=== PATIENT | female | born 1980 | race African-American/Black ===

== ENCOUNTER 2017-03-26 12:42 | Observation (INO) | payer OTHER ==
[~2017-03-26] VITALS: Ht 188 cm; Wt 158.8 kg
[~2017-03-26 12:42] MED LIST: AMLO10TA2 PO; ASPI-482 PO; CARV6.252 PO; CLON0.2T PO; CRESTOR10 MG PO; FURO40TA4 PO; HYDR-2868 PO; INSU100C4 SQ; INSU100I17 SQ; INSU300I SQ; INSULIN ASPART 300 UNITS/3 ML INSULN.PEN SQ SCH; METO100T2 PO; RANI150C PO
[2017-03-26] MEDS ORDERED: IV NORMAL SALINE 1000ML BAG 1,000 ML IV SCH (12:47)
[2017-03-26] MEDS ORDERED: ASPIRIN CHEWABLE 81 MG TABLET. PO ONE (13:00)
[2017-03-26] MEDS ORDERED: fentaNYL PF VIAL 100 MCG/2 ML VIAL IV PRN ×2 (13:00→14:45)
[2017-03-26] MEDS ORDERED: 0.9 % SODIUM CHLORIDE 10 ML DISP.SYRIN. IV PRN (13:00)
--- NOTE | 2017-03-26 13:08 | PHYS DOC ---
Past Medical History Past Medical History: CHF, Diabetes-Type I, Hypertension Additional Past Medical Histor: STAGE 4 KIDNEY DISEASE, SEASONAL ALLERGIES Past Surgical History: Other Additional Past Surgical Histo: HERNIA REPAIR Alcohol Use: None Drug Use: None Adult General Chief Complaint Chief Complaint: CHEST PAIN [facility] This is is a pleasant 36-year-old female with a known history of hyperlipidemia , hypertension, renal insufficiency presents with chest pain reminiscent of her prior acute heart attack she had last year. She is presently under the care of Dr. RAMOS hide washer here at [facility] is also to the care of Dr. BECERRA modeling and simulation analyst here at [facility]. Her chest pain began about an hour prior to arrival described as squeezing pressure over the left breast with radiation to the left shoulder and left arm and going into the back. It does make her very nauseous and dizzy when she has he symptoms. Pain is not worse with exertion or position disc to Began at Rest While Watching a Rerun of TV show. She admits she had an episode last week Wednesday similar nature she took her nitroglycerin and aspirin and went away with rest. She is concerned that she is having another heart attack. Given her prior history she is very sensitive to chest pain I will come and which she has. This point patient patient's pain is 10 of 10 with no vomiting no diarrhea no shortness of breath no diaphoresis. Patient denies any cough or URI symptoms runny nose sore throat or other symptoms. Patient has had prior cardiac intervention with no stents placed according to her history she's had a prior stroke in 2005 with no significant residual deficits. Dr. Monson is PCP. Review of Systems Review of Systems Constitutional: Denies fever or chills [] Eyes: Denies change in visual acuity, redness, or eye pain [] HENT: Denies nasal congestion or sore throat [] Respiratory: Denies cough or shortness of breath [] Cardiovascular: No additional information not addressed in HPI [] GI: Mild nausea with constipation no vomiting diarrhea or blood in her stool. : Denies dysuria or hematuria [] Musculoskeletal: Denies back pain or joint pain [] Integument: Denies rash or skin lesions [] Neurologic: Denies headache, she complains of dizziness has been going on for 3 days without symptoms and dizziness today with chest pain Endocrine: Denies polyuria or polydipsia [] Current Medications Current Medications Current Medications Medications (Trade) Dose Ordered Sig/Allyn Start Time Stop Time Status Last Admin Dose Admin Aspirin (Children'S Aspirin) 324 mg 1X ONCE 03/26/17 13:00 03/26/17 13:01 DC 03/26/17 13:19 324 MG Fentanyl Citrate (Fentanyl 2ml Vial) 50 mcg PRN Q15MIN PRN 03/26/17 13:00 03/27/17 12:59 Sodium Chloride (Normal Saline Flush) 10 ml QSHIFT PRN 03/26/17 13:00 Allergies Allergies Allergies Coded Allergies Type Severity Reaction Last Updated Verified codeine Allergy Intermediate 01/24/16 Yes Physical Exam Physical Exam Constitutional: Well developed, well nourished, obese no acute distress nontoxic. Nondiaphoretic HENT: Normocephalic, atraumatic, bilateral external ears normal, oropharynx moist, no oral exudates, nose normal. [] Eyes: PERRLA, EOMI, conjunctiva normal, no discharge. [] Neck: Normal range of motion, no tenderness, supple, no stridor. [] Cardiovascular:Heart rate regular rhythm, no murmur [] Lungs & Thorax: Bilateral breath sounds clear to auscultation [] Abdomen: Bowel sounds normal, soft, no tenderness, no masses, no pulsatile masses. [] Skin: Warm, dry, no erythema, no rash. [] Back: No tenderness, no CVA tenderness. [] Extremities: No tenderness, no cyanosis, no clubbing, ROM intact, no edema. [] Neurologic: Alert and oriented X 3, normal motor function, normal sensory function, no focal deficits noted. [] Psychologic: Affect normal, judgement normal, mood normal. [] Current Patient Data Vital Signs Vital Signs Date Time Temp Pulse Resp B/P (MAP) Pulse Ox O2 Delivery O2 Flow Rate FiO2 03/26/17 14:25 78 137/84 (101) 98 03/26/17 12:51 99.5 18 Room Air 99.5 Lab Values Laboratory Tests Test 03/26/17 13:25 03/26/17 13:27 White Blood Count 5.8 x10^3/uL (4.0-11.0) Red Blood Count 3.93 x10^6/uL (3.50-5.40) Hemoglobin 11.4 g/dL (12.0-15.5) L Hematocrit 31.3 % (36.0-47.0) L Mean Corpuscular Volume 80 fL (79-100) Mean Corpuscular Hemoglobin 29 pg (25-35) Mean Corpuscular Hemoglobin Concent 36 g/dL (31-37) Red Cell Distribution Width 14.1 % (11.5-14.5) Platelet Count 302 x10^3/uL (140-400) Neutrophils (%) (Auto) 46 % (31-73) Lymphocytes (%) (Auto) 40 % (24-48) Monocytes (%) (Auto) 10 % (0-9) H Eosinophils (%) (Auto) 3 % (0-3) Basophils (%) (Auto) 1 % (0-3) Neutrophils # (Auto) 2.7 x10^3uL (1.8-7.7) Lymphocytes # (Auto) 2.3 x10^3/uL (1.0-4.8) Monocytes # (Auto) 0.6 x10^3/uL (0.0-1.1) Eosinophils # (Auto) 0.2 x10^3/uL (0.0-0.7) Basophils # (Auto) 0.1 x10^3/uL (0.0-0.2) D-Dimer (Praveena) < 0.27 ug/mlFEU Magnesium Level 1.8 mg/dL (1.8-2.4) Creatine Kinase 152 U/L (26-192) Creatine Kinase MB (Mass) 1.5 ng/mL (0.0-3.6) Creatine Kinase MB Relative Index 1.0 % (0-4) Troponin I Quantitative < 0.017 ng/mL (0.000-0.055) XB-Lkw-D-Type Natriuretic Peptide 246 pg/mL (0-124) H Lipase 123 U/L (73-393) Thyroid Stimulating Hormone (TSH) 2.065 uIU/mL (0.358-3.74) POC Urine HCG, Qualitative Hcg negative (Negative) Laboratory Tests 03/26/17 13:25 EKG EKG [EKG timed 1252 read by [employer] heart rate 91. Normal of 124 QRS of 72 QTc of 432 normal sensory rhythm there is a questionable T wave flattening in the inferior leads obvious ST segment elevation consistent with acute coronary ischemia.] Radiology/Procedures Radiology/Procedures [] IMAGING REPORT Signed PATIENT: EVER MUNOZ ACCOUNT: [id number] : 1980 LOCATION: ER AGE: 36 SEX: F EXAM STATUS: PRE ER ORD. PHYSICIAN: WATSON OSBORN MD REASON: chest pain PROCEDURE: CHEST PA & LATERAL Indication chest pain. Frontal and lateral views of the chest were obtained and are compared to an exam 01/24/2016. The heart and pulmonary vessels are normal. The lungs are clear. There is no pleural fluid or pneumothorax. Scoliosis is noted. IMPRESSION: No acute or focal process is seen in the chest DICTATED and SIGNED BY: JOSEPH AGUSTIN MD DATE: 03/26/17 1319 CC: JUN MONSON; WATSON OSBORN MD ~ Chest x-ray reviewed by me agree with above assessment Course & Med Decision Making Course & Med Decision Making Pertinent Labs and Imaging studies reviewed. (See chart for details) [] My differential diagnosis for chest pain includes the following considerations : Acute coronary syndrome, Aortic dissection, Pulmonary embolism, Tension pneumothorax, Pericardial tamponade, Mediastinitis (eg, esophageal rupture) Pulmonary effusion, pneumonia, tracheitis, bronchitis, chest wall pain from muscle tenderness, Mitral prolapse or other valvular disorders pericarditis, myocarditis, endocarditis, cardiac dysrhythmias, rib contusions, rib fractures, intracostal muscle strains, prostatitis, psychiatric chest pain unclear etiology , collagen vascular disease lupus, sarcoid, scleroderma, Kawasaki's disease, probably enteritis nodosa, like peptic ulcer disease, esophageal reflux disease , esophagitis, Boerhaave syndrome. This list is not complete but some of the major considerations that were used during this evaluation Patient presents with chest pain that began hour prior to arrival and later lightheaded and dizzy with nausea without vomiting. She has a history of acute coronary ischemia hypertension for which her symptoms are actually high risk her heart score is 4 which which are intermediate risk for acute coronary event. Patient be admitted to the hospital under PCP service Dr. Luis Angel Sandoval who is covering for her doctor Dr. MONSON. She does have a relationship with a hide washer who will be consult as well. Over the course of her evaluation patient's pain is improved articles of the normal EKGs are unremarkable chest x- ray is unremarkable dimer is negative perc negative doubt pulmonary embolism Impression: Chest pain unclear etiology Disposition admission in the hospital for rule out protocol exercise stress testing treadmill test cardiology evaluation Dragon Disclaimer Dragon Disclaimer This electronic medical record was generated, in whole or in part, using a voice recognition dictation system. Departure Departure Impression: Primary Impression: Chest pain Disposition: 02 TRANSFER [facility] HOSP Admitting Physician: Paula Sandoval Condition: IMPROVED Referrals: JUN MONSON (PCP) WATSON OSBORN MD March 26, 2017 13:08
--- NOTE | 2017-03-26 13:23 | RAD ---
Indication chest pain. Frontal and lateral views of the chest were obtained and are compared to an exam 01/24/2016. The heart and pulmonary vessels are normal. The lungs are clear. There is no pleural fluid or pneumothorax. Scoliosis is noted. IMPRESSION: No acute or focal process is seen in the chest
[2017-03-26 13:36] LABS: BASO # 0.1 x10^3/uL (0.0-0.2); BASO % 1 % (0-3); EOS % 3 % (0-3); HEMATOCRIT 31.3 % (36.0-47.0); HEMOGLOBIN 11.4 g/dL (12.0-15.5); LYMPH # 2.3 x10^3/uL (1.0-4.8); LYMPH % 40 % (24-48); MEAN CORPUSCULAR HEMOGLOBIN 29 pg (25-35); MEAN CORPUSCULAR HGB CONC 36 g/dL (31-37); MEAN CORPUSCULAR VOLUME 80 fL (79-100); MONO % 10 % (0-9); NEUT % 46 % (31-73); PLATELET COUNT 302 x10^3/uL (140-400); RED BLOOD COUNT 3.93 x10^6/uL (3.50-5.40); RED CELL DISTRIBUTION WIDTH 14.1 % (11.5-14.5); WHITE BLOOD COUNT 5.8 x10^3/uL (4.0-11.0)
--- NOTE | 2017-03-26 13:43 | EKG ---
[facility] [address] [place] [address] Test Date: 2017-03-26 Test Time: 12:52:32 Pat Name: EVER MUNOZ Department: Room: Gender: Female Equip Tech: : 1980 Requested By: WATSON OSBORN Order Number: [id number] Reading MD: Edward Asif Measurements Intervals [place] Rate: 91 P: -38 MS: 124 QRS: 37 QRSD: 72 T: 28 QT: 350 QTc: 432 Interpretive Statements SINUS RHYTHM Electronically Signed On 03-29-2017 9:37:47 CDT by Edward Asif
[2017-03-26 13:52] LABS: MAGNESIUM 1.8 mg/dL (1.8-2.4)
[2017-03-26 14:03] LABS: CKMB MASS 1.5 ng/mL (0.0-3.6)
[2017-03-26 14:30] LABS: BILIRUBIN,URINE NEGATIVE (NEG); GLUCOSE,URINE NEGATIVE (NEG); NITRITE,URINE NEGATIVE (NEG); PROTEIN,URINE >=300 mg/dL (NEG-TRACE); UROBILINOGEN,URINE 0.2 mg/dL (0.2 mg/dL)
[2017-03-26 14:38] LABS: BACTERIA,URINE 0 /HPF (0-FEW); RBC,URINE OCC /HPF (0-2); SQUAMOUS EPITHELIAL CELL,UR MOD /LPF; WBC,URINE OCC /HPF (0-4)
[2017-03-26] MEDS ORDERED: ONDANSETRON PF 4 MG/2 ML VIAL. IV PRN (14:45)
--- NOTE | 2017-03-26 15:05 | ACF ---
Admission Forms Criteria CARDIOLOGY GRG Clinical Indications for Admission to Inpatient Care ( Place 'X' for any and all applicable criteria): Hospital admission is needed for appropriate care of the patient because of ANY ONE of the following (1): [ ] I. Hemodynamic instability as indicated by ALL of the following (1)(2)(3) (4)(5) [ ]a) Vital signs or other findings not as expected for chronic patient condition or baseline [ ]b) Instability indicated by ANY ONE of the following: [ ]i) Hypotension [ ]ii) Symptomatic Tachycardia unresponsive to treatment ( e.g., analgesia, fluids, sedation as indicated) [ ]iii) Inadequate perfusion indicated by ANY ONE of the following: [ ] 1) Lactic acidosis (> 2 mmol/L) [ ] 2) New abnormal capillary refill (> 3 seconds) [ ] 3) Reduced urine output [ ] 4) New altered mental status [ ]iv) Orthostatic vital sign changes unresponsive to treatment (e.g., fluids) [ ]v) IV inotropic or vasopressor medication required to maintain adequate blood pressure or perfusion [ ] II. Severe heart failure as indicated by ANY ONE of the following(17)(18) [ ]a) Respiratory distress [ ]b) Hypotension [ ]c) Anasarca (refractory to outpatient therapy) [ ]d) Cardiac arrhythmias of immediate concern [ ]e) Myocardial ischemia [ ] III. Cardiac arrhythmias or findings of immediate concern indicated by ANY ONE of the following (19)(20): [ ] a) Heart rhythms that are inherently dangerous or unstable indicated by ANY ONE of the following (21)(22)(23): [ ] i) Resuscitated ventricular fibrillation or cardiac arrest [ ] ii) Ventricular escape rhythm [ ] iii) Sustained ventricular tachycardia (30 seconds or more of ventricular rhythm at greater than 100 beats per minute) [ ] iv) Nonsustained ventricular tachycardia and ANY ONE of the following: [ ] 1) Suspected cardiac ischemia as cause or consequence of ventricular tachycardia [ ] 2) In setting of acute myocarditis [ ] b) Unstable cardiac conduction defects indicated by ANY ONE of the following(23)(24)(25) [ ] i) Type II second-degree atrioventricular block [ ]ii) Third-degree atrioventricular block [ ]iii) New-onset left bundle branch block with suspected myocardial ischemia [ ]c) Any heart rhythm and ANY ONE of the following (21)(22)(26)(27) (28) [ ] i) Continuous long-term ECG monitoring needed (e.g., initiation of drug requiring monitoring for more than 24 hours) [ ] ii) Patient has automatic implanted cardioverter defibrillator that is repeatedly firing, malfunctioning, or in need of immediate adjustment of settings beyond the scope of ambulatory or observation care [ ]d) Heart rhythms of concern due to ANY ONE of the following: [ ] i) Hypotension [ ] ii) Respiratory distress [ ] iii) Association with other significant symptoms (e.g., bradycardia with syncope or ongoing dizziness, supraventricular tachycardia with chest pain (14)(15)(17) [ ] IV. Monitoring for cardiac contusion beyond the scope of observation care needed [A](30)(31)(32) [ ] V. Surgical or device complication (e.g., valve replacement complication , pacemaker dysfunction) (35)(41)(44)(45)(46) [ ] . Inpatient palliative care needed. [B](49) Also use Inpatient Palliative Care Criteria [ ] VII. Nonbacterial thrombotic (marantic) endocarditis (36)(43)(47)(48) [X] VIII. Cardiology condition, symptom, or finding for which emergency and observation care has failed or are not considered appropriate. [ ] IX. Acute valvular disease requiring inpatient as indicated by ANY ONE of the following (41) [ ]a) Acute valvular regurgitation (42) [ ]b) Noninfectious valvulitis (43) [ ]c) Obstructive valve thrombosis [ ]d) Paravalvular leak [ ]e) Other significant valvular disorder remaining after emergency or observation level of care (as appropriate) [ ]X. Pericardial disease requiring inpatient treatment as indicated by ANY ONE of the following (33)(34)(35)(36)(37) [ ]a) Suspected tamponade (38)(39)(40) [ ]b) Hemopericardium [ ]c) Other significant pericardial disorder remaining after emergency or observation level of care (as appropriate) [ ] XI. Cardiac ischemia beyond scope of emergency and observation care. [ ] XII. Hypertension requiring inpatient treatment as indicated by ANY ONE of the following (6)(7)(8) [ ]a) SBP greater than 220 mm Hg or DBP greater than 120 mmHg despite treatment [ ]b) SBP greater than 140 mm Hg or DBP greater than 100 mm Hg with evidence of acute end organ damage as indicated by ANY ONE of the following [ ] i) Encephalopathy [ ] ii) Acute renal failure as indicated by new onset of ANY ONE of the following (9)(10)(11)(12)(13) [ ]1) 3-fold rise in serum creatinine from baseline [ ]2) Serum creatinine greater than 4 mg/dL ( 354 micromoles/L) with acute rise greater than 0.5 mg/dL (44.2 micromoles/L) [ ]3) Reduction of more than 75% in estimated glomerular filtration rate from baseline [ ]4) Estimated glomerular filtration rate less than 35 mL/min/1.73m2 (0.59 mL/sec/1.73m2) in child up to 18 years of age [ ]5) Cessation of urine output indicated by ALL of the following [ ]A. Adequate volume status [ ]B. Inadequate urine output as indicated by ANY ONE of the following [ ]a. Urine output less than 0.3 mL/kg/hr for 24 hours [ ]b. Anuria (urine output less than 0.1 mL/kg/hr) for 12 hours [ ] iii) Aortic dissection [ ] iv) Myocardial Ischemia [ ] v) Left ventricular heart failure [ ]vi) Retinal Hemorrhage [ ]vii) Other significant finding [ ]c) Hypertension in child requiring inpatient treatment as indicated by ALL of the following(14)(15)(16) [ ] i) Outpatient treatment not effective, not available, or not appropriate [ ]ii) SBP or DBP greater than 95th percentile for age [ ]iii) Evidence of acute end organ damage as indicated by ANY ONE of the following [ ]1) Altered mental status [ ]2) Acute renal failure as indicated by new onset of ANY ONE of the following(9)(10)(11)(12)(13) [ ]A. 3-fold rise in serum creatinine from baseline [ ]B. Serum creatinine greater than 4 mg/dL (354 micromoles/L) with acute rise greater than 0.5 mg/dL (44.2 micromoles/L) [ ]C. Reduction of more than 75% in estimated glomerular filtration rate from baseline [ ]D. Estimated glomerular filtration rate less than 35 mL/min/1.73m2 (0.59 mL/sec/1.73m2) in child up to 18 years of age [ ]E. Cessation of urine output indicated by ALL of the following [ ]a. Adequate volume status [ ]b. Inadequate urine output as indicated by ANY ONE of the following [ ]i) Urine output less than 0.3 mL/kg/hr for 24 hours [ ]ii) Anuria ( urine output less than 0.1 mL/kg/hr) for 12 hours [ ]3) Severe headache [ ]4) Visual disturbance [ ]5) Retinal hemorrhage [ ]6) Other significant finding [ ]XIII. Complications of transplanted heart indicated by ANY ONE of the following(61): [ ]a) Acute graft rejection requiring inpatient management (eg, intravenous immunosuppression)(62)(63) [ ]b) Acute graft heart failure indicated by ANY ONE of the following(64): [ ]i) Hemodynamic instability [ ]ii) Cardiac arrhythmias of immediate concern [ ]iii) Pulmonary edema that is very severe (eg, mechanical ventilation needed, imminent or likely, need for 100% oxygen to keep oxygen saturation above 90%) [ ]iv) Pulmonary edema that is persistent as indicated by ALL of the following: [ ]1) New need for oxygen therapy to keep oxygen saturation above 90% (or increased FiO2 need from baseline) [ ]2) Has not improved sufficiently with emergency department or observation care IV diuretics or other heart failure treatments[E] [ ]v) Altered mental status that is severe or persistent [ ]vi) Increased creatinine (new on laboratory test) with reduction of more than 50% in estimated glomerular filtration rate from baseline [ ]vii) Progressively (ongoing) rising creatinine (known from past laboratory test) with reduction of more than 25% in estimated glomerular filtration rate from baseline [ ]viii) Acute renal failure [ ]ix) Acute peripheral ischemia (eg, examination shows pulseless, cool, mottled, or cyanotic extremity) [ ]x) Pulmonary artery catheter monitoring needed [ ]xi) Other sign or symptom of heart failure requiring inpatient treatment (ie, too severe or not responsive to outpatient and observation care treatment) [ ]c) Infection requiring inpatient management (eg, Hemodynamic instability, need for intravenous antimicrobial treatment)(66)(67)(68)(69)(70) [ ]d) Cardiac allograft vasculopathy requiring inpatient management ( eg evidence of cardiac ischemia)(71) [ ]e) Other complication of transplanted heart (eg, stroke, severe pulmonary hypertension, severe valvular dysfunction) requiring inpatient management(72) The original [facility] content created by [facility] has been revised. The portions of the content which have been revised are identified through the use of italic text or in bold, and [facility] has neither reviewed nor approved the modified material. All other unmodified content is copyright [facility]. Please see references footnoted in the original [facility] edition 2016 Admission Criteria Met?: Yes GERALDO MISHRA March 26, 2017 15:05
[2017-03-26] MEDS ORDERED: LINA5TAB4 (16:46)
[2017-03-26] MEDS ORDERED: NITR0.4T (16:46)
[2017-03-26 17:05] VITALS: BP 148/96
[2017-03-26] MEDS ORDERED: NITROGLYCERIN SUBLINGUAL 0.4 MG BOTTLE OF 25. SL PRN (17:15)
[2017-03-26] MEDS ORDERED: LISI-338 (17:27)
[2017-03-26] MEDS ORDERED: INSU100V13 SQ (17:36)
[2017-03-26 19:35] VITALS: BP 154/90
[2017-03-26] MEDS: LISINOPRIL 5 MG TABLET. PO SCH (20:50)
[2017-03-26] MEDS: cloNIDine HCL 0.2 MG TABLET PO SCH (20:51)
[2017-03-26] MEDS ORDERED: amLODIPine BESYLATE 10 MG TABLET PO SCH (21:00)
[2017-03-26] MEDS: FUROSEMIDE 40 MG TABLET. PO SCH (21:00)
[2017-03-26] MEDS: METOPROLOL TART IMMED RELEASE 50 MG TABLET. PO SCH (21:00)
[2017-03-26] MEDS ORDERED: ATORVASTATIN CALCIUM 40 MG TABLET. PO SCH (21:00)
[2017-03-26] MEDS ORDERED: FAMOTIDINE 20 MG TABLET. PO SCH (21:00)
[2017-03-26] MEDS: INSULIN DETEMIR 300 UNITS/3 ML INSULN.PEN. SQ SCH (21:05)
[2017-03-26 23:00] VITALS: BP 156/98
[2017-03-27] VITALS (7 sets, daily range): BP systolic 103–157; BP diastolic 65–97
[2017-03-27 03:52] LABS: BASO # 0.1 x10^3/uL (0.0-0.2); BASO % 1 % (0-3); EOS % 3 % (0-3); HEMATOCRIT 29.1 % (36.0-47.0); HEMOGLOBIN 10.4 g/dL (12.0-15.5); LYMPH # 2.8 x10^3/uL (1.0-4.8); LYMPH % 42 % (24-48); MEAN CORPUSCULAR HEMOGLOBIN 28 pg (25-35); MEAN CORPUSCULAR HGB CONC 36 g/dL (31-37); MEAN CORPUSCULAR VOLUME 79 fL (79-100); MONO % 9 % (0-9); NEUT % 46 % (31-73); PLATELET COUNT 287 x10^3/uL (140-400); RED BLOOD COUNT 3.69 x10^6/uL (3.50-5.40); RED CELL DISTRIBUTION WIDTH 14.1 % (11.5-14.5); WHITE BLOOD COUNT 6.7 x10^3/uL (4.0-11.0)
[2017-03-27 04:14] LABS: ALBUMIN/GLOBULIN RATIO 0.9 (1.0-1.7); CALCIUM 8.4 mg/dL (8.5-10.1); CREATININE 3.5 mg/dL (0.6-1.0); GFR 17.9; POTASSIUM 4.6 mmol/L (3.5-5.1); TOTAL BILIRUBIN 0.2 mg/dL (0.2-1.0); TOTAL PROTEIN 6.4 g/dL (6.4-8.2)
[2017-03-27] MEDS ORDERED: ONDANSETRON PF 4 MG/2 ML VIAL. IV PRN (07:15)
[2017-03-27] MEDS ORDERED: NON FORMULARY ITEM (Insulin Aspart (Novolog) 0 UNIT) SQ SCH (07:30)
[2017-03-27] MEDS: INSULIN ASPART 300 UNITS/3 ML INSULN.PEN SQ SCH ×5 (07:30→16:30)
--- NOTE | 2017-03-27 07:50 | PDOC1 ---
SAVITA DUEÑAS [employer] 03/27/17 0750: HISTORY AND PHYSICAL Chief Complaint Chief Complaint This 36 year old female has been admitted with a chief complaint of chest pain and dizziness. She is very specific regarding her PMH: 1) Dizziness: day before admission she had episode of vertigo while in bed. Meclizine not help and she placed a homepathic wrist band for dizziness that did help. Dizziness from sitting to standing started yesterday. 2) Last Wednesday woke at 3am with heart beat in ear and heart racing. She took 2 NTG 5 min apart and ASA. It resolved and she felt fatigued for the next 2 days. 3) She was at rest watching TV when she felt a stabbing burning pain through heart that radiated to L shoulder with numbness down left arm. BP 148/89. Contacted Dr. Mcdonough office and was instructed to proceed to ED. Prior to leaving for ED her BP was 189/100 and by the time she was assessed in ER it was back down. Last night had stabbing pain through heart radiating to L shoulder and through shoulder to back. With each episode she did not have dyspnea, diaphoresis, nausea, vomiting or palpitations. She has a h/o suspected NSTEMI in January 2016. Stress test was false positive. ECHO normal EF, diastolic function and no valvular abnormalities. 4) CKD IV -she is under Dr. Johnson management and her CKD is stable. ED course: EKG non specific ST changes, troponin not elevated, CXR clear, and CKD stable. She is admitted to [facility] for further evaluation and treatment. Consultations have been placed with Dr. Mcdonough and Dr. Johnson. Problem List Problems Medical Problems: (1) Chest pain Status: Acute Past Medical History Cardiovascular: CHF, HTN, Hyperlipidemia CENTRAL NERVOUS SYSTEM: CVA (2006 no residual ), TIA, Vertigo Heme/Onc: Anemia NOS (renal disease ) Renal/: Chronic renal insuff (CKD IV) Endocrine: Diabetes Past Surgical History PSH IUD, CC 01/2016 false + Past Family History Family History: Diabetes, Heart Disease, Hypertension Past Social History [facility] Denies smoking, ETOH or illicit drugs Review of Symptoms Review of Symptoms A 14 point ROS was completed with the following noted as positive: per HPI Other systems reviewed and negative. Medications Medications reviewed and reconciled Allergy Allergies Coded Allergies Type Severity Reaction Last Updated Verified codeine Allergy Intermediate 01/24/16 Yes Physical Exam Physical Exam General appearance - alert,well appearing, and in no distress and oriented to person, place, and time Mental Status - alert, oriented to person, place, and time, affect appropriate to mood Head - normal Chest - clear to auscultation, no wheezes, rales or rhonchi, symmetric air entry Heart - S1 and S2 normal Abdomen - soft, nontender, nondistended, obese Neurological - no acute neurological deficit noted. Musculoskeletal - no muscular tenderness noted Extremities - no pedal edema Skin - warm and dry VTE Prophylaxis Ordered VTE Prophylaxis Devices: Yes VTE Pharmacological Prophylaxi: No Assessment Labs Laboratory Tests Test 03/26/17 13:25 03/26/17 13:27 03/26/17 14:14 03/26/17 15:12 White Blood Count 5.8 x10^3/uL (4.0-11.0) Red Blood Count 3.93 x10^6/uL (3.50-5.40) Hemoglobin 11.4 g/dL (12.0-15.5) Hematocrit 31.3 % (36.0-47.0) Mean Corpuscular Volume 80 fL (79-100) Mean Corpuscular Hemoglobin 29 pg (25-35) Mean Corpuscular Hemoglobin Concent 36 g/dL (31-37) Red Cell Distribution Width 14.1 % (11.5-14.5) Platelet Count 302 x10^3/uL (140-400) Neutrophils (%) (Auto) 46 % (31-73) Lymphocytes (%) (Auto) 40 % (24-48) Monocytes (%) (Auto) 10 % (0-9) Eosinophils (%) (Auto) 3 % (0-3) Basophils (%) (Auto) 1 % (0-3) Neutrophils # (Auto) 2.7 x10^3uL (1.8-7.7) Lymphocytes # (Auto) 2.3 x10^3/uL (1.0-4.8) Monocytes # (Auto) 0.6 x10^3/uL (0.0-1.1) Eosinophils # (Auto) 0.2 x10^3/uL (0.0-0.7) Basophils # (Auto) 0.1 x10^3/uL (0.0-0.2) D-Dimer (Praveena) < 0.27 ug/mlFEU Magnesium Level 1.8 mg/dL (1.8-2.4) Creatine Kinase 152 U/L (26-192) Creatine Kinase MB (Mass) 1.5 ng/mL (0.0-3.6) Creatine Kinase MB Relative Index 1.0 % (0-4) Troponin I Quantitative < 0.017 ng/mL (0.000-0.055) BB-Mee-Y-Type Natriuretic Peptide 246 pg/mL (0-124) Lipase 123 U/L (73-393) Thyroid Stimulating Hormone (TSH) 2.065 uIU/mL (0.358-3.74) Bedside Urine HCG, Qualitative Hcg negative (Negative) Urine Collection Type Unknown Urine Color Yellow Urine Clarity Clear Urine pH 7.0 Urine Specific [place] 1.010 Urine Protein >=300 mg/dL (NEG-TRACE) Urine Glucose (UA) Negative mg/dL (NEG) Urine Ketones (Stick) Negative mg/dL (NEG) Urine Blood Negative (NEG) Urine Nitrite Negative (NEG) Urine Bilirubin Negative (NEG) Urine Urobilinogen Dipstick 0.2 mg/dL (0.2 mg/dL) Urine Leukocyte Esterase Negative (NEG) Urine RBC Occ /HPF (0-2) Urine WBC Occ /HPF (0-4) Urine Squamous Epithelial Cells Mod /LPF Urine Transitional Epithelial Cells Occ /LPF Urine Bacteria 0 /HPF (0-FEW) Glucose (Fingerstick) 145 mg/dL (70-99) Test 03/26/17 16:59 03/26/17 20:45 03/26/17 20:48 03/27/17 03:00 Glucose (Fingerstick) 148 mg/dL (70-99) 246 mg/dL (70-99) Troponin I Quantitative < 0.017 ng/mL (0.000-0.055) < 0.017 ng/mL (0.000-0.055) White Blood Count 6.7 x10^3/uL (4.0-11.0) Red Blood Count 3.69 x10^6/uL (3.50-5.40) Hemoglobin 10.4 g/dL (12.0-15.5) Hematocrit 29.1 % (36.0-47.0) Mean Corpuscular Volume 79 fL (79-100) Mean Corpuscular Hemoglobin 28 pg (25-35) Mean Corpuscular Hemoglobin Concent 36 g/dL (31-37) Red Cell Distribution Width 14.1 % (11.5-14.5) Platelet Count 287 x10^3/uL (140-400) Neutrophils (%) (Auto) 46 % (31-73) Lymphocytes (%) (Auto) 42 % (24-48) Monocytes (%) (Auto) 9 % (0-9) Eosinophils (%) (Auto) 3 % (0-3) Basophils (%) (Auto) 1 % (0-3) Neutrophils # (Auto) 3.1 x10^3uL (1.8-7.7) Lymphocytes # (Auto) 2.8 x10^3/uL (1.0-4.8) Monocytes # (Auto) 0.6 x10^3/uL (0.0-1.1) Eosinophils # (Auto) 0.2 x10^3/uL (0.0-0.7) Basophils # (Auto) 0.1 x10^3/uL (0.0-0.2) Sodium Level 134 mmol/L (136-145) Potassium Level 4.6 mmol/L (3.5-5.1) Chloride Level 101 mmol/L (98-107) Carbon Dioxide Level 25 mmol/L (21-32) Anion Gap 8 (6-14) Blood Urea Nitrogen 30 mg/dL (7-20) Creatinine 3.5 mg/dL (0.6-1.0) Estimated GFR (Cockcroft-Gault) 17.9 BUN/Creatinine Ratio 9 (6-20) Glucose Level 252 mg/dL (70-99) Calcium Level 8.4 mg/dL (8.5-10.1) Total Bilirubin 0.2 mg/dL (0.2-1.0) Aspartate Amino Transf (AST/SGOT) 8 U/L (15-37) Alanine Aminotransferase (ALT/SGPT) 12 U/L (14-59) Alkaline Phosphatase 64 U/L (46-116) Total Protein 6.4 g/dL (6.4-8.2) Albumin 3.0 g/dL (3.4-5.0) Albumin/Globulin Ratio 0.9 (1.0-1.7) Laboratory Tests Test 03/26/17 13:25 03/26/17 13:27 03/26/17 14:14 03/26/17 15:12 White Blood Count 5.8 x10^3/uL (4.0-11.0) Red Blood Count 3.93 x10^6/uL (3.50-5.40) Hemoglobin 11.4 g/dL (12.0-15.5) Hematocrit 31.3 % (36.0-47.0) Mean Corpuscular Volume 80 fL (79-100) Mean Corpuscular Hemoglobin 29 pg (25-35) Mean Corpuscular Hemoglobin Concent 36 g/dL (31-37) Red Cell Distribution Width 14.1 % (11.5-14.5) Platelet Count 302 x10^3/uL (140-400) Neutrophils (%) (Auto) 46 % (31-73) Lymphocytes (%) (Auto) 40 % (24-48) Monocytes (%) (Auto) 10 % (0-9) Eosinophils (%) (Auto) 3 % (0-3) Basophils (%) (Auto) 1 % (0-3) Neutrophils # (Auto) 2.7 x10^3uL (1.8-7.7) Lymphocytes # (Auto) 2.3 x10^3/uL (1.0-4.8) Monocytes # (Auto) 0.6 x10^3/uL (0.0-1.1) Eosinophils # (Auto) 0.2 x10^3/uL (0.0-0.7) Basophils # (Auto) 0.1 x10^3/uL (0.0-0.2) D-Dimer (Praveena) < 0.27 ug/mlFEU Magnesium Level 1.8 mg/dL (1.8-2.4) Creatine Kinase 152 U/L (26-192) Creatine Kinase MB (Mass) 1.5 ng/mL (0.0-3.6) Creatine Kinase MB Relative Index 1.0 % (0-4) Troponin I Quantitative < 0.017 ng/mL (0.000-0.055) XH-Emu-H-Type Natriuretic Peptide 246 pg/mL (0-124) Lipase 123 U/L (73-393) Thyroid Stimulating Hormone (TSH) 2.065 uIU/mL (0.358-3.74) Bedside Urine HCG, Qualitative Hcg negative (Negative) Urine Collection Type Unknown Urine Color Yellow Urine Clarity Clear Urine pH 7.0 Urine Specific [place] 1.010 Urine Protein >=300 mg/dL (NEG-TRACE) Urine Glucose (UA) Negative mg/dL (NEG) Urine Ketones (Stick) Negative mg/dL (NEG) Urine Blood Negative (NEG) Urine Nitrite Negative (NEG) Urine Bilirubin Negative (NEG) Urine Urobilinogen Dipstick 0.2 mg/dL (0.2 mg/dL) Urine Leukocyte Esterase Negative (NEG) Urine RBC Occ /HPF (0-2) Urine WBC Occ /HPF (0-4) Urine Squamous Epithelial Cells Mod /LPF Urine Transitional Epithelial Cells Occ /LPF Urine Bacteria 0 /HPF (0-FEW) Glucose (Fingerstick) 145 mg/dL (70-99) Test 03/26/17 16:59 03/26/17 20:45 03/26/17 20:48 03/27/17 03:00 Glucose (Fingerstick) 148 mg/dL (70-99) 246 mg/dL (70-99) Troponin I Quantitative < 0.017 ng/mL (0.000-0.055) < 0.017 ng/mL (0.000-0.055) White Blood Count 6.7 x10^3/uL (4.0-11.0) Red Blood Count 3.69 x10^6/uL (3.50-5.40) Hemoglobin 10.4 g/dL (12.0-15.5) Hematocrit 29.1 % (36.0-47.0) Mean Corpuscular Volume 79 fL (79-100) Mean Corpuscular Hemoglobin 28 pg (25-35) Mean Corpuscular Hemoglobin Concent 36 g/dL (31-37) Red Cell Distribution Width 14.1 % (11.5-14.5) Platelet Count 287 x10^3/uL (140-400) Neutrophils (%) (Auto) 46 % (31-73) Lymphocytes (%) (Auto) 42 % (24-48) Monocytes (%) (Auto) 9 % (0-9) Eosinophils (%) (Auto) 3 % (0-3) Basophils (%) (Auto) 1 % (0-3) Neutrophils # (Auto) 3.1 x10^3uL (1.8-7.7) Lymphocytes # (Auto) 2.8 x10^3/uL (1.0-4.8) Monocytes # (Auto) 0.6 x10^3/uL (0.0-1.1) Eosinophils # (Auto) 0.2 x10^3/uL (0.0-0.7) Basophils # (Auto) 0.1 x10^3/uL (0.0-0.2) Sodium Level 134 mmol/L (136-145) Potassium Level 4.6 mmol/L (3.5-5.1) Chloride Level 101 mmol/L (98-107) Carbon Dioxide Level 25 mmol/L (21-32) Anion Gap 8 (6-14) Blood Urea Nitrogen 30 mg/dL (7-20) Creatinine 3.5 mg/dL (0.6-1.0) Estimated GFR (Cockcroft-Gault) 17.9 BUN/Creatinine Ratio 9 (6-20) Glucose Level 252 mg/dL (70-99) Calcium Level 8.4 mg/dL (8.5-10.1) Total Bilirubin 0.2 mg/dL (0.2-1.0) Aspartate Amino Transf (AST/SGOT) 8 U/L (15-37) Alanine Aminotransferase (ALT/SGPT) 12 U/L (14-59) Alkaline Phosphatase 64 U/L (46-116) Total Protein 6.4 g/dL (6.4-8.2) Albumin 3.0 g/dL (3.4-5.0) Albumin/Globulin Ratio 0.9 (1.0-1.7) Plan Plan IMPRESSION: 1. chest pain with radiation L shoulder through to back 2. orthostatic hypotension 3. HTN 4. hyperlipidemia 5. DM II with CKD IV skilled nursing insulin 6. vertigo-chronic 7. questionable cardiac arrhythmia PLAN: chest pain cardiology consult EKG non spec changes troponin negative GI source negative ASA 324mg ED, 81mg ASA daily at home ?cardiac arrhythmia sleeping, woke with heart racing last Thur at 3am orthostatic hypotension 03/27 lying 157/97 -79, sitting 134/89 -82, standing 116/72 - 91 HTN home meds resumed ?pt reports off metoprolol -defer to cardiology DM II SSI FSBS BS 148-246 anemia admit 11.4 03/27 10.4 CKD IV daily wt 03/27 BUN 30 Cr 3.5 nephrology consulted. DVT/GI prophylaxis SCD/MAX H2 le For more details regarding further plans, please refer to the orders. JACKELIN JULIEN MD 03/27/17 1123: HISTORY AND PHYSICAL Plan Plan Patient is feeling better. Advised her to get up and walk slowly initially to help with possible orthostasis. She is not taking Labetolol and Clonidine properly. s/e of meds d/w her. she is not using CPAP for XIOMARA- advised to use regularly.Complications of XIOMARA d/ w her. see in 5 days. D/w - ok to discharge.He will place an event recorder as outpatient. The patient was seen and examined by me. Chart reviewed and plan of care formulated. Discussed with, reviewed and agree with SOFTWARE INTERN's notes, plan of care and orders with modifications as necessary. Discharge Management - 35 minutes. SAVITA DUEÑAS APRN March 27, 2017 07:50 JACKELIN JULIEN MD March 27, 2017 11:23
[2017-03-27] MEDS ORDERED: ASPIRIN ENTERIC COATED 81 MG TABLET.DR. PO SCH (08:00)
[2017-03-27] MEDS ORDERED: LINAGLIPTIN 5 MG TABLET PO SCH (09:00)
[2017-03-27] MEDS: LISINOPRIL 5 MG TABLET. PO SCH (09:00)
[2017-03-27] MEDS: METOPROLOL TART IMMED RELEASE 50 MG TABLET. PO SCH (09:00)
[2017-03-27] MEDS: FUROSEMIDE 40 MG TABLET. PO SCH (09:27)
[2017-03-27] MEDS: cloNIDine HCL 0.2 MG TABLET PO SCH (09:28)
[2017-03-27] MEDS: INSULIN DETEMIR 300 UNITS/3 ML INSULN.PEN. SQ SCH (09:32)
[2017-03-27] MEDS ORDERED: LABE300T PO (10:12)
--- NOTE | 2017-03-27 10:58 | CONS ---
DATE OF CONSULTATION: 03/27/2017 REASON FOR CONSULTATION: Chest pain. HISTORY OF PRESENT ILLNESS: The patient is a pleasant 36-year-old woman with past medical history as noted below, who presented to the hospital in the setting of various complaints. She reported dizziness that occurred a day prior to admission, which was most consistent with vertigo and inner ear issues. She also had some chest pain which she described as stabbing and burning in nature. She denies any exertional dyspnea at baseline, but does have some decreased functional capacity related to her obesity. She also has a history of hypertension and reports compliance with her medications. Cardiology has been asked to evaluate her in the past, when she was admitted approximately a year ago for an episode of arrhythmia. She underwent a stress test, which was suggestive of possibly anterior wall perfusion abnormality, but given her pendulous breasts and morbid obesity, it was felt to be a false positive. In light of her significant CKD, it was felt that her risk of contrast-induced nephropathy and hemodialysis risk was much higher than her risk of having significant coronary artery disease and therefore, cardiac catheterization was deferred. At this present time, the patient denies any obvious angina, orthopnea, PND or lower extremity edema. She has not had any syncope or palpitations. PAST MEDICAL HISTORY: 1. Hypertension. 2. Dyslipidemia. 3. Possible prior history of CVA. 4. Anemia of chronic disease. 5. Chronic kidney disease stage 4. 6. Diabetes. PAST SURGICAL HISTORY: IUD. FAMILY HISTORY: Diabetes, hypertension and possible heart disease. SOCIAL HISTORY: The patient denies any alcohol, tobacco or illicit drug use. REVIEW OF SYSTEMS: Negative for 10 out of 14 systems reviewed, unless otherwise mentioned above in HPI. HOME MEDICATIONS: As follows: 1. Lisinopril 5 mg at bedtime. 2. Lasix 40 mg daily. 3. Clonidine 0.2 mg b.i.d. 4. Labetalol 300 mg b.i.d. 5. Hydralazine 50 mg t.i.d. 6. Amlodipine 10 mg daily. PHYSICAL EXAMINATION: VITAL SIGNS: Afebrile, heart rate 90, blood pressure 157/82, pulse ox 98% on room air. Her orthostatics are positive with systolic blood pressure changing from 150-116 upon standing. GENERAL: She is morbidly obese, but alert and oriented, in no acute distress. Upon the interviewer walking into the room, she was dancing with her music on. HEAD AND NECK: Unremarkable. HEART: Regular rate and rhythm without any murmurs, rubs or gallops. LUNGS: Clear to auscultation. ABDOMEN: Soft, obese, nontender. EXTREMITIES: No clubbing, cyanosis or edema. 2+ radial and dorsalis pedis pulses. NEUROLOGIC: No focal deficits. MUSCULOSKELETAL: No trauma. PSYCHIATRIC: Normal mood and affect. DIAGNOSTIC STUDIES: Hemoglobin 10.4, platelets 287. Creatinine 3.5, blood sugars in the 270s. Troponin negative x 2. Chest x-ray is unremarkable. EKG shows sinus rhythm without any significant ST-T wave changes. IMPRESSION: 1. Noncardiac chest pain. 2. Hypertensive nephrosclerosis. 3. Diabetes with peripheral neuropathy. RECOMMENDATIONS: 1. In light of the fact that the patient's cardiac enzymes are negative, her EKG is unremarkable and that her pain does not seem to be anginal issues, we will defer any further testing at this time. 2. We will mail an event monitor to her house and rule out any arrhythmias on an outpatient basis and have her follow up with Dr Mcdonough for further evaluation. 3. I again discussed with the patient that given her risk factors, she certainly could develop coronary artery disease, but at this present time given the lack of any significant pathology on objective testing, would defer cardiac catheterization to help decrease the risk of any contrast-induced nephropathy. Thank you for this consultation. OK to DC home. SHARRON LEONARD MD DR: ALEX/serge JOB#: [id number] / [id number] [facility]
--- NOTE | 2017-03-27 11:28 | DISCH ---
DISCHARGE INSTRUCTIONS Condition on Discharge Condition on Discharge: Stable Activity After Discharge Activity Instructions for Disc: No restrictions Diet after Discharge Diet after Discharge: Cardiac, Diabetic No Calorie Level Checks after Discharge Checks after discharge: Check blood press - daily, Check blood sugar, ac/hs Contacting the DRCarlitos after DC Call your doctor for: Concerns you may have Follow-Up Follow up with: in 5 days. Follow Up With: JACKELIN Briseno MD March 27, 2017 11:28
[2017-03-27] MEDS ORDERED: CLON0.2T PO (16:36)
--- NOTE | 2017-03-27 22:55 | CONS ---
DATE OF CONSULTATION: REQUESTING PHYSICIAN: Dr. Sandoval. REASON FOR CONSULTATION: Renal failure. HISTORY OF PRESENT ILLNESS: This is a 36-year-old female with presentation prompted by chest pain and dizziness. She is on evaluation of the same. The patient has diabetes mellitus, ____ diabetic nephropathy, chronic kidney disease stage 4, followed by ____. PAST MEDICAL HISTORY: Diabetes mellitus, chronic kidney disease stage 4, hypertension, anemia of chronic kidney disease, hyperlipidemia, vertigo, TIA, CVA in 2005 with no residual. ALLERGIES: CODEINE. MEDICATIONS: Reviewed. FAMILY HISTORY: Noncontributory. SOCIAL HISTORY: The patient resides independently. REVIEW OF SYSTEMS: No headache, sinus problem, nasal drainage, epistaxis, change in vision or hearing. No difficulty swallowing. No fever, chills, cough, sputum production or hemoptysis. No further chest pain. No shortness of breath or hemoptysis. No abdominal pain or upper or lower gastrointestinal blood loss. No nausea, vomiting, diarrhea, seizures or malignancies. PHYSICAL EXAMINATION: GENERAL: The patient is awake, conversant. HEENT: Clear. NECK: No increased JVD. No thyromegaly, masses or adenopathy. LUNGS: Clear. CARDIAC: Without S3 or rub. ABDOMEN: Soft, nontender, no bruits. She is obese. EXTREMITIES: Without edema. NEUROLOGIC: Nonfocal, ____ localizing. PSYCHIATRIC: Good attention to detail, appropriate affect. LABORATORY DATA: Hemoglobin 10.4, hematocrit 29%. Potassium 4.6, CO2 of 25, BUN is 30, creatinine 3.5, GFR is 17.9. IMPRESSION: 1. Chronic kidney disease stage 4 secondary to diabetic nephropathy. 2. Chest pain -- process evaluation. RECOMMENDATIONS: 1. Fluid balance. 2. Cardiac evaluation as you are doing. 3. No acute indication for dialysis at this time. This is becoming imminent in the relatively near future. RHIANNA DC MD DR: FABIO/serge JOB#: [id number] / [id number]
--- NOTE | 2017-03-29 08:27 | PDOC3 ---
IM DISCHARGE SUMMARY Date of Admission Date of Admission Date of Admission: March 26, 2017 at 14:32 Primary Diagnosis Primary Diagnosis IMPRESSION: 1. chest pain with radiation L shoulder through to back non cardiac, source not identified 2. orthostatic hypotension 3. HTN 4. hyperlipidemia 5. DM II with CKD IV manager intermediate insulin 6. vertigo-chronic 7. questionable cardiac arrhythmia 8. hypertensive nephrosclerosis Problems: Consults Consults Chico Doss MD, Dr. Procedures Procedures None Labs Labs Laboratory Tests Test 03/26/17 13:25 03/26/17 13:27 03/26/17 14:14 03/26/17 15:12 White Blood Count 5.8 x10^3/uL (4.0-11.0) Red Blood Count 3.93 x10^6/uL (3.50-5.40) Hemoglobin 11.4 g/dL (12.0-15.5) Hematocrit 31.3 % (36.0-47.0) Mean Corpuscular Volume 80 fL (79-100) Mean Corpuscular Hemoglobin 29 pg (25-35) Mean Corpuscular Hemoglobin Concent 36 g/dL (31-37) Red Cell Distribution Width 14.1 % (11.5-14.5) Platelet Count 302 x10^3/uL (140-400) Neutrophils (%) (Auto) 46 % (31-73) Lymphocytes (%) (Auto) 40 % (24-48) Monocytes (%) (Auto) 10 % (0-9) Eosinophils (%) (Auto) 3 % (0-3) Basophils (%) (Auto) 1 % (0-3) Neutrophils # (Auto) 2.7 x10^3uL (1.8-7.7) Lymphocytes # (Auto) 2.3 x10^3/uL (1.0-4.8) Monocytes # (Auto) 0.6 x10^3/uL (0.0-1.1) Eosinophils # (Auto) 0.2 x10^3/uL (0.0-0.7) Basophils # (Auto) 0.1 x10^3/uL (0.0-0.2) D-Dimer (Praveena) < 0.27 ug/mlFEU Magnesium Level 1.8 mg/dL (1.8-2.4) Creatine Kinase 152 U/L (26-192) Creatine Kinase MB (Mass) 1.5 ng/mL (0.0-3.6) Creatine Kinase MB Relative Index 1.0 % (0-4) Troponin I Quantitative < 0.017 ng/mL (0.000-0.055) BY-Nol-N-Type Natriuretic Peptide 246 pg/mL (0-124) Lipase 123 U/L (73-393) Thyroid Stimulating Hormone (TSH) 2.065 uIU/mL (0.358-3.74) Bedside Urine HCG, Qualitative Hcg negative (Negative) Urine Collection Type Unknown Urine Color Yellow Urine Clarity Clear Urine pH 7.0 Urine Specific [place] 1.010 Urine Protein >=300 mg/dL (NEG-TRACE) Urine Glucose (UA) Negative mg/dL (NEG) Urine Ketones (Stick) Negative mg/dL (NEG) Urine Blood Negative (NEG) Urine Nitrite Negative (NEG) Urine Bilirubin Negative (NEG) Urine Urobilinogen Dipstick 0.2 mg/dL (0.2 mg/dL) Urine Leukocyte Esterase Negative (NEG) Urine RBC Occ /HPF (0-2) Urine WBC Occ /HPF (0-4) Urine Squamous Epithelial Cells Mod /LPF Urine Transitional Epithelial Cells Occ /LPF Urine Bacteria 0 /HPF (0-FEW) Glucose (Fingerstick) 145 mg/dL (70-99) Test 03/26/17 16:59 03/26/17 20:45 03/26/17 20:48 03/27/17 03:00 Glucose (Fingerstick) 148 mg/dL (70-99) 246 mg/dL (70-99) Troponin I Quantitative < 0.017 ng/mL (0.000-0.055) < 0.017 ng/mL (0.000-0.055) White Blood Count 6.7 x10^3/uL (4.0-11.0) Red Blood Count 3.69 x10^6/uL (3.50-5.40) Hemoglobin 10.4 g/dL (12.0-15.5) Hematocrit 29.1 % (36.0-47.0) Mean Corpuscular Volume 79 fL (79-100) Mean Corpuscular Hemoglobin 28 pg (25-35) Mean Corpuscular Hemoglobin Concent 36 g/dL (31-37) Red Cell Distribution Width 14.1 % (11.5-14.5) Platelet Count 287 x10^3/uL (140-400) Neutrophils (%) (Auto) 46 % (31-73) Lymphocytes (%) (Auto) 42 % (24-48) Monocytes (%) (Auto) 9 % (0-9) Eosinophils (%) (Auto) 3 % (0-3) Basophils (%) (Auto) 1 % (0-3) Neutrophils # (Auto) 3.1 x10^3uL (1.8-7.7) Lymphocytes # (Auto) 2.8 x10^3/uL (1.0-4.8) Monocytes # (Auto) 0.6 x10^3/uL (0.0-1.1) Eosinophils # (Auto) 0.2 x10^3/uL (0.0-0.7) Basophils # (Auto) 0.1 x10^3/uL (0.0-0.2) Sodium Level 134 mmol/L (136-145) Potassium Level 4.6 mmol/L (3.5-5.1) Chloride Level 101 mmol/L (98-107) Carbon Dioxide Level 25 mmol/L (21-32) Anion Gap 8 (6-14) Blood Urea Nitrogen 30 mg/dL (7-20) Creatinine 3.5 mg/dL (0.6-1.0) Estimated GFR (Cockcroft-Gault) 17.9 BUN/Creatinine Ratio 9 (6-20) Glucose Level 252 mg/dL (70-99) Calcium Level 8.4 mg/dL (8.5-10.1) Total Bilirubin 0.2 mg/dL (0.2-1.0) Aspartate Amino Transf (AST/SGOT) 8 U/L (15-37) Alanine Aminotransferase (ALT/SGPT) 12 U/L (14-59) Alkaline Phosphatase 64 U/L (46-116) Total Protein 6.4 g/dL (6.4-8.2) Albumin 3.0 g/dL (3.4-5.0) Albumin/Globulin Ratio 0.9 (1.0-1.7) Test 03/27/17 08:10 03/27/17 17:04 Glucose (Fingerstick) 273 mg/dL (70-99) 144 mg/dL (70-99) Brief hospital course Brief hospital course This 36 year old female who presented with chst pain was admitted. The following is a summary of her treatment: chest pain non cardiac cardiology consult EKG non spec changes troponin negative GI source negative ASA 324mg ED, 81mg ASA daily at home] ?cardiac arrhythmia sleeping, woke with heart racing last Thur at 3am Event monitor to be placed OP per cardiology orthostatic hypotension 03/27 lying 157/97 -79, sitting 134/89 -82, standing 116/72 - 91 Advised to rise slowly and wait before standing to walk. HTN home meds resumed ?pt reports off metoprolol -defer to cardiology medications reviewed and instructed on proper way to take medications. DM II SSI FSBS BS 148-246 anemia admit 11.4 03/27 10.4 CKD IV daily wt 03/27 BUN 30 Cr 3.5 nephrology consulted. DVT/GI prophylaxis SCD/MAX H2 le For more details regarding the past history, family history, social history, surgical history and other details, please refer to History and Physical. She will be discharged home. Please see the discharge orders. Medications Medications reviewed and reconciled for discharge. Allergy Allergies Coded Allergies Type Severity Reaction Last Updated Verified codeine Allergy Intermediate 01/24/16 Yes Follow up in 5 days. DISPOSITION: Home Comments Discharge Management - 35 minutes. For other details please refer to discharge instructions SAVITA DUEÑAS APRN March 29, 2017 08:27
== END 2017-03-27 17:30 | disposition home or self-care (01) ==
LOC: ER 13:39 → 2 NORTH 14:32
PROVIDERS: ADMIT Internal Medicine; ATTEND Internal Medicine
DX: R07.89 Other chest pain (principal); I95.1 Orthostatic hypotension; E78.5 Hyperlipidemia, unspecified; E11.22 Type 2 diabetes mellitus with diabetic chronic kidney disease; E11.21 Type 2 diabetes mellitus with diabetic nephropathy; N18.4 Chronic kidney disease, stage 4 (severe); R42 Dizziness and giddiness; E66.9 Obesity, unspecified; I13.0 Hypertensive heart and chronic kidney disease with heart failure and stage 1 through stage 4 chronic kidney disease, or unspecified chronic kidney disease; I21.3 ST elevation (STEMI) myocardial infarction of unspecified site; I25.2 Old myocardial infarction; I50.9 Heart failure, unspecified; M41.9 Scoliosis, unspecified; Z79.4 Long term (current) use of insulin; Z86.73 Personal history of transient ischemic attack (TIA), and cerebral infarction without residual deficits
CPT/HCPCS: 36415; 71020; 80053; 81001; 81025; 82550; 82553; 82947; 83690; 83735; 83880; 84443; 84484; 85027; 85379; 93005; 96361; 96372; 96374; 99285; G0378; J1815; J3010; J7030; G0379

== ENCOUNTER → 2017-07-20 | Outpatient (CLI) | payer OTHER ==
[2017-03-27 16:02] VITALS: BP 103/65
[~2017-07-20] MED LIST changes: +INSU100V13 SQ; -INSULIN ASPART 300 UNITS/3 ML INSULN.PEN SQ SCH; +LABE300T PO; +LINA5TAB4; +LISI-338; +NITR0.4T
--- NOTE | 2017-07-20 09:12 | CARD ---
APPROVED REPORT EXAM: Two-dimensional and M-mode echocardiogram with Doppler and color Doppler. Other Information Quality : GoodHR: 86bpm Rhythm : NSR INDICATION Chest Pain Murmur RISK FACTORS Hypertension Obesity 2D DIMENSIONS RVDd3.4 (2.9-3.5cm)Left Atrium(2D)3.9 (1.6-4.0cm) IVSd1.0 (0.7-1.1cm)Aortic Root(2D)2.9 (2.0-3.7cm) LVDd5.1 (3.9-5.9cm)LVOT Diameter2.2 (1.8-2.4cm) PWd1.0 (0.7-1.1cm)LVDs3.6 (2.5-4.0cm) FS (%) 28.7 %SV67.2 ml LVEF(%)54.9 (>50%) Aortic Valve AoV Peak Justen.123.7cm/sAoV VTI25.7cm AO Peak GR.6.1mmHgLVOT Peak Justen.91.5cm/s AO Mean GR.4mmHgAVA (VMAX)2.76cm2 Mitral Valve MV E Jmmduply814.4cm/sMV E Peak Gr.7mmHg MV DECEL [id number] A Nsnwppzm76.1cm/s MV E Mean Gr.4mmHgE/A Ratio1.4 MV A Cfvztybe21hx Pulmonary Valve PV Peak Mhsvzxdz058.5cm/s Tricuspid Valve TR P. Fioszhhq472wz/sTR Peak Gr.41mmHg Pulmonary Vein S1 Ypatljhz41.4cm/sD2 Ivwmjftg42.5cm/s PVa jhxtasuz70kgwf LEFT VENTRICLE The left ventricle is normal size. There is normal left ventricular wall thickness. The left ventricu lar systolic function is normal The Ejection Fraction is 55-60%. There is normal LV segmental wall mo tion. The left ventricular diastolic function and filling is normal for age. RIGHT VENTRICLE The right ventricle is normal size. There is normal right ventricular wall thickness. The right ventr icular systolic function is normal. ATRIA The left atrium size is normal. The right atrium size is normal. The interatrial septum is intact wit h no evidence for an atrial septal defect or patent foramen ovale as noted on 2-D or Doppler imaging. AORTIC VALVE The aortic valve is normal in structure and function. The aortic valve is trileaflet. Doppler and Col or Flow revealed no significant aortic regurgitation. There is no significant aortic valvular stenosi s. MITRAL VALVE There is no evidence of mitral valve prolapse. There is no mitral valve stenosis. Doppler and Color F low revealed mild mitral regurgitation. TRICUSPID VALVE Doppler and Color Flow revealed mild tricuspid regurgitation. The pulmonary artery systolic pressure is estimated at 43 mmHg. There is mild pulmonary hypertension. PULMONIC VALVE The pulmonic valve is not well visualized but appears to open adequately. Doppler and Color Flow reve aled no pulmonic valvular regurgitation. There is no pulmonic valvular stenosis by spectral Doppler. GREAT VESSELS The aortic root is normal in size. The ascending aorta is normal in size. The pulmonary artery is nor mal. The IVC is normal in size and collapses >50% with inspiration. PERICARDIAL EFFUSION There is no evidence of significant pericardial effusion. Critical Notification Critical Value: No <Conclusion> The left ventricular systolic function is normal The Ejection Fraction is 55-60%. There is normal LV segmental wall motion. Mild mitral regurgitation. Mild tricuspid regurgitation. The pulmonary artery systolic pressure is estimated at 43 mmHg. There is no evidence of significant pericardial effusion.
== END | disposition home or self-care (01) ==
LOC: ECHO 07:38
PROVIDERS: ATTEND Internal Medicine Cardiovascular Disease
DX: I08.1 Rheumatic disorders of both mitral and tricuspid valves (principal); I27.2 Other secondary pulmonary hypertension
CPT/HCPCS: 93306

== ENCOUNTER → 2017-12-20 | Outpatient (CLI) | payer OTHER | END | disposition home or self-care (01) | LOC: RAD 12:21 | DX: S93.402A Sprain of unspecified ligament of left ankle, initial encounter (principal); R60.0 Localized edema; M79.672 Pain in left foot; X58.XXXA Exposure to other specified factors, initial encounter; Y93.89 Activity, other specified; Y92.89 Other specified places as the place of occurrence of the external cause; Y99.8 Other external cause status | CPT/HCPCS: 73610; 73630 ==

== ENCOUNTER 2017-12-30 02:58 | Inpatient (IN) | payer OTHER ==
[2017-12-30 03:21] LABS: ADD MAN DIFF? NO
[2017-12-30 03:26] LABS: BASO # 0.1 x10^3/uL (0.0-0.2); BASO % 1 % (0-3); EOS # 0.1 x10^3/uL (0.0-0.7); EOS % 2 % (0-3); HEMATOCRIT 28.9 % (36.0-47.0); HEMOGLOBIN 10.6 g/dL (12.0-15.5); LYMPH # 2.5 x10^3/uL (1.0-4.8); LYMPH % 37 % (24-48); MEAN CORPUSCULAR HEMOGLOBIN 29 pg (25-35); MEAN CORPUSCULAR HGB CONC 37 g/dL (31-37); MEAN CORPUSCULAR VOLUME 80 fL (79-100); MONO # 0.6 x10^3/uL (0.0-1.1); MONO % 9 % (0-9); NEUT # 3.5 x10^3uL (1.8-7.7); NEUT % 52 % (31-73); PLATELET COUNT 273 x10^3/uL (140-400); RED BLOOD COUNT 3.61 x10^6/uL (3.50-5.40); RED CELL DISTRIBUTION WIDTH 14.9 % (11.5-14.5); WHITE BLOOD COUNT 6.8 x10^3/uL (4.0-11.0)
[2017-12-30 03:32] LABS: ANION GAP 14 (6-14); BLOOD UREA NITROGEN 33 mg/dL (7-20); BUN/CREATININE RATIO 8 (6-20); CALCIUM 8.6 mg/dL (8.5-10.1); CARBON DIOXIDE 26 mmol/L (21-32); CHLORIDE 100 mmol/L (98-107); CREATININE 3.9 mg/dL (0.6-1.0); GFR 15.7; GLUCOSE 264 mg/dL (70-99); POTASSIUM 4.3 mmol/L (3.5-5.1); SODIUM 140 mmol/L (136-145)
[2017-12-30] MEDS: ASPIRIN CHEWABLE 81 MG TABLET. PO (03:35)
[2017-12-30 03:38] LABS: ALBUMIN 3.4 g/dL (3.4-5.0); ALBUMIN/GLOBULIN RATIO 0.9 (1.0-1.7); ALK PHOS 77 U/L (46-116); ALT (SGPT) 16 U/L (14-59); AST (SGOT) 9 U/L (15-37); TOTAL BILIRUBIN 0.2 mg/dL (0.2-1.0); TOTAL PROTEIN 7.1 g/dL (6.4-8.2)
[2017-12-30 03:42] LABS: TROPONINI < 0.017 ng/mL (0.000-0.055)
[2017-12-30 03:48] LABS: BILIRUBIN,URINE NEGATIVE (NEG); CLARITY,URINE CLOUDY; COLOR,URINE YELLOW; GLUCOSE,URINE 250 mg/dL (NEG); NITRITE,URINE NEGATIVE (NEG); PROTEIN,URINE 100 mg/dL (NEG-TRACE); UROBILINOGEN,URINE 0.2 mg/dL (0.2 mg/dL)
[2017-12-30 03:49] LABS: URINE HCG POC HCG NEGATIVE (Negative)
[2017-12-30 03:56] LABS: BACTERIA,URINE 0 /HPF (0-FEW); RBC,URINE >40 /HPF (0-2); WBC,URINE OCC /HPF (0-4)
[2017-12-30 03:57] LABS: SQUAMOUS EPITHELIAL CELL,UR FEW /LPF
[2017-12-30] MEDS ORDERED: NITROGLYCERIN SUBLINGUAL 0.4 MG BOTTLE OF 25. SL ×2 (04:00→09:45)
[2017-12-30] MEDS ORDERED: ONDANSETRON PF 4 MG/2 ML VIAL. IV (04:00)
[2017-12-30] MEDS: NITROGLYCERIN OINT 1 GM PACKET. TP (04:01)
[2017-12-30 08:02] LABS: TROPONINI 0.019 ng/mL (0.000-0.055)
[2017-12-30 08:34] LABS: POC GLUCOSE 173 mg/dL (70-99)
[2017-12-30] MEDS: ASPIRIN ENTERIC COATED 81 MG TABLET.DR. PO (08:50)
[2017-12-30] MEDS: cloNIDine HCL 0.2 MG TABLET PO (08:50)
[2017-12-30] MEDS: LISINOPRIL 5 MG TABLET. PO ×2 (08:50→20:06)
[2017-12-30] MEDS: ACETAMINOPHEN 325 MG TABLET. PO (08:51)
[2017-12-30] MEDS ORDERED: CYCLOBENZAPRINE 10 MG TABLET. PO (09:45)
[2017-12-30] MEDS ORDERED: diphenhydrAMINE HCL 25 MG CAPSULE PO (09:45)
[2017-12-30] MEDS: cloNIDine HCL 0.1 MG TABLET PO ×2 (10:00→20:05)
[2017-12-30] MEDS ORDERED: DEXTROSE 50% 25 GM / 50ML DISP.SYRIN. IV (10:30)
[2017-12-30] MEDS: FUROSEMIDE 40 MG TABLET. PO (11:10)
[2017-12-30] MEDS: FAMOTIDINE 20 MG TABLET. PO (11:11)
[2017-12-30] MEDS: LINAGLIPTIN 5 MG TABLET PO (11:11)
[2017-12-30] MEDS: INSULIN DETEMIR 300 UNITS/3 ML INSULN.PEN. SQ ×2 (11:18→21:02)
[2017-12-30 11:20] LABS: TROPONINI 0.024 ng/mL (0.000-0.055)
[2017-12-30 12:19] LABS: POC GLUCOSE 209 mg/dL (70-99)
[2017-12-30] MEDS: INSULIN ASPART 300 UNITS/3 ML INSULN.PEN SQ ×3 (12:43→17:54)
[2017-12-30] MEDS: RANOLAZINE 500 MG TAB.ER.12H PO ×2 (13:51→20:07)
[2017-12-30] MEDS: LABETALOL HCL 100 MG TABLET. PO ×2 (13:53→20:07)
[2017-12-30 13:59] LABS: CHOLESTEROL 124 mg/dL (0-200); HDLC 37 mg/dL (40-60); LDLC 67 mg/dL (0-100); NON-HDL CHOLESTEROL 87 mg/dL (0-129); TRIGLYCERIDES 99 mg/dL (0-150); VLDLC 20 mg/dL (0-40)
[2017-12-30 14:00] LABS: CHOLESTEROL/HDL RATIO 3.4
[2017-12-30] MEDS: hydrALAZINE 20 MG/ML VIAL. IVP (16:09)
[2017-12-30 16:48] LABS: POC GLUCOSE 183 mg/dL (70-99)
[2017-12-30] MEDS: amLODIPine BESYLATE 10 MG TABLET PO (20:06)
[2017-12-30] MEDS: SIMVASTATIN 20 MG TABLET PO (20:08)
[2017-12-30 20:50] LABS: POC GLUCOSE 73 mg/dL (70-99)
[2017-12-30] MEDS ORDERED: INSULIN GLARGINE HUM REC ANLOG 40 UNIT SQ (21:00)
[2017-12-31] MEDS: INSULIN ASPART 300 UNITS/3 ML INSULN.PEN SQ ×5 (08:00→17:35)
[2017-12-31] MEDS: RANOLAZINE 500 MG TAB.ER.12H PO ×2 (08:23→20:06)
[2017-12-31] MEDS: LINAGLIPTIN 5 MG TABLET PO (08:24)
[2017-12-31] MEDS: ASPIRIN ENTERIC COATED 81 MG TABLET.DR. PO (08:24)
[2017-12-31 08:25] LABS: POC GLUCOSE 156 mg/dL (70-99)
[2017-12-31] MEDS: cloNIDine HCL 0.1 MG TABLET PO ×2 (08:25→20:07)
[2017-12-31] MEDS: FAMOTIDINE 20 MG TABLET. PO (08:25)
[2017-12-31] MEDS: FUROSEMIDE 40 MG TABLET. PO (08:26)
[2017-12-31] MEDS: LISINOPRIL 5 MG TABLET. PO ×2 (08:26→20:08)
[2017-12-31] MEDS: LABETALOL HCL 100 MG TABLET. PO ×3 (08:27→20:08)
[2017-12-31] MEDS: INSULIN DETEMIR 300 UNITS/3 ML INSULN.PEN. SQ ×2 (08:35→21:07)
[2017-12-31] MEDS ORDERED: [UNRECOGNIZED DRUG - OTHER] PO (09:00)
[2017-12-31] MEDS ORDERED: GINGER ROOT 550 MG PO (09:00)
[2017-12-31 11:37] LABS: POC GLUCOSE 272 mg/dL (70-99)
[2017-12-31] MEDS: IV NORMAL SALINE 1000ML BAG 1,000 ML IV (12:17)
[2017-12-31 17:26] LABS: POC GLUCOSE 216 mg/dL (70-99)
[2017-12-31] MEDS: amLODIPine BESYLATE 10 MG TABLET PO (20:07)
[2017-12-31] MEDS: SIMVASTATIN 20 MG TABLET PO (20:07)
[2017-12-31 20:48] LABS: POC GLUCOSE 77 mg/dL (70-99)
[2018-01-01] MEDS: IV NORMAL SALINE 1000ML BAG 1,000 ML IV ×2 (03:30→13:55)
[2018-01-01 05:09] LABS: ANION GAP 12 (6-14); BLOOD UREA NITROGEN 35 mg/dL (7-20); CALCIUM 8.7 mg/dL (8.5-10.1); CARBON DIOXIDE 23 mmol/L (21-32); CHLORIDE 103 mmol/L (98-107); CREATININE 4.3 mg/dL (0.6-1.0); GLUCOSE 120 mg/dL (70-99); POTASSIUM 4.9 mmol/L (3.5-5.1); SODIUM 138 mmol/L (136-145)
[2018-01-01 07:40] LABS: POC GLUCOSE 129 mg/dL (70-99)
[2018-01-01] MEDS: INSULIN ASPART 300 UNITS/3 ML INSULN.PEN SQ ×3 (08:00→12:54)
[2018-01-01] MEDS: LABETALOL HCL 100 MG TABLET. PO ×2 (08:57→12:57)
[2018-01-01] MEDS: RANOLAZINE 500 MG TAB.ER.12H PO (08:58)
[2018-01-01] MEDS: LISINOPRIL 5 MG TABLET. PO (08:58)
[2018-01-01] MEDS: ASPIRIN ENTERIC COATED 81 MG TABLET.DR. PO (08:58)
[2018-01-01] MEDS: FAMOTIDINE 20 MG TABLET. PO (08:59)
[2018-01-01] MEDS: LINAGLIPTIN 5 MG TABLET PO ×2 (08:59→12:51)
[2018-01-01] MEDS: FUROSEMIDE 40 MG TABLET. PO (09:00)
[2018-01-01] MEDS: cloNIDine HCL 0.1 MG TABLET PO (09:08)
[2018-01-01] MEDS: INSULIN DETEMIR 300 UNITS/3 ML INSULN.PEN. SQ (09:08)
[2018-01-01 11:33] LABS: POC GLUCOSE 176 mg/dL (70-99)
== END 2018-01-01 17:22 | disposition home or self-care (01) | DRG 292 ==
LOC: ER 02:58 → 2 NORTH 03:47
DX: I13.0 Hypertensive heart and chronic kidney disease with heart failure and stage 1 through stage 4 chronic kidney disease, or unspecified chronic kidney disease (principal); N18.4 Chronic kidney disease, stage 4 (severe); E10.22 Type 1 diabetes mellitus with diabetic chronic kidney disease; M94.0 Chondrocostal junction syndrome [Tietze]; I50.9 Heart failure, unspecified; I25.110 Atherosclerotic heart disease of native coronary artery with unstable angina pectoris; I16.0 Hypertensive urgency; I10 Essential (primary) hypertension; D64.9 Anemia, unspecified; E78.5 Hyperlipidemia, unspecified; K21.9 Gastro-esophageal reflux disease without esophagitis; J30.2 Other seasonal allergic rhinitis; R07.89 Other chest pain; Z79.4 Long term (current) use of insulin; Z82.49 Family history of ischemic heart disease and other diseases of the circulatory system; Z83.3 Family history of diabetes mellitus; Z86.73 Personal history of transient ischemic attack (TIA), and cerebral infarction without residual deficits; I25.2 Old myocardial infarction; Z88.8 Allergy status to other drugs, medicaments and biological substances
CPT/HCPCS: 36415; 71046; 80048; 80053; 80061; 81001; 81025; 82962; 84484; 85025; 93005; 93308; 99285-25; J0360; J1815; J7030

== ENCOUNTER → 2018-12-19 | Outpatient (CLI) | payer OTHER ==
[2018-01-01 15:00] VITALS: BP 147/78
[~2018-12-19] MED LIST changes: -AMLO10TA2 PO; +AMLO10TA8 PO; +CARV6.2511 PO; -CARV6.252 PO; +CLON0.1T12 PO; +CYCL10TA2 PO; +DIPH25CA58 PO; +GING550C2 PO; +IRON1CAP14 PO; -LABE300T PO; +LABE300T2 PO; +LINA5TAB PO; -LINA5TAB4; -LISI-338; +LISI-338 PO; -METO100T2 PO; +METO100T7 PO; +RANO500T2 PO; +SIMV20TA PO
--- NOTE | 2018-12-19 17:28 | KCIC ---
MR of the left foot and left ankle HISTORY: Instability. Plantar fasciitis. Mid foot pain. Accessory navicular. Pain for one year. TECHNIQUE: Routine multiplanar sequences obtained through the mid the posterior foot. Left ankle The peroneal tendons are intact. The anterior talofibular, calcaneofibular and posterior talofibular ligaments are intact. Inferior anterior tibiofibular ligament is thickened but hypointense and appears intact. Posterior tibial and flexor tendons are intact. No acute medial ligament injury. Anterior tibial and extensor tendons are intact. Achilles tendon intact. Mild hypointense thickening of the proximal plantar aponeurosis, with a fusiform appearance, may represent a plantar fibroma versus chronic plantar fasciitis, measures about 2.5 cm length by 11 mm wide by 7 mm height. The middle facet is patent. There is slight irregularity of bone at the posterior aspect of the sustentaculum luis and the posteromedial process of the talus, a very subtle finding without which at least raises the question of an extra-articular posteromedial talocalcaneal coalition. The middle subtalar joint just anterior to this is patent. Posterior subtalar joint is patent. No evidence of acute fracture or aggressive bone destruction. No significant joint effusion. There is soft tissue edema around the ankle. Left foot Small cystic lesion within the intermediate cuneiform is likely a cyst or degenerative in etiology. No aggressive bone destruction or acute fracture. No evidence of a significant joint effusion. Subtalar joints are patent. Tarsal sinus is intact. The talar dome is intact. There is a small accessory navicular bone, without acute edema or fluid at the synchondrosis. Lisfranc ligament complex is intact. Tarsometatarsal joint alignment is intact. The visualized tendons appear intact with no significant fluid accumulation. No acute plantar fasciitis, with small subjacent enthesophyte. Achilles insertion is intact. Mild subcutaneous edema around the ankle and hindfoot. IMPRESSION: 1. Mild fusiform thickening of the posterior plantar aponeurosis, could represent a fibroma versus chronic plantar fasciitis. 2. Subtle irregularity at the posterior sustentaculum luis and the posteromedial process of the talus. This may be of no significance, but at least raises the question of a subtle extra-articular posteromedial talocalcaneal coalition. 3. Small accessory navicular bone, without acute edema or fluid at the synchondrosis. 4. Mild soft tissue edema around the ankle and hindfoot. Electronically signed by: Lamine Presley MD (12/19/2018 5:24 PM) [facility]
== END | disposition home or self-care (01) ==
LOC: KCIC MRI 10:18
PROVIDERS: ATTEND Family Medicine Sports Medicine
DX: M25.372 Other instability, left ankle (principal); M72.2 Plantar fascial fibromatosis; R60.0 Localized edema
CPT/HCPCS: 73718; 73721

== ENCOUNTER → 2019-04-07 | Outpatient (CLI) | payer OTHER ==
[2018-01-01 15:00] VITALS: BP 147/78
[~2019-04-07] MED LIST changes: +HYDR-2869 PO; +INSU100I11 SQ; +INSU100I13 SQ; +OXYC1TAB15 PO
--- NOTE | 2019-04-07 16:01 | RAD ---
EXAM: Chest, 2 views. HISTORY: Dialysis. COMPARISON: 12/30/2017 FINDINGS: 2 views of the chest are obtained. There is no infiltrate, pleural effusion or pneumothorax. The heart is normal in size. IMPRESSION: No acute pulmonary finding. Electronically signed by: Cindi Rivera MD (04/07/2019 3:57 PM) [facility]
[2019-04-08 12:41] LABS: ALBUMIN 3.9 g/dL (3.4-5.0); BLOOD UREA NITROGEN 50 mg/dL (7-20); CALCIUM 8.7 mg/dL (8.5-10.1); CHLORIDE 106 mmol/L (98-107); CREATININE 6.6 mg/dL (0.6-1.0); GFR 8.5; GLUCOSE 157 mg/dL (70-99); PHOSPHORUS 4.3 mg/dL (2.6-4.7); POTASSIUM 4.6 mmol/L (3.5-5.1); SODIUM 141 mmol/L (136-145)
== END | disposition home or self-care (01) ==
LOC: RAD 15:16
PROVIDERS: ATTEND Internal Medicine Nephrology
DX: E11.22 Type 2 diabetes mellitus with diabetic chronic kidney disease (principal); I13.2 Hypertensive heart and chronic kidney disease with heart failure and with stage 5 chronic kidney disease, or end stage renal disease; I50.9 Heart failure, unspecified; N18.6 End stage renal disease
CPT/HCPCS: 36415; 71046; 80069; 86705; 86706; 87340

== ENCOUNTER 2019-04-15 14:11 | Inpatient (IN) | payer OTHER ==
[~2019-04-15] VITALS: Ht 188 cm; Wt 161.2 kg
[~2019-04-15 14:11] MED LIST changes: -HYDR-2869 PO; -INSU100I11 SQ; -INSU100I13 SQ; -OXYC1TAB15 PO
[2019-04-15 15:00] LABS: BASO # 0.1 x10^3/uL (0.0-0.2); BASO % 1 % (0-3); EOS # 0.2 x10^3/uL (0.0-0.7); EOS % 3 % (0-3); HEMATOCRIT 29.9 % (36.0-47.0); HEMOGLOBIN 10.4 g/dL (12.0-15.5); LYMPH # 2.2 x10^3/uL (1.0-4.8); LYMPH % 36 % (24-48); MEAN CORPUSCULAR HEMOGLOBIN 28 pg (25-35); MEAN CORPUSCULAR HGB CONC 35 g/dL (31-37); MEAN CORPUSCULAR VOLUME 81 fL (79-100); MONO # 0.6 x10^3/uL (0.0-1.1); MONO % 10 % (0-9); NEUT % 49 % (31-73); PLATELET COUNT 290 x10^3/uL (140-400); RED BLOOD COUNT 3.69 x10^6/uL (3.50-5.40); RED CELL DISTRIBUTION WIDTH 14.1 % (11.5-14.5); WHITE BLOOD COUNT 6.2 x10^3/uL (4.0-11.0)
[2019-04-15 15:16] LABS: CALCIUM 8.5 mg/dL (8.5-10.1); CREATININE 6.7 mg/dL (0.6-1.0); GFR 8.4; POTASSIUM 4.5 mmol/L (3.5-5.1)
[2019-04-15 15:22] LABS: ALBUMIN 3.5 g/dL (3.4-5.0); ALBUMIN/GLOBULIN RATIO 0.9 (1.0-1.7); TOTAL BILIRUBIN 0.3 mg/dL (0.2-1.0); TOTAL PROTEIN 7.2 g/dL (6.4-8.2)
--- NOTE | 2019-04-15 16:13 | PHYS DOC ---
Past Medical History Past Medical History: CHF, Diabetes-Type I, Diabetes-Type II, Hypertension, NE, Renal Failure Additional Past Medical Histor: STAGE 4 KIDNEY DISEASE, SEASONAL ALLERGIES Past Surgical History: Other Additional Past Surgical Histo: HERNIA REPAIR,FISTULA PLACED LEFT WRIST Alcohol Use: None Drug Use: None Adult General Chief Complaint Chief Complaint: DIALYSIS PROBLEM HPI HPI Patient is a 38 year old female with history of hypertension, diabetes type 2, NE, CHF, end-stage renal disease who was sent to the emergency room to be admitted to start dialysis. Patient denies any symptoms. She states Dr. Johnson's nurse called her today and requested her to come to the hospital for admission. PCP Dr. Monson Review of Systems Review of Systems Constitutional: Denies fever or chills [] Eyes: Denies change in visual acuity, redness, or eye pain [] HENT: Denies nasal congestion or sore throat [] Respiratory: Denies cough or shortness of breath [] Cardiovascular: No additional information not addressed in HPI [] GI: Denies abdominal pain, nausea, vomiting, bloody stools or diarrhea [] : Denies dysuria or hematuria [] Musculoskeletal: Denies back pain or joint pain [] Integument: Denies rash or skin lesions [] Neurologic: Denies headache, focal weakness or sensory changes [] Endocrine: End-stage renal disease [] All other systems were reviewed and found to be within normal limits, except as documented in this note. Allergies Allergies Allergies Coded Allergies Type Severity Reaction Last Updated Verified codeine Allergy Intermediate 01/24/16 Yes Physical Exam Physical Exam Constitutional: Overweight patient, no acute distress, non-toxic appearance. [] HENT: Normocephalic, atraumatic, bilateral external ears normal, oropharynx moist, no oral exudates, nose normal. [] Eyes: PERRLA, EOMI, conjunctiva normal, no discharge. [] Neck: Normal range of motion, no tenderness, supple, no stridor. [] Cardiovascular:Heart rate regular rhythm, no murmur [] Lungs & Thorax: Bilateral breath sounds clear to auscultation [] Abdomen: Bowel sounds normal, soft, no tenderness, no masses, no pulsatile masses. [] Skin: Warm, dry, no erythema, no rash. Dialysis fistula left wrist, positive thrill and bruit Back: No tenderness, no CVA tenderness. [] Extremities: No tenderness, no cyanosis, no clubbing, ROM intact, no edema. [] Neurologic: Alert and oriented X 3, normal motor function, normal sensory function, no focal deficits noted. [] Psychologic: Affect normal, judgement normal, mood normal. [] Current Patient Data Vital Signs Vital Signs Date Time Temp Pulse Resp B/P (MAP) Pulse Ox O2 Delivery O2 Flow Rate FiO2 04/15/19 15:00 86 16 171/106 (127) 99 Room Air 04/15/19 14:37 98.4 98.4 Lab Values Laboratory Tests Test 04/15/19 14:40 White Blood Count 6.2 x10^3/uL (4.0-11.0) Red Blood Count 3.69 x10^6/uL (3.50-5.40) Hemoglobin 10.4 g/dL (12.0-15.5) L Hematocrit 29.9 % (36.0-47.0) L Mean Corpuscular Volume 81 fL (79-100) Mean Corpuscular Hemoglobin 28 pg (25-35) Mean Corpuscular Hemoglobin Concent 35 g/dL (31-37) Red Cell Distribution Width 14.1 % (11.5-14.5) Platelet Count 290 x10^3/uL (140-400) Neutrophils (%) (Auto) 49 % (31-73) Lymphocytes (%) (Auto) 36 % (24-48) Monocytes (%) (Auto) 10 % (0-9) H Eosinophils (%) (Auto) 3 % (0-3) Basophils (%) (Auto) 1 % (0-3) Neutrophils # (Auto) 3.0 x10^3uL (1.8-7.7) Lymphocytes # (Auto) 2.2 x10^3/uL (1.0-4.8) Monocytes # (Auto) 0.6 x10^3/uL (0.0-1.1) Eosinophils # (Auto) 0.2 x10^3/uL (0.0-0.7) Basophils # (Auto) 0.1 x10^3/uL (0.0-0.2) Sodium Level 142 mmol/L (136-145) Potassium Level 4.5 mmol/L (3.5-5.1) Chloride Level 105 mmol/L (98-107) Carbon Dioxide Level 24 mmol/L (21-32) Anion Gap 13 (6-14) Blood Urea Nitrogen 38 mg/dL (7-20) H Creatinine 6.7 mg/dL (0.6-1.0) H Estimated GFR (Cockcroft-Gault) 8.4 BUN/Creatinine Ratio 6 (6-20) Glucose Level 112 mg/dL (70-99) H Calcium Level 8.5 mg/dL (8.5-10.1) Total Bilirubin 0.3 mg/dL (0.2-1.0) Aspartate Amino Transferase (AST) 12 U/L (15-37) L Alanine Aminotransferase (ALT) 22 U/L (14-59) Alkaline Phosphatase 63 U/L (46-116) Total Protein 7.2 g/dL (6.4-8.2) Albumin 3.5 g/dL (3.4-5.0) Albumin/Globulin Ratio 0.9 (1.0-1.7) L Laboratory Tests 04/15/19 14:40 Laboratory Tests 04/15/19 14:40 EKG EKG [] Radiology/Procedures Radiology/Procedures [] Course & Med Decision Making Course & Med Decision Making Pertinent Labs and Imaging studies reviewed. (See chart for details) This is a 38-year-old female patient presenting to the ED today for admission, she states, her corpsman's nurse called her and instructed her to come to the ED to be admitted for dialysis. This will be her first dialysis. Creatinine 6.7 BUN 38. CBC with a normal WBC. 15:[address] Sandoval membership correspondent for Dr. Mohamud who accepted patient for admission Dragon Disclaimer Dragon Disclaimer This electronic medical record was generated, in whole or in part, using a voice recognition dictation system. Departure Departure Impression: Primary Impression: End stage renal disease Disposition: ADMITTED INPATIENT Condition: STABLE Referrals: JUN MONSON (PCP) JOSE FLETCHER PROFESSIONAL ENGINEER Apr 15, 2019 16:13
[2019-04-15] MEDS ORDERED: ONDANSETRON PF 4 MG/2 ML VIAL. IV PRN (16:15)
[2019-04-15] MEDS ORDERED: ACETAMINOPHEN 325 MG TABLET. PO PRN (16:15)
[2019-04-15 17:29] VITALS: BP 174/97
--- NOTE | 2019-04-15 17:55 | NUR ---
CALL PLACED TO DR. BECERRA PER PAGER AWAITING A RETURN CALL AT THIS TIME.
--- NOTE | 2019-04-15 18:30 | NUR ---
CALL PLACED TO DR. BECERRA PER PAGER X2 REGARDING CONSULT, AWAITING A RETURN CALL AT THIS TIME.
[2019-04-15] MEDS ORDERED: CYCLOBENZAPRINE 10 MG TABLET. PO PRN (18:45)
[2019-04-15 19:00] VITALS: BP 172/97
--- NOTE | 2019-04-15 19:20 | NUR ---
NURSING ELECTION WATCHER NOTIFIED REGARDING CONSULT TO DR. BECERRA AND NO RETURN CALL, QUESTIONS AND CONCERNS ANSWERED.
[2019-04-15] MEDS ORDERED: HYDR-2869 PO (19:36)
--- NOTE | 2019-04-15 19:40 | NUR ---
RECEIVED A CALL BACK FROM NEPHROLOGY ANSWERING SERVICE SPOKE WITH FIONA, AWAITING A RETURN CALL FROM A WASTE DISPOSAL LEAKAGE TESTER AT THIS TIME, [facility] NURSE INFORMED.
[2019-04-15] MEDS ORDERED: INSULIN GLARGINE 300 UNITS/3 ML INSULN.PEN. SQ SCH (21:00)
[2019-04-15] MEDS: LABETALOL HCL 100 MG TABLET. PO SCH (21:41)
[2019-04-15] MEDS: amLODIPine BESYLATE 10 MG TABLET PO SCH (21:41)
[2019-04-15] MEDS: cloNIDine HCL 0.1 MG TABLET PO SCH (21:42)
[2019-04-15 22:31] VITALS: BP 205/119
[2019-04-15] MEDS: INSULIN GLARGINE 300 UNITS/3 ML INSULN.PEN. SQ SCH (23:09)
--- NOTE | 2019-04-16 02:04 | NUR ---
Patient blood sugar was 137, there was an order for 42 units of Lantus to be administered. The nurse called the doctor who gave an order of 20 units of insulin instead of administering 42 UNITS of Lantus. The nurse administered the insulin and will continue to monitor the patient.
[2019-04-16 02:53] VITALS: BP 185/87
[2019-04-16 05:44] LABS: BASO % 1 % (0-3); EOS # 0.2 x10^3/uL (0.0-0.7); EOS % 3 % (0-3); HEMATOCRIT 29.6 % (36.0-47.0); HEMOGLOBIN 10.3 g/dL (12.0-15.5); LYMPH % 36 % (24-48); MEAN CORPUSCULAR HEMOGLOBIN 28 pg (25-35); MEAN CORPUSCULAR HGB CONC 35 g/dL (31-37); MEAN CORPUSCULAR VOLUME 81 fL (79-100); MONO # 0.6 x10^3/uL (0.0-1.1); MONO % 11 % (0-9); NEUT # 2.8 x10^3uL (1.8-7.7); NEUT % 50 % (31-73); PLATELET COUNT 248 x10^3/uL (140-400); RED BLOOD COUNT 3.63 x10^6/uL (3.50-5.40); RED CELL DISTRIBUTION WIDTH 13.9 % (11.5-14.5); WHITE BLOOD COUNT 5.7 x10^3/uL (4.0-11.0)
[2019-04-16 05:54] LABS: ALBUMIN 3.2 g/dL (3.4-5.0); ALBUMIN/GLOBULIN RATIO 0.9 (1.0-1.7); CALCIUM 8.4 mg/dL (8.5-10.1); CREATININE 6.5 mg/dL (0.6-1.0); GFR 8.7; POTASSIUM 4.4 mmol/L (3.5-5.1); TOTAL BILIRUBIN 0.4 mg/dL (0.2-1.0); TOTAL PROTEIN 6.8 g/dL (6.4-8.2)
[2019-04-16 07:05] VITALS: BP 173/97
[2019-04-16] MEDS: INSULIN LISPRO 300 UNITS/3 ML INSULN.PEN. SQ SCH ×3 (08:13→18:16)
[2019-04-16] MEDS: INSULIN GLARGINE 300 UNITS/3 ML INSULN.PEN. SQ SCH ×2 (08:13→20:51)
[2019-04-16] MEDS: cloNIDine HCL 0.1 MG TABLET PO SCH ×2 (09:00→20:38)
[2019-04-16] MEDS: LABETALOL HCL 100 MG TABLET. PO SCH ×3 (09:00→20:36)
[2019-04-16] MEDS ORDERED: GINGER ROOT 550 MG PO SCH (09:00)
[2019-04-16] MEDS: FAMOTIDINE 20 MG TABLET. PO SCH (09:06)
[2019-04-16] MEDS: LINAGLIPTIN 5 MG TABLET PO SCH (09:06)
[2019-04-16] MEDS: ASPIRIN ENTERIC COATED 81 MG TABLET.DR. PO SCH (09:06)
[2019-04-16] MEDS: FUROSEMIDE 40 MG TABLET. PO SCH (09:06)
--- NOTE | 2019-04-16 09:11 | NUR ---
Blood pressure medications held as patient states she is to have dialysis today. See emar and nursing communication. Paging nephrology regards dialysis.
--- NOTE | 2019-04-16 09:40 | PDOC2 ---
CONSULT Date of Consult Date of Consult DATE: 04/16/19 TIME: 09:33 Reason for Consult Reason for Consult: CKD stage 5 Identification/Chief Complaint Chief Complaint denies any complaints Source Source: Chart review, Patient History of Present Illness Reason for Visit: Patient is a 38 year old AAF with history of hypertension, diabetes type 2, MA, CHF, CKD 5 who was sent to the emergency room to be admitted to start dialysis. She was advised to initiate HD last week by Dr. Johnson/ and WANDA but she refused as she had started a new job. She had CxR and hepatitis panel already done . Unable to start HD as OP([place] due to insurance issues likely to be resolved by next week Patient denies any symptoms- denies any chest pains, dizziness, dyspnea, abdominal pain,vomiting. Appetite good . Past Medical History Cardiovascular: CHF, HTN, Hyperlipidemia CENTRAL NERVOUS SYSTEM: CVA, TIA, Vertigo Heme/Onc: Anemia NOS Renal/: Chronic renal insuff Endocrine: Diabetes Family History Family History: Diabetes, Heart Disease, Hypertension Social History ALCOHOL: rare Drugs: None Domestic Violence: Neg Current Problem List Problem List Problems Medical Problems: (1) End stage renal disease Status: Acute Current Medications Current Medications Current Medications Ondansetron HCl (Zofran) 4 mg PRN Q8HRS PRN IV NAUSEA/VOMITING; Start 04/15/19 at 16:15; Stop 04/16/19 at 16:14 Acetaminophen (Tylenol) 650 mg PRN Q4HRS PRN PO FEVER; Start 04/15/19 at 16:15; Stop 04/16/19 at 16:14 Amlodipine Besylate (Norvasc) 10 mg HS PO Last administered on 04/15/19at 21:41; Start 04/15/19 at 21:00 Aspirin (Ecotrin) 81 mg DAILY PO Last administered on 04/16/19at 09:06; Start 04/16/19 at 09:00 Clonidine HCl (Catapres) 0.1 mg BID PO Last administered on 04/15/19at 21:42; Start 04/15/19 at 21:00 Cyclobenzaprine HCl (Flexeril) 10 mg PRN DAILY PRN PO MUSCLE SPASMS; Start 04/15/19 at 18:45 Furosemide (Lasix) 40 mg DAILY PO Last administered on 04/16/19at 09:06; Start 04/16/19 at 09:00 Linagliptin (Tradjenta) 5 mg DAILY PO Last administered on 04/16/19at 09:06; Start 04/16/19 at 09:00 Non-Formulary Medication (Zabrina Root ) 550 mg DAILY PO ; Start 04/16/19 at 09:00; Status UNV Hydralazine HCl (Apresoline) 50 mg TID PO ; Start 04/15/19 at 21:00; Stop 04/15/19 at 21:00; Status DC Insulin Human Lispro (HumaLOG) 32 units BIDWMEALS SQ Last administered on 04/16/19at 08:13; Start 04/16/19 at 08:00 Insulin Glargine (Lantus) 44 units Q12HR SQ ; Start 04/15/19 at 21:00; Stop 04/15/19 at 21:00; Status DC Famotidine (Pepcid) 20 mg DAILY PO Last administered on 04/16/19at 09:06; Start 04/16/19 at 09:00 Labetalol HCl (Trandate) 300 mg TID PO Last administered on 04/15/19at 21:41; Start 04/15/19 at 21:00 Simvastatin (Zocor) 20 mg QODAY PO ; Start 04/17/19 at 09:00 Hydralazine HCl (Apresoline) 50 mg BID PO Last administered on 04/15/19at 21:43; Start 04/15/19 at 21:00 Insulin Glargine (Lantus) 42 units Q12HR SQ Last administered on 04/16/19at 08:13; Start 04/15/19 at 21:00 Active Scripts Active Ranexa (Ranolazine) 500 Mg Tab.er.12h 500 Mg PO BID Catapres (Clonidine Hcl) 0.1 Mg Tablet 0.1 Mg PO BID Reported Hydralazine Hcl 50 Mg Tablet 1 Tab PO BID Levemir (Insulin Detemir) 100 Unit/1 Ml Vial 42 Unit SQ BID MDD 42 Novolog Flexpen (Insulin Aspart) 100 Unit/1 Ml Insuln.pen 32 Unit SQ BIDWMEALS Zocor (Simvastatin) 20 Mg Tablet 20 Mg PO HS Benadryl (Diphenhydramine Hcl) 25 Mg Capsule 1 Cap PO PRN Q6HRS Fusion Plus Capsule (Iron,Fum&Ps/Fa/Vit B&C#18/L.ca) 1 Each Capsule 1 Each PO DAILY Zabrina Root 550 Mg Capsule 550 Mg PO DAILY Cyclobenzaprine Hcl 10 Mg Tablet 1 Tab PO PRN DAILY PRN Labetalol Hcl 300 Mg Tablet 1 Tab PO TID Lisinopril 5 Mg Tablet 5 Mg PO BID Nitrostat (Nitroglycerin) 0.4 Mg Tab.subl Tradjenta (Linagliptin) 5 Mg Tablet 5 Mg PO DAILY Toujeo Solostar (Insulin Glargine,Hum.rec.anlog) 300 Unit/1 Ml Insuln.pen 40 Unit SQ BID Furosemide 40 Mg Tablet 40 Mg PO DAILY Ranitidine Hcl 150 Mg Capsule 300 Mg PO DAILY Aspir 81 (Aspirin) 81 Mg Tablet.dr 2 Tab PO DAILY Amlodipine Besylate 10 Mg Tablet 10 Mg PO HS Allergies Allergies: Coded Allergies: codeine (Verified Allergy, Intermediate, 01/24/16) ROS Review of System As per HPI Physical Exam Physical Exam GEN: NAD HEEN: Om moist NECK: Supple CVS: RRR RESP: CTA bilat, Non labored GI: BS + ve obese : No CVA tenderness, No Suprapubic Tenderness, No Koo NEURO- No Asterixis SKIN- No rash Ext - No edema , AVF Lt Vital Signs Vital Signs Date Time Temp Pulse Resp B/P (MAP) Pulse Ox O2 Delivery O2 Flow Rate FiO2 04/16/19 07:05 97.9 93 16 173/97 (122) 98 Room Air 97.9 Assessment & Plan New Onset ESRD - Will initiate HD Access- AV fistula Dialysis as ordered,use 1 gauge needle Discussed with evaluation analyst HTN- BP high Continue Home meds Should improve post HD with UF DM- per pcp Anemia- Hgb >10 Currently no indication for ZENOBIA Discussed with Pt and RN Labs Labs Laboratory Tests Test 04/15/19 14:40 04/15/19 20:52 04/16/19 04:40 04/16/19 07:13 White Blood Count 6.2 x10^3/uL (4.0-11.0) 5.7 x10^3/uL (4.0-11.0) Red Blood Count 3.69 x10^6/uL (3.50-5.40) 3.63 x10^6/uL (3.50-5.40) Hemoglobin 10.4 g/dL (12.0-15.5) 10.3 g/dL (12.0-15.5) Hematocrit 29.9 % (36.0-47.0) 29.6 % (36.0-47.0) Mean Corpuscular Volume 81 fL (79-100) 81 fL (79-100) Mean Corpuscular Hemoglobin 28 pg (25-35) 28 pg (25-35) Mean Corpuscular Hemoglobin Concent 35 g/dL (31-37) 35 g/dL (31-37) Red Cell Distribution Width 14.1 % (11.5-14.5) 13.9 % (11.5-14.5) Platelet Count 290 x10^3/uL (140-400) 248 x10^3/uL (140-400) Neutrophils (%) (Auto) 49 % (31-73) 50 % (31-73) Lymphocytes (%) (Auto) 36 % (24-48) 36 % (24-48) Monocytes (%) (Auto) 10 % (0-9) 11 % (0-9) Eosinophils (%) (Auto) 3 % (0-3) 3 % (0-3) Basophils (%) (Auto) 1 % (0-3) 1 % (0-3) Neutrophils # (Auto) 3.0 x10^3uL (1.8-7.7) 2.8 x10^3uL (1.8-7.7) Lymphocytes # (Auto) 2.2 x10^3/uL (1.0-4.8) 2.0 x10^3/uL (1.0-4.8) Monocytes # (Auto) 0.6 x10^3/uL (0.0-1.1) 0.6 x10^3/uL (0.0-1.1) Eosinophils # (Auto) 0.2 x10^3/uL (0.0-0.7) 0.2 x10^3/uL (0.0-0.7) Basophils # (Auto) 0.1 x10^3/uL (0.0-0.2) 0.0 x10^3/uL (0.0-0.2) Sodium Level 142 mmol/L (136-145) 142 mmol/L (136-145) Potassium Level 4.5 mmol/L (3.5-5.1) 4.4 mmol/L (3.5-5.1) Chloride Level 105 mmol/L (98-107) 106 mmol/L (98-107) Carbon Dioxide Level 24 mmol/L (21-32) 22 mmol/L (21-32) Anion Gap 13 (6-14) 14 (6-14) Blood Urea Nitrogen 38 mg/dL (7-20) 36 mg/dL (7-20) Creatinine 6.7 mg/dL (0.6-1.0) 6.5 mg/dL (0.6-1.0) Estimated GFR (Cockcroft-Gault) 8.4 8.7 BUN/Creatinine Ratio 6 (6-20) 6 (6-20) Glucose Level 112 mg/dL (70-99) 144 mg/dL (70-99) Calcium Level 8.5 mg/dL (8.5-10.1) 8.4 mg/dL (8.5-10.1) Total Bilirubin 0.3 mg/dL (0.2-1.0) 0.4 mg/dL (0.2-1.0) Aspartate Amino Transf (AST/SGOT) 12 U/L (15-37) 10 U/L (15-37) Alanine Aminotransferase (ALT/SGPT) 22 U/L (14-59) 19 U/L (14-59) Alkaline Phosphatase 63 U/L (46-116) 56 U/L (46-116) Total Protein 7.2 g/dL (6.4-8.2) 6.8 g/dL (6.4-8.2) Albumin 3.5 g/dL (3.4-5.0) 3.2 g/dL (3.4-5.0) Albumin/Globulin Ratio 0.9 (1.0-1.7) 0.9 (1.0-1.7) Glucose (Fingerstick) 137 mg/dL (70-99) 193 mg/dL (70-99) Laboratory Tests Test 04/15/19 14:40 04/15/19 20:52 04/16/19 04:40 04/16/19 07:13 White Blood Count 6.2 x10^3/uL (4.0-11.0) 5.7 x10^3/uL (4.0-11.0) Red Blood Count 3.69 x10^6/uL (3.50-5.40) 3.63 x10^6/uL (3.50-5.40) Hemoglobin 10.4 g/dL (12.0-15.5) 10.3 g/dL (12.0-15.5) Hematocrit 29.9 % (36.0-47.0) 29.6 % (36.0-47.0) Mean Corpuscular Volume 81 fL (79-100) 81 fL (79-100) Mean Corpuscular Hemoglobin 28 pg (25-35) 28 pg (25-35) Mean Corpuscular Hemoglobin Concent 35 g/dL (31-37) 35 g/dL (31-37) Red Cell Distribution Width 14.1 % (11.5-14.5) 13.9 % (11.5-14.5) Platelet Count 290 x10^3/uL (140-400) 248 x10^3/uL (140-400) Neutrophils (%) (Auto) 49 % (31-73) 50 % (31-73) Lymphocytes (%) (Auto) 36 % (24-48) 36 % (24-48) Monocytes (%) (Auto) 10 % (0-9) 11 % (0-9) Eosinophils (%) (Auto) 3 % (0-3) 3 % (0-3) Basophils (%) (Auto) 1 % (0-3) 1 % (0-3) Neutrophils # (Auto) 3.0 x10^3uL (1.8-7.7) 2.8 x10^3uL (1.8-7.7) Lymphocytes # (Auto) 2.2 x10^3/uL (1.0-4.8) 2.0 x10^3/uL (1.0-4.8) Monocytes # (Auto) 0.6 x10^3/uL (0.0-1.1) 0.6 x10^3/uL (0.0-1.1) Eosinophils # (Auto) 0.2 x10^3/uL (0.0-0.7) 0.2 x10^3/uL (0.0-0.7) Basophils # (Auto) 0.1 x10^3/uL (0.0-0.2) 0.0 x10^3/uL (0.0-0.2) Sodium Level 142 mmol/L (136-145) 142 mmol/L (136-145) Potassium Level 4.5 mmol/L (3.5-5.1) 4.4 mmol/L (3.5-5.1) Chloride Level 105 mmol/L (98-107) 106 mmol/L (98-107) Carbon Dioxide Level 24 mmol/L (21-32) 22 mmol/L (21-32) Anion Gap 13 (6-14) 14 (6-14) Blood Urea Nitrogen 38 mg/dL (7-20) 36 mg/dL (7-20) Creatinine 6.7 mg/dL (0.6-1.0) 6.5 mg/dL (0.6-1.0) Estimated GFR (Cockcroft-Gault) 8.4 8.7 BUN/Creatinine Ratio 6 (6-20) 6 (6-20) Glucose Level 112 mg/dL (70-99) 144 mg/dL (70-99) Calcium Level 8.5 mg/dL (8.5-10.1) 8.4 mg/dL (8.5-10.1) Total Bilirubin 0.3 mg/dL (0.2-1.0) 0.4 mg/dL (0.2-1.0) Aspartate Amino Transf (AST/SGOT) 12 U/L (15-37) 10 U/L (15-37) Alanine Aminotransferase (ALT/SGPT) 22 U/L (14-59) 19 U/L (14-59) Alkaline Phosphatase 63 U/L (46-116) 56 U/L (46-116) Total Protein 7.2 g/dL (6.4-8.2) 6.8 g/dL (6.4-8.2) Albumin 3.5 g/dL (3.4-5.0) 3.2 g/dL (3.4-5.0) Albumin/Globulin Ratio 0.9 (1.0-1.7) 0.9 (1.0-1.7) Glucose (Fingerstick) 137 mg/dL (70-99) 193 mg/dL (70-99) Review All relevant outside records, renal labs, imaging studies, telemetry/EKG's were reviewed. FRANCO SHEA MD Apr 16, 2019 09:40
--- NOTE | 2019-04-16 09:44 | NUR ---
Dr. Pacheco here to see patient. To hold blood pressure medications per Dr. Pacheco. Patient will have dialysis today. Patient verb. understanding POC.
[2019-04-16] MEDS: CETIRIZINE HCL 10 MG TABLET. PO SCH (10:30)
--- NOTE | 2019-04-16 11:22 | PDOC ---
Provider Note Provider Note Patient seen. History and Physical dictated. See dictation#[id number] JACKELIN JULIEN MD Apr 16, 2019 11:22
--- NOTE | 2019-04-16 11:43 | HP ---
ADMIT DATE: 04/15/2019 ADMITTING PHYSICIAN: Dr. Mohamud. HISTORY OF PRESENT ILLNESS: This 38-year-old -[place] female who was called by Dr. Johnson's nurse that her renal function was getting worse and she needs to be admitted to the hospital for starting new hemodialysis. At present time, the patient denies any chest pains, dizziness, dyspnea, abdominal pain, vomiting. SYSTEMS REVIEW: She does admit that she had headaches yesterday, and her blood pressure was high. She denies any dizziness, chest pains, palpitations, nausea, vomiting, diarrhea, constipation, dysuria. She states that her urine output is good. She does admit to some swelling of the legs that is chronic for her, especially because she had a left ankle injury in the past. Other systems reviewed and are negative. PAST MEDICAL HISTORY: The patient has been admitted here in 12/2017. She has a history of stage 5 kidney disease, hypertension, diabetes, hyperlipidemia, coronary artery disease, no stents. PAST SURGICAL HISTORY: The patient had hernia repair when she was a child. ALLERGIES: THE PATIENT IS ALLERGIC TO CODEINE. MEDICATIONS: Reviewed and reconciled. PERSONAL HISTORY: No history of smoking, alcoholism or drug abuse. FAMILY HISTORY: Positive for diabetes, hypertension and heart disease. PHYSICAL EXAMINATION: VITAL SIGNS: On admission, blood pressure was 171/106, then 190/92. This morning, blood pressure is 173/97 mmHg. GENERAL: The patient is alert, obese, oriented, not in acute distress. EYES: Pupils equal, reacting to light. Conjunctivae pink. Sclerae white. HEENT unremarkable. NECK: Supple. JVP normal. No thyromegaly. Trachea midline. LUNGS: Clear. CARDIOVASCULAR: S1, S2 regular. ABDOMEN: Soft, obese, nontender, no guarding, no rigidity. Bowel sounds present. EXTREMITIES: Edema present. CENTRAL NERVOUS SYSTEM: Alert and oriented. No acute changes. LABORATORY FINDINGS: WBC count 5.7, hemoglobin 10.3. Sodium 142, potassium 4.5, BUN 38, creatinine 6.7, albumin is 3.5, AST 12. Glucose 112, 137, 144, 193. IMPRESSION: 1. End-stage renal disease, now started on hemodialysis because renal function is getting worse. 2. Hypertensive crisis. 3. Diabetes mellitus type 2, dependent on insulin. 4. Hyperlipidemia. 5. Coronary artery disease. 6. Morbid obesity. PLAN: Start hemodialysis, consultation has been obtained with Dr. Xiao for nephrology evaluation and management. Monitor blood pressure, continue home medications. Hopefully, dialysis will also help her blood pressure. For details, please refer to the orders. JACKELIN JULIEN MD DR: BRIAN/serge JOB#: [id number] / [id number] DR MARGARITA Villa DR
[2019-04-16 11:50] VITALS: BP 180/96
[2019-04-16 15:00] VITALS: BP 174/105
--- NOTE | 2019-04-16 17:01 | NUR ---
Report to Ana ARREOLAwildlife control operator, patient to dialysis per bed.
--- NOTE | 2019-04-16 17:44 | NUR ---
1700 meal dose insulin not given as patient in dialysis.
--- NOTE | 2019-04-16 18:04 | NUR ---
Patient return from dialysis per bed. Ana ARREOLAcoach operator unable to use fistula, states patient will need tunnelled dialysis cath. placement / and to be NPO after MN. Patient verb. understanding POC.
[2019-04-16 18:14] VITALS: BP 196/114
[2019-04-16] MEDS: amLODIPine BESYLATE 10 MG TABLET PO SCH (20:39)
[2019-04-16 22:15] LABS: BILIRUBIN,URINE NEGATIVE (NEG); CLARITY,URINE CLEAR; COLOR,URINE YELLOW; NITRITE,URINE NEGATIVE (NEG); PROTEIN,URINE >=300 mg/dL (NEG-TRACE); UROBILINOGEN,URINE 0.2 mg/dL (0.2 mg/dL)
[2019-04-16 22:32] LABS: BACTERIA,URINE MANY /HPF (0-FEW); RBC,URINE OCC /HPF (0-2); SQUAMOUS EPITHELIAL CELL,UR MANY /LPF
[2019-04-16 23:00] VITALS: BP 170/101
[2019-04-17 03:00] VITALS: BP 153/89
[2019-04-17 07:00] VITALS: BP_SYST 109; BP_SYST 165; BP_DIAS 70; BP_DIAS 94
[2019-04-17 07:11] LABS: BASO % 1 % (0-3); EOS # 0.2 x10^3/uL (0.0-0.7); EOS % 3 % (0-3); HEMATOCRIT 30.2 % (36.0-47.0); HEMOGLOBIN 10.4 g/dL (12.0-15.5); LYMPH # 1.8 x10^3/uL (1.0-4.8); LYMPH % 33 % (24-48); MEAN CORPUSCULAR HEMOGLOBIN 28 pg (25-35); MEAN CORPUSCULAR HGB CONC 35 g/dL (31-37); MEAN CORPUSCULAR VOLUME 81 fL (79-100); MONO # 0.7 x10^3/uL (0.0-1.1); MONO % 12 % (0-9); NEUT # 2.8 x10^3uL (1.8-7.7); NEUT % 52 % (31-73); PLATELET COUNT 273 x10^3/uL (140-400); RED BLOOD COUNT 3.72 x10^6/uL (3.50-5.40); RED CELL DISTRIBUTION WIDTH 14.1 % (11.5-14.5); WHITE BLOOD COUNT 5.4 x10^3/uL (4.0-11.0)
[2019-04-17 07:27] LABS: CALCIUM 8.5 mg/dL (8.5-10.1); CREATININE 6.5 mg/dL (0.6-1.0); GFR 8.7; POTASSIUM 4.6 mmol/L (3.5-5.1)
[2019-04-17] MEDS: INSULIN LISPRO 300 UNITS/3 ML INSULN.PEN. SQ SCH ×2 (08:00→16:53)
[2019-04-17 08:26] LABS: PROTHROMBIN TIME PATIENT 13.1 SEC (11.7-14.0)
[2019-04-17] MEDS: CETIRIZINE HCL 10 MG TABLET. PO SCH ×2 (09:00→21:19)
[2019-04-17] MEDS: INSULIN GLARGINE 300 UNITS/3 ML INSULN.PEN. SQ SCH ×2 (09:00→21:27)
--- NOTE | 2019-04-17 09:42 | PDOC ---
PROGRESS NOTES Subjective Subjective going to dialysis for the first time, temp dialysis catheter today Objective Objective Vital Signs Date Time Temp Pulse Resp B/P (MAP) Pulse Ox O2 Delivery O2 Flow Rate FiO2 04/17/19 07:45 Room Air 04/17/19 07:00 97.9 85 18 165/94 (117) 98 97.9 Intake and Output 04/17/19 07:00 Intake Total 1020 ml Balance 1020 ml Intake Oral 1020 ml # Voids 5 Physical Exam Abdomen: Soft Heart: Regular rate, Normal S2 Extremities: No cyanosis General: Alert HEENT: Atraumatic Lungs: Clear to auscultation MUSCULOSKELETAL: No deformity, No swelling Neuro: Normal speech Psych/Mental Status: Mental status NL Skin: No breakdown Diagnosis Problem List Problems Medical Problems: (1) End stage renal disease Status: Acute Assessment Assessment Problems Medical Problems: (1) End stage renal disease Status: Acute IMPRESSION: 1. End-stage renal disease, now started on hemodialysis because renal function is getting worse. 2. Hypertensive crisis. 3. Diabetes mellitus type 2, dependent on insulin. 4. Hyperlipidemia. 5. Coronary artery disease. 6. Morbid obesity. PLAN: Temp dialysis catheter. start on dialysis today Pt has AV shunt left wrist ,not mature yet. Start hemodialysis, consultation has been obtained with Dr. Xiao for nephrology evaluation and management. Monitor blood pressure, continue home medications. Hopefully, dialysis will also help her blood pressure. For details, please refer to the orders. Plan Plan of Care Problems Medical Problems: (1) End stage renal disease Status: Acute Comment Review of Relevant I have reviewed the following items meagan (where applicable) has been applied. Labs Laboratory Tests Test 04/16/19 12:08 04/16/19 18:11 04/16/19 20:34 04/16/19 21:57 Glucose (Fingerstick) 90 mg/dL (70-99) 168 mg/dL (70-99) 177 mg/dL (70-99) Urine Collection Type Unknown Urine Color Yellow Urine Clarity Clear Urine pH 7.0 Urine Specific [place] 1.015 Urine Protein >=300 mg/dL (NEG-TRACE) Urine Glucose (UA) 100 mg/dL (NEG) Urine Ketones (Stick) Negative mg/dL (NEG) Urine Blood Moderate (NEG) Urine Nitrite Negative (NEG) Urine Bilirubin Negative (NEG) Urine Urobilinogen Dipstick 0.2 mg/dL (0.2 mg/dL) Urine Leukocyte Esterase Negative (NEG) Urine RBC Occ /HPF (0-2) Urine WBC 5-10 /HPF (0-4) Urine Squamous Epithelial Cells Many /LPF Urine Bacteria Many /HPF (0-FEW) Urine Mucus Slight /LPF Test 04/17/19 06:26 White Blood Count 5.4 x10^3/uL (4.0-11.0) Red Blood Count 3.72 x10^6/uL (3.50-5.40) Hemoglobin 10.4 g/dL (12.0-15.5) Hematocrit 30.2 % (36.0-47.0) Mean Corpuscular Volume 81 fL (79-100) Mean Corpuscular Hemoglobin 28 pg (25-35) Mean Corpuscular Hemoglobin Concent 35 g/dL (31-37) Red Cell Distribution Width 14.1 % (11.5-14.5) Platelet Count 273 x10^3/uL (140-400) Neutrophils (%) (Auto) 52 % (31-73) Lymphocytes (%) (Auto) 33 % (24-48) Monocytes (%) (Auto) 12 % (0-9) Eosinophils (%) (Auto) 3 % (0-3) Basophils (%) (Auto) 1 % (0-3) Neutrophils # (Auto) 2.8 x10^3uL (1.8-7.7) Lymphocytes # (Auto) 1.8 x10^3/uL (1.0-4.8) Monocytes # (Auto) 0.7 x10^3/uL (0.0-1.1) Eosinophils # (Auto) 0.2 x10^3/uL (0.0-0.7) Basophils # (Auto) 0.0 x10^3/uL (0.0-0.2) Prothrombin Time 13.1 SEC (11.7-14.0) Prothromb Time International Ratio 1.0 (0.8-1.1) Activated Partial Thromboplast Time 29 SEC (24-38) Sodium Level 139 mmol/L (136-145) Potassium Level 4.6 mmol/L (3.5-5.1) Chloride Level 104 mmol/L (98-107) Carbon Dioxide Level 24 mmol/L (21-32) Anion Gap 11 (6-14) Blood Urea Nitrogen 36 mg/dL (7-20) Creatinine 6.5 mg/dL (0.6-1.0) Estimated GFR (Cockcroft-Gault) 8.7 Glucose Level 146 mg/dL (70-99) Calcium Level 8.5 mg/dL (8.5-10.1) Medications Current Medications Cetirizine HCl (ZyrTEC) 10 mg DAILY PO Last administered on 04/16/19at 10:30; Start 04/16/19 at 10:30 Simvastatin (Zocor) 20 mg QODAY PO ; Start 04/17/19 at 09:00 Vitals/I & O Vital Sign - Last 24 Hours 04/16/19 04/16/19 04/16/19 04/16/19 11:50 15:00 18:14 20:00 Temp 98.1 98.1 98.3 98.1 98.1 98.3 Pulse 82 84 89 Resp 18 18 16 B/P (MAP) 180/96 (124) 174/105 (128) 196/114 (141) Pulse Ox 99 98 98 O2 Delivery Room Air Room Air Room Air Room Air 04/16/19 04/16/19 04/16/19 04/16/19 20:36 20:37 20:38 20:39 Pulse 89 89 89 89 B/P (MAP) 196/114 196/114 196/114 196/114 04/16/19 04/17/19 04/17/19 04/17/19 23:00 03:00 07:00 07:45 Temp 98.2 98.0 97.9 98.2 98.0 97.9 Pulse 92 81 85 Resp 16 16 18 B/P (MAP) 170/101 (124) 153/89 (110) 165/94 (117) Pulse Ox 97 98 98 O2 Delivery Room Air Room Air Room Air Room Air Intake and Output 04/16/19 04/16/19 04/17/19 15:00 23:00 07:00 Intake Total 420 ml 0 ml 600 ml Balance 420 ml 0 ml 600 ml COLTEN AVILA MD Apr 17, 2019 09:42
[2019-04-17] MEDS: cloNIDine HCL 0.1 MG TABLET PO SCH ×2 (10:08→21:19)
[2019-04-17] MEDS: LABETALOL HCL 100 MG TABLET. PO SCH ×3 (10:09→21:21)
[2019-04-17] MEDS: FAMOTIDINE 20 MG TABLET. PO SCH (10:09)
[2019-04-17] MEDS: FUROSEMIDE 40 MG TABLET. PO SCH (10:10)
[2019-04-17] MEDS ORDERED: LIDOCAINE 1%/EPI 1:100,000 20 ML VIAL. IJ ONE (10:45)
[2019-04-17] MEDS ORDERED: ceFAZolin SODIUM 3 GM in IV DEXTROSE 5% 100ML 100 ML IV ONE (10:45)
[2019-04-17] MEDS ORDERED: fentaNYL PF VIAL 100 MCG/2 ML VIAL IV ONE (10:45)
[2019-04-17] MEDS ORDERED: MIDAZOLAM HCL/PF 5 MG/5 ML VIAL. IV ONE (10:45)
[2019-04-17] MEDS ORDERED: HEPARIN for IV BOLUS 10,000 UNIT/10 ML VIAL. ONE (10:46)
[2019-04-17] MEDS ORDERED: LIDOCAINE 1%/EPI 1:100,000 20 ML VIAL. ONE (10:46)
[2019-04-17 10:48] VITALS: BP 168/109
[2019-04-17] MEDS ORDERED: fentaNYL PF VIAL 100 MCG/2 ML VIAL ONE (11:17)
[2019-04-17] MEDS ORDERED: MIDAZOLAM HCL/PF 5 MG/5 ML VIAL. ONE (11:17)
[2019-04-17 11:37] VITALS: BP 169/93
--- NOTE | 2019-04-17 11:38 | PDOC ---
BRIEF OPERATIVE NOTE Pre-Op Diagnosis CRF Post-Op Diagnosis same Procedure Performed Tunnelled HD Catheter Surgeon Juan Carlos Anesthesia Type: Conscious Sedation Findings 23 cm palindrome with excellent manual flows Complications No immediate NAGA BRIGHT MD Apr 17, 2019 11:38
--- NOTE | 2019-04-17 11:38 | PDOC ---
MODERATE SEDATION ASSESSMENT RISKS/ALTERNATIVES Risks/Alternatives Risks and alternatives of this type of sedation and procedure discussed with: RISK/ALTERNATIVES: Patient H & P ON CHART H & P H & P on chart and reviewed for co-morbid conditions and appropriate labs. H&P ON CHART: Yes STATUS PREG STATUS ASSESSED: Yes MEDS/ALLERGIES REVIEWED Meds/Allergies Reviewed Medications and Allergies including time and route of recently administered narcotics and sedatives. MEDS/ALLERGIES REVIEWED: Yes ASA RATING ASA RATING: II AIRWAY ASSESSMENT Airway Assessment Airway patency, oral function limitations, presence of caps, crowns, dentures, partials, and ability to extend neck assessed. AIRWAY ASSESSMENT: Yes MALLAMPATI SCORE MALLAMPATI SCORE: II PRE-SEDATION ASSESSMENT PRE-SEDATION ASSESSMENT: Yes NAGA BRIGHT MD Apr 17, 2019 11:38
[2019-04-17] MEDS ORDERED: IV NORMAL SALINE 1000ML BAG 1,000 ML IV PRN ×2 (12:42)
[2019-04-17] MEDS ORDERED: DIALYSIS PATIENT. MC PRN (12:45)
[2019-04-17] MEDS ORDERED: diphenhydrAMINE 50 MG/ML VIAL IV PRN ×2 (12:45)
--- NOTE | 2019-04-17 14:22 | PDOC ---
SUBJECTIVE ROS Seen on HD, Tunelled HD cath placed this am OBJECTIVE Vital Signs Vital Signs Date Time Temp Pulse Resp B/P (MAP) Pulse Ox O2 Delivery O2 Flow Rate FiO2 04/17/19 11:46 19 95 Room Air 04/17/19 11:37 79 2.0 04/17/19 10:48 97.9 168/109 (128) 97.9 I & 0 Intake and Output 04/17/19 06:59 Intake Total 1020 ml Balance 1020 ml Intake Oral 1020 ml # Voids 5 PHYSICAL EXAM Physical Exam GEN: NAD HEEN: Om moist NECK: Supple CVS: RRR RESP: CTA bilat, Non labored GI: BS + ve obese : No CVA tenderness, No Suprapubic Tenderness, No Koo NEURO- No Asterixis SKIN- No rash Ext - No edema , AVF Lt wrist- deep , DIAGNOSIS/ASSESSMENT Assessment & Plan New Onset ESRD - Access- AV fistula , unable to access yesterday as pretty deep Tunelled cath placed this am Seen on HD, tolerating well, continue as ordered, Randolph Teresa Has Chair time assigned at [facility], awaiting Insurance qpproval as out of network CxR and hep panel done as OP HTN- BP high Continue Home meds Should improve post HD with UF DM- per pcp Anemia- Hgb >10 Currently no indication for ZENOBIA Discussed with Pt and RN COMMENT/RELEVANT DATA Meds Current Medications Medications (Trade) Dose Ordered Sig/Allyn Start Time Stop Time Status Last Admin Dose Admin Acetaminophen (Tylenol) 650 mg PRN Q4HRS PRN 04/15/19 16:15 04/16/19 16:14 DC Amlodipine Besylate (Norvasc) 10 mg HS 04/15/19 21:00 04/16/19 20:39 10 MG Aspirin (Ecotrin) 81 mg DAILY 04/16/19 09:00 04/16/19 09:06 81 MG Cefazolin Sodium 3 gm/Dextrose 100 ml @ 200 mls/hr 1X ONCE 04/17/19 10:45 04/17/19 11:14 DC 04/17/19 10:45 200 MLS/HR Cetirizine HCl (ZyrTEC) 10 mg DAILY 04/16/19 10:30 04/16/19 10:30 10 MG Clonidine HCl (Catapres) 0.1 mg BID 04/15/19 21:00 04/17/19 10:08 0.1 MG Cyclobenzaprine HCl (Flexeril) 10 mg PRN DAILY PRN 04/15/19 18:45 Diphenhydramine HCl (Benadryl) 25 mg 1X PRN PRN 04/17/19 12:45 04/18/19 12:44 Famotidine (Pepcid) 20 mg DAILY 04/16/19 09:00 04/17/19 10:09 20 MG Fentanyl Citrate (Fentanyl 2ml Vial) 100 mcg 1X ONCE 04/17/19 10:45 04/17/19 10:49 DC 04/17/19 11:46 75 MCG Furosemide (Lasix) 40 mg DAILY 04/16/19 09:00 04/17/19 10:10 40 MG Heparin Sodium (Porcine) (Heparin Sodium) 3,800 unit 1X ONCE 04/17/19 11:15 04/17/19 11:16 DC 04/17/19 11:45 3,800 UNIT Hydralazine HCl (Apresoline) 50 mg BID 04/15/19 21:00 04/17/19 10:08 50 MG Info (PHARMACY MONITORING -- do not chart) 1 each PRN DAILY PRN 04/17/19 12:45 Insulin Glargine (Lantus) 42 units Q12HR 04/15/19 21:00 04/16/19 20:51 42 UNITS Insulin Human Lispro (HumaLOG) 32 units BIDWMEALS 04/16/19 08:00 04/16/19 18:16 32 UNITS Labetalol HCl (Trandate) 300 mg TID 04/15/19 21:00 04/17/19 10:09 300 MG Lidocaine/ Epinephrine (LIDOCAINE 1%-EPI 1:100,000 Multi-Dose) 20 ml 1X ONCE 04/17/19 10:45 04/17/19 10:49 DC 04/17/19 11:45 11 ML Linagliptin (Tradjenta) 5 mg DAILY 04/16/19 09:00 04/16/19 09:06 5 MG Midazolam HCl (Versed) 5 mg 1X ONCE 04/17/19 10:45 04/17/19 10:49 DC 04/17/19 11:47 3 MG Non-Formulary Medication (Zabrina Root ) 550 mg DAILY 04/16/19 09:00 UNV Ondansetron HCl (Zofran) 4 mg PRN Q8HRS PRN 04/15/19 16:15 04/16/19 16:14 DC Simvastatin (Zocor) 20 mg QODAY 04/17/19 09:00 Sodium Chloride 1,000 ml @ 400 mls/hr Q2H30M PRN 04/17/19 12:42 04/18/19 00:41 Lab Laboratory Tests Test 04/16/19 18:11 04/16/19 20:34 04/16/19 21:57 04/17/19 06:26 Glucose (Fingerstick) 168 mg/dL (70-99) 177 mg/dL (70-99) Urine Collection Type Unknown Urine Color Yellow Urine Clarity Clear Urine pH 7.0 Urine Specific [place] 1.015 Urine Protein >=300 mg/dL (NEG-TRACE) Urine Glucose (UA) 100 mg/dL (NEG) Urine Ketones (Stick) Negative mg/dL (NEG) Urine Blood Moderate (NEG) Urine Nitrite Negative (NEG) Urine Bilirubin Negative (NEG) Urine Urobilinogen Dipstick 0.2 mg/dL (0.2 mg/dL) Urine Leukocyte Esterase Negative (NEG) Urine RBC Occ /HPF (0-2) Urine WBC 5-10 /HPF (0-4) Urine Squamous Epithelial Cells Many /LPF Urine Bacteria Many /HPF (0-FEW) Urine Mucus Slight /LPF White Blood Count 5.4 x10^3/uL (4.0-11.0) Red Blood Count 3.72 x10^6/uL (3.50-5.40) Hemoglobin 10.4 g/dL (12.0-15.5) Hematocrit 30.2 % (36.0-47.0) Mean Corpuscular Volume 81 fL (79-100) Mean Corpuscular Hemoglobin 28 pg (25-35) Mean Corpuscular Hemoglobin Concent 35 g/dL (31-37) Red Cell Distribution Width 14.1 % (11.5-14.5) Platelet Count 273 x10^3/uL (140-400) Neutrophils (%) (Auto) 52 % (31-73) Lymphocytes (%) (Auto) 33 % (24-48) Monocytes (%) (Auto) 12 % (0-9) Eosinophils (%) (Auto) 3 % (0-3) Basophils (%) (Auto) 1 % (0-3) Neutrophils # (Auto) 2.8 x10^3uL (1.8-7.7) Lymphocytes # (Auto) 1.8 x10^3/uL (1.0-4.8) Monocytes # (Auto) 0.7 x10^3/uL (0.0-1.1) Eosinophils # (Auto) 0.2 x10^3/uL (0.0-0.7) Basophils # (Auto) 0.0 x10^3/uL (0.0-0.2) Prothrombin Time 13.1 SEC (11.7-14.0) Prothromb Time International Ratio 1.0 (0.8-1.1) Activated Partial Thromboplast Time 29 SEC (24-38) Sodium Level 139 mmol/L (136-145) Potassium Level 4.6 mmol/L (3.5-5.1) Chloride Level 104 mmol/L (98-107) Carbon Dioxide Level 24 mmol/L (21-32) Anion Gap 11 (6-14) Blood Urea Nitrogen 36 mg/dL (7-20) Creatinine 6.5 mg/dL (0.6-1.0) Estimated GFR (Cockcroft-Gault) 8.7 Glucose Level 146 mg/dL (70-99) Calcium Level 8.5 mg/dL (8.5-10.1) Results All relevant outside records, renal labs, imaging studies, telemetry/EKG's were reviewed. FRANCO SHEA MD Apr 17, 2019 14:22
--- NOTE | 2019-04-17 14:29 | RAD ---
Procedure: Tunneled hemodialysis catheter placement Clinical Indication: 38-year-old requiring hemodialysis Sedation: Conscious sedation was administered for 26 minutes. The patient was monitored by a qualified independent observer throughout the time of sedation. Please refer to the medical record for exact doses of medications utilized to achieve moderate sedation. Antibiotics: Antibiotic was administered intravenously within 1 hour of the procedure start time. Fluoro Time: 0.3 minutes. Images: 1 Contrast: None Sterility: All elements of maximal sterile barrier technique including the use of a cap, mask, sterile gown, sterile gloves, large sterile sheet, appropriate hand hygiene, and 2% chlorhexidine for cutaneous antisepsis (or acceptable alternative antiseptic per current guidelines) were followed for this procedure. Consent: The procedure was explained in its entirety to the patient or the patients designated bilingual sales representative by a member of the treatment team, including a discussion of the risks, benefits and commonly accepted alternatives to the procedure, as well as the expected consequences of no therapy whatsoever. Discussion of the risks included, but was not limited to, those that are most frequent and those that are rare but possibly severe or life-threatening, as well as the possibility of unforeseen complications. Technique and Findings: Following informed consent, the patient was prepped and draped in the usual sterile fashion. Ultrasound interrogation of the right neck revealed patency and compressibility of the right internal jugular vein. A 21-gauge micropuncture was then used to gain access to this vein under ultrasound guidance. A hard copy ultrasound image was recorded. The needle was exchanged over a wire for a 4 [place] sheath which was used to guide an Amplatz wire into the IVC. The skin over the right anterior chest wall was copiously anesthetized with 1% Lidocaine plus Epinephrine and a small dermatotomy was made. A 23 cm palindrome tunneled hemodialysis catheter was then tunneled subcutaneously towards the neck dermatotomy and deployed through a large caliber peel-away sheath under fluoroscopic guidance such that the distal tip resided in the mid right atrium. Manual flow rates were assessed and found to be excellent. The catheter was then flushed, packed with Heparin, capped, and sutured to the skin. The neck dermatotomy was closed with Dermabond. Complications: No immediate Impression: 1. Tunneled hemodialysis catheter placement as described. This catheter demonstrates excellent manual flow rates and is suitable for use immediately.
[2019-04-17] MEDS ORDERED: ACETAMINOPHEN 500 MG TABLET PO PRN (16:15)
[2019-04-17] MEDS: ASPIRIN ENTERIC COATED 81 MG TABLET.DR. PO SCH (16:43)
[2019-04-17] MEDS: SIMVASTATIN 20 MG TABLET PO SCH (16:43)
[2019-04-17] MEDS: LINAGLIPTIN 5 MG TABLET PO SCH (16:43)
[2019-04-17] MEDS: oxyCODONE/APAP 5/325 1 TAB TABLET PO PRN ×2 (16:44→22:54)
[2019-04-17 19:00] VITALS: BP 153/103
[2019-04-17] MEDS: amLODIPine BESYLATE 10 MG TABLET PO SCH (21:22)
[2019-04-17] MEDS ORDERED: SENNOSIDES 8.6 MG TABLET PO PRN (22:15)
[2019-04-17 23:00] VITALS: BP 155/94
[2019-04-18 03:00] VITALS: BP 156/90
[2019-04-18 07:00] VITALS: BP 156/92
[2019-04-18] MEDS: FAMOTIDINE 20 MG TABLET. PO SCH (07:59)
[2019-04-18] MEDS: LINAGLIPTIN 5 MG TABLET PO SCH (07:59)
[2019-04-18] MEDS: ASPIRIN ENTERIC COATED 81 MG TABLET.DR. PO SCH (07:59)
[2019-04-18] MEDS: POLYETHYLENE GLYCOL 3350 17 GM PACKET. PO SCH (07:59)
[2019-04-18] MEDS: LABETALOL HCL 100 MG TABLET. PO SCH ×3 (08:00→21:38)
[2019-04-18] MEDS ORDERED: IV NORMAL SALINE 1000ML BAG 1,000 ML IV PRN ×2 (08:00)
[2019-04-18] MEDS: cloNIDine HCL 0.1 MG TABLET PO SCH ×2 (08:00→21:11)
[2019-04-18] MEDS: FUROSEMIDE 40 MG TABLET. PO SCH (08:00)
[2019-04-18] MEDS: INSULIN LISPRO 300 UNITS/3 ML INSULN.PEN. SQ SCH ×2 (08:03→17:03)
[2019-04-18] MEDS: INSULIN GLARGINE 300 UNITS/3 ML INSULN.PEN. SQ SCH ×2 (08:04→21:57)
--- NOTE | 2019-04-18 09:50 | PDOC ---
PROGRESS NOTES Subjective Subjective seen pt in dialysis unit, c/o constipation Objective Objective Vital Signs Date Time Temp Pulse Resp B/P (MAP) Pulse Ox O2 Delivery O2 Flow Rate FiO2 04/18/19 08:00 Room Air 04/18/19 08:00 83 156/92 04/18/19 07:00 97.9 14 94 97.9 04/17/19 11:37 2.0 Intake and Output 04/18/19 07:00 Intake Total 300 ml Output Total 0 ml Balance 300 ml Intake Oral 300 ml Output Urine Total 0 ml # Voids 2 Physical Exam Abdomen: Soft Heart: Regular rate, Normal S2 Extremities: No cyanosis General: Alert HEENT: Atraumatic Lungs: Clear to auscultation MUSCULOSKELETAL: No deformity, No swelling Neuro: Normal speech Psych/Mental Status: Mental status NL Skin: No breakdown Diagnosis Problem List Problems Medical Problems: (1) End stage renal disease Status: Acute Assessment Assessment Problems Medical Problems: (1) End stage renal disease Status: Acute IMPRESSION: 1. End-stage renal disease, now started on hemodialysis because renal function is getting worse. 2. Hypertensive crisis. 3. Diabetes mellitus type 2, dependent on insulin. 4. Hyperlipidemia. 5. Coronary artery disease. 6. Morbid obesity. PLAN: DAy #2 dialysis Temp dialysis catheter placed04/17. senna+miralax for constipation Pt has AV shunt left wrist ,not mature yet. Plan Plan of Care Problems Medical Problems: (1) End stage renal disease Status: Acute Comment Review of Relevant I have reviewed the following items meagan (where applicable) has been applied. Labs Laboratory Tests Test 04/17/19 13:45 04/17/19 15:11 04/17/19 16:07 04/17/19 20:38 Hepatitis B Surface Antigen Nonreactive (Nonreactive) Glucose (Fingerstick) 95 mg/dL (70-99) 93 mg/dL (70-99) 161 mg/dL (70-99) Test 04/18/19 07:12 Glucose (Fingerstick) 180 mg/dL (70-99) Medications Current Medications Acetaminophen (Tylenol) 500 mg PRN Q6HRS PRN PO MILD PAIN / TEMP Last administered on 04/17/19at 20:07; Start 04/17/19 at 16:15 Cefazolin Sodium 3 gm/Dextrose 100 ml @ 200 mls/hr 1X ONCE IV Last administered on 04/17/19at 10:45; Start 04/17/19 at 10:45; Stop 04/17/19 at 11:14; Status DC Cetirizine HCl (ZyrTEC) 10 mg HS PO Last administered on 04/17/19at 21:19; Start 04/17/19 at 21:00 Diphenhydramine HCl (Benadryl) 25 mg 1X PRN PRN IV ITCHING; Start 04/17/19 at 12:45; Stop 04/18/19 at 12:44 Diphenhydramine HCl (Benadryl) 25 mg 1X PRN PRN IV ITCHING; Start 04/17/19 at 12:45; Stop 04/18/19 at 12:44 Fentanyl Citrate (Fentanyl 2ml Vial) 100 mcg 1X ONCE IV Last administered on 04/17/19at 11:46; Start 04/17/19 at 10:45; Stop 04/17/19 at 10:49; Status DC Heparin Sodium (Porcine) (Heparin Sodium) 3,800 unit 1X ONCE INT CAT Last administered on 04/17/19at 11:45; Start 04/17/19 at 11:15; Stop 04/17/19 at 11:16; Status DC Info (PHARMACY MONITORING -- do not chart) 1 each PRN DAILY PRN MC SEE COMMENTS; Start 04/17/19 at 12:45 Lidocaine/ Epinephrine (LIDOCAINE 1%-EPI 1:100,000 Multi-Dose) 20 ml 1X ONCE IJ Last administered on 04/17/19 11:45; Start 04/17/19 at 10:45; Stop 04/17/19 at 10:49; Status DC Midazolam HCl (Versed) 5 mg 1X ONCE IV Last administered on 04/17/19at 11:47; Start 04/17/19 at 10:45; Stop 04/17/19 at 10:49; Status DC Oxycodone/ Acetaminophen (Percocet 5/325) 1 tab PRN Q6HRS PRN PO MODERATE- SEVERE PAIN Last administered on 04/17/19at 22:54; Start 04/17/19 at 16:15 Polyethylene Glycol (miraLAX PACKET) 17 gm DAILY PO Last administered on 04/18/19at 07:59; Start 04/18/19 at 09:00 Sennosides (Senna) 8.6 mg PRN DAILY PRN PO CONSTIPATION Last administered on 04/18/19at 08:00; Start 04/17/19 at 22:15 Sodium Chloride 1,000 ml @ 400 mls/hr Q2H30M PRN IV PATENCY; Start 04/17/19 at 12:42; Stop 04/18/19 at 00:41; Status DC Sodium Chloride 1,000 ml @ 1,000 mls/hr Q1H PRN IV hypotension; Start 04/17/19 at 12:42; Stop 04/17/19 at 18:41; Status DC Vitals/I & O Vital Sign - Last 24 Hours 04/17/19 04/17/19 04/17/19 04/17/19 10:08 10:08 10:09 10:48 Temp 97.9 97.9 Pulse 85 85 85 82 Resp 18 B/P (MAP) 165/94 165/94 165/94 168/109 (128) Pulse Ox 99 O2 Delivery Room Air 04/17/19 04/17/19 04/17/19 04/17/19 11:37 11:46 16:44 16:45 Pulse 79 85 Resp 21 19 B/P (MAP) 168/100 Pulse Ox 99 95 O2 Delivery Nasal Cannula Room Air Room Air O2 Flow Rate 2.0 04/17/19 04/17/19 04/17/19 04/17/19 17:45 19:00 19:59 20:00 Temp 98.4 98.4 Pulse 91 Resp 20 B/P (MAP) 153/103 (120) Pulse Ox 96 O2 Delivery Room Air Room Air Room Air Room Air 04/17/19 04/17/19 04/17/19 04/17/19 21:19 21:20 21:21 21:22 Pulse 84 84 84 84 B/P (MAP) 155/105 155/105 155/105 155/105 04/17/19 04/18/19 04/18/19 04/18/19 23:00 03:00 07:00 07:59 Temp 97.8 97.6 97.9 97.8 97.6 97.9 Pulse 80 77 83 83 Resp 20 20 14 B/P (MAP) 155/94 (114) 156/90 (112) 156/92 (113) 156/92 Pulse Ox 97 99 94 O2 Delivery Room Air Room Air Room Air 04/18/19 04/18/19 04/18/19 08:00 08:00 08:00 Pulse 83 83 B/P (MAP) 156/92 156/92 O2 Delivery Room Air Intake and Output 04/17/19 04/17/19 04/18/19 15:00 23:00 07:00 Intake Total 300 ml Output Total 0 ml Balance 300 ml 0 ml COLTEN AVILA MD Apr 18, 2019 09:50
--- NOTE | 2019-04-18 10:39 | PDOC ---
SUBJECTIVE ROS Seen on HD, tolerating well OBJECTIVE Vital Signs Vital Signs Date Time Temp Pulse Resp B/P (MAP) Pulse Ox O2 Delivery O2 Flow Rate FiO2 04/18/19 08:00 Room Air 04/18/19 08:00 83 156/92 04/18/19 07:00 97.9 14 94 97.9 04/17/19 11:37 2.0 I & 0 Intake and Output 04/18/19 07:00 Intake Total 300 ml Output Total 0 ml Balance 300 ml Intake Oral 300 ml Output Urine Total 0 ml # Voids 2 PHYSICAL EXAM Physical Exam GEN: NAD HEEN: Om moist NECK: Supple CVS: RRR RESP: CTA bilat, Non labored GI: BS + ve obese : No CVA tenderness, No Suprapubic Tenderness, No Koo NEURO- No Asterixis SKIN- No rash Ext - No edema , AVF Lt wrist- deep , DIAGNOSIS/ASSESSMENT Assessment & Plan New Onset ESRD - Access- AV fistula , unable to access Tunneled cath placed 04/17 treatment today- seen HD, tolerating well, continue as ordered, Randolph Teresa Has Chair time assigned at [facility], awaiting Insurance approval CxR and hep panel done as OP HTN- BP high, improved Continue Home meds, Monitor DM- per pcp Anemia- Hgb >10 Currently no indication for ZENOBIA Discussed with Pt and RN COMMENT/RELEVANT DATA Meds Current Medications Medications (Trade) Dose Ordered Sig/Allyn Start Time Stop Time Status Last Admin Dose Admin Acetaminophen (Tylenol) 500 mg PRN Q6HRS PRN 04/17/19 16:15 04/17/19 20:07 500 MG Amlodipine Besylate (Norvasc) 10 mg HS 04/15/19 21:00 04/17/19 21:22 10 MG Aspirin (Ecotrin) 81 mg DAILY 04/16/19 09:00 04/18/19 07:59 81 MG Cefazolin Sodium 3 gm/Dextrose 100 ml @ 200 mls/hr 1X ONCE 04/17/19 10:45 04/17/19 11:14 DC 04/17/19 10:45 200 MLS/HR Cetirizine HCl (ZyrTEC) 10 mg HS 04/17/19 21:00 04/17/19 21:19 10 MG Clonidine HCl (Catapres) 0.1 mg BID 04/15/19 21:00 04/18/19 08:00 0.1 MG Cyclobenzaprine HCl (Flexeril) 10 mg PRN DAILY PRN 04/15/19 18:45 Diphenhydramine HCl (Benadryl) 25 mg 1X PRN PRN 04/17/19 12:45 04/18/19 12:44 Famotidine (Pepcid) 20 mg DAILY 04/16/19 09:00 04/18/19 07:59 20 MG Fentanyl Citrate (Fentanyl 2ml Vial) 100 mcg 1X ONCE 04/17/19 10:45 04/17/19 10:49 DC 04/17/19 11:46 75 MCG Furosemide (Lasix) 40 mg DAILY 04/16/19 09:00 04/18/19 08:00 40 MG Heparin Sodium (Porcine) (Heparin Sodium) 3,800 unit 1X ONCE 04/17/19 11:15 04/17/19 11:16 DC 04/17/19 11:45 3,800 UNIT Hydralazine HCl (Apresoline) 50 mg BID 04/15/19 21:00 04/18/19 07:59 50 MG Info (PHARMACY MONITORING -- do not chart) 1 each PRN DAILY PRN 04/17/19 12:45 Insulin Glargine (Lantus) 42 units Q12HR 04/15/19 21:00 04/18/19 08:04 42 UNITS Insulin Human Lispro (HumaLOG) 32 units BIDWMEALS 04/16/19 08:00 04/18/19 08:03 32 UNITS Labetalol HCl (Trandate) 300 mg TID 04/15/19 21:00 04/18/19 08:00 300 MG Lidocaine/ Epinephrine (LIDOCAINE 1%-EPI 1:100,000 Multi-Dose) 20 ml 1X ONCE 04/17/19 10:45 04/17/19 10:49 DC 04/17/19 11:45 11 ML Linagliptin (Tradjenta) 5 mg DAILY 04/16/19 09:00 04/18/19 07:59 5 MG Midazolam HCl (Versed) 5 mg 1X ONCE 04/17/19 10:45 04/17/19 10:49 DC 04/17/19 11:47 3 MG Non-Formulary Medication (Zabrina Root ) 550 mg DAILY 04/16/19 09:00 UNV Ondansetron HCl (Zofran) 4 mg PRN Q8HRS PRN 04/15/19 16:15 04/16/19 16:14 DC Oxycodone/ Acetaminophen (Percocet 5/325) 1 tab PRN Q6HRS PRN 04/17/19 16:15 04/17/19 22:54 1 TAB Polyethylene Glycol (miraLAX PACKET) 17 gm DAILY 04/18/19 09:00 04/18/19 07:59 17 GM Sennosides (Senna) 8.6 mg PRN DAILY PRN 04/17/19 22:15 04/18/19 08:00 8.6 MG Simvastatin (Zocor) 20 mg QODAY 04/17/19 09:00 04/17/19 16:43 20 MG Sodium Chloride 1,000 ml @ 400 mls/hr Q2H30M PRN 04/17/19 12:42 04/18/19 00:41 DC Lab Laboratory Tests Test 04/17/19 13:45 04/17/19 15:11 04/17/19 16:07 04/17/19 20:38 Hepatitis B Surface Antigen Nonreactive (Nonreactive) Glucose (Fingerstick) 95 mg/dL (70-99) 93 mg/dL (70-99) 161 mg/dL (70-99) Test 04/18/19 07:12 Glucose (Fingerstick) 180 mg/dL (70-99) Results All relevant outside records, renal labs, imaging studies, telemetry/EKG's were reviewed. FRANCO SHEA MD Apr 18, 2019 10:39
[2019-04-18] MEDS ORDERED: DIALYSIS PATIENT. MC PRN ×2 (11:15)
--- NOTE | 2019-04-18 14:07 | NUR ---
DIMITRI following pt for dc needs. Chart reviewed and carlota RN. Pt has a tentative dialysis chair time but waiting on insurance approval. DIMITRI spoke with Mary at [facility] who reported referral was sent to them from pt's vp rheumatology and they are awaiting on insurance approval for out of network benefits. DIMITRI spoke with Delilah at [facility] [place] regarding this as well. Will continue to follow. Addendum: 04/18/19 at 1435 by RADHA MOSLEY DIMITRI faxed clinicals to [facility].
[2019-04-18 15:00] VITALS: BP 141/95
[2019-04-18 19:00] VITALS: BP 151/88
[2019-04-18] MEDS ORDERED: DEXTROSE 50% 25 GM / 50ML DISP.SYRIN. IV PRN (20:45)
[2019-04-18] MEDS: amLODIPine BESYLATE 10 MG TABLET PO SCH (21:01)
[2019-04-18] MEDS: CETIRIZINE HCL 10 MG TABLET. PO SCH (21:10)
[2019-04-18 23:00] VITALS: BP 147/83
[2019-04-19 03:00] VITALS: BP 150/89
[2019-04-19 07:00] VITALS: BP 156/93
[2019-04-19] MEDS: INSULIN LISPRO 300 UNITS/3 ML INSULN.PEN. SQ SCH ×2 (09:00→17:00)
[2019-04-19] MEDS: FAMOTIDINE 20 MG TABLET. PO SCH (09:41)
[2019-04-19] MEDS: LINAGLIPTIN 5 MG TABLET PO SCH (09:41)
--- NOTE | 2019-04-19 09:41 | PDOC ---
PROGRESS NOTES Subjective Subjective looks like pt may go home today Objective Objective Vital Signs Date Time Temp Pulse Resp B/P (MAP) Pulse Ox O2 Delivery O2 Flow Rate FiO2 04/19/19 07:00 98.2 85 18 156/93 (114) 100 Room Air 98.2 Intake and Output 04/19/19 07:00 Intake Total 1150 ml Balance 1150 ml Intake Oral 1150 ml # Voids 4 Physical Exam Abdomen: Soft Heart: Regular rate, Normal S2 Extremities: No cyanosis General: Alert HEENT: Atraumatic Lungs: Clear to auscultation MUSCULOSKELETAL: No deformity, No swelling Neuro: Normal speech Psych/Mental Status: Mental status NL Skin: No breakdown Diagnosis Problem List Problems Medical Problems: (1) End stage renal disease Status: Acute Assessment Assessment Problems Medical Problems: (1) End stage renal disease Status: Acute IMPRESSION: 1. End-stage renal disease, now started on hemodialysis because renal function is getting worse. 2. Hypertensive crisis. 3. Diabetes mellitus type 2, dependent on insulin. 4. Hyperlipidemia. 5. Coronary artery disease. 6. Morbid obesity. PLAN: Day #3 dialysis today? Tunneled dialysis catheter placed 04/17. senna+miralax for constipation Pt has AV shunt left wrist ,not mature yet. dec insulin dose as pt having low sugars d/c home later today out pt dialysis continue Plan Plan of Care Problems Medical Problems: (1) End stage renal disease Status: Acute Comment Review of Relevant I have reviewed the following items meagan (where applicable) has been applied. Labs Laboratory Tests Test 04/18/19 12:25 04/18/19 16:49 04/18/19 20:33 04/18/19 20:34 Glucose (Fingerstick) 130 mg/dL (70-99) 180 mg/dL (70-99) 57 mg/dL (70-99) 67 mg/dL (70-99) Test 04/18/19 21:08 04/19/19 07:23 Glucose (Fingerstick) 97 mg/dL (70-99) 93 mg/dL (70-99) Medications Current Medications Dextrose (Dextrose 50%-Water Syringe) 12.5 gm PRN Q15MIN PRN IV SEE COMMENTS; Start 04/18/19 at 20:45 Info (PHARMACY MONITORING -- do not chart) 1 each PRN DAILY PRN MC SEE COMMENTS; Start 04/18/19 at 11:15; Stop 04/18/19 at 11:15; Status DC Info (PHARMACY MONITORING -- do not chart) 1 each PRN DAILY PRN MC SEE COMMENTS; Start 04/18/19 at 11:15; Stop 04/18/19 at 11:15; Status DC Insulin Glargine (Lantus) 30 units Q12HR SQ ; Start 04/19/19 at 09:00 Insulin Human Lispro (HumaLOG) 25 units BIDWMEALS SQ ; Start 04/19/19 at 09:00 Vitals/I & O Vital Sign - Last 24 Hours 04/18/19 04/18/19 04/18/19 04/18/19 13:48 15:00 19:00 20:00 Temp 98.7 98.0 98.7 98.0 Pulse 85 89 83 Resp 16 17 B/P (MAP) 151/94 141/95 (110) 151/88 (109) Pulse Ox 95 100 O2 Delivery Room Air Room Air Room Air 04/18/19 04/18/19 04/18/19 04/18/19 21:01 21:10 21:11 21:38 Pulse 85 89 89 89 B/P (MAP) 154/92 154/92 154/92 154/92 04/18/19 04/19/19 04/19/19 23:00 03:00 07:00 Temp 98.0 97.8 98.2 98.0 97.8 98.2 Pulse 82 85 85 Resp 17 16 18 B/P (MAP) 147/83 (104) 150/89 (109) 156/93 (114) Pulse Ox 99 100 100 O2 Delivery Room Air Room Air Room Air Intake and Output 04/18/19 04/18/19 04/19/19 15:00 23:00 07:00 Intake Total 120 ml 760 ml 270 ml Balance 120 ml 760 ml 270 ml COLTEN AVILA MD Apr 19, 2019 09:41
[2019-04-19] MEDS: SIMVASTATIN 20 MG TABLET PO SCH (09:42)
[2019-04-19] MEDS: FUROSEMIDE 40 MG TABLET. PO SCH (09:42)
[2019-04-19] MEDS: cloNIDine HCL 0.1 MG TABLET PO SCH ×2 (09:42→21:22)
[2019-04-19] MEDS: ASPIRIN ENTERIC COATED 81 MG TABLET.DR. PO SCH (09:42)
[2019-04-19] MEDS: POLYETHYLENE GLYCOL 3350 17 GM PACKET. PO SCH (09:43)
[2019-04-19] MEDS ORDERED: INSU100I11 SQ (09:45)
[2019-04-19] MEDS ORDERED: OXYC1TAB15 PO (09:45)
[2019-04-19] MEDS ORDERED: INSU100I13 SQ (09:45)
[2019-04-19] MEDS: INSULIN GLARGINE 300 UNITS/3 ML INSULN.PEN. SQ SCH ×2 (09:54→23:21)
--- NOTE | 2019-04-19 09:55 | NUR ---
RE: DISCHARGE (WAITING ON INSURANCE) - SPOKE WITH DR. SHEA & BAKELITE MOLDER MARA - INSURANCE IS PENDING FOR PAYMENT OF [facility] ([facility] IS AVAILABLE).
[2019-04-19] MEDS: LABETALOL HCL 100 MG TABLET. PO SCH ×3 (09:56→21:24)
--- NOTE | 2019-04-19 10:14 | NUR ---
RE: DISCHARGE - DR. SHEA ADVISED TO STAY IN HOSPITAL UNTIL TOMORROW, AT WHICH TIME DIALYSIS WILL OCCUR; THEN DISCHARGE TO HOME; IF FEELING ILL, COME BACK TO E.D. OVER THE WEEKEND OR WEDNESDAY TO DIALYSIS WHILE STILL WAITING ON INSURANCE FOR PAYMENT OF [facility].
[2019-04-19 11:00] VITALS: BP 155/81
--- NOTE | 2019-04-19 11:10 | NUR ---
DIMITRI following pt. Spoke with Mary at [facility] and insurance approval for OP HD is still pending. Discussed with Dr. Pacheco and planning on discharging pt tomorrow after HD and have pt follow up in the ER when she feels sick until OP HD is confirmed.
--- NOTE | 2019-04-19 11:43 | PDOC ---
SUBJECTIVE ROS No complaints OBJECTIVE Vital Signs Vital Signs Date Time Temp Pulse Resp B/P (MAP) Pulse Ox O2 Delivery O2 Flow Rate FiO2 04/19/19 09:56 85 156/93 04/19/19 07:00 98.2 18 100 Room Air 98.2 I & 0 Intake and Output 04/19/19 07:00 Intake Total 1150 ml Balance 1150 ml Intake Oral 1150 ml # Voids 4 PHYSICAL EXAM Physical Exam GEN: NAD HEEN: Om moist NECK: Supple CVS: RRR RESP: CTA bilat, Non labored GI: BS + ve obese : No CVA tenderness, No Suprapubic Tenderness, No Koo NEURO- No Asterixis SKIN- No rash Ext - No edema , AVF Lt wrist- deep , DIAGNOSIS/ASSESSMENT Assessment & Plan New Onset ESRD - Access- AV fistula , unable to access Tunneled cath placed 04/17 treatment 04/18- Chair time has been assigned at [facility], awaiting Insurance approval I contacted [employer] again this am- process escalated, Plan to do HD tomorrow and likely dc Home Will have to come to ED for follow up labs and/or symptomatic CxR and hep panel done as OP HTN- BP high, improved Continue Home meds, Monitor DM- per pcp Anemia- Hgb >10 Currently no indication for ZENOBIA Discussed with Pt , RN and SW COMMENT/RELEVANT DATA Meds Current Medications Medications (Trade) Dose Ordered Sig/Allyn Start Time Stop Time Status Last Admin Dose Admin Acetaminophen (Tylenol) 500 mg PRN Q6HRS PRN 04/17/19 16:15 04/17/19 20:07 500 MG Amlodipine Besylate (Norvasc) 10 mg HS 04/15/19 21:00 04/18/19 21:01 10 MG Aspirin (Ecotrin) 81 mg DAILY 04/16/19 09:00 04/19/19 09:42 81 MG Cefazolin Sodium 3 gm/Dextrose 100 ml @ 200 mls/hr 1X ONCE 04/17/19 10:45 04/17/19 11:14 DC 04/17/19 10:45 200 MLS/HR Cetirizine HCl (ZyrTEC) 10 mg HS 04/17/19 21:00 04/18/19 21:10 10 MG Clonidine HCl (Catapres) 0.1 mg BID 04/15/19 21:00 04/19/19 09:42 0.1 MG Cyclobenzaprine HCl (Flexeril) 10 mg PRN DAILY PRN 04/15/19 18:45 Dextrose (Dextrose 50%-Water Syringe) 12.5 gm PRN Q15MIN PRN 04/18/19 20:45 Diphenhydramine HCl (Benadryl) 25 mg 1X PRN PRN 04/17/19 12:45 04/18/19 12:44 DC Famotidine (Pepcid) 20 mg DAILY 04/16/19 09:00 04/19/19 09:41 20 MG Fentanyl Citrate (Fentanyl 2ml Vial) 100 mcg STK-MED ONCE 04/17/19 11:17 04/18/19 17:43 DC Furosemide (Lasix) 40 mg DAILY 04/16/19 09:00 04/19/19 09:42 40 MG Heparin Sodium (Porcine) (Heparin Sodium) 10,000 unit STK-MED ONCE 04/17/19 10:46 04/18/19 17:42 DC Hydralazine HCl (Apresoline) 50 mg BID 04/15/19 21:00 04/19/19 09:41 50 MG Info (PHARMACY MONITORING -- do not chart) 1 each PRN DAILY PRN 04/18/19 11:15 04/18/19 11:15 DC Insulin Glargine (Lantus) 30 units Q12HR 04/19/19 09:00 04/19/19 09:54 30 UNITS Insulin Human Lispro (HumaLOG) 25 units BIDWMEALS 04/19/19 09:00 Labetalol HCl (Trandate) 300 mg TID 04/15/19 21:00 04/19/19 09:56 300 MG Lidocaine/ Epinephrine (LIDOCAINE 1%-EPI 1:100,000 Multi-Dose) 20 ml STK-MED ONCE 04/17/19 10:46 04/18/19 17:42 DC Linagliptin (Tradjenta) 5 mg DAILY 04/16/19 09:00 04/19/19 09:41 5 MG Midazolam HCl (Versed) 5 mg STK-MED ONCE 04/17/19 11:17 04/18/19 17:43 DC Non-Formulary Medication (Zabrina Root ) 550 mg DAILY 04/16/19 09:00 UNV Ondansetron HCl (Zofran) 4 mg PRN Q8HRS PRN 04/15/19 16:15 04/16/19 16:14 DC Oxycodone/ Acetaminophen (Percocet 5/325) 1 tab PRN Q6HRS PRN 04/17/19 16:15 04/17/19 22:54 1 TAB Polyethylene Glycol (miraLAX PACKET) 17 gm DAILY 04/18/19 09:00 04/19/19 09:43 17 GM Sennosides (Senna) 8.6 mg PRN DAILY PRN 04/17/19 22:15 04/18/19 08:00 8.6 MG Simvastatin (Zocor) 20 mg QODAY 04/17/19 09:00 04/19/19 09:42 20 MG Sodium Chloride 1,000 ml @ 400 mls/hr Q2H30M PRN 04/18/19 08:00 04/18/19 19:59 DC Lab Laboratory Tests Test 04/18/19 12:25 04/18/19 16:49 04/18/19 20:33 04/18/19 20:34 Glucose (Fingerstick) 130 mg/dL (70-99) 180 mg/dL (70-99) 57 mg/dL (70-99) 67 mg/dL (70-99) Test 04/18/19 21:08 04/19/19 07:23 Glucose (Fingerstick) 97 mg/dL (70-99) 93 mg/dL (70-99) Results All relevant outside records, renal labs, imaging studies, telemetry/EKG's were reviewed. FRANCO SHEA MD Apr 19, 2019 11:43
[2019-04-19 11:50] LABS: CALCIUM 8.7 mg/dL (8.5-10.1); CREATININE 5.3 mg/dL (0.6-1.0); POTASSIUM 4.4 mmol/L (3.5-5.1)
[2019-04-19 15:00] VITALS: BP 157/98
[2019-04-19 19:00] VITALS: BP 150/91
[2019-04-19] MEDS: CETIRIZINE HCL 10 MG TABLET. PO SCH (21:22)
[2019-04-19] MEDS: amLODIPine BESYLATE 10 MG TABLET PO SCH (21:23)
[2019-04-19 22:50] VITALS: BP 140/94
[2019-04-20 02:37] VITALS: BP 156/88
[2019-04-20] MEDS ORDERED: IV NORMAL SALINE 1000ML BAG 1,000 ML IV PRN ×2 (07:17)
[2019-04-20] MEDS ORDERED: DIALYSIS PATIENT. MC PRN (07:30)
[2019-04-20] MEDS ORDERED: diphenhydrAMINE 50 MG/ML VIAL IV PRN ×2 (07:30)
[2019-04-20] MEDS: INSULIN LISPRO 300 UNITS/3 ML INSULN.PEN. SQ SCH ×2 (08:00→12:03)
[2019-04-20] MEDS: LABETALOL HCL 100 MG TABLET. PO SCH ×2 (09:00→13:48)
--- NOTE | 2019-04-20 09:22 | NUR ---
Patient in bathroom on walking rounds and then to dialysis at 0720 am per bed with Rodri ARREOLAengine testing supervisor receiving report. No morning medications given as patient in dialysis, will assess patient on return from diaysis.
--- NOTE | 2019-04-20 09:38 | PDOC ---
PROGRESS NOTES Subjective Subjective seen in dialysis unit Objective Objective Vital Signs Date Time Temp Pulse Resp B/P (MAP) Pulse Ox O2 Delivery O2 Flow Rate FiO2 04/20/19 02:37 98.1 95 19 156/88 (110) 96 Room Air 98.1 04/19/19 08:00 2.0 Intake and Output 04/20/19 07:00 # Voids 8 Physical Exam Abdomen: Soft Heart: Regular rate, Normal S2 Extremities: No cyanosis General: Alert HEENT: Atraumatic Lungs: Clear to auscultation MUSCULOSKELETAL: No deformity, No swelling Neuro: Normal speech Psych/Mental Status: Mental status NL Skin: No breakdown Diagnosis Problem List Problems Medical Problems: (1) End stage renal disease Status: Acute Assessment Assessment Problems Medical Problems: (1) End stage renal disease Status: Acute IMPRESSION: 1. End-stage renal disease, now started on hemodialysis because renal function is getting worse. 2. Hypertensive crisis. 3. Diabetes mellitus type 2, dependent on insulin. 4. Hyperlipidemia. 5. Coronary artery disease. 6. Morbid obesity. PLAN: spoke with staff waiting for out pt dialysis chair. Day #3 dialysis today Tunneled dialysis catheter placed 04/17. senna+miralax for constipation Pt has AV shunt left wrist ,not mature yet. dec insulin dose as pt having low sugars d/c home later today out pt dialysis continue Plan Plan of Care Problems Medical Problems: (1) End stage renal disease Status: Acute Comment Review of Relevant I have reviewed the following items meagan (where applicable) has been applied. Labs Laboratory Tests Test 04/19/19 10:34 04/19/19 11:32 04/19/19 16:49 04/19/19 21:05 Sodium Level 136 mmol/L (136-145) Potassium Level 4.4 mmol/L (3.5-5.1) Chloride Level 99 mmol/L (98-107) Carbon Dioxide Level 25 mmol/L (21-32) Anion Gap 12 (6-14) Blood Urea Nitrogen 23 mg/dL (7-20) Creatinine 5.3 mg/dL (0.6-1.0) Estimated GFR (Cockcroft-Gault) 11.0 Glucose Level 188 mg/dL (70-99) Calcium Level 8.7 mg/dL (8.5-10.1) Glucose (Fingerstick) 144 mg/dL (70-99) 128 mg/dL (70-99) 149 mg/dL (70-99) Test 04/19/19 23:50 04/20/19 08:02 Glucose (Fingerstick) 145 mg/dL (70-99) 129 mg/dL (70-99) Medications Current Medications Diphenhydramine HCl (Benadryl) 25 mg 1X PRN PRN IV ITCHING; Start 04/20/19 at 07:30; Stop 04/21/19 at 07:29 Diphenhydramine HCl (Benadryl) 25 mg 1X PRN PRN IV ITCHING; Start 04/20/19 at 07:30; Stop 04/21/19 at 07:29 Info (PHARMACY MONITORING -- do not chart) 1 each PRN DAILY PRN MC SEE COMMENTS; Start 04/20/19 at 07:30 Sodium Chloride 1,000 ml @ 400 mls/hr Q2H30M PRN IV PATENCY; Start 04/20/19 at 07:17; Stop 04/20/19 at 19:16 Sodium Chloride 1,000 ml @ 1,000 mls/hr Q1H PRN IV hypotension; Start 04/20/19 at 07:17; Stop 04/20/19 at 13:16 Vitals/I & O Vital Sign - Last 24 Hours 04/19/19 04/19/19 04/19/19 04/19/19 09:41 09:42 09:56 11:00 Temp 98.2 98.2 Pulse 85 85 85 83 Resp 18 B/P (MAP) 156/93 156/93 156/93 155/81 (105) Pulse Ox 99 O2 Delivery Room Air 04/19/19 04/19/19 04/19/19 04/19/19 13:11 15:00 19:00 20:00 Temp 98.5 98.1 98.5 98.1 Pulse 83 83 81 Resp 18 18 B/P (MAP) 155/81 157/98 (117) 150/91 (110) Pulse Ox 98 97 O2 Delivery Room Air Room Air Room Air 04/19/19 04/19/19 04/19/19 04/19/19 21:22 21:23 21:23 21:24 Pulse 86 81 81 81 B/P (MAP) 158/106 158/106 158/106 158/106 04/19/19 04/20/19 22:50 02:37 Temp 98.3 98.1 98.3 98.1 Pulse 82 95 Resp 18 19 B/P (MAP) 140/94 (109) 156/88 (110) Pulse Ox 97 96 O2 Delivery Room Air Room Air COLTEN AVILA MD Apr 20, 2019 09:38
[2019-04-20 11:00] VITALS: BP 157/98
--- NOTE | 2019-04-20 11:26 | PDOC ---
SUBJECTIVE ROS No complaints, seen on HD OBJECTIVE Vital Signs Vital Signs Date Time Temp Pulse Resp B/P (MAP) Pulse Ox O2 Delivery O2 Flow Rate FiO2 04/20/19 02:37 98.1 95 19 156/88 (110) 96 Room Air 98.1 04/19/19 08:00 2.0 I & 0 Intake and Output 04/20/19 07:00 # Voids 8 PHYSICAL EXAM Physical Exam GEN: NAD HEEN: Om moist NECK: Supple CVS: RRR RESP: CTA bilat, Non labored GI: BS + ve obese : No CVA tenderness, No Suprapubic Tenderness, No Koo NEURO- No Asterixis SKIN- No rash Ext - No edema , AVF Lt wrist- deep , DIAGNOSIS/ASSESSMENT Assessment & Plan New Onset ESRD - Access- AV fistula , unable to access , will need to be re-eval as OP(Dr. March) Tunneled cath placed 04/17 ,3 rd treatment today Seen on HD, tolerating well continue as ordered , Randolph Teresa Chair time has been assigned at [facility], awaiting Insurance approval , process escalated, If Dced home(per Hospital protocol), advised to come to ED for follow up labs next week or earlier if symptomatic She has been asymptomatic during hospitalization CxR and hep panel done as OP HTN- BP high, improved Continue Home meds, DM- per pcp Anemia- Hgb >10 Currently no indication for ZENOBIA Discussed with Pt , RN and SW COMMENT/RELEVANT DATA Meds Current Medications Medications (Trade) Dose Ordered Sig/Allyn Start Time Stop Time Status Last Admin Dose Admin Acetaminophen (Tylenol) 500 mg PRN Q6HRS PRN 04/17/19 16:15 04/17/19 20:07 500 MG Amlodipine Besylate (Norvasc) 10 mg HS 04/15/19 21:00 04/19/19 21:23 10 MG Aspirin (Ecotrin) 81 mg DAILY 04/16/19 09:00 04/19/19 09:42 81 MG Cefazolin Sodium 3 gm/Dextrose 100 ml @ 200 mls/hr 1X ONCE 04/17/19 10:45 04/17/19 11:14 DC 04/17/19 10:45 200 MLS/HR Cetirizine HCl (ZyrTEC) 10 mg HS 04/17/19 21:00 04/19/19 21:22 10 MG Clonidine HCl (Catapres) 0.1 mg BID 04/15/19 21:00 04/19/19 21:22 0.1 MG Cyclobenzaprine HCl (Flexeril) 10 mg PRN DAILY PRN 04/15/19 18:45 Dextrose (Dextrose 50%-Water Syringe) 12.5 gm PRN Q15MIN PRN 04/18/19 20:45 Diphenhydramine HCl (Benadryl) 25 mg 1X PRN PRN 04/20/19 07:30 04/21/19 07:29 Famotidine (Pepcid) 20 mg DAILY 04/16/19 09:00 04/19/19 09:41 20 MG Fentanyl Citrate (Fentanyl 2ml Vial) 100 mcg STK-MED ONCE 04/17/19 11:17 04/18/19 17:43 DC Furosemide (Lasix) 40 mg DAILY 04/16/19 09:00 04/19/19 09:42 40 MG Heparin Sodium (Porcine) (Heparin Sodium) 10,000 unit STK-MED ONCE 04/17/19 10:46 04/18/19 17:42 DC Hydralazine HCl (Apresoline) 50 mg BID 04/15/19 21:00 04/19/19 21:23 50 MG Info (PHARMACY MONITORING -- do not chart) 1 each PRN DAILY PRN 04/20/19 07:30 Insulin Glargine (Lantus) 30 units Q12HR 04/19/19 09:00 04/19/19 23:21 30 UNITS Insulin Human Lispro (HumaLOG) 25 units BIDWMEALS 04/19/19 09:00 Labetalol HCl (Trandate) 300 mg TID 04/15/19 21:00 04/19/19 21:24 300 MG Lidocaine/ Epinephrine (LIDOCAINE 1%-EPI 1:100,000 Multi-Dose) 20 ml STK-MED ONCE 04/17/19 10:46 04/18/19 17:42 DC Linagliptin (Tradjenta) 5 mg DAILY 04/16/19 09:00 04/19/19 09:41 5 MG Midazolam HCl (Versed) 5 mg STK-MED ONCE 04/17/19 11:17 04/18/19 17:43 DC Non-Formulary Medication (Zabrina Root ) 550 mg DAILY 04/16/19 09:00 UNV Ondansetron HCl (Zofran) 4 mg PRN Q8HRS PRN 04/15/19 16:15 04/16/19 16:14 DC Oxycodone/ Acetaminophen (Percocet 5/325) 1 tab PRN Q6HRS PRN 04/17/19 16:15 04/17/19 22:54 1 TAB Polyethylene Glycol (miraLAX PACKET) 17 gm DAILY 04/18/19 09:00 04/19/19 09:43 17 GM Sennosides (Senna) 8.6 mg PRN DAILY PRN 04/17/19 22:15 04/18/19 08:00 8.6 MG Simvastatin (Zocor) 20 mg QODAY 04/17/19 09:00 04/19/19 09:42 20 MG Sodium Chloride 1,000 ml @ 400 mls/hr Q2H30M PRN 04/20/19 07:17 04/20/19 19:16 Lab Laboratory Tests Test 04/19/19 11:32 04/19/19 16:49 04/19/19 21:05 04/19/19 23:50 Glucose (Fingerstick) 144 mg/dL (70-99) 128 mg/dL (70-99) 149 mg/dL (70-99) 145 mg/dL (70-99) Test 04/20/19 08:02 Glucose (Fingerstick) 129 mg/dL (70-99) Results All relevant outside records, renal labs, imaging studies, telemetry/EKG's were reviewed. FRANCO SHEA MD Apr 20, 2019 11:26
[2019-04-20] MEDS: POLYETHYLENE GLYCOL 3350 17 GM PACKET. PO SCH (11:53)
[2019-04-20] MEDS: cloNIDine HCL 0.1 MG TABLET PO SCH (11:56)
[2019-04-20] MEDS: ASPIRIN ENTERIC COATED 81 MG TABLET.DR. PO SCH (11:56)
[2019-04-20] MEDS: FUROSEMIDE 40 MG TABLET. PO SCH (11:57)
[2019-04-20] MEDS: FAMOTIDINE 20 MG TABLET. PO SCH (11:57)
[2019-04-20] MEDS: LINAGLIPTIN 5 MG TABLET PO SCH (11:57)
[2019-04-20] MEDS: INSULIN GLARGINE 300 UNITS/3 ML INSULN.PEN. SQ SCH (12:05)
--- NOTE | 2019-04-20 12:32 | NUR ---
Patient return from dialysis per bed at 1130 am. Right chest dialysis catheter dressing D&I. Patient alert and oriented times four. Patient verb. understanding discharge today. [facility]are[facility] Social Work to talk with patient. See orders. Patient blood sugar 109, she wanted to go ahead with morning scheduled insulins. See emar and VS record, medications given after return from dialysis. Patient eating lunch now. No complaints.
--- NOTE | 2019-04-20 13:29 | NUR ---
SW following pt. Spoke with Mary at [facility] and they have reached out pt's insurance contract person and are awaiting to hear back. SW spoke with pt and informed her to come to ED if she feels sick and clinic will contact her if chair time is approved. RN notified.
[2019-04-20 13:48] VITALS: BP 134/89
--- NOTE | 2019-04-20 14:17 | NUR ---
Discharge instructions, medications and prescription reviewed with patient, she verb. understanding all instructions and denies questions. Patient discharge to home with family with all belongings, instructions and prescription.
== END 2019-04-20 14:29 | disposition home or self-care (01) | DRG 291 ==
LOC: ER 14:11 → 5 NORTH 15:00
PROVIDERS: ADMIT Internal Medicine; ATTEND Internal Medicine
PROC: 0JH63XZ Insertion of Tunneled Vascular Access Device into Chest Subcutaneous Tissue and Fascia, Percutaneous Approach (ICD-10-PCS; principal; 2019-04-17)
PROC: 02H633Z Insertion of Infusion Device into Right Atrium, Percutaneous Approach (ICD-10-PCS; 2019-04-17)
PROC: B244ZZZ Ultrasonography of Right Heart (ICD-10-PCS; 2019-04-17)
PROC: 5A1D70Z Performance of Urinary Filtration, Intermittent, Less than 6 Hours Per Day (ICD-10-PCS; 2019-04-17)
PROC: 5A1D70Z Performance of Urinary Filtration, Intermittent, Less than 6 Hours Per Day (ICD-10-PCS; 2019-04-18)
PROC: 5A1D70Z Performance of Urinary Filtration, Intermittent, Less than 6 Hours Per Day (ICD-10-PCS; 2019-04-19)
PROC: 5A1D70Z Performance of Urinary Filtration, Intermittent, Less than 6 Hours Per Day (ICD-10-PCS; 2019-04-20)
DX: I13.2 Hypertensive heart and chronic kidney disease with heart failure and with stage 5 chronic kidney disease, or end stage renal disease (principal); N18.6 End stage renal disease; I16.9 Hypertensive crisis, unspecified; Z68.42 Body mass index [BMI] 45.0-49.9, adult; I50.9 Heart failure, unspecified; E78.5 Hyperlipidemia, unspecified; I25.10 Atherosclerotic heart disease of native coronary artery without angina pectoris; E66.01 Morbid (severe) obesity due to excess calories; E11.22 Type 2 diabetes mellitus with diabetic chronic kidney disease; Z79.4 Long term (current) use of insulin; Z86.73 Personal history of transient ischemic attack (TIA), and cerebral infarction without residual deficits; I25.2 Old myocardial infarction; Z88.5 Allergy status to narcotic agent; Z83.3 Family history of diabetes mellitus; Z82.49 Family history of ischemic heart disease and other diseases of the circulatory system
CPT/HCPCS: 36415; 36558; 76937; 77001; 80048; 80053; 81001; 82962; 85025; 85610; 85730; 86704; 87340; 99152; 99153; C1750; C1769; C1892; J0690; J1815; J2250; J3010; J3490; 99285-25

== ENCOUNTER 2019-04-24 16:35 | Inpatient (IN) | payer OTHER ==
[~2019-04-24] VITALS: Ht 188 cm; Wt 70.8 kg
[~2019-04-24 16:35] MED LIST changes: +HYDR-2869 PO; +INSU100I11 SQ; +INSU100I13 SQ; +OXYC1TAB15 PO
[2019-04-24 17:33] LABS: BASO # 0.1 x10^3/uL (0.0-0.2); BASO % 1 % (0-3); EOS # 0.2 x10^3/uL (0.0-0.7); EOS % 3 % (0-3); HEMATOCRIT 30.5 % (36.0-47.0); HEMOGLOBIN 10.5 g/dL (12.0-15.5); LYMPH # 1.9 x10^3/uL (1.0-4.8); LYMPH % 28 % (24-48); MEAN CORPUSCULAR HEMOGLOBIN 28 pg (25-35); MEAN CORPUSCULAR HGB CONC 35 g/dL (31-37); MEAN CORPUSCULAR VOLUME 82 fL (79-100); MONO # 0.7 x10^3/uL (0.0-1.1); MONO % 10 % (0-9); NEUT # 3.9 x10^3uL (1.8-7.7); NEUT % 57 % (31-73); PLATELET COUNT 223 x10^3/uL (140-400); RED BLOOD COUNT 3.75 x10^6/uL (3.50-5.40); WHITE BLOOD COUNT 6.9 x10^3/uL (4.0-11.0)
[2019-04-24 17:44] LABS: CALCIUM 8.8 mg/dL (8.5-10.1); CREATININE 7.9 mg/dL (0.6-1.0); GFR 6.9; POTASSIUM 4.6 mmol/L (3.5-5.1)
[2019-04-24] MEDS ORDERED: ONDANSETRON PF 4 MG/2 ML VIAL. IV PRN (19:30)
--- NOTE | 2019-04-24 22:09 | PHYS DOC ---
Past Medical History Past Medical History: CHF, Diabetes-Type I, Diabetes-Type II, Hypertension, [place], Renal Failure Additional Past Medical Histor: STAGE 5 KIDNEY DISEASE, SEASONAL ALLERGIES Past Surgical History: Other Additional Past Surgical Histo: HERNIA REPAIR,FISTULA PLACED LEFT WRIST Alcohol Use: None Drug Use: None Adult General Chief Complaint Chief Complaint: DIALYSIS PROBLEM HPI HPI Patient is a 38 year old female with history of hypertension, diabetes, end-sta ge renal disease on dialysis that was started last week but has not been set up for outpatient treatments who presents today for dialysis. Patient states the last time she was dialyzed was on last week. Denies any symptoms. Review of Systems Review of Systems Constitutional: Denies fever or chills [] Eyes: Denies change in visual acuity, redness, or eye pain [] HENT: Denies nasal congestion or sore throat [] Respiratory: Denies cough or shortness of breath [] Cardiovascular: No additional information not addressed in HPI [] GI: Denies abdominal pain, nausea, vomiting, bloody stools or diarrhea [] : Denies dysuria or hematuria [] Musculoskeletal: Denies back pain or joint pain [] Integument: Denies rash or skin lesions [] Neurologic: Denies headache, focal weakness or sensory changes [] Endocrine: End-stage renal disease, presenting for dialysis All other systems were reviewed and found to be within normal limits, except as documented in this note. Allergies Allergies Allergies Coded Allergies Type Severity Reaction Last Updated Verified codeine Allergy Intermediate 01/24/16 Yes lidocaine Allergy Mild Nausea, Vomiting 04/24/19 Yes Physical Exam Physical Exam Constitutional: Well developed, well nourished, no acute distress, non-toxic appearance. [] HENT: Normocephalic, atraumatic, bilateral external ears normal, oropharynx moist, no oral exudates, nose normal. [] Eyes: PERRLA, EOMI, conjunctiva normal, no discharge. [] Neck: Normal range of motion, no tenderness, supple, no stridor. [] Cardiovascular:Heart rate regular rhythm, no murmur [] Right upper chest with the dialysis catheter with no signs of infection. Lungs & Thorax: Bilateral breath sounds clear to auscultation [] Abdomen: Bowel sounds normal, soft, no tenderness, no masses, no pulsatile masses. [] Skin: Warm, dry, no erythema, no rash. New dialysis fistula noted on the left wrist, positive bruit and thrill but it does not appear ready to use. Back: No tenderness, no CVA tenderness. [] Extremities: No tenderness, no cyanosis, no clubbing, ROM intact, no edema. [] Neurologic: Alert and oriented X 3, normal motor function, normal sensory function, no focal deficits noted. [] Psychologic: Affect normal, judgement normal, mood normal. [] Current Patient Data Vital Signs Vital Signs Date Time Temp Pulse Resp B/P (MAP) Pulse Ox O2 Delivery O2 Flow Rate FiO2 04/24/19 17:50 84 20 191/108 (135) 99 Room Air 04/24/19 17:02 98.5 98.5 Lab Values Laboratory Tests Test 04/24/19 16:50 04/24/19 17:23 POC Urine HCG, Qualitative Hcg negative (Negative) White Blood Count 6.9 x10^3/uL (4.0-11.0) Red Blood Count 3.75 x10^6/uL (3.50-5.40) Hemoglobin 10.5 g/dL (12.0-15.5) L Hematocrit 30.5 % (36.0-47.0) L Mean Corpuscular Volume 82 fL (79-100) Mean Corpuscular Hemoglobin 28 pg (25-35) Mean Corpuscular Hemoglobin Concent 35 g/dL (31-37) Red Cell Distribution Width 14.0 % (11.5-14.5) Platelet Count 223 x10^3/uL (140-400) Neutrophils (%) (Auto) 57 % (31-73) Lymphocytes (%) (Auto) 28 % (24-48) Monocytes (%) (Auto) 10 % (0-9) H Eosinophils (%) (Auto) 3 % (0-3) Basophils (%) (Auto) 1 % (0-3) Neutrophils # (Auto) 3.9 x10^3uL (1.8-7.7) Lymphocytes # (Auto) 1.9 x10^3/uL (1.0-4.8) Monocytes # (Auto) 0.7 x10^3/uL (0.0-1.1) Eosinophils # (Auto) 0.2 x10^3/uL (0.0-0.7) Basophils # (Auto) 0.1 x10^3/uL (0.0-0.2) Sodium Level 139 mmol/L (136-145) Potassium Level 4.6 mmol/L (3.5-5.1) Chloride Level 103 mmol/L (98-107) Carbon Dioxide Level 23 mmol/L (21-32) Anion Gap 13 (6-14) Blood Urea Nitrogen 58 mg/dL (7-20) H Creatinine 7.9 mg/dL (0.6-1.0) H Estimated GFR (Cockcroft-Gault) 6.9 Glucose Level 229 mg/dL (70-99) H Calcium Level 8.8 mg/dL (8.5-10.1) Laboratory Tests 04/24/19 17:23 Laboratory Tests 04/24/19 17:23 EKG EKG [] Radiology/Procedures Radiology/Procedures [] Course & Med Decision Making Course & Med Decision Making Pertinent Labs and Imaging studies reviewed. (See chart for details) This is a 38-year-old female patient with end-stage renal disease that was started on dialysis last week presenting today requesting dialysis. She has not been set up for outpatient treatments. Last time she was diagnosed was on last week. Labs CBC with no acute findings, BMP with potassium of 4.6, creatinine 7.9, BUN 58 Spoke with who accepted patient for admission Nephrology consult placed. Shelbi Disclaimer Dragon Disclaimer This electronic medical record was generated, in whole or in part, using a voice recognition dictation system. Departure Departure Impression: Primary Impression: End stage renal disease Disposition: ADMITTED INPATIENT Condition: STABLE Referrals: JUN MONSON (PCP) JOSE FLETCHER DOSIER OPERATOR Apr 24, 2019 22:09
[2019-04-24] MEDS ORDERED: oxyCODONE/APAP 5/325 1 TAB TABLET PO PRN (23:15)
[2019-04-24] MEDS ORDERED: diphenhydrAMINE HCL 25 MG CAPSULE PO PRN (23:15)
[2019-04-24] MEDS ORDERED: CYCLOBENZAPRINE 10 MG TABLET. PO PRN (23:15)
[2019-04-25] MEDS: cloNIDine HCL 0.1 MG TABLET PO SCH ×2 (00:14→12:44)
[2019-04-25] MEDS: LABETALOL HCL 100 MG TABLET. PO SCH ×3 (00:15→15:26)
[2019-04-25] MEDS ORDERED: amLODIPine BESYLATE 10 MG TABLET PO SCH (00:30)
[2019-04-25 03:00] VITALS: BP 154/84
[2019-04-25 07:00] VITALS: BP 168/100
[2019-04-25] MEDS ORDERED: 0.9 % SODIUM CHLORIDE 10 ML DISP.SYRIN. IV PRN ×2 (07:00)
[2019-04-25] MEDS ORDERED: IV NORMAL SALINE 1000ML BAG 1,000 ML IV PRN ×2 (07:00)
[2019-04-25] MEDS ORDERED: INSULIN LISPRO 300 UNITS/3 ML INSULN.PEN. SQ SCH (08:00)
[2019-04-25 08:55] LABS: BASO # 0.1 x10^3/uL (0.0-0.2); BASO % 1 % (0-3); EOS # 0.2 x10^3/uL (0.0-0.7); EOS % 3 % (0-3); HEMATOCRIT 30.8 % (36.0-47.0); HEMOGLOBIN 10.7 g/dL (12.0-15.5); LYMPH # 1.8 x10^3/uL (1.0-4.8); LYMPH % 28 % (24-48); MEAN CORPUSCULAR HEMOGLOBIN 28 pg (25-35); MEAN CORPUSCULAR HGB CONC 35 g/dL (31-37); MEAN CORPUSCULAR VOLUME 81 fL (79-100); MONO # 0.6 x10^3/uL (0.0-1.1); MONO % 10 % (0-9); NEUT # 3.8 x10^3uL (1.8-7.7); NEUT % 59 % (31-73); PLATELET COUNT 218 x10^3/uL (140-400); RED BLOOD COUNT 3.81 x10^6/uL (3.50-5.40); WHITE BLOOD COUNT 6.4 x10^3/uL (4.0-11.0)
[2019-04-25] MEDS ORDERED: FUROSEMIDE 40 MG TABLET. PO SCH (09:00)
[2019-04-25] MEDS ORDERED: RANOLAZINE 500 MG TAB.ER.12H PO SCH (09:00)
[2019-04-25] MEDS ORDERED: FAMOTIDINE 20 MG TABLET. PO SCH (09:00)
[2019-04-25] MEDS ORDERED: FOLIC/VIT B COMP W-C (RENAL) TABLET. PO SCH (09:00)
[2019-04-25] MEDS ORDERED: GINGER ROOT 550 MG PO SCH (09:00)
[2019-04-25] MEDS ORDERED: ASPIRIN ENTERIC COATED 81 MG TABLET.DR. PO SCH (09:00)
[2019-04-25] MEDS ORDERED: LINAGLIPTIN 5 MG TABLET PO SCH (09:00)
[2019-04-25] MEDS ORDERED: INSULIN GLARGINE 300 UNITS/3 ML INSULN.PEN. SQ SCH (09:00)
[2019-04-25 09:16] LABS: CALCIUM 9.1 mg/dL (8.5-10.1); CREATININE 7.9 mg/dL (0.6-1.0); GFR 6.9; POTASSIUM 4.9 mmol/L (3.5-5.1)
[2019-04-25] MEDS ORDERED: DIALYSIS PATIENT. MC PRN ×2 (09:45)
--- NOTE | 2019-04-25 09:54 | PDOC2 ---
CONSULT Date of Consult Date of Consult DATE: 04/25/19 TIME: 09:53 Reason for Consult Reason for Consult: ESRD on dialysis Referring Physician Referring Physician: Xenia Mohamud Identification/Chief Complaint Chief Complaint No place to dialyze Source Source: Chart review, Patient History of Present Illness Reason for Visit: Patient is a pleasant 38-year-old Afro-[place] female who was recently diagnosed with ESRD. She was discharged last week with outpatient dialysis which was being set up by social work pending insurance approval. She was at work yesterday and a message was left on her phone at home which she did not check to later in the day regarding her outpatient dialysis approval. She however has issues with logistics of the same especially since that time slot allotted to her an outpatient dialysis glasses with her work schedule. She hence presented to the ER for further sorting these issues out. We were asked to see her for ESRD on dialysis. She is noted to have a potassium of 4.9 a BUN of 57 creatinine 7.9. Patient was seen on dialysis and was tolerating it well. Vital signs as follows: Blood pressure 148/98, heart rate of 83. Patient was afebrile on dialysis via permacath. Past Medical History Cardiovascular: CHF, HTN, Hyperlipidemia CENTRAL NERVOUS SYSTEM: CVA, TIA, Vertigo Heme/Onc: Anemia NOS Renal/: Chronic renal insuff Endocrine: Diabetes Family History Family History: Diabetes, Heart Disease, Hypertension Social History ALCOHOL: rare Drugs: None Domestic Violence: Neg Current Problem List Problem List Problems Medical Problems: (1) End stage renal disease Status: Acute Current Medications Current Medications Current Medications Ondansetron HCl (Zofran) 4 mg PRN Q8HRS PRN IV NAUSEA/VOMITING; Start 04/24/19 at 19:30; Stop 04/25/19 at 19:29 Amlodipine Besylate (Norvasc) 10 mg HS PO Last administered on 04/25/19at 00:13; Start 04/25/19 at 00:30 Aspirin (Ecotrin) 162 mg DAILY PO ; Start 04/25/19 at 09:00 Clonidine HCl (Catapres) 0.1 mg BID PO Last administered on 04/25/19at 00:14; Start 04/25/19 at 00:30 Cyclobenzaprine HCl (Flexeril) 10 mg PRN DAILY PRN PO MUSCLE PAIN; Start 04/24/19 at 23:15 Diphenhydramine HCl (Benadryl) 25 mg PRN Q6HRS PRN PO ITCHING; Start 04/24/19 at 23:15 Furosemide (Lasix) 40 mg DAILY PO ; Start 04/25/19 at 09:00 Insulin Glargine (Lantus) 25 units Q12HR SQ Last administered on 04/25/19at 00:26; Start 04/25/19 at 09:00 Insulin Human Lispro (HumaLOG) 25 units BIDWMEALS SQ Last administered on 04/25/19at 09:15; Start 04/25/19 at 08:00 Linagliptin (Tradjenta) 5 mg DAILY PO ; Start 04/25/19 at 09:00 Oxycodone/ Acetaminophen (Percocet 5/325) 1 tab PRN Q6HRS PRN PO MODERATE- SEVERE PAIN; Start 04/24/19 at 23:15 Ranolazine (Ranexa) 500 mg BID PO ; Start 04/25/19 at 09:00 Non-Formulary Medication (Zabrina Root ) 550 mg DAILY PO ; Start 04/25/19 at 09:00; Status UNV Hydralazine HCl (Apresoline) 50 mg BID PO Last administered on 04/25/19at 00:14; Start 04/25/19 at 00:30 Vitamin B Complex/ Vitamin C (Mary-Aliza) 1 tab DAILY PO ; Start 04/25/19 at 09:00 Labetalol HCl (Trandate) 300 mg TID PO Last administered on 04/25/19at 00:15; Start 04/25/19 at 00:30 Famotidine (Pepcid) 20 mg Q48H PO ; Start 04/25/19 at 09:00 Simvastatin (Zocor) 20 mg HS PO ; Start 04/25/19 at 21:00 Active Scripts Active Humalog (Insulin Lispro) 100 Unit/1 Ml Insuln.pen 25 Units SQ BIDWMEALS 30 Days Lantus Solostar (Insulin Glargine,Hum.rec.anlog) 100 Unit/1 Ml Insuln.pen 25 Units SQ Q12HR 30 Days Percocet 5-325 Mg Tablet (Oxycodone/Acetaminophen) 1 Each Tablet 1 Tab PO PRN Q6HRS PRN 5 Days Ranexa (Ranolazine) 500 Mg Tab.er.12h 500 Mg PO BID Catapres (Clonidine Hcl) 0.1 Mg Tablet 0.1 Mg PO BID Reported Hydralazine Hcl 50 Mg Tablet 1 Tab PO BID Zocor (Simvastatin) 20 Mg Tablet 20 Mg PO HS Benadryl (Diphenhydramine Hcl) 25 Mg Capsule 1 Cap PO PRN Q6HRS Fusion Plus Capsule (Iron,Fum&Ps/Fa/Vit B&C#18/L.ca) 1 Each Capsule 1 Each PO DAILY Zabrina Root 550 Mg Capsule 550 Mg PO DAILY Cyclobenzaprine Hcl 10 Mg Tablet 1 Tab PO PRN DAILY PRN Labetalol Hcl 300 Mg Tablet 1 Tab PO TID Lisinopril 5 Mg Tablet 5 Mg PO BID Nitrostat (Nitroglycerin) 0.4 Mg Tab.subl Tradjenta (Linagliptin) 5 Mg Tablet 5 Mg PO DAILY Furosemide 40 Mg Tablet 40 Mg PO DAILY Ranitidine Hcl 150 Mg Capsule 300 Mg PO DAILY Aspir 81 (Aspirin) 81 Mg Tablet.dr 2 Tab PO DAILY Amlodipine Besylate 10 Mg Tablet 10 Mg PO HS Allergies Allergies: Coded Allergies: codeine (Verified Allergy, Intermediate, 01/24/16) lidocaine (Verified Allergy, Mild, Nausea, Vomiting, 04/24/19) lisinopril (Verified Adverse Reaction, Mild, Cough, 04/25/19) Pt states she is allergic because when on medication she gets a cough. When taken off it is resolved. ROS Review of System 14 point review of systems are grossly negative as reviewed under history of present illness Physical Exam Physical Exam General Appearance: Awake Alert Oriented x 3 In no Distress, somewhat overweight Afro-Belgian female with double chin Eyes: VIsion Unchanged Conjunctiva Normal EN: No EN Drainage Mucous Memb. moist Neck: no JVD no JVP Supple ? Thyromegaly CVS: S1 S2 soft Murmur No Gallop No Rub tr Edema Resp: no Rales no Rhonchi no Acc. Muscle use GI: BAS +ve NO Bruit Non Tender Non Distended; Obese abd : no CVA tenderness; no Suprapubic Tenderness SKIN: no Rashes Breast Exam deferred Mu.Sk: Adequate ROM no Muscle Atrophy Heme: Unable to palpate Obvious LAD no palp Splenomegaly NEURO: Good Strength and Tone Cranial Nerves II - XII grossly intact Psych: not Depressed no Active hallucination Vital Signs Vital Signs Date Time Temp Pulse Resp B/P (MAP) Pulse Ox O2 Delivery O2 Flow Rate FiO2 04/25/19 08:29 Room Air 04/25/19 07:00 98.0 85 18 168/100 (122) 98 98.0 Assessment & Plan ESRD: Dialysis as below F 180 NR 3.5 Hrs 2 K 2.5 Ca 140 Na 35 HC03 Qb 350 + Qd 500+ Heparin 0 Units Uf 2-3 Kgs or to dry weight as tolerated May give 25-50 gms of 25% Albumin if needed to maintain Hemodynamic stability Treatment plan reviewed and discussed with board operator Anemia: no Aranesp ordere dfor hgb > 10. HTN: Current BP meds reviewed. See orders for changes. Bone & Mineral: Follow phosphorus levels and alter binder regimen as needed. Extensively attempt to sort out patient's issues with outpatient dialysis in terms of time slot and logistics. She may be a candidate for nocturnal dialysis in [place] I will defer this to social work to arrange. Labs Labs Laboratory Tests Test 04/24/19 16:50 04/24/19 17:23 04/24/19 21:22 04/25/19 07:24 Bedside Urine HCG, Qualitative Hcg negative (Negative) White Blood Count 6.9 x10^3/uL (4.0-11.0) Red Blood Count 3.75 x10^6/uL (3.50-5.40) Hemoglobin 10.5 g/dL (12.0-15.5) Hematocrit 30.5 % (36.0-47.0) Mean Corpuscular Volume 82 fL (79-100) Mean Corpuscular Hemoglobin 28 pg (25-35) Mean Corpuscular Hemoglobin Concent 35 g/dL (31-37) Red Cell Distribution Width 14.0 % (11.5-14.5) Platelet Count 223 x10^3/uL (140-400) Neutrophils (%) (Auto) 57 % (31-73) Lymphocytes (%) (Auto) 28 % (24-48) Monocytes (%) (Auto) 10 % (0-9) Eosinophils (%) (Auto) 3 % (0-3) Basophils (%) (Auto) 1 % (0-3) Neutrophils # (Auto) 3.9 x10^3uL (1.8-7.7) Lymphocytes # (Auto) 1.9 x10^3/uL (1.0-4.8) Monocytes # (Auto) 0.7 x10^3/uL (0.0-1.1) Eosinophils # (Auto) 0.2 x10^3/uL (0.0-0.7) Basophils # (Auto) 0.1 x10^3/uL (0.0-0.2) Sodium Level 139 mmol/L (136-145) Potassium Level 4.6 mmol/L (3.5-5.1) Chloride Level 103 mmol/L (98-107) Carbon Dioxide Level 23 mmol/L (21-32) Anion Gap 13 (6-14) Blood Urea Nitrogen 58 mg/dL (7-20) Creatinine 7.9 mg/dL (0.6-1.0) Estimated GFR (Cockcroft-Gault) 6.9 Glucose Level 229 mg/dL (70-99) Calcium Level 8.8 mg/dL (8.5-10.1) Glucose (Fingerstick) 211 mg/dL (70-99) 238 mg/dL (70-99) Test 04/25/19 08:03 White Blood Count 6.4 x10^3/uL (4.0-11.0) Red Blood Count 3.81 x10^6/uL (3.50-5.40) Hemoglobin 10.7 g/dL (12.0-15.5) Hematocrit 30.8 % (36.0-47.0) Mean Corpuscular Volume 81 fL (79-100) Mean Corpuscular Hemoglobin 28 pg (25-35) Mean Corpuscular Hemoglobin Concent 35 g/dL (31-37) Red Cell Distribution Width 14.0 % (11.5-14.5) Platelet Count 218 x10^3/uL (140-400) Neutrophils (%) (Auto) 59 % (31-73) Lymphocytes (%) (Auto) 28 % (24-48) Monocytes (%) (Auto) 10 % (0-9) Eosinophils (%) (Auto) 3 % (0-3) Basophils (%) (Auto) 1 % (0-3) Neutrophils # (Auto) 3.8 x10^3uL (1.8-7.7) Lymphocytes # (Auto) 1.8 x10^3/uL (1.0-4.8) Monocytes # (Auto) 0.6 x10^3/uL (0.0-1.1) Eosinophils # (Auto) 0.2 x10^3/uL (0.0-0.7) Basophils # (Auto) 0.1 x10^3/uL (0.0-0.2) Sodium Level 137 mmol/L (136-145) Potassium Level 4.9 mmol/L (3.5-5.1) Chloride Level 102 mmol/L (98-107) Carbon Dioxide Level 22 mmol/L (21-32) Anion Gap 13 (6-14) Blood Urea Nitrogen 57 mg/dL (7-20) Creatinine 7.9 mg/dL (0.6-1.0) Estimated GFR (Cockcroft-Gault) 6.9 Glucose Level 242 mg/dL (70-99) Calcium Level 9.1 mg/dL (8.5-10.1) Laboratory Tests Test 04/24/19 16:50 04/24/19 17:23 04/24/19 21:22 04/25/19 07:24 Bedside Urine HCG, Qualitative Hcg negative (Negative) White Blood Count 6.9 x10^3/uL (4.0-11.0) Red Blood Count 3.75 x10^6/uL (3.50-5.40) Hemoglobin 10.5 g/dL (12.0-15.5) Hematocrit 30.5 % (36.0-47.0) Mean Corpuscular Volume 82 fL (79-100) Mean Corpuscular Hemoglobin 28 pg (25-35) Mean Corpuscular Hemoglobin Concent 35 g/dL (31-37) Red Cell Distribution Width 14.0 % (11.5-14.5) Platelet Count 223 x10^3/uL (140-400) Neutrophils (%) (Auto) 57 % (31-73) Lymphocytes (%) (Auto) 28 % (24-48) Monocytes (%) (Auto) 10 % (0-9) Eosinophils (%) (Auto) 3 % (0-3) Basophils (%) (Auto) 1 % (0-3) Neutrophils # (Auto) 3.9 x10^3uL (1.8-7.7) Lymphocytes # (Auto) 1.9 x10^3/uL (1.0-4.8) Monocytes # (Auto) 0.7 x10^3/uL (0.0-1.1) Eosinophils # (Auto) 0.2 x10^3/uL (0.0-0.7) Basophils # (Auto) 0.1 x10^3/uL (0.0-0.2) Sodium Level 139 mmol/L (136-145) Potassium Level 4.6 mmol/L (3.5-5.1) Chloride Level 103 mmol/L (98-107) Carbon Dioxide Level 23 mmol/L (21-32) Anion Gap 13 (6-14) Blood Urea Nitrogen 58 mg/dL (7-20) Creatinine 7.9 mg/dL (0.6-1.0) Estimated GFR (Cockcroft-Gault) 6.9 Glucose Level 229 mg/dL (70-99) Calcium Level 8.8 mg/dL (8.5-10.1) Glucose (Fingerstick) 211 mg/dL (70-99) 238 mg/dL (70-99) Test 04/25/19 08:03 White Blood Count 6.4 x10^3/uL (4.0-11.0) Red Blood Count 3.81 x10^6/uL (3.50-5.40) Hemoglobin 10.7 g/dL (12.0-15.5) Hematocrit 30.8 % (36.0-47.0) Mean Corpuscular Volume 81 fL (79-100) Mean Corpuscular Hemoglobin 28 pg (25-35) Mean Corpuscular Hemoglobin Concent 35 g/dL (31-37) Red Cell Distribution Width 14.0 % (11.5-14.5) Platelet Count 218 x10^3/uL (140-400) Neutrophils (%) (Auto) 59 % (31-73) Lymphocytes (%) (Auto) 28 % (24-48) Monocytes (%) (Auto) 10 % (0-9) Eosinophils (%) (Auto) 3 % (0-3) Basophils (%) (Auto) 1 % (0-3) Neutrophils # (Auto) 3.8 x10^3uL (1.8-7.7) Lymphocytes # (Auto) 1.8 x10^3/uL (1.0-4.8) Monocytes # (Auto) 0.6 x10^3/uL (0.0-1.1) Eosinophils # (Auto) 0.2 x10^3/uL (0.0-0.7) Basophils # (Auto) 0.1 x10^3/uL (0.0-0.2) Sodium Level 137 mmol/L (136-145) Potassium Level 4.9 mmol/L (3.5-5.1) Chloride Level 102 mmol/L (98-107) Carbon Dioxide Level 22 mmol/L (21-32) Anion Gap 13 (6-14) Blood Urea Nitrogen 57 mg/dL (7-20) Creatinine 7.9 mg/dL (0.6-1.0) Estimated GFR (Cockcroft-Gault) 6.9 Glucose Level 242 mg/dL (70-99) Calcium Level 9.1 mg/dL (8.5-10.1) Review All relevant outside records, renal labs, imaging studies, telemetry/EKG's were reviewed. CADE HERNANDEZ MD Apr 25, 2019 09:54
--- NOTE | 2019-04-25 10:20 | PDOC ---
Provider Note Provider Note Pt seen.H&P dictated. #[id number] COLTEN AVILA MD Apr 25, 2019 10:20
--- NOTE | 2019-04-25 10:57 | HP ---
ADMIT DATE: 04/24/2019 LOCATION: [facility] REASON FOR ADMISSION TO THE HOSPITAL: End-stage renal disease, on hemodialysis. HISTORY OF PRESENT ILLNESS: The patient is a 38-year-old female, patient who was discharged last week, she was supposed to set up for outpatient dialysis, but she did not get outpatient dialysis chair yet and stated it was Wednesday, she was feeling bad. She did not get her dialysis. She came to the ER and the patient was admitted. She was dialyzed this morning. Her BUN was 58, creatinine 7.9 and as mentioned, the patient was admitted last week for end-stage renal disease, started on hemodialysis and supposed to go outpatient for dialysis, but she did not get up a chair time yet. PAST MEDICAL HISTORY: Has a history of diabetes, hypertension, coronary artery disease, congestive heart failure. PAST SURGICAL HISTORY: She has AV shunt in the left wrist. She also has a dialysis catheter, hernia repair. ALLERGIES: CODEINE and LISINOPRIL. MEDICATIONS: Reviewed. SOCIAL HISTORY: No history of smoking, alcohol or drug abuse. FAMILY HISTORY: Positive for diabetes, hypertension, heart disease. MEDICATIONS AT HOME: The patient is on amlodipine 10 mg daily, aspirin 81 mg daily, clonidine 0.1 twice a day, cyclobenzaprine 10 mg as needed, Benadryl p.r.n., Lasix 40 mg daily, alisha root daily, hydralazine 50 mg twice a day, insulin Lantus 25 units twice a day, Humalog 24 units twice a day with meals, iron one daily, labetalol 300 mg 3 times daily, Tradjenta 5 mg daily, Percocet 5/325 daily, Zantac 150 mg and she takes 3 a day, Ranexa 500 mg twice a day, simvastatin 20 mg daily, sublingual nitro. REVIEW OF SYSTEMS: CARDIAC: No chest pain. GASTROINTESTINAL: No nausea or vomiting. GENERAL: No shortness of breath. No swelling. Rest of the 14 systems was reviewed and negative. PHYSICAL EXAMINATION: GENERAL: The patient is not in any distress. She is getting dialysis this morning. VITAL SIGNS: Temperature 98, pulse 92, respirations 19, blood pressure 175/98, 99% on room air. HEENT: Head is atraumatic. Pupils equal. Oral cavity: No congestion. NECK: Supple. Thyroid not enlarged. JVD not elevated. CHEST: Symmetrical. CARDIOVASCULAR: S1, S2. LUNGS: Clear. The patient has a dialysis catheter, right chest. LUNGS: Clear to auscultation. ABDOMEN: Soft, no mass palpable. EXTERNAL GENITALIA: No Koo. RECTAL: Deferred. EXTREMITIES: No calf tenderness, no edema. The patient has AV shunt in the left wrist. Good thrill present. LABORATORY DATA: Shows a white count 7, hemoglobin 10, platelets 223. Electrolytes show sodium 139, potassium 4.6, chloride 103, bicarbonate 23, anion gap 13, BUN 58, creatinine 7.9, glucose 229. Urine test was negative. FINAL IMPRESSION: 1. End-stage renal disease, recently started on dialysis. She did not have a dialysis time yet as outpatient dialysis chair and she came because she was feeling tired. She was dialyzed this morning. 2. Social service consult to get outpatient dialysis chair set up. 3. Diabetes, insulin-dependent. 4. Hypertension. 5. Hyperlipidemia. 6. Coronary artery disease. 7. Congestive heart failure, stable. DISPOSITION: Home later today after dialysis. Social service is working on getting dialysis chair outpatient. COLTEN AVILA MD DR: RAQUEL/serge JOB#: [id number] / [id number] JUN Villa
[2019-04-25 11:00] VITALS: BP 153/96
--- NOTE | 2019-04-25 14:52 | NUR ---
SW consulted for OP HD. SW spoke with Hemalatha at [facility] and pt has a chair time since yesterday but did not show up for HD. SW provided pt with her schedule and location. Pt reports she is interested in late day HD and but is undecided on location. SW informed her to follow up with clinic regarding switching clinics if she decides on later day HD. RN notified.
[2019-04-25 15:26] VITALS: BP 156/86
--- NOTE | 2019-04-25 16:22 | NUR ---
Discharge teaching provided written and verbal to pt,understanding verbalized. Dismissed to home with all belongings accompanied by her father. Transported to exit per w/c at 1615.
[2019-04-25] MEDS ORDERED: SIMVASTATIN 20 MG TABLET PO SCH (21:00)
== END 2019-04-25 16:15 | disposition home or self-care (01) | DRG 291 ==
LOC: ER 16:35 → 5 NORTH 18:33
PROVIDERS: ADMIT Internal Medicine; ATTEND Internal Medicine
PROC: 5A1D70Z Performance of Urinary Filtration, Intermittent, Less than 6 Hours Per Day (ICD-10-PCS; principal; 2019-04-25)
DX: I13.2 Hypertensive heart and chronic kidney disease with heart failure and with stage 5 chronic kidney disease, or end stage renal disease (principal); N18.6 End stage renal disease; I50.9 Heart failure, unspecified; E10.22 Type 1 diabetes mellitus with diabetic chronic kidney disease; E78.5 Hyperlipidemia, unspecified; I25.10 Atherosclerotic heart disease of native coronary artery without angina pectoris; Z79.4 Long term (current) use of insulin; Z82.49 Family history of ischemic heart disease and other diseases of the circulatory system; Z86.73 Personal history of transient ischemic attack (TIA), and cerebral infarction without residual deficits; Z99.2 Dependence on renal dialysis; Z83.3 Family history of diabetes mellitus; I25.2 Old myocardial infarction; Z88.8 Allergy status to other drugs, medicaments and biological substances; Z79.899 Other long term (current) drug therapy; D64.9 Anemia, unspecified
CPT/HCPCS: 36415; 80048; 81025; 82962; 85025; J1815; 99285-25

== ENCOUNTER 2021-11-19 06:10 | Inpatient (IN) | payer OTHER ==
[~2021-11-19] VITALS: Ht 188 cm; Wt 115.0 kg
[~2021-11-19 06:10] MED LIST changes: +AMLO-187 PO; -AMLO10TA8 PO; +CYCL10TA19 PO; -CYCL10TA2 PO; -LISI-338 PO; +LISI5TAB15 PO; -NITR0.4T; +NITR0.4T24
--- NOTE | 2021-11-19 07:39 | PHYS DOC ---
Past Medical History Past Medical History: CHF, Diabetes-Type I, Diabetes-Type II, Hypertension, RI, Renal Failure Additional Past Medical Histor: STAGE 5 KIDNEY DISEASE, SEASONAL ALLERGIES Past Surgical History: Other Additional Past Surgical Histo: HERNIA REPAIR,FISTULA PLACED LEFT WRIST Smoking Status: Never Smoker Alcohol Use: None Drug Use: None General Adult EDM: Chief Complaint: ANKLE PROBLEM HPI: HPI: Patient is a 41 year old female who was brought here by family for evaluation of left ankle injury. Patient was walking down her stairs, she missed a step, she slipped and fell, twisted her left ankle. Patient denies any knee pain, no hip or back pain. Patient denies any head or neck injury. It just happened about 1 hour ago. Review of Systems: Review of Systems: Constitutional: Denies fever or chills. [] Eyes: Denies change in visual acuity. [] HENT: Denies nasal congestion or sore throat. [] Respiratory: Denies cough or shortness of breath. [] Cardiovascular: Denies chest pain or edema. [] GI: Denies abdominal pain, nausea, vomiting, bloody stools or diarrhea. [] : Denies dysuria. [] Musculoskeletal: positive for left ankle pain. Integument: Denies rash. [] Neurologic: Denies headache, focal weakness or sensory changes. [] Endocrine: Denies polyuria or polydipsia. [] Lymphatic: Denies swollen glands. [] Psychiatric: Denies depression or anxiety. [] Heart Score: C/O Chest Pain: N/A Risk Factors: Risk Factors: DM, Current or recent (<one month) smoker, HTN, HLP, family history of CAD, obesity. Risk Scores: Score 0 - 3: 2.5% MACE over next 6 weeks - Discharge Home Score 4 - 6: 20.3% MACE over next 6 weeks - Admit for Clinical Observation Score 7 - 10: 72.7% MACE over next 6 weeks - Early Invasive Strategies Allergies: Allergies: Allergies Coded Allergies Type Severity Reaction Last Updated Verified codeine Allergy Intermediate 01/24/16 Yes lidocaine Allergy Mild Nausea, Vomiting 04/24/19 Yes lisinopril Adverse Reaction Mild Cough 04/25/19 Yes Physical Exam: PE: Constitutional: Well developed, well nourished, no acute distress, non-toxic appearance. [] HENT: Normocephalic, atraumatic, bilateral external ears normal, oropharynx moist, no oral exudates, nose normal. [] Eyes: PERRLA, EOMI, conjunctiva normal, no discharge. [] Neck: Normal range of motion, no tenderness, supple, no stridor. [] Cardiovascular:Heart rate regular rhythm, no murmur [] Lungs & Thorax: Bilateral breath sounds clear to auscultation [] Abdomen: Bowel sounds normal, soft, no tenderness, no masses, no pulsatile masses. [] Skin: Warm, dry, no erythema, no rash. [] Back: No tenderness, no CVA tenderness. [] Extremities: Left ankle is mildly swollen, deformity consistent with fracture dislocation, no open wound. It is tender to palpation. No evidence of compartment syndrome. Strong dorsalis pedis pulse. Neurologic: Alert and oriented X 3, normal motor function, normal sensory function, no focal deficits noted. [] Psychologic: Affect normal, judgement normal, mood normal. [] Current Patient Data: Labs: Laboratory Tests Test 11/19/21 07:45 White Blood Count 6.5 x10^3/uL Red Blood Count 4.04 x10^6/uL Hemoglobin 11.7 g/dL Hematocrit 33.7 % Mean Corpuscular Volume 83 fL Mean Corpuscular Hemoglobin 29 pg Mean Corpuscular Hemoglobin Concent 35 g/dL Red Cell Distribution Width 13.6 % Platelet Count 237 x10^3/uL Neutrophils (%) (Auto) 60 % Lymphocytes (%) (Auto) 29 % Monocytes (%) (Auto) 9 % Eosinophils (%) (Auto) 2 % Basophils (%) (Auto) 1 % Neutrophils # (Auto) 3.9 x10^3/uL Lymphocytes # (Auto) 1.9 x10^3/uL Monocytes # (Auto) 0.6 x10^3/uL Eosinophils # (Auto) 0.1 x10^3/uL Basophils # (Auto) 0.1 x10^3/uL Prothrombin Time 13.2 SEC Prothromb Time International Ratio 1.0 Activated Partial Thromboplast Time 28 SEC Sodium Level 139 mmol/L Potassium Level 5.1 mmol/L Chloride Level 102 mmol/L Carbon Dioxide Level 24 mmol/L Anion Gap 13 Blood Urea Nitrogen 45 mg/dL Creatinine 6.9 mg/dL Estimated GFR (Cockcroft-Gault) 8.0 BUN/Creatinine Ratio 7 Glucose Level 199 mg/dL Calcium Level 9.1 mg/dL Magnesium Level 2.1 mg/dL Total Bilirubin 0.4 mg/dL Aspartate Amino Transf (AST/SGOT) 8 U/L Alanine Aminotransferase (ALT/SGPT) 17 U/L Alkaline Phosphatase 161 U/L Total Protein 7.3 g/dL Albumin 3.7 g/dL Albumin/Globulin Ratio 1.0 Current Medications Medications (Trade) Dose Ordered Sig/Allyn Route PRN Reason Start Time Stop Time Status Last Admin Dose Admin Fentanyl Citrate (Fentanyl 2ml Vial) 100 mcg 1X ONCE IVP 11/19/21 07:45 11/19/21 07:46 DC 11/19/21 07:50 Ondansetron HCl (Zofran) 4 mg 1X ONCE IVP 11/19/21 07:45 11/19/21 07:46 DC 11/19/21 07:49 Sodium Chloride 1,000 ml @ 75 mls/hr 1X ONCE IV 11/19/21 08:30 11/19/21 21:49 Propofol (Diprivan) 100 mg 1X ONCE IV 11/19/21 08:30 11/19/21 08:31 DC 11/19/21 09:39 EKG: EKG: [] Radiology/Procedures: Radiology/Procedures: [facility] [address] [facility] [place], [place] [id number] IMAGING REPORT Signed PATIENT: EVER MUNOZ ACCOUNT: [id number] : 1980 LOCATION: ER AGE: 41 SEX: F EXAM STATUS: REG ER ORD. PHYSICIAN: HCATO SCHMIDT DO REASON: LEFT ANKLE INJURY PROCEDURE: ANKLE LEFT 3V Exam Date: 11/19/2021 7:22 AM XR EXAM OF ANKLE_LEFT 3V Indication: Reason: LEFT ANKLE INJURY / Spl. Instructions: / History: . COMPARISON: December 20, 2017 FINDINGS/ IMPRESSION: There is posterolateral dislocation of the talus. Acute trimalleolar fracture noted, with lateral displacement and angulation of the fracture fragments. Displaced fracture of the medial tibial plafond noted. There is diffuse soft tissue swelling around the ankle. Mild calcaneal enthesopathy is present. Electronically signed by: Travis Moore MD (11/19/2021 7:55 AM) [id number] DICTATED and SIGNED BY: TRAVIS MOORE MD DATE: 11/19/21 [id number] 0 [facility] [address] [place] [address] IMAGING REPORT Signed PATIENT: EVER MUNOZ ACCOUNT: [id number] : 1980 LOCATION: ER AGE: 41 SEX: F EXAM STATUS: REG ER ORD. PHYSICIAN: CHATO SCHMIDT DO REASON: left ankle fracture, post splinting reduction PROCEDURE: ANKLE LEFT 3V Exam Date: 11/19/2021 9:48 AM XR EXAM OF ANKLE_LEFT 3V Indication: Reason: left ankle fracture, post splinting reduction / Spl. Instructions: / History: . COMPARISON: Radiographs from earlier the same day FINDINGS/ IMPRESSION: Overlying cast limits osseous detail. Interval reduction of previously seen trimalleolar fracture dislocation, with significantly improved alignment and positioning. Mild widening of the medial mortise persists. Electronically signed by: Travis Moore MD (11/19/2021 10:57 AM) [id number] DICTATED and SIGNED BY: TRAVIS MOORE MD DATE: 11/19/21 [id number] 0 Indication: Joint dislocation Consent: Consent was obtained. Procedure: The pre-reduction exam showed distal perfusion and neurologic function to be normal.. The patient was placed in the appropriate position. Anesthesia/pain control [PROPOFOL]. Reduction of the left ankle was performed by traction, manipulation. Post reduction films were obtained and revealed satisfactory reduction. A post-reduction exam revealed distal perfusion and neurologic function to be normal. The affected area was immobilized with posterior short leg with stir up, orthoglass material. The patient tolerated the procedure well. Complications: none. Course & Med Decision Making: Course & Med Decision Making Pertinent Labs and Imaging studies reviewed. (See chart for details) Patient is a 41-year-old female who had end-stage renal failure, presented to ER after she injured her left ankle. Patient had fracture dislocation of her left ankle. Patient was given sedation medication in the ER, her left ankle fracture dislocation was reduced by this physician. A posterior short leg splint with stirrup was applied to her left lower extremity. Patient felt much better. Discussed with the foot and ankle specialist, who recommended to get admitted to hospital so he can fix the fracture tomorrow. Discussed with her family physician Dr. Avila who agreed to admit the patient. Dragon Disclaimer: Dragon Disclaimer: This electronic medical record was generated, in whole or in part, using a voice recognition dictation system. Departure Departure Impression: Primary Impression: Closed left ankle fracture Additional Impressions: Dislocation of ankle, left, closed End stage renal disease on dialysis Disposition: ADMITTED INPATIENT Admitting Physician: Xenia Avila Condition: IMPROVED Referrals: XENIA AVILA MD (PCP) Procedural Sedation Proc Sed Indication: left ankle fracture, dislocation Consent: I have discussed with the patient and/or the patient branch sales and service representative the indication, alternatives, and the possible risks and /or complications of the planned procedure and the anesthesia methods. The patient and/or patient branch sales and service representative appear to understand and agree to proceed. Pre-Sedation Documentation and Exam: see notes Airway Assessment: normal. Prior History of Anesthesia Complications: none. ASA Classification: 3 Sedation/ Anesthesia Plan: iv propofol Medications Used: see nursing notes. Monitoring and Safety: The patient was placed on a switchboard operator receptionist and vital signs, pulse oximetry and level of consciousness were continuously evaluated throughout the procedure. The patient was closely monitored until recovery from the medications was complete and the patient had returned to baseline status. Respiratory therapy was on standby at all times during the procedure. (The following sections must be completed) Post-Sedation Vital Signs: [EDM.VS] see nurse notes Post-Sedation Exam: patient was back to her baseline. Complications: none. Vital Signs Vital Signs Date Time Temp Pulse Resp B/P (MAP) Pulse Ox O2 Delivery O2 Flow Rate FiO2 11/19/21 12:04 82 16 166/95 (118) 99 11/19/21 09:16 98.6 3.0 98.6 3.0 3.0 CHATO SCHMIDT DO Nov 19, 2021 07:39
[2021-11-19] MEDS ORDERED: fentaNYL PF VIAL 100 MCG/2 ML VIAL IVP ONE (07:45)
[2021-11-19] MEDS ORDERED: ONDANSETRON PF 4 MG/2 ML VIAL. IVP ONE (07:45)
--- NOTE | 2021-11-19 07:58 | RAD ---
Exam Date: 11/19/2021 7:22 AM XR EXAM OF ANKLE_LEFT 3V Indication: Reason: LEFT ANKLE INJURY / Spl. Instructions: / History: . COMPARISON: December 20, 2017 FINDINGS/ IMPRESSION: There is posterolateral dislocation of the talus. Acute trimalleolar fracture noted, with lateral di splacement and angulation of the fracture fragments. Displaced fracture of the medial tibial plafond noted. There is diffuse soft tissue swelling around the ankle. Mild calcaneal enthesopathy is pres ent. Electronically signed by: Ceferino Moore MD (11/19/2021 7:55 AM) [id number]
[2021-11-19] MEDS ORDERED: PROPOFOL 10 MG/ML (20ML) VIAL. IV ONE (08:30)
[2021-11-19] MEDS ORDERED: IV NORMAL SALINE 1000ML BAG 1,000 ML IV ONE (08:30)
[2021-11-19 09:16] VITALS: BP 156/88
--- NOTE | 2021-11-19 10:59 | RAD ---
Exam Date: 11/19/2021 9:48 AM XR EXAM OF ANKLE_LEFT 3V Indication: Reason: left ankle fracture, post splinting reduction / Spl. Instructions: / History: . COMPARISON: Radiographs from earlier the same day FINDINGS/ IMPRESSION: Overlying cast limits osseous detail. Interval reduction of previously seen trimalleolar fracture di slocation, with significantly improved alignment and positioning. Mild widening of the medial mortis e persists. Electronically signed by: Ceferino Moore MD (11/19/2021 10:57 AM) [id number]
[2021-11-19 11:37] LABS: BASO # 0.1 x10^3/uL (0.0-0.2); BASO % 1 % (0-3); EOS # 0.1 x10^3/uL (0.0-0.7); EOS % 2 % (0-3); HEMATOCRIT 33.7 % (36.0-47.0); HEMOGLOBIN 11.7 g/dL (12.0-15.5); LYMPH # 1.9 x10^3/uL (1.0-4.8); LYMPH % 29 % (24-48); MEAN CORPUSCULAR HEMOGLOBIN 29 pg (25-35); MEAN CORPUSCULAR HGB CONC 35 g/dL (31-37); MEAN CORPUSCULAR VOLUME 83 fL (79-100); MONO # 0.6 x10^3/uL (0.0-1.1); MONO % 9 % (0-9); NEUT # 3.9 x10^3/uL (1.8-7.7); NEUT % 60 % (31-73); PLATELET COUNT 237 x10^3/uL (140-400); RED BLOOD COUNT 4.04 x10^6/uL (3.50-5.40); RED CELL DISTRIBUTION WIDTH 13.6 % (11.5-14.5); WHITE BLOOD COUNT 6.5 x10^3/uL (4.0-11.0)
[2021-11-19 11:47] LABS: CALCIUM 9.1 mg/dL (8.5-10.1); CREATININE 6.9 mg/dL (0.6-1.0); POTASSIUM 5.1 mmol/L (3.5-5.1)
[2021-11-19 11:48] LABS: PROTHROMBIN TIME PATIENT 13.2 SEC (11.7-14.0)
[2021-11-19 11:53] LABS: ALBUMIN 3.7 g/dL (3.4-5.0); MAGNESIUM 2.1 mg/dL (1.8-2.4); TOTAL BILIRUBIN 0.4 mg/dL (0.2-1.0); TOTAL PROTEIN 7.3 g/dL (6.4-8.2)
[2021-11-19] MEDS ORDERED: ONDANSETRON PF 4 MG/2 ML VIAL. IVP PRN (12:00)
[2021-11-19] MEDS: MORPHINE SULFATE 4 MG/ML INJ. IVP PRN ×3 (12:18→20:00)
--- NOTE | 2021-11-19 12:21 | PDOC2 ---
CONSULT Date of Consult Date of Consult DATE: 11/19/21 TIME: 12:13 Reason for Consult Reason for Consult: Left ankle fracture Identification/Chief Complaint Chief Complaint Left ankle pain Source Source: Patient History of Present Illness Reason for Visit: Patient with diabetes, PAD, end-stage renal disease on dialysis [3x/wk], s/p gastric bypass who presents today with an acute pain to the left ankle. About 5 AM this morning, patient fell from stairs and sustained a rotational left ankle injury. Otherwise, she denied any injury elsewhere, loss of consciousness. Subsequent evaluation remarked a displaced trimalleolar ankle fracture. Closed reduction was performed and ankle mortise was restored. Left lower extremity has been splinted in a Mcdaniel compression dressing. At bedside, patient relates upwards to 8 out of 10 sharp or throbbing pain to the left ankle. Patient denies any persistent numbness or tingling sensation. Patient denies any history of prior delayed union or nonunion. Patient lives with elderly parents, in a split-level home. Patient just had biscuits a few minutes ago. Past Medical History Cardiovascular: CHF, HTN, Hyperlipidemia CENTRAL NERVOUS SYSTEM: CVA, TIA, Vertigo Heme/Onc: Anemia NOS Renal/: Chronic renal insuff Endocrine: Diabetes Family History Family History: Diabetes, Heart Disease, Hypertension Social History ALCOHOL: rare Drugs: None Domestic Violence: Neg Current Medications Current Medications Current Medications Fentanyl Citrate (Fentanyl 2ml Vial) 100 mcg 1X ONCE IVP Last administered on 11/19/21at 07:50; Start 11/19/21 at 07:45; Stop 11/19/21 at 07:46; Status DC Ondansetron HCl (Zofran) 4 mg 1X ONCE IVP Last administered on 11/19/21at 07:49; Start 11/19/21 at 07:45; Stop 11/19/21 at 07:46; Status DC Sodium Chloride 1,000 ml @ 75 mls/hr 1X ONCE IV ; Start 11/19/21 at 08:30; Stop 11/19/21 at 21:49 Propofol (Diprivan) 100 mg 1X ONCE IV Last administered on 11/19/21at 09:39; Start 11/19/21 at 08:30; Stop 11/19/21 at 08:31; Status DC Active Scripts Active Humalog (Insulin Lispro) 100 Unit/1 Ml Insuln.pen 25 Units SQ BIDWMEALS 30 Days Lantus Solostar (Insulin Glargine,Hum.rec.anlog) 100 Unit/1 Ml Insuln.pen 25 Units SQ Q12HR 30 Days Percocet 5-325 Mg Tablet (Oxycodone/Acetaminophen) 1 Each Tablet 1 Tab PO PRN Q6HRS PRN 5 Days Ranexa (Ranolazine) 500 Mg Tab.er.12h 500 Mg PO BID Catapres (Clonidine Hcl) 0.1 Mg Tablet 0.1 Mg PO BID Reported Hydralazine Hcl 50 Mg Tablet 1 Tab PO BID Zocor (Simvastatin) 20 Mg Tablet 20 Mg PO HS Benadryl (Diphenhydramine Hcl) 25 Mg Capsule 1 Cap PO PRN Q6HRS Fusion Plus Capsule (Iron,Fum&Ps/Fa/Vit B&C#18/L.ca) 1 Each Capsule 1 Each PO DAILY Zabrina Root 550 Mg Capsule 550 Mg PO DAILY Cyclobenzaprine Hcl 10 Mg Tablet 1 Tab PO PRN DAILY PRN Labetalol Hcl 300 Mg Tablet 1 Tab PO TID Nitrostat (Nitroglycerin) 0.4 Mg Tab.subl Tradjenta (Linagliptin) 5 Mg Tablet 5 Mg PO DAILY Furosemide 40 Mg Tablet 40 Mg PO DAILY Ranitidine Hcl 150 Mg Capsule 300 Mg PO DAILY Aspir 81 (Aspirin) 81 Mg Tablet.dr 2 Tab PO DAILY Amlodipine Besylate 10 Mg Tablet 10 Mg PO HS Allergies Allergies: Coded Allergies: codeine (Verified Allergy, Intermediate, 01/24/16) lidocaine (Verified Allergy, Mild, Nausea, Vomiting, 04/24/19) lisinopril (Verified Adverse Reaction, Mild, Cough, 04/25/19) Pt states she is allergic because when on medication she gets a cough. When taken off it is resolved. ROS Review of System CONSTITUTIONAL: No fever. No chills. No dizziness. No weakness. CARDIOVASCULAR: No chest pain. No palpitations. No lower extremity edema. RESPIRATORY: No shortness of breath, cough, pain with respiration. No hemoptysis. No dyspnea. GASTROINTESTINAL: Normal appetite. No nausea, vomiting, diarrhea. GENITOURINARY: No frequency, urgency, nocturia. No hematuria or dysuria. MUSCULOSKELETAL: Refer to HPI INTEGUMENTARY: No abrasions, lymphangitis. NEUROLOGIC: No numbness or tingling of the extremities. No weakness. PSYCHIATRIC: No confusion. ENDOCRINE: No fatigue. No weakness. HEMATOLOGICAL: No bleeding. No petechiae. No bruising. ALLERGIES: No asthma. No urticaria Physical Exam Physical Exam General: AOx3, pleasant without distress Left lower extremity exam: VASC: - Capillary refill <5 seconds to digits 1 through 5 -Foot is warm to touch - [-] Ecchymosis to the foot NEURO: - Gross sensation diminished via light touch to digits 1 through 5 DERM: -Through a limited anterior window through the splint, there is no fracture blis ters, open lesion. -The skin line is visualized -There is no significant edema to the medial, anterior or lateral ankle - [-] skin tenting or gross deformity MUSC: - [+] TTP to the distal medial mal and distal lateral mal - Able to move digits x 5 - Muscle strength deferred - Calf is soft and nontender Vitals VITALS Vital Signs Date Time Temp Pulse Resp B/P (MAP) Pulse Ox O2 Delivery O2 Flow Rate FiO2 11/19/21 09:16 98.6 85 16 156/88 3.0 98.6 87 16 3.0 3.0 Labs Labs Laboratory Tests Test 11/19/21 07:45 White Blood Count 6.5 x10^3/uL (4.0-11.0) Red Blood Count 4.04 x10^6/uL (3.50-5.40) Hemoglobin 11.7 g/dL (12.0-15.5) Hematocrit 33.7 % (36.0-47.0) Mean Corpuscular Volume 83 fL (79-100) Mean Corpuscular Hemoglobin 29 pg (25-35) Mean Corpuscular Hemoglobin Concent 35 g/dL (31-37) Red Cell Distribution Width 13.6 % (11.5-14.5) Platelet Count 237 x10^3/uL (140-400) Neutrophils (%) (Auto) 60 % (31-73) Lymphocytes (%) (Auto) 29 % (24-48) Monocytes (%) (Auto) 9 % (0-9) Eosinophils (%) (Auto) 2 % (0-3) Basophils (%) (Auto) 1 % (0-3) Neutrophils # (Auto) 3.9 x10^3/uL (1.8-7.7) Lymphocytes # (Auto) 1.9 x10^3/uL (1.0-4.8) Monocytes # (Auto) 0.6 x10^3/uL (0.0-1.1) Eosinophils # (Auto) 0.1 x10^3/uL (0.0-0.7) Basophils # (Auto) 0.1 x10^3/uL (0.0-0.2) Prothrombin Time 13.2 SEC (11.7-14.0) Prothromb Time International Ratio 1.0 (0.8-1.1) Activated Partial Thromboplast Time 28 SEC (24-38) Sodium Level 139 mmol/L (136-145) Potassium Level 5.1 mmol/L (3.5-5.1) Chloride Level 102 mmol/L (98-107) Carbon Dioxide Level 24 mmol/L (21-32) Anion Gap 13 (6-14) Blood Urea Nitrogen 45 mg/dL (7-20) Creatinine 6.9 mg/dL (0.6-1.0) Estimated GFR (Cockcroft-Gault) 8.0 BUN/Creatinine Ratio 7 (6-20) Glucose Level 199 mg/dL (70-99) Calcium Level 9.1 mg/dL (8.5-10.1) Magnesium Level 2.1 mg/dL (1.8-2.4) Total Bilirubin 0.4 mg/dL (0.2-1.0) Aspartate Amino Transf (AST/SGOT) 8 U/L (15-37) Alanine Aminotransferase (ALT/SGPT) 17 U/L (14-59) Alkaline Phosphatase 161 U/L (46-116) Total Protein 7.3 g/dL (6.4-8.2) Albumin 3.7 g/dL (3.4-5.0) Albumin/Globulin Ratio 1.0 (1.0-1.7) Laboratory Tests Test 11/19/21 07:45 White Blood Count 6.5 x10^3/uL (4.0-11.0) Red Blood Count 4.04 x10^6/uL (3.50-5.40) Hemoglobin 11.7 g/dL (12.0-15.5) Hematocrit 33.7 % (36.0-47.0) Mean Corpuscular Volume 83 fL (79-100) Mean Corpuscular Hemoglobin 29 pg (25-35) Mean Corpuscular Hemoglobin Concent 35 g/dL (31-37) Red Cell Distribution Width 13.6 % (11.5-14.5) Platelet Count 237 x10^3/uL (140-400) Neutrophils (%) (Auto) 60 % (31-73) Lymphocytes (%) (Auto) 29 % (24-48) Monocytes (%) (Auto) 9 % (0-9) Eosinophils (%) (Auto) 2 % (0-3) Basophils (%) (Auto) 1 % (0-3) Neutrophils # (Auto) 3.9 x10^3/uL (1.8-7.7) Lymphocytes # (Auto) 1.9 x10^3/uL (1.0-4.8) Monocytes # (Auto) 0.6 x10^3/uL (0.0-1.1) Eosinophils # (Auto) 0.1 x10^3/uL (0.0-0.7) Basophils # (Auto) 0.1 x10^3/uL (0.0-0.2) Prothrombin Time 13.2 SEC (11.7-14.0) Prothromb Time International Ratio 1.0 (0.8-1.1) Activated Partial Thromboplast Time 28 SEC (24-38) Sodium Level 139 mmol/L (136-145) Potassium Level 5.1 mmol/L (3.5-5.1) Chloride Level 102 mmol/L (98-107) Carbon Dioxide Level 24 mmol/L (21-32) Anion Gap 13 (6-14) Blood Urea Nitrogen 45 mg/dL (7-20) Creatinine 6.9 mg/dL (0.6-1.0) Estimated GFR (Cockcroft-Gault) 8.0 BUN/Creatinine Ratio 7 (6-20) Glucose Level 199 mg/dL (70-99) Calcium Level 9.1 mg/dL (8.5-10.1) Magnesium Level 2.1 mg/dL (1.8-2.4) Total Bilirubin 0.4 mg/dL (0.2-1.0) Aspartate Amino Transf (AST/SGOT) 8 U/L (15-37) Alanine Aminotransferase (ALT/SGPT) 17 U/L (14-59) Alkaline Phosphatase 161 U/L (46-116) Total Protein 7.3 g/dL (6.4-8.2) Albumin 3.7 g/dL (3.4-5.0) Albumin/Globulin Ratio 1.0 (1.0-1.7) Assessment/Plan Assessment/Plan - Discussed the nature and prognosis of left ankle trimalleolar displaced fractures. This will benefit from ankle open reduction and internal fixation with the goal to restore ankle mortise, stability and therefore early weightbearing. However, given the gastric bypass, uncontrolled diabetes, end- stage renal disease, patient is high risk for delayed union, nonunion, infection and skin complications. Patient verbalized understanding - Because patient is on dialysis 3 times a week, and adequate home support, I recommended inpatient admission, medical optimization. - Patient just ate biscuits, we will postpone the surgery to tomorrow but we will check the skin/swelling in the morning - Strict nonweightbearing to the left lower extremity, elevate with toes above the nose, ice behind the knee for swelling control - N.p.o. after midnight in preparation for surgery tomorrow - Appreciate internal medicine's help on medical optimization -Bone health: Vitamin D3 5000 international units daily Dispo: Pending serum calcium and vitamin D test, n.p.o. after midnight in preparation for surgery tomorrow. Skin check tomorrow morning Informed Consent Discussion: I have discussed the purpose, risks, benefits, and alternatives to the procedure and plan of care including potential side effects and complications, both of which may be severe and require additional surgery and/or procedures to treat this with the patient/guardian(s). We discussed the risks and benefits of alternative treatment options and the likelihood of achieving the desired outcome with surgery. Procedure specific discussion is documented below. The risks, benefits and alternatives of the proposed surgery were discussed with the patient, including the option of further non-operative treatment. The possi bility of perioperative complications leading to disability and were explained. Patient understands the risks of surgery include but are not limited to failure of the procedure, delayed or non-healing wound, bleeding, infection, venous thrombus/embolus, nerve, vessel, tendon and bone damage, the complications of anesthesia, reaction to sutures or other implanted material, st iffness, chronic pain/swelling, malunion/nonunion, the need for other operations and future revision surgery. No guarantees were given or implied. The patient's questions were answered in depth and patient is willing to proceed. HELEN LARIOS DPM Nov 19, 2021 12:21
[2021-11-19] MEDS: CHOLECALCIFEROL (VITAMIN D3) 5,000 UNIT CAPSULE PO SCH (12:30)
[2021-11-19 13:46] VITALS: BP 178/60
[2021-11-19] MEDS ORDERED: IV NORMAL SALINE 1000ML BAG 1,000 ML IV PRN ×2 (13:50)
[2021-11-19] MEDS ORDERED: DIALYSIS PATIENT. MC PRN ×2 (15:45)
[2021-11-19] MEDS ORDERED: oxyCODONE/APAP 5/325 1 TAB TABLET PO PRN ×2 (17:00→22:15)
[2021-11-19] MEDS ORDERED: INSULIN LISPRO 300 UNITS/3 ML VIAL. SQ SCH ×2 (17:00→18:00)
[2021-11-19] MEDS ORDERED: DEXTROSE 50% 25 GM / 50ML DISP.SYRIN. IV PRN (17:00)
[2021-11-19] MEDS ORDERED: diphenhydrAMINE HCL 25 MG CAPSULE PO PRN (17:00)
[2021-11-19 19:00] VITALS: BP 154/96
[2021-11-19] MEDS: SIMVASTATIN 20 MG TABLET PO SCH ×2 (19:54→20:26)
[2021-11-19] MEDS: RANOLAZINE 500 MG TAB.ER.12H PO SCH ×2 (19:54→20:25)
[2021-11-19] MEDS: CYCLOBENZAPRINE 10 MG TABLET. PO PRN (20:00)
[2021-11-19] MEDS: FAMOTIDINE 20 MG TABLET. PO SCH (20:00)
[2021-11-19] MEDS: LABETALOL HCL 100 MG TABLET. PO SCH (20:02)
[2021-11-19] MEDS: cloNIDine HCL 0.1 MG TABLET PO SCH ×2 (20:02→20:25)
[2021-11-19] MEDS ORDERED: ATOR40TA59 PO (20:21)
[2021-11-19] MEDS ORDERED: LOSA100T14 PO (20:23)
--- NOTE | 2021-11-19 21:39 | EKG ---
[facility] [address] [place] [address] Test Date: 2021-11-19 Test Time: 21:31:32 Pat Name: EVER MUNOZ Department: Room: [facility] Gender: F Annealing Torch Operator: BHAVANA : 1980 Requested By: COLTEN AVILA Order Number: [id number] Reading MD: Shawn Crowe Measurements Intervals [place] Rate: 92 P: 0 WI: 180 QRS: 37 QRSD: 74 T: 32 QT: 376 QTc: 470 Interpretive Statements SINUS RHYTHM Electronically Signed On 11-20-2021 14:26:30 CARDIAC EXERCISE PHYSIOLOGIST by Shawn Crowe
[2021-11-19] MEDS: INSULIN GLARGINE SYRINGE. SQ SCH (21:45)
[2021-11-19] MEDS: oxyCODONE/APAP 10/325 1 TAB TABLET PO PRN (22:31)
[2021-11-19 23:00] VITALS: BP 130/77
--- NOTE | 2021-11-19 23:57 | RAD ---
EXAM: AP View of the chest DATE: 11/19/2021 5:57 PM INDICATION: Reason: pre op / Spl. Instructions: / History: COMPARISON: 04/07/2019 FINDINGS: The heart is not enlarged. Mediastinal and hilar contours are normal. No focal parenchymal airspace opacity. No pleural effusion or pneumothorax. IMPRESSION: 1. No radiographic evidence for acute cardiopulmonary process. Electronically signed by: Cornelius Gan MD (11/19/2021 11:55 PM) ABNER
[2021-11-20] VITALS (8 sets, daily range): BP systolic 126–166; BP diastolic 76–93
[2021-11-20] MEDS: MORPHINE SULFATE 4 MG/ML INJ. IVP PRN ×3 (01:28→05:48)
[2021-11-20] MEDS: oxyCODONE/APAP 10/325 1 TAB TABLET PO PRN ×4 (03:26→21:42)
[2021-11-20] MEDS: CYCLOBENZAPRINE 10 MG TABLET. PO PRN (03:29)
[2021-11-20] MEDS ORDERED: PROCHLORPERAZINE 10 MG/2 ML VIAL. IVP PRN (06:00)
[2021-11-20] MEDS ORDERED: MORPHINE SULFATE 2 MG/ML INJ. IVP PRN (06:00)
[2021-11-20] MEDS ORDERED: HYDROmorphone 2 MG/ML INJ. IVP PRN (06:00)
[2021-11-20] MEDS ORDERED: IV RINGERS,LACTATED 1000ML 1,000 ML IV SCH (06:00)
[2021-11-20] MEDS ORDERED: fentaNYL PF VIAL 100 MCG/2 ML VIAL IVP PRN ×2 (06:00)
[2021-11-20] MEDS: CHOLECALCIFEROL (VITAMIN D3) 5,000 UNIT CAPSULE PO SCH (06:45)
[2021-11-20] MEDS: LOSARTAN POTASSIUM 50 MG TABLET. PO SCH ×2 (06:46→08:17)
[2021-11-20] MEDS: LABETALOL HCL 100 MG TABLET. PO SCH ×3 (06:46→21:44)
[2021-11-20] MEDS: RANOLAZINE 500 MG TAB.ER.12H PO SCH ×3 (06:46→21:43)
[2021-11-20] MEDS: FUROSEMIDE 40 MG TABLET. PO SCH ×2 (06:46→08:18)
[2021-11-20] MEDS: VITAMIN B12,B9,B6 COMPLEX 1 TABLET. PO SCH ×2 (06:46→08:18)
[2021-11-20] MEDS: ACETAMINOPHEN 325 MG TABLET. PO SCH ×4 (08:17→21:45)
[2021-11-20] MEDS: GABAPENTIN 100 MG CAPSULE. PO SCH ×3 (08:17→21:43)
--- NOTE | 2021-11-20 08:18 | PDOC ---
PROGRESS NOTES Date of Service DATE: 11/20/21 TIME: 08:10 Subjective Subjective DOI 11/19/20 At bedside, patient relates upwards to 8 out of 10 sharp and achy pain to the left ankle. It is worse with motion and pressure. She has been compliant with elevation and staying nonweightbearing. Patient denies any calf pain or constitutional symptoms. She has been n.p.o. since midnight. Objective Objective Vital Signs Date Time Temp Pulse Resp B/P (MAP) Pulse Ox O2 Delivery O2 Flow Rate FiO2 11/20/21 06:25 97 Nasal Cannula 3.0 11/20/21 03:00 98.0 75 16 126/84 (98) 98.0 Intake and Output 11/20/21 07:00 Intake Total 350 ml Output Total 1 ml Balance 349 ml Intake Oral 250 ml IV Total 100 ml Output Urine Total 1 ml Physical Exam Physical Exam General: AOx3, pleasant without distress Left lower extremity exam: VASC: -Foot is warm to touch - Capillary refill <5 seconds -Through limited anterior window on the Mcdaniel compression splint, there is worsening, nonpitting edema to the anterior, medial ankle. There are no fracture blisters appreciated at this time but the skin line is diminished NEURO: - Light touch sensation is diminished to the digits 1 through 5, this is her baseline DERM: - Skin envelope intact without fx blisters - Skin line is diminished - [-] skin tenting or gross deformity MUSC: - [+] TTP to the distal medial mal and distal lateral mal - Able to move digits x 5 - Muscle strength deferred - Calf is soft and nontender Assessment Assessment Problems Medical Problems: (1) Closed left ankle fracture Status: Acute (2) Dislocation of ankle, left, closed Status: Acute (3) End stage renal disease on dialysis Status: Acute Plan Plan of Care Trimalleolar displaced ankle fracture, left End-stage renal disease, dialysis 3 times a week Diabetes, PAD Gastric bypass -Patient is high risk for soft tissue infection, delayed union nonunion given the comorbidities. Surgery was planned for today but the skin check this morning remarked significant worsening nonpitting edema to the provisional surgical sites which could significantly increase the risk of complications. At the decision was made with patient to delay the surgery to next Wednesday. -I am not convinced the patient is safe to be discharged home while waiting for soft tissue optimization on the left lower extremity. Therefore, I recommend either SNF that offers in-house dialysis or in-hospital medical optimization until surgery next Wednesday -For pain management, added gabapentin and scheduled Tylenol in addition to the current regimen -Keep the splint and dressing clean, dry and intact -Calcium and vitamin D are within normal limit. However, continue with 5000 international units of vitamin D3 daily -Weightbearing restriction: Strict nonweightbearing to the left lower extremity -Physical therapy: Eval and treat for upper body mobility, please make sure the left lower extremity is elevated with toes above the heart and remains nonweightbearing -Nurse communication: - Elevate the surgical foot with at least two pillows behind the calf so that the heel is floated with toes elevated to the level of the heart, per tolerance 45 min/h -Ice behind the knee 15 mins/h for pain as needed Dispo: I communicated with Dr. Mohamud whom will help with medical optimization, either in-house or SNF. If the patient is discharged to SNF, please make sure the left lower extremity is elevated with toes above the heart or nose, 45 minutes/h at least, ice behind the knee 15 minutes/h for pain as needed. Patient is okay to eat and surgery will be delayed to next Wednesday. Comment Review of Relevant I have reviewed the following items meagan (where applicable) has been applied. Labs Laboratory Tests Test 11/19/21 07:45 11/19/21 21:12 11/20/21 07:52 White Blood Count 6.5 x10^3/uL (4.0-11.0) Red Blood Count 4.04 x10^6/uL (3.50-5.40) Hemoglobin 11.7 g/dL (12.0-15.5) Hematocrit 33.7 % (36.0-47.0) Mean Corpuscular Volume 83 fL (79-100) Mean Corpuscular Hemoglobin 29 pg (25-35) Mean Corpuscular Hemoglobin Concent 35 g/dL (31-37) Red Cell Distribution Width 13.6 % (11.5-14.5) Platelet Count 237 x10^3/uL (140-400) Neutrophils (%) (Auto) 60 % (31-73) Lymphocytes (%) (Auto) 29 % (24-48) Monocytes (%) (Auto) 9 % (0-9) Eosinophils (%) (Auto) 2 % (0-3) Basophils (%) (Auto) 1 % (0-3) Neutrophils # (Auto) 3.9 x10^3/uL (1.8-7.7) Lymphocytes # (Auto) 1.9 x10^3/uL (1.0-4.8) Monocytes # (Auto) 0.6 x10^3/uL (0.0-1.1) Eosinophils # (Auto) 0.1 x10^3/uL (0.0-0.7) Basophils # (Auto) 0.1 x10^3/uL (0.0-0.2) Prothrombin Time 13.2 SEC (11.7-14.0) Prothromb Time International Ratio 1.0 (0.8-1.1) Activated Partial Thromboplast Time 28 SEC (24-38) Sodium Level 139 mmol/L (136-145) Potassium Level 5.1 mmol/L (3.5-5.1) Chloride Level 102 mmol/L (98-107) Carbon Dioxide Level 24 mmol/L (21-32) Anion Gap 13 (6-14) Blood Urea Nitrogen 45 mg/dL (7-20) Creatinine 6.9 mg/dL (0.6-1.0) Estimated GFR (Cockcroft-Gault) 8.0 BUN/Creatinine Ratio 7 (6-20) Glucose Level 199 mg/dL (70-99) Calcium Level 9.1 mg/dL (8.5-10.1) Magnesium Level 2.1 mg/dL (1.8-2.4) Total Bilirubin 0.4 mg/dL (0.2-1.0) Aspartate Amino Transf (AST/SGOT) 8 U/L (15-37) Alanine Aminotransferase (ALT/SGPT) 17 U/L (14-59) Alkaline Phosphatase 161 U/L (46-116) Total Protein 7.3 g/dL (6.4-8.2) Albumin 3.7 g/dL (3.4-5.0) Albumin/Globulin Ratio 1.0 (1.0-1.7) 25-Hydroxy Vitamin D Total 31.6 ng/mL (30-100) Hepatitis B Surface Antigen Nonreactive (Nonreactive) Glucose (Fingerstick) 195 mg/dL (70-99) 230 mg/dL (70-99) Laboratory Tests Test 11/19/21 21:12 11/20/21 07:52 Glucose (Fingerstick) 195 mg/dL (70-99) 230 mg/dL (70-99) Medications Current Medications Fentanyl Citrate (Fentanyl 2ml Vial) 100 mcg 1X ONCE IVP Last administered on 11/19/21at 07:50; Start 11/19/21 at 07:45; Stop 11/19/21 at 07:46; Status DC Ondansetron HCl (Zofran) 4 mg 1X ONCE IVP Last administered on 11/19/21at 07:49; Start 11/19/21 at 07:45; Stop 11/19/21 at 07:46; Status DC Sodium Chloride 1,000 ml @ 75 mls/hr 1X ONCE IV ; Start 11/19/21 at 08:30; Stop 11/19/21 at 21:49; Status DC Propofol (Diprivan) 100 mg 1X ONCE IV Last administered on 11/19/21at 09:39; Start 11/19/21 at 08:30; Stop 11/19/21 at 08:31; Status DC Ondansetron HCl (Zofran) 4 mg PRN Q8HRS PRN IVP NAUSEA/VOMITING Last administered on 11/20/21at 03:29; Start 11/19/21 at 12:00; Stop 11/20/21 at 11:59 Morphine Sulfate (Morphine Sulfate) 4 mg PRN Q2HR PRN IVP PAIN Last administered on 11/20/21at 05:48; Start 11/19/21 at 12:00; Stop 11/20/21 at 11:59 Vitamin D (Vitamin D3) 5,000 unit DAILY PO ; Start 11/19/21 at 12:30 Fentanyl Citrate (Fentanyl 2ml Vial) 25 mcg PRN Q5MIN PRN IVP MILD PAIN 1-3; Start 11/20/21 at 06:00; Stop 11/21/21 at 05:59 Fentanyl Citrate (Fentanyl 2ml Vial) 50 mcg PRN Q5MIN PRN IVP MODERATE PAIN 4- 6; Start 11/20/21 at 06:00; Stop 11/21/21 at 05:59 Morphine Sulfate (Morphine Sulfate) 1 mg PRN Q10MIN PRN IVP SEVERE PAIN 7-10; Start 11/20/21 at 06:00; Stop 11/19/21 at 22:02; Status DC Ringer's Solution 1,000 ml @ 30 mls/hr Q24H IV ; Start 11/20/21 at 06:00; Stop 11/20/21 at 17:59 Hydromorphone HCl (Dilaudid) 0.5 mg PRN Q10MIN PRN IVP SEVERE PAIN 7-10, 2nd CHOICE; Start 11/20/21 at 06:00; Stop 11/19/21 at 22:02; Status DC Prochlorperazine Edisylate (Compazine) 5 mg PACU PRN PRN IVP NAUSEA, MRX1; Start 11/20/21 at 06:00; Stop 11/21/21 at 05:59 Sodium Chloride 1,000 ml @ 1,000 mls/hr Q1H PRN IV hypotension; Start 11/19/21 at 13:50; Stop 11/19/21 at 19:49; Status DC Sodium Chloride 1,000 ml @ 400 mls/hr Q2H30M PRN IV PATENCY; Start 11/19/21 at 13:50; Stop 11/20/21 at 01:49; Status DC Info (PHARMACY MONITORING -- do not chart) 1 each PRN DAILY PRN MC SEE COMMENTS; Start 11/19/21 at 15:45; Status UNV Info (PHARMACY MONITORING -- do not chart) 1 each PRN DAILY PRN MC SEE COMM ENTS; Start 11/19/21 at 15:45 Amlodipine Besylate (Norvasc) 10 mg HS PO ; Start 11/19/21 at 21:00; Stop 11/19/21 at 22:02; Status DC Aspirin (Ecotrin) 162 mg DAILY PO ; Start 11/20/21 at 09:00; Stop 11/19/21 at 22:02; Status DC Clonidine HCl (Catapres) 0.1 mg BID PO ; Start 11/19/21 at 21:00; Stop 11/19/21 at 22:02; Status DC Cyclobenzaprine HCl (Flexeril) 10 mg PRN DAILY PRN PO PAIN Last administered on 11/20/21at 03:29; Start 11/19/21 at 17:00 Diphenhydramine HCl (Benadryl) 25 mg PRN Q6HRS PRN PO ITCHING; Start 11/19/21 at 17:00 Furosemide (Lasix) 40 mg DAILY PO ; Start 11/20/21 at 09:00 Hydralazine HCl (Apresoline) 50 mg BID PO ; Start 11/19/21 at 21:00; Stop 11/19/21 at 22:02; Status DC Linagliptin (Tradjenta) 5 mg DAILY PO ; Start 11/20/21 at 09:00; Stop 11/19/21 at 22:02; Status DC Oxycodone/ Acetaminophen (Percocet 5/325) 1 tab PRN Q6HRS PRN PO MODERATE- SEVERE PAIN Last administered on 11/19/21at 17:13; Start 11/19/21 at 17:00; Stop 11/19/21 at 22:07; Status DC Ranolazine (Ranexa) 500 mg BID PO ; Start 11/19/21 at 21:00 Simvastatin (Zocor) 20 mg HS PO ; Start 11/19/21 at 21:00; Stop 11/19/21 at 22:02; Status DC Non-Formulary Medication (Zabrina Root ) 550 mg DAILY PO ; Start 11/20/21 at 09:00; Status UNV Insulin Glargine (Lantus Syringe) 25 unit Q12HR SQ Last administered on 11/19/21at 21:45; Start 11/19/21 at 21:00 Insulin Human Lispro (HumaLOG) 25 units BIDWMEALS SQ ; Start 11/19/21 at 18:00; Stop 11/19/21 at 22:02; Status DC Vitamin B Complex (Folbic Tablet) 1 tab DAILY PO ; Start 11/20/21 at 09:00 Labetalol HCl (Trandate) 300 mg TID PO Last administered on 11/19/21at 20:02; Start 11/19/21 at 21:00 Famotidine (Pepcid) 20 mg Q48H PO Last administered on 11/19/21at 20:00; Start 11/19/21 at 21:00 Insulin Human Lispro (HumaLOG) 0-5 UNITS TIDWMEALS SQ ; Start 11/19/21 at 17:00; Stop 11/19/21 at 22:07; Status DC Dextrose (Dextrose 50%-Water Syringe) 12.5 gm PRN Q15MIN PRN IV SEE COMMENTS; Start 11/19/21 at 17:00 Oxycodone/ Acetaminophen (Percocet 5/325) 1 tab PRN Q4HRS PRN PO MILD/MOD PAIN; Start 11/19/21 at 22:15; Stop 11/20/21 at 08:05; Status DC Oxycodone/ Acetaminophen (Percocet 10/325) 1 tab PRN Q4HRS PRN PO SEVERE PAIN 7-10 Last administered on 11/20/21at 03:26; Start 11/19/21 at 22:15 Insulin Human Lispro (HumaLOG) 0-7 UNITS TIDWMEALS SQ ; Start 11/20/21 at 08:00 Losartan Potassium (Cozaar) 100 mg DAILY PO ; Start 11/20/21 at 09:00 Acetaminophen (Tylenol) 650 mg QID PO ; Start 11/20/21 at 09:00; Status UNV Gabapentin (Neurontin) 100 mg TID PO ; Start 11/20/21 at 09:00; Status UNV Active Scripts Active Humalog (Insulin Lispro) 100 Unit/1 Ml Insuln.pen 25 Units SQ BIDWMEALS 30 Days Lantus Solostar (Insulin Glargine,Hum.rec.anlog) 100 Unit/1 Ml Insuln.pen 25 Units SQ Q12HR 30 Days Percocet 5-325 Mg Tablet (Oxycodone/Acetaminophen) 1 Each Tablet 1 Tab PO PRN Q6HRS PRN 5 Days Ranexa (Ranolazine) 500 Mg Tab.er.12h 500 Mg PO BID Catapres (Clonidine Hcl) 0.1 Mg Tablet 0.1 Mg PO BID Reported Losartan Potassium 100 Mg Tablet 1 Tab PO DAILY Atorvastatin Calcium 40 Mg Tablet 1 Tab PO QHS Benadryl (Diphenhydramine Hcl) 25 Mg Capsule 1 Cap PO PRN Q6HRS Fusion Plus Capsule (Iron,Fum&Ps/Fa/Vit B&C#18/L.ca) 1 Each Capsule 1 Each PO DAILY Zabrina Root 550 Mg Capsule 550 Mg PO DAILY Cyclobenzaprine Hcl 10 Mg Tablet 1 Tab PO PRN DAILY PRN Labetalol Hcl 300 Mg Tablet 1 Tab PO TID Nitrostat (Nitroglycerin) 0.4 Mg Tab.subl Furosemide 40 Mg Tablet 40 Mg PO DAILY Ranitidine Hcl 150 Mg Capsule 300 Mg PO DAILY Vitals/I & O Vital Sign - Last 24 Hours 11/19/21 11/19/21 11/19/21 11/19/21 09:16 10:45 12:04 12:18 Temp 98.6 98.6 Pulse 85 85 82 87 Resp 16 16 16 16 16 B/P (MAP) 156/88 164/83 (110) 166/95 (118) Pulse Ox 100 99 O2 Flow Rate 3.0 3.0 3.0 11/19/21 11/19/21 11/19/21 11/19/21 13:44 13:46 15:15 17:13 Temp 98.5 98.5 Pulse 86 Resp 20 18 16 B/P (MAP) 178/60 (99) Pulse Ox 100 98 97 O2 Delivery Nasal Cannula Nasal Cannula Nasal Cannula Nasal Cannula O2 Flow Rate 3.0 2.0 22.0 2.0 11/19/21 11/19/21 11/19/21 11/19/21 19:00 20:00 20:02 20:15 Temp 98.7 98.7 Pulse 91 91 Resp 16 B/P (MAP) 154/96 (115) 154/96 Pulse Ox 100 97 O2 Delivery Nasal Cannula Nasal Cannula Nasal Cannula O2 Flow Rate 3.0 2.0 3.0 11/19/21 11/19/21 11/19/21 11/19/21 21:47 22:31 23:00 23:13 Temp 98.4 98.4 Pulse 89 Resp 14 B/P (MAP) 130/77 (94) Pulse Ox 97 97 98 97 O2 Delivery Nasal Cannula Nasal Cannula Room Air Nasal Cannula O2 Flow Rate 2.0 2.0 2.0 11/20/21 11/20/21 11/20/21 11/20/21 01:28 03:00 03:06 03:22 Temp 98.0 98.0 Pulse 75 Resp 16 B/P (MAP) 126/84 (98) Pulse Ox 97 99 97 97 O2 Delivery Nasal Cannula Nasal Cannula Nasal Cannula Nasal Cannula O2 Flow Rate 3.0 3.0 3.0 3.0 11/20/21 11/20/21 11/20/21 11/20/21 03:26 04:53 04:53 05:48 Pulse Ox 97 97 97 97 O2 Delivery Nasal Cannula Nasal Cannula Nasal Cannula Nasal Cannula O2 Flow Rate 3.0 3.0 3.0 3.0 11/20/21 06:25 Pulse Ox 97 O2 Delivery Nasal Cannula O2 Flow Rate 3.0 Intake and Output 11/19/21 11/19/21 11/20/21 15:00 23:00 07:00 Intake Total 100 ml 200 ml 50 ml Output Total 1 ml Balance 100 ml 200 ml 49 ml Justifications for Admission Other Justification HELEN LARIOS DPM Nov 20, 2021 08:18
[2021-11-20] MEDS: INSULIN GLARGINE SYRINGE. SQ SCH ×2 (08:22→21:45)
[2021-11-20] MEDS: INSULIN LISPRO 300 UNITS/3 ML VIAL. SQ SCH ×3 (08:33→16:51)
[2021-11-20] MEDS ORDERED: DIALYSIS PATIENT. MC PRN ×2 (08:45)
[2021-11-20] MEDS ORDERED: IV NORMAL SALINE 1000ML BAG 1,000 ML IV PRN ×2 (08:45)
[2021-11-20] MEDS ORDERED: ASPIRIN ENTERIC COATED 81 MG TABLET.DR. PO SCH (09:00)
[2021-11-20] MEDS ORDERED: GINGER ROOT 550 MG PO SCH (09:00)
[2021-11-20] MEDS ORDERED: LINAGLIPTIN 5 MG TABLET PO SCH (09:00)
[2021-11-20] MEDS ORDERED: ENOXAPARIN 30 MG/0.3 ML SYRINGE. SQ SCH (09:15)
--- NOTE | 2021-11-20 09:21 | PDOC ---
Provider Note Date of Service: DATE: 11/20/21 TIME: 09:20 Provider Note Pt seen .H&P dictated.#[id number]. Justifications for Admission Other Justification COLTEN AVILA MD Nov 20, 2021 09:21
[2021-11-20] MEDS ORDERED: HEPARIN for SUB-Q USE 5,000 UNIT/ML VIAL. SQ SCH (09:30)
--- NOTE | 2021-11-20 09:56 | NUR ---
SW following. Discussed with RN, pt from home, 3L (does not use oxygen at home), renal diet. Nephrology and Ortho following. RN advised pt will be having surgery today. No SW needs at this time. SW will continue to follow.
--- NOTE | 2021-11-20 10:09 | CONS ---
DATE OF CONSULTATION: 11/20/2021 LOCATION: She is in room 416. ATTENDING PHYSICIAN: Xenia Mohamud MD REASON FOR CONSULTATION: The patient was seen at the request of Dr. Mohamud for rehab evaluation. HISTORY OF PRESENT ILLNESS: This is a 41-year-old right-handed female with known diabetes mellitus type 1 and type 2, congestive heart failure, hypertension, myocardial infarction, renal failure, stage 5 kidney disease, on hemodialysis. She was admitted on 11/19/2021 after she slipped and fell and twisted her left ankle, admitted through the Emergency Room where she was found with displaced fracture of left medial malleolus and fracture distal end of left fibula with mild displacement and she had her left ankle immobilized with plaster splint. Dr. Esposito, information systems analyst who also does ankle surgeries saw her, wants to wait until next Wednesday to operate on her because she had some soft tissue swelling of her left ankle. The patient admits significant pain with any attempts at moving her left lower extremity. The patient has been independent with her mobility and self-care skills prior to the present hospitalization. She denies any back pain. PHYSICAL EXAMINATION: On physical examination today revealed young female patient in moderate distress. When we asked her to try to move her left lower extremity, she had a voluntary motion in her left lower extremity muscles. She can even wiggle her toes gently. She had diffuse tenderness to palpation at left ankle. She had some soft tissue swelling around the left ankle. She is independent with bed mobility and she has been transferring to the bedside commode. Overall, she had 5/5 grade muscle strength in her upper extremities and right lower extremity. ASSESSMENT: Recent fall and mildly displaced left medial malleolus fracture and also distal end of left fibula. RECOMMENDATIONS: Agree with Dr. Esposito's plans, but I am wondering why she has to wait until next week or so. She got some soft tissue swelling that is common with any fractures and with her immobilized ankle, the swelling is not going to go away as she is afraid of moving her left foot and ankle because of the pain. Dr. Mohamud, I appreciate asking me to participate in the care of this interesting patient. I will be glad to see her for followup with you on as needed basis. JORDYN/OMER DR: Jian TID: [id number]
--- NOTE | 2021-11-20 10:14 | HP ---
DATE OF SERVICE: 11/20/2021 ADMIT DATE: 11/19/2021 REASON FOR ADMISSION TO THE HOSPITAL: Fall at home, left ankle fracture. HISTORY OF PRESENT ILLNESS: The patient is a 41-year-old female. The patient has renal failure and she has been on dialysis for at least more than a year. She also had a gastric bypass surgery 1 year ago. She was going to dialysis. She has a split-level home. While she was trying to get into the garage to go into the car, her foot slipped the last 2 steps and her leg went backwards and she had a broken left ankle. The patient went to dialysis, had dialysis, came to the ER and x-ray showed an ankle fracture, was admitted to the hospital. Ankle specialist was consulted. PAST MEDICAL HISTORY: Diabetes, hypertension, hyperlipidemia, chronic kidney disease, on dialysis, and bypass surgery, heart failure. PAST SURGICAL HISTORY: Hernia repair, fistula placed for dialysis, gastric bypass. ALLERGIES: CODEINE, LIDOCAINE, AND LISINOPRIL. MEDICATIONS: The patient is on amlodipine 10 mg, aspirin 162 mg, vitamin D 5000 daily, clonidine 0.1 twice a day, Flexeril p.r.n., Pepcid 20 mg daily, Lasix 40 mg daily, gabapentin 100 mg 3 times daily, hydralazine 50 mg twice a day, insulin 25 units Lantus twice a day, Humalog 25 units twice a day, labetalol 300 mg twice a day, losartan 100 mg daily, Zofran for nausea, oxycodone for pain, simvastatin 20 mg daily, B complex daily, Ranexa 500 mg twice a day. PERSONAL HISTORY: Denies smoking, alcohol, or drug abuse. FAMILY HISTORY: Positive for diabetes, heart disease and kidney problems. REVIEW OF SYSTEMS: Denies any chest pain, shortness of breath and complains of pain in the left ankle. The patient goes to dialysis Wednesday, Wednesday and Wednesday. She had dialysis yesterday, next one on Wednesday, tomorrow. PHYSICAL EXAMINATION: VITAL SIGNS: At the time of admission show temperature 98, pulse 75, respirations 16, blood pressure 126/84, 99% on 3 liters nasal cannula. HEENT: Head is atraumatic. Pupils equal. Oral cavity, no congestion. NECK: Supple. Thyroid not enlarged. JVD not elevated. CHEST: Symmetrical. CARDIOVASCULAR: S1, S2. LUNGS: Clear to auscultation. ABDOMEN: Got a gastric bypass, soft, no mass palpable. EXTERNAL GENITALIA: No Koo. RECTUM: Deferred. EXTREMITIES: The patient has AV shunt in the left arm and the patient has a half cast on the left ankle, right foot. Right ankle, no swelling. NEUROLOGIC: Moving all extremities. No focal deficits noted. LABORATORY DATA: Shows a white count of 6, hemoglobin 11.7, platelets 237. INR 1.0. Electrolytes: Sodium 139, potassium 5.1, chloride 102, bicarbonate 24, BUN 45, creatinine 6.9, glucose 199. LFTs normal and chest x-ray negative. EKG negative. Normal sinus rhythm. X-ray of the ankle, ankle fracture. FINAL IMPRESSION: 1. Left ankle fracture. 2. Mechanical fall, slipped and fell from the stairs. 3. End-stage renal disease, on dialysis Wednesday, Wednesday and Wednesday. 4. Insulin-dependent diabetes. 5. Obesity, status post recent gastric bypass surgery 1 year ago. 6. Coronary artery disease. 7. Hypertension. 8. Hyperlipidemia. PLAN: At this time was admit to the hospital. Podiatry was consulted and ankle specialist and Renal consult for dialysis. PT, OT, rehab, DVT prevention. We will see how she does. RAQUEL/CURT LITTLE: RAQUEL/serge TID: [id number]
--- NOTE | 2021-11-20 10:42 | PDOC2 ---
CONSULT Date of Consult Date of Consult DATE: 11/20/21 TIME: 10:37 Reason for Consult Reason for Consult: ESRD Referring Physician Referring Physician: MARGARITA Identification/Chief Complaint Chief Complaint FALL Source Source: Chart review, Patient History of Present Illness Reason for Visit: THIS IS A 41 YR OLD WITH ESRD ON OP HD ON MWF. HAS A LEFT ARM AVF FOR HER ACCESS. SHE WAS GOING TO HER OP CLINIC YESTERDAY WHENH SHE SLIPPED ON HER STEPS AND FELL. SHE HAS SUSTAINED A LEFT ANKLE FRACTURE. ESRD IS DUE TO HTN AND DM II Past Medical History Cardiovascular: CHF, HTN, Hyperlipidemia CENTRAL NERVOUS SYSTEM: CVA, TIA, Vertigo Heme/Onc: Anemia NOS Renal/: Chronic renal failure Endocrine: Diabetes, Hyperparathyroidism Past Surgical History Past Surgical History LEFT ARM AVF. ABD HERNIA REPAIR Family History Family History: Diabetes, Heart Disease, Hypertension Social History No ALCOHOL: rare Drugs: None Lives: with Family Domestic Violence: Neg Current Problem List Problem List Problems Medical Problems: (1) Closed left ankle fracture Status: Acute (2) Dislocation of ankle, left, closed Status: Acute (3) End stage renal disease on dialysis Status: Acute Current Medications Current Medications Current Medications Fentanyl Citrate (Fentanyl 2ml Vial) 100 mcg 1X ONCE IVP Last administered on 11/19/21at 07:50; Start 11/19/21 at 07:45; Stop 11/19/21 at 07:46; Status DC Ondansetron HCl (Zofran) 4 mg 1X ONCE IVP Last administered on 11/19/21at 07:49; Start 11/19/21 at 07:45; Stop 11/19/21 at 07:46; Status DC Sodium Chloride 1,000 ml @ 75 mls/hr 1X ONCE IV ; Start 11/19/21 at 08:30; Stop 11/19/21 at 21:49; Status DC Propofol (Diprivan) 100 mg 1X ONCE IV Last administered on 11/19/21at 09:39; Start 11/19/21 at 08:30; Stop 11/19/21 at 08:31; Status DC Ondansetron HCl (Zofran) 4 mg PRN Q8HRS PRN IVP NAUSEA/VOMITING Last administered on 11/20/21at 03:29; Start 11/19/21 at 12:00; Stop 11/20/21 at 11:59 Morphine Sulfate (Morphine Sulfate) 4 mg PRN Q2HR PRN IVP PAIN Last administered on 11/20/21at 05:48; Start 11/19/21 at 12:00; Stop 11/20/21 at 11:59 Vitamin D (Vitamin D3) 5,000 unit DAILY PO ; Start 11/19/21 at 12:30 Fentanyl Citrate (Fentanyl 2ml Vial) 25 mcg PRN Q5MIN PRN IVP MILD PAIN 1-3; Start 11/20/21 at 06:00; Stop 11/21/21 at 05:59 Fentanyl Citrate (Fentanyl 2ml Vial) 50 mcg PRN Q5MIN PRN IVP MODERATE PAIN 4- 6; Start 11/20/21 at 06:00; Stop 11/21/21 at 05:59 Morphine Sulfate (Morphine Sulfate) 1 mg PRN Q10MIN PRN IVP SEVERE PAIN 7-10; Start 11/20/21 at 06:00; Stop 11/19/21 at 22:02; Status DC Ringer's Solution 1,000 ml @ 30 mls/hr Q24H IV ; Start 11/20/21 at 06:00; Stop 11/20/21 at 17:59 Hydromorphone HCl (Dilaudid) 0.5 mg PRN Q10MIN PRN IVP SEVERE PAIN 7-10, 2nd CHOICE; Start 11/20/21 at 06:00; Stop 11/19/21 at 22:02; Status DC Prochlorperazine Edisylate (Compazine) 5 mg PACU PRN PRN IVP NAUSEA, MRX1; Start 11/20/21 at 06:00; Stop 11/21/21 at 05:59 Sodium Chloride 1,000 ml @ 1,000 mls/hr Q1H PRN IV hypotension; Start 11/19/21 at 13:50; Stop 11/19/21 at 19:49; Status DC Sodium Chloride 1,000 ml @ 400 mls/hr Q2H30M PRN IV PATENCY; Start 11/19/21 at 13:50; Stop 11/20/21 at 01:49; Status DC Info (PHARMACY MONITORING -- do not chart) 1 each PRN DAILY PRN MC SEE COMMENTS; Start 11/19/21 at 15:45; Status UNV Info (PHARMACY MONITORING -- do not chart) 1 each PRN DAILY PRN MC SEE COMMENTS; Start 11/19/21 at 15:45 Amlodipine Besylate (Norvasc) 10 mg HS PO ; Start 11/19/21 at 21:00; Stop 11/19/21 at 22:02; Status DC Aspirin (Ecotrin) 162 mg DAILY PO ; Start 11/20/21 at 09:00; Stop 11/19/21 at 22:02; Status DC Clonidine HCl (Catapres) 0.1 mg BID PO ; Start 11/19/21 at 21:00; Stop 11/19/21 at 22:02; Status DC Cyclobenzaprine HCl (Flexeril) 10 mg PRN DAILY PRN PO PAIN Last administered on 11/20/21at 03:29; Start 11/19/21 at 17:00 Diphenhydramine HCl (Benadryl) 25 mg PRN Q6HRS PRN PO ITCHING; Start 11/19/21 at 17:00 Furosemide (Lasix) 40 mg DAILY PO Last administered on 11/20/21at 08:18; Start 11/20/21 at 09:00 Hydralazine HCl (Apresoline) 50 mg BID PO ; Start 11/19/21 at 21:00; Stop 11/19/21 at 22:02; Status DC Linagliptin (Tradjenta) 5 mg DAILY PO ; Start 11/20/21 at 09:00; Stop 11/19/21 at 22:02; Status DC Oxycodone/ Acetaminophen (Percocet 5/325) 1 tab PRN Q6HRS PRN PO MODERATE- SEVERE PAIN Last administered on 11/19/21at 17:13; Start 11/19/21 at 17:00; Stop 11/19/21 at 22:07; Status DC Ranolazine (Ranexa) 500 mg BID PO Last administered on 11/20/21at 08:18; Start 11/19/21 at 21:00 Simvastatin (Zocor) 20 mg HS PO ; Start 11/19/21 at 21:00; Stop 11/19/21 at 22:02; Status DC Non-Formulary Medication (Zabrina Root ) 550 mg DAILY PO ; Start 11/20/21 at 09:00; Status UNV Insulin Glargine (Lantus Syringe) 25 unit Q12HR SQ Last administered on 11/19/21at 21:45; Start 11/19/21 at 21:00 Insulin Human Lispro (HumaLOG) 25 units BIDWMEALS SQ ; Start 11/19/21 at 18:00; Stop 11/19/21 at 22:02; Status DC Vitamin B Complex (Folbic Tablet) 1 tab DAILY PO Last administered on 11/20/21at 08:18; Start 11/20/21 at 09:00 Labetalol HCl (Trandate) 300 mg TID PO Last administered on 11/19/21at 20:02; Start 11/19/21 at 21:00 Famotidine (Pepcid) 20 mg Q48H PO Last administered on 11/19/21at 20:00; Start 11/19/21 at 21:00 Insulin Human Lispro (HumaLOG) 0-5 UNITS TIDWMEALS SQ ; Start 11/19/21 at 17:00; Stop 11/19/21 at 22:07; Status DC Dextrose (Dextrose 50%-Water Syringe) 12.5 gm PRN Q15MIN PRN IV SEE COMMENTS; Start 11/19/21 at 17:00 Oxycodone/ Acetaminophen (Percocet 5/325) 1 tab PRN Q4HRS PRN PO MILD/MOD PAIN; Start 11/19/21 at 22:15; Stop 11/20/21 at 08:05; Status DC Oxycodone/ Acetaminophen (Percocet 10/325) 1 tab PRN Q4HRS PRN PO SEVERE PAIN 7-10 Last administered on 11/20/21at 09:12; Start 11/19/21 at 22:15 Insulin Human Lispro (HumaLOG) 0-7 UNITS TIDWMEALS SQ Last administered on 11/20/21at 08:33; Start 11/20/21 at 08:00 Losartan Potassium (Cozaar) 100 mg DAILY PO Last administered on 11/20/21at 08:17; Start 11/20/21 at 09:00 Acetaminophen (Tylenol) 650 mg QID PO Last administered on 11/20/21at 08:17; Start 11/20/21 at 09:00 Gabapentin (Neurontin) 100 mg TID PO Last administered on 11/20/21at 08:17; Start 11/20/21 at 09:00 Sodium Chloride 1,000 ml @ 1,000 mls/hr Q1H PRN IV hypotension; Start 11/20/21 at 08:45; Stop 11/20/21 at 14:44 Sodium Chloride 1,000 ml @ 400 mls/hr Q2H30M PRN IV PATENCY; Start 11/20/21 at 08:45; Stop 11/20/21 at 20:44 Info (PHARMACY MONITORING -- do not chart) 1 each PRN DAILY PRN MC SEE COMMENTS; Start 11/20/21 at 08:45; Status UNV Info (PHARMACY MONITORING -- do not chart) 1 each PRN DAILY PRN MC SEE COMMENTS; Start 11/20/21 at 08:45 Enoxaparin Sodium (Lovenox 30mg Syringe) 30 mg Q24H SQ ; Start 11/20/21 at 09:15; Status UNV Heparin Sodium (Porcine) (Heparin Sodium) 5,000 unit Q8HRS SQ ; Start 11/20/21 at 09:30; Stop 11/20/21 at 09:49; Status DC Heparin Sodium (Porcine) (Heparin Sodium) 5,000 unit Q8HRS SQ ; Start 11/20/21 at 14:00 Active Scripts Active Humalog (Insulin Lispro) 100 Unit/1 Ml Insuln.pen 25 Units SQ BIDWMEALS 30 Days Lantus Solostar (Insulin Glargine,Hum.rec.anlog) 100 Unit/1 Ml Insuln.pen 25 Units SQ Q12HR 30 Days Percocet 5-325 Mg Tablet (Oxycodone/Acetaminophen) 1 Each Tablet 1 Tab PO PRN Q6HRS PRN 5 Days Ranexa (Ranolazine) 500 Mg Tab.er.12h 500 Mg PO BID Catapres (Clonidine Hcl) 0.1 Mg Tablet 0.1 Mg PO BID Reported Losartan Potassium 100 Mg Tablet 1 Tab PO DAILY Atorvastatin Calcium 40 Mg Tablet 1 Tab PO QHS Benadryl (Diphenhydramine Hcl) 25 Mg Capsule 1 Cap PO PRN Q6HRS Fusion Plus Capsule (Iron,Fum&Ps/Fa/Vit B&C#18/L.ca) 1 Each Capsule 1 Each PO DAILY Zabrina Root 550 Mg Capsule 550 Mg PO DAILY Cyclobenzaprine Hcl 10 Mg Tablet 1 Tab PO PRN DAILY PRN Labetalol Hcl 300 Mg Tablet 1 Tab PO TID Nitrostat (Nitroglycerin) 0.4 Mg Tab.subl Furosemide 40 Mg Tablet 40 Mg PO DAILY Ranitidine Hcl 150 Mg Capsule 300 Mg PO DAILY Allergies Allergies: Coded Allergies: codeine (Verified Allergy, Intermediate, 01/24/16) lidocaine (Verified Adverse Reaction, Mild, Nausea, Vomiting, 11/19/21) lisinopril (Verified Adverse Reaction, Mild, Cough, 04/25/19) Pt states she is allergic because when on medication she gets a cough. When taken off it is resolved. ROS General: YES: Fatigue PSYCHOLOGICAL ROS: YES: Anxiety Eyes: Yes Decreased vision ALLERGY AND IMMUNOLOGY: YES: Seasonal Allergies Gastrointestinal: Yes Constipation Genitourinary: YES Other (ANURIA) Musculoskeletal: Yes Joint Pain, Yes Joint Stiffness, Yes Muscular Weakness Neurological: Yes Weakness Skin: Yes Dry Skin Physical Exam General: Alert, Oriented X3, Cooperative, No acute distress HEENT: Atraumatic, PERRLA Lungs: Clear to auscultation Heart: Regular rate Abdomen: Normal bowel sounds, Soft, No tenderness Extremities: No cyanosis Skin: No breakdown Neuro: Normal speech Psych/Mental Status: Mental status NL, Mood NL MUSCULOSKELETAL: Other (LEFT ANKLE PAIN) Vitals VITALS Vital Signs Date Time Temp Pulse Resp B/P (MAP) Pulse Ox O2 Delivery O2 Flow Rate FiO2 11/20/21 09:44 98 Nasal Cannula 3.0 11/20/21 08:18 90 140/86 11/20/21 07:00 98.3 18 98.3 Labs Labs Laboratory Tests Test 11/19/21 07:45 11/19/21 21:12 11/20/21 07:52 White Blood Count 6.5 x10^3/uL (4.0-11.0) Red Blood Count 4.04 x10^6/uL (3.50-5.40) Hemoglobin 11.7 g/dL (12.0-15.5) Hematocrit 33.7 % (36.0-47.0) Mean Corpuscular Volume 83 fL (79-100) Mean Corpuscular Hemoglobin 29 pg (25-35) Mean Corpuscular Hemoglobin Concent 35 g/dL (31-37) Red Cell Distribution Width 13.6 % (11.5-14.5) Platelet Count 237 x10^3/uL (140-400) Neutrophils (%) (Auto) 60 % (31-73) Lymphocytes (%) (Auto) 29 % (24-48) Monocytes (%) (Auto) 9 % (0-9) Eosinophils (%) (Auto) 2 % (0-3) Basophils (%) (Auto) 1 % (0-3) Neutrophils # (Auto) 3.9 x10^3/uL (1.8-7.7) Lymphocytes # (Auto) 1.9 x10^3/uL (1.0-4.8) Monocytes # (Auto) 0.6 x10^3/uL (0.0-1.1) Eosinophils # (Auto) 0.1 x10^3/uL (0.0-0.7) Basophils # (Auto) 0.1 x10^3/uL (0.0-0.2) Prothrombin Time 13.2 SEC (11.7-14.0) Prothromb Time International Ratio 1.0 (0.8-1.1) Activated Partial Thromboplast Time 28 SEC (24-38) Sodium Level 139 mmol/L (136-145) Potassium Level 5.1 mmol/L (3.5-5.1) Chloride Level 102 mmol/L (98-107) Carbon Dioxide Level 24 mmol/L (21-32) Anion Gap 13 (6-14) Blood Urea Nitrogen 45 mg/dL (7-20) Creatinine 6.9 mg/dL (0.6-1.0) Estimated GFR (Cockcroft-Gault) 8.0 BUN/Creatinine Ratio 7 (6-20) Glucose Level 199 mg/dL (70-99) Calcium Level 9.1 mg/dL (8.5-10.1) Magnesium Level 2.1 mg/dL (1.8-2.4) Total Bilirubin 0.4 mg/dL (0.2-1.0) Aspartate Amino Transf (AST/SGOT) 8 U/L (15-37) Alanine Aminotransferase (ALT/SGPT) 17 U/L (14-59) Alkaline Phosphatase 161 U/L (46-116) Total Protein 7.3 g/dL (6.4-8.2) Albumin 3.7 g/dL (3.4-5.0) Albumin/Globulin Ratio 1.0 (1.0-1.7) 25-Hydroxy Vitamin D Total 31.6 ng/mL (30-100) Hepatitis B Surface Antigen Nonreactive (Nonreactive) Glucose (Fingerstick) 195 mg/dL (70-99) 230 mg/dL (70-99) Laboratory Tests Test 11/19/21 21:12 11/20/21 07:52 Glucose (Fingerstick) 195 mg/dL (70-99) 230 mg/dL (70-99) Images Images Exam Date: 11/19/2021 7:22 AM XR EXAM OF ANKLE_LEFT 3V Indication: Reason: LEFT ANKLE INJURY / Spl. Instructions: / History: . COMPARISON: December 20, 2017 FINDINGS/ IMPRESSION: There is posterolateral dislocation of the talus. Acute trimalleolar fracture noted, with lateral displacement and angulation of the fracture fragments. Displaced fracture of the medial tibial plafond noted. There is diffuse soft tissue swelling around the ankle. Mild calcaneal enthesopathy is present. Electronically signed by: Ceferino Moore MD (11/19/2021 7:55 AM) [id number] Assessment/Plan Assessment/Plan IMP ESRD ANEMIA DM II HTN L ANKLE FX S/P ANKLE FIXATION PLAN HD MWF [facility] NEEDED THERAPY HOME MEDS D/W ATTENDING WILL FOLLOW ANTONIA BECERRA MD Nov 20, 2021 10:42
[2021-11-20] MEDS: HEPARIN for SUB-Q USE 5,000 UNIT/ML VIAL. SQ SCH ×2 (13:34→21:46)
[2021-11-20 16:13] LABS: CALCIUM 8.4 mg/dL (8.5-10.1); CREATININE 6.3 mg/dL (0.6-1.0); GFR 8.8; POTASSIUM 4.5 mmol/L (3.5-5.1)
[2021-11-20] MEDS ORDERED: LIDOCAINE 2% PF 5 ML VIAL. ONE (17:22)
[2021-11-20] MEDS ORDERED: PROPOFOL 10 MG/ML (20ML) VIAL. IV ONE (17:22)
[2021-11-20] MEDS ORDERED: ONDANSETRON PF 4 MG/2 ML VIAL. ONE (17:22)
[2021-11-20] MEDS ORDERED: fentaNYL PF VIAL 100 MCG/2 ML VIAL ONE (17:30)
[2021-11-20] MEDS ORDERED: MIDAZOLAM HCL/PF 2 MG/2 ML VIAL. ONE (17:31)
[2021-11-20] MEDS ORDERED: LIDOCAINE 1% Multi-Dose 20 ML VIAL. ONE (17:37)
--- NOTE | 2021-11-20 18:28 | PDOC ---
PROGRESS NOTES Date of Service DATE: 11/20/21 TIME: 18:18 Subjective Subjective Patient's Mcdaniel compression splint on the left lower extremity was taken down. Now the left lower extremity was only immobilized in an Eboot. Patient is in 10 out of 10 pain. Patient otherwise is able to move digits with guarding and discomfort. Patient a lunch but has not had dinner yet. Objective Objective Vital Signs Date Time Temp Pulse Resp B/P (MAP) Pulse Ox O2 Delivery O2 Flow Rate FiO2 11/20/21 15:00 97.8 90 18 132/78 (96) 98 Nasal Cannula 3.0 97.8 Intake and Output 11/20/21 07:00 Intake Total 350 ml Output Total 1 ml Balance 349 ml Intake Oral 250 ml IV Total 100 ml Output Urine Total 1 ml Physical Exam Physical Exam General: Distressed Dermatology: -There are no fracture blisters, open lesion or skin tenting -However, there is moderate to severe circumferential ankle nonpitting edema with severely diminished skin line Vascular: -Foot is warm to touch -CFT less than 5 seconds x 5 -DP and PT are probable Musculoskeletal: -TTP circumferential to the ankle joint -Able to move digits -Severely guarded with ankle joint active range of motion -Calf is soft and nontender -After partially undressing the E boot, the foot is in an everted position relative to the tibia Assessment Assessment Problems Medical Problems: (1) Closed left ankle fracture Status: Acute (2) Dislocation of ankle, left, closed Status: Acute (3) End stage renal disease on dialysis Status: Acute Plan Plan of Care - I explained to patient that the trimalleolar ankle fracture is unstable in the boot. And that is why she is in a tremendous amount of pain. We need to close reduce the fracture again and then immobilize the ankle joint in a Mcdaniel compression splint while waiting for the soft tissue optimization in preparation for surgery next week. Patient verbalized understanding and consented for procedure. Because patient ate lunch, the anesthesia team and I decided to try bedside closed reduction with hematoma block and IV Versed. If the reduction was inadequate, we would convert to a deep anesthesia in the OR setting with adequate airway management. Patient verbalized understanding and consented for the procedure. -Following alcohol skin prep, 10 cc of 1% lidocaine plain was infiltrated to the left ankle joint. Left lower extremity was closed reduced and immobilized in a modified Mcdaniel compression splint. Adequate digital perfusion was noted afterwards. Patient was able to move digits. Post reduction x-ray remarked adequate ankle mortise alignment and fracture reduction. Patient tolerated the procedure well with vital signs stable and neurovascular status intact. -Continuous pulse ox overnight -Strict nonweightbearing to left lower extremity -Leave the splint dressing clean dry and intact -Elevate left lower extremity with toes above the nose 45 minutes/h, ice behind the knee 15 minutes/h as needed -Soft tissue optimization and medical optimization either in-house or at [facility]. I will plan for surgical repair for the left ankle fracture on next Wednesday. Comment Review of Relevant I have reviewed the following items meagan (where applicable) has been applied. Labs Laboratory Tests Test 11/19/21 07:45 11/19/21 21:12 11/20/21 07:52 11/20/21 11:27 White Blood Count 6.5 x10^3/uL (4.0-11.0) Red Blood Count 4.04 x10^6/uL (3.50-5.40) Hemoglobin 11.7 g/dL (12.0-15.5) Hematocrit 33.7 % (36.0-47.0) Mean Corpuscular Volume 83 fL (79-100) Mean Corpuscular Hemoglobin 29 pg (25-35) Mean Corpuscular Hemoglobin Concent 35 g/dL (31-37) Red Cell Distribution Width 13.6 % (11.5-14.5) Platelet Count 237 x10^3/uL (140-400) Neutrophils (%) (Auto) 60 % (31-73) Lymphocytes (%) (Auto) 29 % (24-48) Monocytes (%) (Auto) 9 % (0-9) Eosinophils (%) (Auto) 2 % (0-3) Basophils (%) (Auto) 1 % (0-3) Neutrophils # (Auto) 3.9 x10^3/uL (1.8-7.7) Lymphocytes # (Auto) 1.9 x10^3/uL (1.0-4.8) Monocytes # (Auto) 0.6 x10^3/uL (0.0-1.1) Eosinophils # (Auto) 0.1 x10^3/uL (0.0-0.7) Basophils # (Auto) 0.1 x10^3/uL (0.0-0.2) Prothrombin Time 13.2 SEC (11.7-14.0) Prothromb Time International Ratio 1.0 (0.8-1.1) Activated Partial Thromboplast Time 28 SEC (24-38) Sodium Level 139 mmol/L (136-145) Potassium Level 5.1 mmol/L (3.5-5.1) Chloride Level 102 mmol/L (98-107) Carbon Dioxide Level 24 mmol/L (21-32) Anion Gap 13 (6-14) Blood Urea Nitrogen 45 mg/dL (7-20) Creatinine 6.9 mg/dL (0.6-1.0) Estimated GFR (Cockcroft-Gault) 8.0 BUN/Creatinine Ratio 7 (6-20) Glucose Level 199 mg/dL (70-99) Calcium Level 9.1 mg/dL (8.5-10.1) Magnesium Level 2.1 mg/dL (1.8-2.4) Total Bilirubin 0.4 mg/dL (0.2-1.0) Aspartate Amino Transf (AST/SGOT) 8 U/L (15-37) Alanine Aminotransferase (ALT/SGPT) 17 U/L (14-59) Alkaline Phosphatase 161 U/L (46-116) Total Protein 7.3 g/dL (6.4-8.2) Albumin 3.7 g/dL (3.4-5.0) Albumin/Globulin Ratio 1.0 (1.0-1.7) 25-Hydroxy Vitamin D Total 31.6 ng/mL (30-100) Hepatitis B Surface Antigen Nonreactive (Nonreactive) Glucose (Fingerstick) 195 mg/dL (70-99) 230 mg/dL (70-99) 171 mg/dL (70-99) Test 11/20/21 15:25 11/20/21 16:43 Sodium Level 136 mmol/L (136-145) Potassium Level 4.5 mmol/L (3.5-5.1) Chloride Level 99 mmol/L (98-107) Carbon Dioxide Level 30 mmol/L (21-32) Anion Gap 7 (6-14) Blood Urea Nitrogen 37 mg/dL (7-20) Creatinine 6.3 mg/dL (0.6-1.0) Estimated GFR (Cockcroft-Gault) 8.8 Glucose Level 148 mg/dL (70-99) Calcium Level 8.4 mg/dL (8.5-10.1) Glucose (Fingerstick) 186 mg/dL (70-99) Laboratory Tests Test 11/19/21 21:12 11/20/21 07:52 11/20/21 11:27 11/20/21 15:25 Glucose (Fingerstick) 195 mg/dL (70-99) 230 mg/dL (70-99) 171 mg/dL (70-99) Sodium Level 136 mmol/L (136-145) Potassium Level 4.5 mmol/L (3.5-5.1) Chloride Level 99 mmol/L (98-107) Carbon Dioxide Level 30 mmol/L (21-32) Anion Gap 7 (6-14) Blood Urea Nitrogen 37 mg/dL (7-20) Creatinine 6.3 mg/dL (0.6-1.0) Estimated GFR (Cockcroft-Gault) 8.8 Glucose Level 148 mg/dL (70-99) Calcium Level 8.4 mg/dL (8.5-10.1) Test 11/20/21 16:43 Glucose (Fingerstick) 186 mg/dL (70-99) Medications Current Medications Fentanyl Citrate (Fentanyl 2ml Vial) 100 mcg 1X ONCE IVP Last administered on 11/19/21at 07:50; Start 11/19/21 at 07:45; Stop 11/19/21 at 07:46; Status DC Ondansetron HCl (Zofran) 4 mg 1X ONCE IVP Last administered on 11/19/21at 07:49; Start 11/19/21 at 07:45; Stop 11/19/21 at 07:46; Status DC Sodium Chloride 1,000 ml @ 75 mls/hr 1X ONCE IV ; Start 11/19/21 at 08:30; Stop 11/19/21 at 21:49; Status DC Propofol (Diprivan) 100 mg 1X ONCE IV Last administered on 11/19/21at 09:39; Start 11/19/21 at 08:30; Stop 11/19/21 at 08:31; Status DC Ondansetron HCl (Zofran) 4 mg PRN Q8HRS PRN IVP NAUSEA/VOMITING Last administered on 11/20/21at 03:29; Start 11/19/21 at 12:00; Stop 11/20/21 at 11:59; Status DC Morphine Sulfate (Morphine Sulfate) 4 mg PRN Q2HR PRN IVP PAIN Last administered on 11/20/21at 05:48; Start 11/19/21 at 12:00; Stop 11/20/21 at 11:59; Status DC Vitamin D (Vitamin D3) 5,000 unit DAILY PO ; Start 11/19/21 at 12:30 Fentanyl Citrate (Fentanyl 2ml Vial) 25 mcg PRN Q5MIN PRN IVP MILD PAIN 1-3; Start 11/20/21 at 06:00; Stop 11/21/21 at 05:59 Fentanyl Citrate (Fentanyl 2ml Vial) 50 mcg PRN Q5MIN PRN IVP MODERATE PAIN 4- 6; Start 11/20/21 at 06:00; Stop 11/21/21 at 05:59 Morphine Sulfate (Morphine Sulfate) 1 mg PRN Q10MIN PRN IVP SEVERE PAIN 7-10; Start 11/20/21 at 06:00; Stop 11/19/21 at 22:02; Status DC Ringer's Solution 1,000 ml @ 30 mls/hr Q24H IV ; Start 11/20/21 at 06:00; Stop 11/20/21 at 17:59; Status DC Hydromorphone HCl (Dilaudid) 0.5 mg PRN Q10MIN PRN IVP SEVERE PAIN 7-10, 2nd CHOICE; Start 11/20/21 at 06:00; Stop 11/19/21 at 22:02; Status DC Prochlorperazine Edisylate (Compazine) 5 mg PACU PRN PRN IVP NAUSEA, MRX1; Start 11/20/21 at 06:00; Stop 11/21/21 at 05:59 Sodium Chloride 1,000 ml @ 1,000 mls/hr Q1H PRN IV hypotension; Start 11/19/21 at 13:50; Stop 11/19/21 at 19:49; Status DC Sodium Chloride 1,000 ml @ 400 mls/hr Q2H30M PRN IV PATENCY; Start 11/19/21 at 13:50; Stop 11/20/21 at 01:49; Status DC Info (PHARMACY MONITORING -- do not chart) 1 each PRN DAILY PRN MC SEE COMMENTS; Start 11/19/21 at 15:45; Status UNV Info (PHARMACY MONITORING -- do not chart) 1 each PRN DAILY PRN MC SEE COMMENTS; Start 11/19/21 at 15:45 Amlodipine Besylate (Norvasc) 10 mg HS PO ; Start 11/19/21 at 21:00; Stop 11/19/21 at 22:02; Status DC Aspirin (Ecotrin) 162 mg DAILY PO ; Start 11/20/21 at 09:00; Stop 11/19/21 at 22:02; Status DC Clonidine HCl (Catapres) 0.1 mg BID PO ; Start 11/19/21 at 21:00; Stop 11/19/21 at 22:02; Status DC Cyclobenzaprine HCl (Flexeril) 10 mg PRN DAILY PRN PO PAIN Last administered on 11/20/21at 03:29; Start 11/19/21 at 17:00 Diphenhydramine HCl (Benadryl) 25 mg PRN Q6HRS PRN PO ITCHING; Start 11/19/21 at 17:00 Furosemide (Lasix) 40 mg DAILY PO Last administered on 11/20/21at 08:18; Start 11/20/21 at 09:00 Hydralazine HCl (Apresoline) 50 mg BID PO ; Start 11/19/21 at 21:00; Stop 11/19/21 at 22:02; Status DC Linagliptin (Tradjenta) 5 mg DAILY PO ; Start 11/20/21 at 09:00; Stop 11/19/21 at 22:02; Status DC Oxycodone/ Acetaminophen (Percocet 5/325) 1 tab PRN Q6HRS PRN PO MODERATE- SEVERE PAIN Last administered on 11/19/21at 17:13; Start 11/19/21 at 17:00; Stop 11/19/21 at 22:07; Status DC Ranolazine (Ranexa) 500 mg BID PO Last administered on 11/20/21at 08:18; Start 11/19/21 at 21:00 Simvastatin (Zocor) 20 mg HS PO ; Start 11/19/21 at 21:00; Stop 11/19/21 at 22:02; Status DC Non-Formulary Medication (Zabrina Root ) 550 mg DAILY PO ; Start 11/20/21 at 09:00; Status UNV Insulin Glargine (Lantus Syringe) 25 unit Q12HR SQ Last administered on 11/19/21at 21:45; Start 11/19/21 at 21:00 Insulin Human Lispro (HumaLOG) 25 units BIDWMEALS SQ ; Start 11/19/21 at 18:00; Stop 11/19/21 at 22:02; Status DC Vitamin B Complex (Folbic Tablet) 1 tab DAILY PO Last administered on 11/20/21at 08:18; Start 11/20/21 at 09:00 Labetalol HCl (Trandate) 300 mg TID PO Last administered on 11/20/21at 13:30; Start 11/19/21 at 21:00 Famotidine (Pepcid) 20 mg Q48H PO Last administered on 11/19/21at 20:00; Start 11/19/21 at 21:00 Insulin Human Lispro (HumaLOG) 0-5 UNITS TIDWMEALS SQ ; Start 11/19/21 at 17:00; Stop 11/19/21 at 22:07; Status DC Dextrose (Dextrose 50%-Water Syringe) 12.5 gm PRN Q15MIN PRN IV SEE COMMENTS; Start 11/19/21 at 17:00 Oxycodone/ Acetaminophen (Percocet 5/325) 1 tab PRN Q4HRS PRN PO MILD/MOD PAIN; Start 11/19/21 at 22:15; Stop 11/20/21 at 08:05; Status DC Oxycodone/ Acetaminophen (Percocet 10/325) 1 tab PRN Q4HRS PRN PO SEVERE PAIN 7-10 Last administered on 11/20/21at 13:29; Start 11/19/21 at 22:15 Insulin Human Lispro (HumaLOG) 0-7 UNITS TIDWMEALS SQ Last administered on 11/20/21at 16:51; Start 11/20/21 at 08:00 Losartan Potassium (Cozaar) 100 mg DAILY PO Last administered on 11/20/21at 08:17; Start 11/20/21 at 09:00 Acetaminophen (Tylenol) 650 mg QID PO Last administered on 11/20/21at 13:29; Start 11/20/21 at 09:00 Gabapentin (Neurontin) 100 mg TID PO Last administered on 11/20/21at 13:30; Start 11/20/21 at 09:00 Sodium Chloride 1,000 ml @ 1,000 mls/hr Q1H PRN IV hypotension; Start 11/20/21 at 08:45; Stop 11/20/21 at 14:44; Status DC Sodium Chloride 1,000 ml @ 400 mls/hr Q2H30M PRN IV PATENCY; Start 11/20/21 at 08:45; Stop 11/20/21 at 20:44 Info (PHARMACY MONITORING -- do not chart) 1 each PRN DAILY PRN MC SEE COMMENTS; Start 11/20/21 at 08:45; Status UNV Info (PHARMACY MONITORING -- do not chart) 1 each PRN DAILY PRN MC SEE COMMENTS; Start 11/20/21 at 08:45 Enoxaparin Sodium (Lovenox 30mg Syringe) 30 mg Q24H SQ ; Start 11/20/21 at 09:15; Status UNV Heparin Sodium (Porcine) (Heparin Sodium) 5,000 unit Q8HRS SQ ; Start 11/20/21 at 09:30; Stop 11/20/21 at 09:49; Status DC Heparin Sodium (Porcine) (Heparin Sodium) 5,000 unit Q8HRS SQ Last administered on 11/20/21at 13:34; Start 11/20/21 at 14:00 Propofol (Diprivan) 200 mg STK-MED ONCE IV ; Start 11/20/21 at 17:22; Stop 11/20/21 at 17:22; Status DC Lidocaine HCl (Lidocaine Pf 2% Vial) 5 ml STK-MED ONCE .ROUTE ; Start 11/20/21 at 17:22; Stop 11/20/21 at 17:22; Status DC Ondansetron HCl (Zofran) 4 mg STK-MED ONCE .ROUTE ; Start 11/20/21 at 17:22; Stop 11/20/21 at 17:22; Status DC Fentanyl Citrate (Fentanyl 2ml Vial) 100 mcg STK-MED ONCE .ROUTE ; Start 11/20/21 at 17:30; Stop 11/20/21 at 17:31; Status DC Midazolam HCl (Versed) 2 mg STK-MED ONCE .ROUTE ; Start 11/20/21 at 17:31; Stop 11/20/21 at 17:31; Status DC Lidocaine HCl (Lidocaine 1% 20ml Vial) 20 ml STK-MED ONCE .ROUTE ; Start 11/20/21 at 17:37; Stop 11/20/21 at 17:37; Status DC Active Scripts Active Humalog (Insulin Lispro) 100 Unit/1 Ml Insuln.pen 25 Units SQ BIDWMEALS 30 Days Lantus Solostar (Insulin Glargine,Hum.rec.anlog) 100 Unit/1 Ml Insuln.pen 25 Units SQ Q12HR 30 Days Percocet 5-325 Mg Tablet (Oxycodone/Acetaminophen) 1 Each Tablet 1 Tab PO PRN Q6HRS PRN 5 Days Ranexa (Ranolazine) 500 Mg Tab.er.12h 500 Mg PO BID Catapres (Clonidine Hcl) 0.1 Mg Tablet 0.1 Mg PO BID Reported Losartan Potassium 100 Mg Tablet 1 Tab PO DAILY Atorvastatin Calcium 40 Mg Tablet 1 Tab PO QHS Benadryl (Diphenhydramine Hcl) 25 Mg Capsule 1 Cap PO PRN Q6HRS Fusion Plus Capsule (Iron,Fum&Ps/Fa/Vit B&C#18/L.ca) 1 Each Capsule 1 Each PO DAILY Zabrina Root 550 Mg Capsule 550 Mg PO DAILY Cyclobenzaprine Hcl 10 Mg Tablet 1 Tab PO PRN DAILY PRN Labetalol Hcl 300 Mg Tablet 1 Tab PO TID Nitrostat (Nitroglycerin) 0.4 Mg Tab.subl Furosemide 40 Mg Tablet 40 Mg PO DAILY Ranitidine Hcl 150 Mg Capsule 300 Mg PO DAILY Vitals/I & O Vital Sign - Last 24 Hours 11/19/21 11/19/21 11/19/21 11/19/21 19:00 20:00 20:02 20:15 Temp 98.7 98.7 Pulse 91 91 Resp 16 B/P (MAP) 154/96 (115) 154/96 Pulse Ox 100 97 O2 Delivery Nasal Cannula Nasal Cannula Nasal Cannula O2 Flow Rate 3.0 2.0 3.0 11/19/21 11/19/21 11/19/21 11/19/21 21:47 22:31 23:00 23:13 Temp 98.4 98.4 Pulse 89 Resp 14 B/P (MAP) 130/77 (94) Pulse Ox 97 97 98 97 O2 Delivery Nasal Cannula Nasal Cannula Room Air Nasal Cannula O2 Flow Rate 2.0 2.0 2.0 11/20/21 11/20/21 11/20/21 11/20/21 01:28 03:00 03:06 03:22 Temp 98.0 98.0 Pulse 75 Resp 16 B/P (MAP) 126/84 (98) Pulse Ox 97 99 97 97 O2 Delivery Nasal Cannula Nasal Cannula Nasal Cannula Nasal Cannula O2 Flow Rate 3.0 3.0 3.0 3.0 11/20/21 11/20/21 11/20/21 11/20/21 03:26 04:53 04:53 05:48 Pulse Ox 97 97 97 97 O2 Delivery Nasal Cannula Nasal Cannula Nasal Cannula Nasal Cannula O2 Flow Rate 3.0 3.0 3.0 3.0 11/20/21 11/20/21 11/20/21 11/20/21 06:25 07:00 08:00 08:17 Temp 98.3 98.3 Pulse 90 90 Resp 18 B/P (MAP) 140/86 (104) 140/86 Pulse Ox 97 98 O2 Delivery Nasal Cannula Nasal Cannula Nasal Cannula O2 Flow Rate 3.0 3.0 3.0 11/20/21 11/20/21 11/20/21 11/20/21 08:18 09:12 09:44 11:00 Temp 98.4 98.4 Pulse 90 87 Resp 16 B/P (MAP) 140/86 129/76 (93) Pulse Ox 98 98 97 O2 Delivery Nasal Cannula Nasal Cannula Nasal Cannula O2 Flow Rate 3.0 3.0 3.0 11/20/21 11/20/21 11/20/21 13:29 13:30 15:00 Temp 97.8 97.8 Pulse 87 90 Resp 18 B/P (MAP) 129/76 132/78 (96) Pulse Ox 97 98 O2 Delivery Nasal Cannula Nasal Cannula O2 Flow Rate 3.0 3.0 Intake and Output 11/19/21 11/19/21 11/20/21 15:00 23:00 07:00 Intake Total 100 ml 200 ml 50 ml Output Total 1 ml Balance 100 ml 200 ml 49 ml Justifications for Admission Other Justification [facility] Nov 20, 2021 18:28
--- NOTE | 2021-11-20 20:48 | RAD ---
XR EXAM OF ANKLE_LEFT 3V History: Reason: Lt ankle post reduction / Spl. Instructions: / History: Technique: 3 views left ankle Comparison: November 19, 2021 Findings: Interval reduction right ankle bimalleolar fracture dislocation. Improved alignment of the medial mal leolus, distal fibula and posterior malleolus fractures. Improved alignment of the ankle mortise. Ove rlying splint. Plantar calcaneal spur. Impression: 1. Interval repeat reduction left trimalleolar fracture dislocation. Improved alignment. Electronically signed by: Ty Fernandez DO (11/20/2021 8:45 PM) DEANA
[2021-11-21] VITALS (7 sets, daily range): BP systolic 124–159; BP diastolic 70–96
[2021-11-21] MEDS: oxyCODONE/APAP 10/325 1 TAB TABLET PO PRN ×4 (02:39→23:43)
[2021-11-21] MEDS: HEPARIN for SUB-Q USE 5,000 UNIT/ML VIAL. SQ SCH ×3 (06:00→22:45)
--- NOTE | 2021-11-21 08:14 | PDOC ---
PROGRESS NOTES Date of Service DATE: 11/21/21 TIME: 08:07 Subjective Subjective Date of injury: November 19 At bedside, patient was resting comfortably with the left lower extremity elevated on pillows. Patient relates upwards to 3 out of 10 throbbing pain circumferential to the ankle. Patient denies any pain in the calf, shortness of breath or any constitutional symptoms. Had one episode of emesis last night after having onions/garlic at dinnertime. She is doing better now but still has minimal epigastric discomfort. Overnight event: Close reduction of the left ankle and application of a Mcdaniel compression splint with a hematoma block and Versed. Objective Objective Vital Signs Date Time Temp Pulse Resp B/P (MAP) Pulse Ox O2 Delivery O2 Flow Rate FiO2 11/21/21 03:32 98.1 94 18 153/82 (105) 100 Nasal Cannula 2.0 98.1 Intake and Output 11/21/21 07:00 Intake Total 640 ml Balance 640 ml Intake Oral 640 ml # Voids 5 Physical Exam Physical Exam Left lower extremity exam: VASC: -Digits are warm to touch - Capillary refill <5 seconds -The Mcdaniel compression splint is clean, dry and intact NEURO: - Light touch sensation is slightly diminished to the digits 1 through 5, this is her baseline DERM: -The Mcdaniel compression splint is clean, dry and intact MUSC: - Able to move digits x 5 - Muscle strength deferred - Calf is soft and nontender Assessment Assessment Problems Medical Problems: (1) Closed left ankle fracture Status: Acute (2) Dislocation of ankle, left, closed Status: Acute (3) End stage renal disease on dialysis Status: Acute Plan Plan of Care Left unstable and displaced trimalleolar ankle fracture Diabetes with PAD End-stage renal disease, 3 x/week HD History of gastric bypass -Patient is high risk for soft tissue infection, delayed union nonunion given the comorbidities. Surgery was postponed to next Wednesday while waiting for soft tissue optimization with the goals of reducing the risks of soft tissue complications -For pain management, added gabapentin and scheduled Tylenol in addition to the current regimen -Keep the splint and dressing clean, dry and intact -Calcium and vitamin D are within normal limit. However, continue with 5000 international units of vitamin D3 daily -Weightbearing restriction: Strict nonweightbearing to the left lower extremity -Physical therapy: Eval and treat for upper body mobility, please make sure the left lower extremity is elevated with toes above the heart and remains nonweightbearing while protected in the splint -Nurse communication: - Elevate the surgical foot with at least two pillows behind the calf so that the heel is floated with toes elevated to the level of the heart, per tolerance 45 min/h -Ice behind the knee 15 mins/h for pain as needed Dispo: Plan for surgery on next Wednesday but may need to check on the skin the swelling again on Wednesday. Pending placement hospital versus SNF. If patient is discharged to SNF, a ride has to be arranged to my clinic on Wednesday for skin check before surgery. Comment Review of Relevant I have reviewed the following items meagan (where applicable) has been applied. Labs Laboratory Tests Test 11/19/21 21:12 11/20/21 07:52 11/20/21 11:27 11/20/21 15:25 Glucose (Fingerstick) 195 mg/dL (70-99) 230 mg/dL (70-99) 171 mg/dL (70-99) Sodium Level 136 mmol/L (136-145) Potassium Level 4.5 mmol/L (3.5-5.1) Chloride Level 99 mmol/L (98-107) Carbon Dioxide Level 30 mmol/L (21-32) Anion Gap 7 (6-14) Blood Urea Nitrogen 37 mg/dL (7-20) Creatinine 6.3 mg/dL (0.6-1.0) Estimated GFR (Cockcroft-Gault) 8.8 Glucose Level 148 mg/dL (70-99) Calcium Level 8.4 mg/dL (8.5-10.1) Test 11/20/21 16:43 11/20/21 21:20 11/21/21 07:28 Glucose (Fingerstick) 186 mg/dL (70-99) 198 mg/dL (70-99) 196 mg/dL (70-99) Laboratory Tests Test 11/20/21 11:27 11/20/21 15:25 11/20/21 16:43 11/20/21 21:20 Glucose (Fingerstick) 171 mg/dL (70-99) 186 mg/dL (70-99) 198 mg/dL (70-99) Sodium Level 136 mmol/L (136-145) Potassium Level 4.5 mmol/L (3.5-5.1) Chloride Level 99 mmol/L (98-107) Carbon Dioxide Level 30 mmol/L (21-32) Anion Gap 7 (6-14) Blood Urea Nitrogen 37 mg/dL (7-20) Creatinine 6.3 mg/dL (0.6-1.0) Estimated GFR (Cockcroft-Gault) 8.8 Glucose Level 148 mg/dL (70-99) Calcium Level 8.4 mg/dL (8.5-10.1) Test 11/21/21 07:28 Glucose (Fingerstick) 196 mg/dL (70-99) Medications Current Medications Fentanyl Citrate (Fentanyl 2ml Vial) 100 mcg 1X ONCE IVP Last administered on 11/19/21at 07:50; Start 11/19/21 at 07:45; Stop 11/19/21 at 07:46; Status DC Ondansetron HCl (Zofran) 4 mg 1X ONCE IVP Last administered on 11/19/21at 07:49; Start 11/19/21 at 07:45; Stop 11/19/21 at 07:46; Status DC Sodium Chloride 1,000 ml @ 75 mls/hr 1X ONCE IV ; Start 11/19/21 at 08:30; Stop 11/19/21 at 21:49; Status DC Propofol (Diprivan) 100 mg 1X ONCE IV Last administered on 11/19/21at 09:39; Start 11/19/21 at 08:30; Stop 11/19/21 at 08:31; Status DC Ondansetron HCl (Zofran) 4 mg PRN Q8HRS PRN IVP NAUSEA/VOMITING Last administered on 11/20/21at 03:29; Start 11/19/21 at 12:00; Stop 11/20/21 at 11:59; Status DC Morphine Sulfate (Morphine Sulfate) 4 mg PRN Q2HR PRN IVP PAIN Last administered on 11/20/21at 05:48; Start 11/19/21 at 12:00; Stop 11/20/21 at 11:59; Status DC Vitamin D (Vitamin D3) 5,000 unit DAILY PO ; Start 11/19/21 at 12:30 Fentanyl Citrate (Fentanyl 2ml Vial) 25 mcg PRN Q5MIN PRN IVP MILD PAIN 1-3; Start 11/20/21 at 06:00; Stop 11/21/21 at 05:59; Status DC Fentanyl Citrate (Fentanyl 2ml Vial) 50 mcg PRN Q5MIN PRN IVP MODERATE PAIN 4- 6; Start 11/20/21 at 06:00; Stop 11/21/21 at 05:59; Status DC Morphine Sulfate (Morphine Sulfate) 1 mg PRN Q10MIN PRN IVP SEVERE PAIN 7-10; Start 11/20/21 at 06:00; Stop 11/19/21 at 22:02; Status DC Ringer's Solution 1,000 ml @ 30 mls/hr Q24H IV ; Start 11/20/21 at 06:00; Stop 11/20/21 at 17:59; Status DC Hydromorphone HCl (Dilaudid) 0.5 mg PRN Q10MIN PRN IVP SEVERE PAIN 7-10, 2nd CHOICE; Start 11/20/21 at 06:00; Stop 11/19/21 at 22:02; Status DC Prochlorperazine Edisylate (Compazine) 5 mg PACU PRN PRN IVP NAUSEA, MRX1; Start 11/20/21 at 06:00; Stop 11/21/21 at 05:59; Status DC Sodium Chloride 1,000 ml @ 1,000 mls/hr Q1H PRN IV hypotension; Start 11/19/21 at 13:50; Stop 11/19/21 at 19:49; Status DC Sodium Chloride 1,000 ml @ 400 mls/hr Q2H30M PRN IV PATENCY; Start 11/19/21 at 13:50; Stop 11/20/21 at 01:49; Status DC Info (PHARMACY MONITORING -- do not chart) 1 each PRN DAILY PRN MC SEE COMMENTS; Start 11/19/21 at 15:45; Status UNV Info (PHARMACY MONITORING -- do not chart) 1 each PRN DAILY PRN MC SEE COMMENTS; Start 11/19/21 at 15:45 Amlodipine Besylate (Norvasc) 10 mg HS PO ; Start 11/19/21 at 21:00; Stop 11/19/21 at 22:02; Status DC Aspirin (Ecotrin) 162 mg DAILY PO ; Start 11/20/21 at 09:00; Stop 11/19/21 at 22:02; Status DC Clonidine HCl (Catapres) 0.1 mg BID PO ; Start 11/19/21 at 21:00; Stop 11/19/21 at 22:02; Status DC Cyclobenzaprine HCl (Flexeril) 10 mg PRN DAILY PRN PO PAIN Last administered on 11/20/21at 03:29; Start 11/19/21 at 17:00 Diphenhydramine HCl (Benadryl) 25 mg PRN Q6HRS PRN PO ITCHING; Start 11/19/21 at 17:00 Furosemide (Lasix) 40 mg DAILY PO Last administered on 11/20/21at 08:18; Start 11/20/21 at 09:00 Hydralazine HCl (Apresoline) 50 mg BID PO ; Start 11/19/21 at 21:00; Stop 11/19/21 at 22:02; Status DC Linagliptin (Tradjenta) 5 mg DAILY PO ; Start 11/20/21 at 09:00; Stop 11/19/21 at 22:02; Status DC Oxycodone/ Acetaminophen (Percocet 5/325) 1 tab PRN Q6HRS PRN PO MODERATE- SEVERE PAIN Last administered on 11/19/21at 17:13; Start 11/19/21 at 17:00; Stop 11/19/21 at 22:07; Status DC Ranolazine (Ranexa) 500 mg BID PO Last administered on 11/20/21at 21:43; Start 11/19/21 at 21:00 Simvastatin (Zocor) 20 mg HS PO ; Start 11/19/21 at 21:00; Stop 11/19/21 at 22:02; Status DC Non-Formulary Medication (Zabrina Root ) 550 mg DAILY PO ; Start 11/20/21 at 09:00; Status UNV Insulin Glargine (Lantus Syringe) 25 unit Q12HR SQ Last administered on 11/20/21at 21:45; Start 11/19/21 at 21:00 Insulin Human Lispro (HumaLOG) 25 units BIDWMEALS SQ ; Start 11/19/21 at 18:00; Stop 11/19/21 at 22:02; Status DC Vitamin B Complex (Folbic Tablet) 1 tab DAILY PO Last administered on 11/20/21at 08:18; Start 11/20/21 at 09:00 Labetalol HCl (Trandate) 300 mg TID PO Last administered on 11/20/21at 21:44; Start 11/19/21 at 21:00 Famotidine (Pepcid) 20 mg Q48H PO Last administered on 11/19/21at 20:00; Start 11/19/21 at 21:00 Insulin Human Lispro (HumaLOG) 0-5 UNITS TIDWMEALS SQ ; Start 11/19/21 at 17:00; Stop 11/19/21 at 22:07; Status DC Dextrose (Dextrose 50%-Water Syringe) 12.5 gm PRN Q15MIN PRN IV SEE COMMENTS; Start 11/19/21 at 17:00 Oxycodone/ Acetaminophen (Percocet 5/325) 1 tab PRN Q4HRS PRN PO MILD/MOD PAIN; Start 11/19/21 at 22:15; Stop 11/20/21 at 08:05; Status DC Oxycodone/ Acetaminophen (Percocet 10/325) 1 tab PRN Q4HRS PRN PO SEVERE PAIN 7-10 Last administered on 11/21/21at 02:39; Start 11/19/21 at 22:15 Insulin Human Lispro (HumaLOG) 0-7 UNITS TIDWMEALS SQ Last administered on 11/20/21at 16:51; Start 11/20/21 at 08:00 Losartan Potassium (Cozaar) 100 mg DAILY PO Last administered on 11/20/21at 08:17; Start 11/20/21 at 09:00 Acetaminophen (Tylenol) 650 mg QID PO Last administered on 11/20/21at 13:29; Start 11/20/21 at 09:00; Stop 11/20/21 at 18:18; Status DC Gabapentin (Neurontin) 100 mg TID PO Last administered on 11/20/21at 21:43; Start 11/20/21 at 09:00 Sodium Chloride 1,000 ml @ 1,000 mls/hr Q1H PRN IV hypotension; Start 11/20/21 at 08:45; Stop 11/20/21 at 14:44; Status DC Sodium Chloride 1,000 ml @ 400 mls/hr Q2H30M PRN IV PATENCY; Start 11/20/21 at 08:45; Stop 11/20/21 at 20:44; Status DC Info (PHARMACY MONITORING -- do not chart) 1 each PRN DAILY PRN MC SEE COMMENTS; Start 11/20/21 at 08:45; Status UNV Info (PHARMACY MONITORING -- do not chart) 1 each PRN DAILY PRN MC SEE COMMENTS; Start 11/20/21 at 08:45 Enoxaparin Sodium (Lovenox 30mg Syringe) 30 mg Q24H SQ ; Start 11/20/21 at 09:15; Status UNV Heparin Sodium (Porcine) (Heparin Sodium) 5,000 unit Q8HRS SQ ; Start 11/20/21 at 09:30; Stop 11/20/21 at 09:49; Status DC Heparin Sodium (Porcine) (Heparin Sodium) 5,000 unit Q8HRS SQ Last administered on 11/21/21at 06:00; Start 11/20/21 at 14:00 Propofol (Diprivan) 200 mg STK-MED ONCE IV ; Start 11/20/21 at 17:22; Stop 11/20/21 at 17:22; Status DC Lidocaine HCl (Lidocaine Pf 2% Vial) 5 ml STK-MED ONCE .ROUTE ; Start 11/20/21 at 17:22; Stop 11/20/21 at 17:22; Status DC Ondansetron HCl (Zofran) 4 mg STK-MED ONCE .ROUTE ; Start 11/20/21 at 17:22; Stop 11/20/21 at 17:22; Status DC Fentanyl Citrate (Fentanyl 2ml Vial) 100 mcg STK-MED ONCE .ROUTE ; Start 11/20/21 at 17:30; Stop 11/20/21 at 17:31; Status DC Midazolam HCl (Versed) 2 mg STK-MED ONCE .ROUTE ; Start 11/20/21 at 17:31; Stop 11/20/21 at 17:31; Status DC Lidocaine HCl (Lidocaine 1% 20ml Vial) 20 ml STK-MED ONCE .ROUTE ; Start 11/20/21 at 17:37; Stop 11/20/21 at 17:37; Status DC Acetaminophen (Tylenol) 650 mg TID PO Last administered on 11/20/21at 21:45; Start 11/20/21 at 21:00 Active Scripts Active Humalog (Insulin Lispro) 100 Unit/1 Ml Insuln.pen 25 Units SQ BIDWMEALS 30 Days Lantus Solostar (Insulin Glargine,Hum.rec.anlog) 100 Unit/1 Ml Insuln.pen 25 Units SQ Q12HR 30 Days Percocet 5-325 Mg Tablet (Oxycodone/Acetaminophen) 1 Each Tablet 1 Tab PO PRN Q6HRS PRN 5 Days Ranexa (Ranolazine) 500 Mg Tab.er.12h 500 Mg PO BID Catapres (Clonidine Hcl) 0.1 Mg Tablet 0.1 Mg PO BID Reported Losartan Potassium 100 Mg Tablet 1 Tab PO DAILY Atorvastatin Calcium 40 Mg Tablet 1 Tab PO QHS Benadryl (Diphenhydramine Hcl) 25 Mg Capsule 1 Cap PO PRN Q6HRS Fusion Plus Capsule (Iron,Fum&Ps/Fa/Vit B&C#18/L.ca) 1 Each Capsule 1 Each PO DAILY Zabrina Root 550 Mg Capsule 550 Mg PO DAILY Cyclobenzaprine Hcl 10 Mg Tablet 1 Tab PO PRN DAILY PRN Labetalol Hcl 300 Mg Tablet 1 Tab PO TID Nitrostat (Nitroglycerin) 0.4 Mg Tab.subl Furosemide 40 Mg Tablet 40 Mg PO DAILY Ranitidine Hcl 150 Mg Capsule 300 Mg PO DAILY Vitals/I & O Vital Sign - Last 24 Hours 11/20/21 11/20/21 11/20/21 11/20/21 08:17 08:18 09:12 09:44 Pulse 90 90 B/P (MAP) 140/86 140/86 Pulse Ox 98 98 O2 Delivery Nasal Cannula Nasal Cannula O2 Flow Rate 3.0 3.0 11/20/21 11/20/21 11/20/21 11/20/21 11:00 13:29 13:30 15:00 Temp 98.4 97.8 98.4 97.8 Pulse 87 87 90 Resp 16 18 B/P (MAP) 129/76 (93) 129/76 132/78 (96) Pulse Ox 97 97 98 O2 Delivery Nasal Cannula Nasal Cannula Nasal Cannula O2 Flow Rate 3.0 3.0 3.0 11/20/21 11/20/21 11/20/21 11/20/21 17:32 18:13 18:20 18:27 Temp 98.6 98.3 98.3 98.3 98.6 98.3 98.3 98.3 Pulse 88 94 92 91 Resp 20 20 20 18 B/P (MAP) 153/88 129/79 125/83 151/83 Pulse Ox 100 100 100 100 O2 Delivery Nasal Cannula Nasal Cannula Nasal Cannula Nasal Cannula O2 Flow Rate 2 2 2 2 11/20/21 11/20/21 11/20/21 11/20/21 19:30 20:30 20:30 21:35 Temp 98.6 98.4 98.6 98.6 98.4 98.6 Pulse 88 94 95 Resp 18 20 20 B/P (MAP) 158/91 (113) 164/93 (116) 166/93 (117) Pulse Ox 99 95 O2 Delivery Room Air Nasal Cannula Room Air Room Air O2 Flow Rate 98.0 3.0 11/20/21 11/20/21 11/20/21 11/20/21 21:42 21:43 21:44 22:12 Pulse 92 92 B/P (MAP) 171/96 171/96 Pulse Ox 95 O2 Delivery Room Air Nasal Cannula O2 Flow Rate 3.0 11/20/21 11/21/21 11/21/21 11/21/21 23:59 00:01 02:39 03:09 Temp 98.2 98.7 98.2 98.7 Pulse 87 84 Resp 18 20 20 B/P (MAP) 146/89 (108) 146/89 (108) Pulse Ox 100 100 100 100 O2 Delivery Nasal Cannula Nasal Cannula Nasal Cannula Nasal Cannula O2 Flow Rate 2.0 2.0 2.0 2.0 11/21/21 03:32 Temp 98.1 98.1 Pulse 94 Resp 18 B/P (MAP) 153/82 (105) Pulse Ox 100 O2 Delivery Nasal Cannula O2 Flow Rate 2.0 Intake and Output 11/20/21 11/20/21 11/21/21 15:00 23:00 07:00 Intake Total 100 ml 540 ml Balance 100 ml 540 ml Justifications for Admission Other Justification HELEN LARIOS DPAlex Nov 21, 2021 08:13
[2021-11-21] MEDS: GABAPENTIN 100 MG CAPSULE. PO SCH (08:28)
[2021-11-21] MEDS: CHOLECALCIFEROL (VITAMIN D3) 5,000 UNIT CAPSULE PO SCH (08:28)
[2021-11-21] MEDS: FUROSEMIDE 40 MG TABLET. PO SCH (08:28)
[2021-11-21] MEDS: RANOLAZINE 500 MG TAB.ER.12H PO SCH ×2 (08:29→20:23)
[2021-11-21] MEDS: VITAMIN B12,B9,B6 COMPLEX 1 TABLET. PO SCH (08:29)
[2021-11-21] MEDS: ACETAMINOPHEN 325 MG TABLET. PO SCH ×3 (08:29→20:24)
[2021-11-21] MEDS: LOSARTAN POTASSIUM 50 MG TABLET. PO SCH (08:30)
[2021-11-21] MEDS: INSULIN LISPRO 300 UNITS/3 ML VIAL. SQ SCH ×3 (08:37→17:00)
[2021-11-21] MEDS: INSULIN GLARGINE SYRINGE. SQ SCH ×2 (08:38→22:44)
[2021-11-21] MEDS: LABETALOL HCL 100 MG TABLET. PO SCH ×3 (09:00→20:22)
--- NOTE | 2021-11-21 09:42 | PDOC ---
PROGRESS NOTES Date of Service DATE: 11/21/21 TIME: 09:39 Subjective Subjective She admits epigastric area pain. Objective Objective Vital Signs Date Time Temp Pulse Resp B/P (MAP) Pulse Ox O2 Delivery O2 Flow Rate FiO2 11/21/21 08:30 103 159/96 11/21/21 07:00 98.6 18 98 Nasal Cannula 2.0 98.6 Intake and Output 11/21/21 07:00 Intake Total 640 ml Balance 640 ml Intake Oral 640 ml # Voids 5 Physical Exam Physical Exam She is alert,supine in bed with left ankle immobilized and elevated. Assessment Assessment Problems Medical Problems: (1) Closed left ankle fracture Status: Acute (2) Dislocation of ankle, left, closed Status: Acute (3) End stage renal disease on dialysis Status: Acute Plan Plan of Care Agree with 's plans. Comment Review of Relevant I have reviewed the following items meagan (where applicable) has been applied. Labs Laboratory Tests Test 11/19/21 21:12 11/20/21 07:52 11/20/21 11:27 11/20/21 15:25 Glucose (Fingerstick) 195 mg/dL (70-99) 230 mg/dL (70-99) 171 mg/dL (70-99) Sodium Level 136 mmol/L (136-145) Potassium Level 4.5 mmol/L (3.5-5.1) Chloride Level 99 mmol/L (98-107) Carbon Dioxide Level 30 mmol/L (21-32) Anion Gap 7 (6-14) Blood Urea Nitrogen 37 mg/dL (7-20) Creatinine 6.3 mg/dL (0.6-1.0) Estimated GFR (Cockcroft-Gault) 8.8 Glucose Level 148 mg/dL (70-99) Calcium Level 8.4 mg/dL (8.5-10.1) Test 11/20/21 16:43 11/20/21 21:20 11/21/21 07:28 Glucose (Fingerstick) 186 mg/dL (70-99) 198 mg/dL (70-99) 196 mg/dL (70-99) Laboratory Tests Test 11/20/21 11:27 11/20/21 15:25 11/20/21 16:43 11/20/21 21:20 Glucose (Fingerstick) 171 mg/dL (70-99) 186 mg/dL (70-99) 198 mg/dL (70-99) Sodium Level 136 mmol/L (136-145) Potassium Level 4.5 mmol/L (3.5-5.1) Chloride Level 99 mmol/L (98-107) Carbon Dioxide Level 30 mmol/L (21-32) Anion Gap 7 (6-14) Blood Urea Nitrogen 37 mg/dL (7-20) Creatinine 6.3 mg/dL (0.6-1.0) Estimated GFR (Cockcroft-Gault) 8.8 Glucose Level 148 mg/dL (70-99) Calcium Level 8.4 mg/dL (8.5-10.1) Test 11/21/21 07:28 Glucose (Fingerstick) 196 mg/dL (70-99) Medications Current Medications Fentanyl Citrate (Fentanyl 2ml Vial) 100 mcg 1X ONCE IVP Last administered on 11/19/21at 07:50; Start 11/19/21 at 07:45; Stop 11/19/21 at 07:46; Status DC Ondansetron HCl (Zofran) 4 mg 1X ONCE IVP Last administered on 11/19/21at 07:49; Start 11/19/21 at 07:45; Stop 11/19/21 at 07:46; Status DC Sodium Chloride 1,000 ml @ 75 mls/hr 1X ONCE IV ; Start 11/19/21 at 08:30; Stop 11/19/21 at 21:49; Status DC Propofol (Diprivan) 100 mg 1X ONCE IV Last administered on 11/19/21at 09:39; Start 11/19/21 at 08:30; Stop 11/19/21 at 08:31; Status DC Ondansetron HCl (Zofran) 4 mg PRN Q8HRS PRN IVP NAUSEA/VOMITING Last administered on 11/20/21at 03:29; Start 11/19/21 at 12:00; Stop 11/20/21 at 11:59; Status DC Morphine Sulfate (Morphine Sulfate) 4 mg PRN Q2HR PRN IVP PAIN Last administered on 11/20/21at 05:48; Start 11/19/21 at 12:00; Stop 11/20/21 at 11:59; Status DC Vitamin D (Vitamin D3) 5,000 unit DAILY PO Last administered on 11/21/21at 08:28; Start 11/19/21 at 12:30 Fentanyl Citrate (Fentanyl 2ml Vial) 25 mcg PRN Q5MIN PRN IVP MILD PAIN 1-3; Start 11/20/21 at 06:00; Stop 11/21/21 at 05:59; Status DC Fentanyl Citrate (Fentanyl 2ml Vial) 50 mcg PRN Q5MIN PRN IVP MODERATE PAIN 4- 6; Start 11/20/21 at 06:00; Stop 11/21/21 at 05:59; Status DC Morphine Sulfate (Morphine Sulfate) 1 mg PRN Q10MIN PRN IVP SEVERE PAIN 7-10; Start 11/20/21 at 06:00; Stop 11/19/21 at 22:02; Status DC Ringer's Solution 1,000 ml @ 30 mls/hr Q24H IV ; Start 11/20/21 at 06:00; Stop 11/20/21 at 17:59; Status DC Hydromorphone HCl (Dilaudid) 0.5 mg PRN Q10MIN PRN IVP SEVERE PAIN 7-10, 2nd CHOICE; Start 11/20/21 at 06:00; Stop 11/19/21 at 22:02; Status DC Prochlorperazine Edisylate (Compazine) 5 mg PACU PRN PRN IVP NAUSEA, MRX1; Start 11/20/21 at 06:00; Stop 11/21/21 at 05:59; Status DC Sodium Chloride 1,000 ml @ 1,000 mls/hr Q1H PRN IV hypotension; Start 11/19/21 at 13:50; Stop 11/19/21 at 19:49; Status DC Sodium Chloride 1,000 ml @ 400 mls/hr Q2H30M PRN IV PATENCY; Start 11/19/21 at 13:50; Stop 11/20/21 at 01:49; Status DC Info (PHARMACY MONITORING -- do not chart) 1 each PRN DAILY PRN MC SEE COMMENTS; Start 11/19/21 at 15:45; Status UNV Info (PHARMACY MONITORING -- do not chart) 1 each PRN DAILY PRN MC SEE COMME NTS; Start 11/19/21 at 15:45 Amlodipine Besylate (Norvasc) 10 mg HS PO ; Start 11/19/21 at 21:00; Stop 11/19/21 at 22:02; Status DC Aspirin (Ecotrin) 162 mg DAILY PO ; Start 11/20/21 at 09:00; Stop 11/19/21 at 22:02; Status DC Clonidine HCl (Catapres) 0.1 mg BID PO ; Start 11/19/21 at 21:00; Stop 11/19/21 at 22:02; Status DC Cyclobenzaprine HCl (Flexeril) 10 mg PRN DAILY PRN PO PAIN Last administered on 11/20/21at 03:29; Start 11/19/21 at 17:00 Diphenhydramine HCl (Benadryl) 25 mg PRN Q6HRS PRN PO ITCHING; Start 11/19/21 at 17:00 Furosemide (Lasix) 40 mg DAILY PO Last administered on 11/21/21at 08:28; Start 11/20/21 at 09:00 Hydralazine HCl (Apresoline) 50 mg BID PO ; Start 11/19/21 at 21:00; Stop 11/19/21 at 22:02; Status DC Linagliptin (Tradjenta) 5 mg DAILY PO ; Start 11/20/21 at 09:00; Stop 11/19/21 at 22:02; Status DC Oxycodone/ Acetaminophen (Percocet 5/325) 1 tab PRN Q6HRS PRN PO MODERATE- SEVERE PAIN Last administered on 11/19/21at 17:13; Start 11/19/21 at 17:00; Stop 11/19/21 at 22:07; Status DC Ranolazine (Ranexa) 500 mg BID PO Last administered on 11/21/21at 08:29; Start 11/19/21 at 21:00 Simvastatin (Zocor) 20 mg HS PO ; Start 11/19/21 at 21:00; Stop 11/19/21 at 22:02; Status DC Non-Formulary Medication (Zabrina Root ) 550 mg DAILY PO ; Start 11/20/21 at 09:00; Status UNV Insulin Glargine (Lantus Syringe) 25 unit Q12HR SQ Last administered on 11/21/21at 08:38; Start 11/19/21 at 21:00 Insulin Human Lispro (HumaLOG) 25 units BIDWMEALS SQ ; Start 11/19/21 at 18:00; Stop 11/19/21 at 22:02; Status DC Vitamin B Complex (Folbic Tablet) 1 tab DAILY PO Last administered on 11/21/21at 08:29; Start 11/20/21 at 09:00 Labetalol HCl (Trandate) 300 mg TID PO Last administered on 11/20/21at 21:44; Start 11/19/21 at 21:00 Famotidine (Pepcid) 20 mg Q48H PO Last administered on 11/19/21at 20:00; Start 11/19/21 at 21:00 Insulin Human Lispro (HumaLOG) 0-5 UNITS TIDWMEALS SQ ; Start 11/19/21 at 17:00; Stop 11/19/21 at 22:07; Status DC Dextrose (Dextrose 50%-Water Syringe) 12.5 gm PRN Q15MIN PRN IV SEE COMMENTS; Start 11/19/21 at 17:00 Oxycodone/ Acetaminophen (Percocet 5/325) 1 tab PRN Q4HRS PRN PO MILD/MOD PAIN; Start 11/19/21 at 22:15; Stop 11/20/21 at 08:05; Status DC Oxycodone/ Acetaminophen (Percocet 10/325) 1 tab PRN Q4HRS PRN PO SEVERE PAIN 7-10 Last administered on 11/21/21at 02:39; Start 11/19/21 at 22:15 Insulin Human Lispro (HumaLOG) 0-7 UNITS TIDWMEALS SQ Last administered on 11/21/21at 08:37; Start 11/20/21 at 08:00 Losartan Potassium (Cozaar) 100 mg DAILY PO Last administered on 11/21/21at 08:30; Start 11/20/21 at 09:00 Acetaminophen (Tylenol) 650 mg QID PO Last administered on 11/20/21at 13:29; Start 11/20/21 at 09:00; Stop 11/20/21 at 18:18; Status DC Gabapentin (Neurontin) 100 mg TID PO Last administered on 11/21/21at 08:28; Start 11/20/21 at 09:00 Sodium Chloride 1,000 ml @ 1,000 mls/hr Q1H PRN IV hypotension; Start 11/20/21 at 08:45; Stop 11/20/21 at 14:44; Status DC Sodium Chloride 1,000 ml @ 400 mls/hr Q2H30M PRN IV PATENCY; Start 11/20/21 at 08:45; Stop 11/20/21 at 20:44; Status DC Info (PHARMACY MONITORING -- do not chart) 1 each PRN DAILY PRN MC SEE COMMENTS; Start 11/20/21 at 08:45; Status UNV Info (PHARMACY MONITORING -- do not chart) 1 each PRN DAILY PRN MC SEE COMMENTS; Start 11/20/21 at 08:45 Enoxaparin Sodium (Lovenox 30mg Syringe) 30 mg Q24H SQ ; Start 11/20/21 at 09:15; Status UNV Heparin Sodium (Porcine) (Heparin Sodium) 5,000 unit Q8HRS SQ ; Start 11/20/21 at 09:30; Stop 11/20/21 at 09:49; Status DC Heparin Sodium (Porcine) (Heparin Sodium) 5,000 unit Q8HRS SQ Last administered on 11/21/21at 06:00; Start 11/20/21 at 14:00 Propofol (Diprivan) 200 mg STK-MED ONCE IV ; Start 11/20/21 at 17:22; Stop 11/20/21 at 17:22; Status DC Lidocaine HCl (Lidocaine Pf 2% Vial) 5 ml STK-MED ONCE .ROUTE ; Start 11/20/21 at 17:22; Stop 11/20/21 at 17:22; Status DC Ondansetron HCl (Zofran) 4 mg STK-MED ONCE .ROUTE ; Start 11/20/21 at 17:22; Stop 11/20/21 at 17:22; Status DC Fentanyl Citrate (Fentanyl 2ml Vial) 100 mcg STK-MED ONCE .ROUTE ; Start 11/20/21 at 17:30; Stop 11/20/21 at 17:31; Status DC Midazolam HCl (Versed) 2 mg STK-MED ONCE .ROUTE ; Start 11/20/21 at 17:31; Stop 11/20/21 at 17:31; Status DC Lidocaine HCl (Lidocaine 1% 20ml Vial) 20 ml STK-MED ONCE .ROUTE ; Start 11/20/21 at 17:37; Stop 11/20/21 at 17:37; Status DC Acetaminophen (Tylenol) 650 mg TID PO Last administered on 11/21/21at 08:29; Start 11/20/21 at 21:00 Active Scripts Active Humalog (Insulin Lispro) 100 Unit/1 Ml Insuln.pen 25 Units SQ BIDWMEALS 30 Days Lantus Solostar (Insulin Glargine,Hum.rec.anlog) 100 Unit/1 Ml Insuln.pen 25 Units SQ Q12HR 30 Days Percocet 5-325 Mg Tablet (Oxycodone/Acetaminophen) 1 Each Tablet 1 Tab PO PRN Q6HRS PRN 5 Days Ranexa (Ranolazine) 500 Mg Tab.er.12h 500 Mg PO BID Catapres (Clonidine Hcl) 0.1 Mg Tablet 0.1 Mg PO BID Reported Losartan Potassium 100 Mg Tablet 1 Tab PO DAILY Atorvastatin Calcium 40 Mg Tablet 1 Tab PO QHS Benadryl (Diphenhydramine Hcl) 25 Mg Capsule 1 Cap PO PRN Q6HRS Fusion Plus Capsule (Iron,Fum&Ps/Fa/Vit B&C#18/L.ca) 1 Each Capsule 1 Each PO DAILY Zabrina Root 550 Mg Capsule 550 Mg PO DAILY Cyclobenzaprine Hcl 10 Mg Tablet 1 Tab PO PRN DAILY PRN Labetalol Hcl 300 Mg Tablet 1 Tab PO TID Nitrostat (Nitroglycerin) 0.4 Mg Tab.subl Furosemide 40 Mg Tablet 40 Mg PO DAILY Ranitidine Hcl 150 Mg Capsule 300 Mg PO DAILY Vitals/I & O Vital Sign - Last 24 Hours 11/20/21 11/20/21 11/20/21 11/20/21 09:44 11:00 13:29 13:30 Temp 98.4 98.4 Pulse 87 87 Resp 16 B/P (MAP) 129/76 (93) 129/76 Pulse Ox 98 97 97 O2 Delivery Nasal Cannula Nasal Cannula Nasal Cannula O2 Flow Rate 3.0 3.0 3.0 11/20/21 11/20/21 11/20/21 11/20/21 15:00 17:32 18:13 18:20 Temp 97.8 98.6 98.3 98.3 97.8 98.6 98.3 98.3 Pulse 90 88 94 92 Resp 18 20 20 20 B/P (MAP) 132/78 (96) 153/88 129/79 125/83 Pulse Ox 98 100 100 100 O2 Delivery Nasal Cannula Nasal Cannula Nasal Cannula Nasal Cannula O2 Flow Rate 3.0 2 2 2 11/20/21 11/20/21 11/20/21 11/20/21 18:27 19:30 20:30 20:30 Temp 98.3 98.6 98.4 98.3 98.6 98.4 Pulse 91 88 94 Resp 18 18 20 B/P (MAP) 151/83 158/91 (113) 164/93 (116) Pulse Ox 100 99 O2 Delivery Nasal Cannula Room Air Nasal Cannula Room Air O2 Flow Rate 2 98.0 3.0 11/20/21 11/20/21 11/20/21 11/20/21 21:35 21:42 21:43 21:44 Temp 98.6 98.6 Pulse 95 92 92 Resp 20 B/P (MAP) 166/93 (117) 171/96 171/96 Pulse Ox 95 95 O2 Delivery Room Air Room Air 11/20/21 11/20/21 11/21/21 11/21/21 22:12 23:59 00:01 02:39 Temp 98.2 98.7 98.2 98.7 Pulse 87 84 Resp 18 20 20 B/P (MAP) 146/89 (108) 146/89 (108) Pulse Ox 100 100 100 O2 Delivery Nasal Cannula Nasal Cannula Nasal Cannula Nasal Cannula O2 Flow Rate 3.0 2.0 2.0 2.0 11/21/21 11/21/21 11/21/21 11/21/21 03:09 03:32 07:00 08:29 Temp 98.1 98.6 98.1 98.6 Pulse 94 103 103 Resp 18 18 B/P (MAP) 153/82 (105) 159/96 (117) 159/96 Pulse Ox 100 100 98 O2 Delivery Nasal Cannula Nasal Cannula Nasal Cannula O2 Flow Rate 2.0 2.0 2.0 11/21/21 08:30 Pulse 103 B/P (MAP) 159/96 Intake and Output 11/20/21 11/20/21 11/21/21 15:00 23:00 07:00 Intake Total 100 ml 540 ml Balance 100 ml 540 ml Justifications for Admission Other Justification MARTÍN MCCABE MD Nov 21, 2021 09:42
--- NOTE | 2021-11-21 10:06 | NUR ---
SW following. Discussed with RN, pt from home, 2L (does not use oxygen at home), renal diet. Pt scheduled for tentative surgery 11/26/21. Dr. Sousa wondering if pt can go to SNF to await surgery, this is not an option as pt currently does not have a skillable need. SW will continue to follow.
[2021-11-21] MEDS ORDERED: ALBUMIN HUMAN 25% 200 ML IV PRN (10:45)
[2021-11-21] MEDS ORDERED: DIALYSIS PATIENT. MC PRN ×2 (10:45)
[2021-11-21] MEDS ORDERED: IV NORMAL SALINE 1000ML BAG 1,000 ML IV PRN ×2 (10:45)
--- NOTE | 2021-11-21 10:52 | NUR ---
Dialysis by bed.
--- NOTE | 2021-11-21 12:09 | PDOC ---
Renal-Progress Notes Subjective Notes Notes LEFT ANKLE PAIN History of Present Illness Hx of present illness STABLE Vitals Vitals Vital Signs Date Time Temp Pulse Resp B/P (MAP) Pulse Ox O2 Delivery O2 Flow Rate FiO2 11/21/21 11:00 97.6 76 18 155/92 (113) 98 Nasal Cannula 2.0 97.6 Weight Weight [ ] I.O. Intake and Output Intake and Output 11/21/21 07:00 Intake Total 640 ml Balance 640 ml Intake Oral 640 ml # Voids 5 Labs Labs Laboratory Tests Test 11/20/21 15:25 11/20/21 16:43 11/20/21 21:20 11/21/21 07:28 Sodium Level 136 mmol/L (136-145) Potassium Level 4.5 mmol/L (3.5-5.1) Chloride Level 99 mmol/L (98-107) Carbon Dioxide Level 30 mmol/L (21-32) Anion Gap 7 (6-14) Blood Urea Nitrogen 37 mg/dL (7-20) Creatinine 6.3 mg/dL (0.6-1.0) Estimated GFR (Cockcroft-Gault) 8.8 Glucose Level 148 mg/dL (70-99) Calcium Level 8.4 mg/dL (8.5-10.1) Glucose (Fingerstick) 186 mg/dL (70-99) 198 mg/dL (70-99) 196 mg/dL (70-99) Review of Systems Constitutional: yes: alert Eyes: Yes: no symptom reported Pulmonary: Yes no symptom reported Gastrointestional: Yes: no symptom reported Genitourinary: Yes: no symptom reported Musculoskeletal: Yes: foot pain Skin: Yes no symptom reported Psychiatric/Neurological: Yes: no symptom reported Endocrine: Yes: no symptom reported Physical Exam General Appearance: no apparent distress Skin: warm Respiratory: bilateral CTA Heart: S1S2 Abdomen: soft, bowel sounds present Genitourinary: bladder flat Extremities: pulses present Neurology: alert Assessment Assessment ESRD ANEMIA DM II HTN L ANKLE FX PLAN HD TODAY UF TO TW ZENOBIA NEEDED THERAPY HOME MEDS D/W ATTENDING WILL FOLLOW ANTONIA BECERRA MD Nov 21, 2021 12:09
[2021-11-21] MEDS: GABAPENTIN 300 MG CAPSULE. PO SCH (15:12)
[2021-11-21] MEDS: PANTOPRAZOLE 40 MG TABLET.DR. PO SCH (15:12)
--- NOTE | 2021-11-21 16:24 | NUR ---
Per Dr. Mohamud notify Dr. King that pt request no more visits from his service. Notified Dr. King regarding this he stated "that's alright"
--- NOTE | 2021-11-21 17:47 | PDOC ---
PROGRESS NOTES Date of Service: DATE: 11/21/21 TIME: 17:46 Subjective Subjective feels ok Objective Objective Vital Signs Date Time Temp Pulse Resp B/P (MAP) Pulse Ox O2 Delivery O2 Flow Rate FiO2 11/21/21 15:00 98.2 92 18 135/73 (93) 98 Nasal Cannula 2.0 98.2 Intake and Output 11/21/21 07:00 Intake Total 640 ml Balance 640 ml Intake Oral 640 ml # Voids 5 Physical Exam Abdomen: Normal bowel sounds, Soft, No tenderness Heart: Regular rate Extremities: No cyanosis General: Alert, Oriented X3, Cooperative, No acute distress HEENT: Atraumatic, PERRLA Lungs: Clear to auscultation MUSCULOSKELETAL: Other (LEFT ANKLE PAIN) Neuro: Normal speech Psych/Mental Status: Mental status NL, Mood NL Skin: No breakdown Diagnosis Problem List Problems Medical Problems: (1) Closed left ankle fracture Status: Acute (2) Dislocation of ankle, left, closed Status: Acute (3) End stage renal disease on dialysis Status: Acute Assessment Assessment Problems Medical Problems: (1) Closed left ankle fracture Status: Acute (2) Dislocation of ankle, left, closed Status: Acute (3) End stage renal disease on dialysis Status: Acute FINAL IMPRESSION: 1. Left ankle fracture. 2. Mechanical fall, slipped and fell from the stairs. 3. End-stage renal disease, on dialysis Wednesday, Wednesday and Wednesday. 4. Insulin-dependent diabetes. 5. Obesity, status post recent gastric bypass surgery 1 year ago. 6. Coronary artery disease. 7. Hypertension. 8. Hyperlipidemia. PLAN: rest elevation dialysis today pain control dvt prevention surgery planned middle next week. At this time was admit to the hospital. Podiatry was consulted and ankle specialist and Renal consult for dialysis. PT, OT, rehab, DVT prevention. We will see how she does. Plan Plan of Care Problems Medical Problems: (1) Closed left ankle fracture Status: Acute (2) Dislocation of ankle, left, closed Status: Acute (3) End stage renal disease on dialysis Status: Acute Comment Review of Relevant I have reviewed the following items meagan (where applicable) has been applied. Labs Laboratory Tests Test 11/20/21 21:20 11/21/21 07:28 11/21/21 17:04 Glucose (Fingerstick) 198 mg/dL (70-99) 196 mg/dL (70-99) 143 mg/dL (70-99) Medications Current Medications Acetaminophen (Tylenol) 650 mg TID PO Last administered on 11/21/21at 08:29; Start 11/20/21 at 21:00 Albumin Human 200 ml @ 200 mls/hr 1X PRN PRN IV Hypotension; Start 11/21/21 at 10:45; Stop 11/21/21 at 16:44; Status DC Gabapentin (Neurontin) 300 mg QMWF PO Last administered on 11/21/21at 15:12; Start 11/21/21 at 16:00 Info (PHARMACY MONITORING -- do not chart) 1 each PRN DAILY PRN MC SEE COMMENTS; Start 11/21/21 at 10:45 Info (PHARMACY MONITORING -- do not chart) 1 each PRN DAILY PRN MC SEE COMMENTS; Start 11/21/21 at 10:45; Status UNV Pantoprazole Sodium (Protonix) 40 mg DAILYAC PO Last administered on 11/21/21at 15:12; Start 11/21/21 at 09:45 Sodium Chloride 1,000 ml @ 400 mls/hr Q2H30M PRN IV PATENCY; Start 11/21/21 at 10:45; Stop 11/21/21 at 22:44 Sodium Chloride 1,000 ml @ 1,000 mls/hr Q1H PRN IV hypotension; Start 11/21/21 at 10:45; Stop 11/21/21 at 16:44; Status DC Vitals/I & O Vital Sign - Last 24 Hours 11/20/21 11/20/21 11/20/21 11/20/21 18:13 18:20 18:27 19:30 Temp 98.3 98.3 98.3 98.6 98.3 98.3 98.3 98.6 Pulse 94 92 91 88 Resp 20 20 18 18 B/P (MAP) 129/79 125/83 151/83 158/91 (113) Pulse Ox 100 100 100 O2 Delivery Nasal Cannula Nasal Cannula Nasal Cannula Room Air O2 Flow Rate 2 2 2 98.0 11/20/21 11/20/21 11/20/21 11/20/21 20:30 20:30 21:35 21:42 Temp 98.4 98.6 98.4 98.6 Pulse 94 95 Resp 20 20 B/P (MAP) 164/93 (116) 166/93 (117) Pulse Ox 99 95 95 O2 Delivery Nasal Cannula Room Air Room Air Room Air O2 Flow Rate 3.0 11/20/21 11/20/21 11/20/21 11/20/21 21:43 21:44 22:12 23:59 Temp 98.2 98.2 Pulse 92 92 87 Resp 18 B/P (MAP) 171/96 171/96 146/89 (108) Pulse Ox 100 O2 Delivery Nasal Cannula Nasal Cannula O2 Flow Rate 3.0 2.0 11/21/21 11/21/21 11/21/21 11/21/21 00:01 02:39 03:09 03:32 Temp 98.7 98.1 98.7 98.1 Pulse 84 94 Resp 20 20 18 B/P (MAP) 146/89 (108) 153/82 (105) Pulse Ox 100 100 100 100 O2 Delivery Nasal Cannula Nasal Cannula Nasal Cannula Nasal Cannula O2 Flow Rate 2.0 2.0 2.0 2.0 11/21/21 11/21/21 11/21/21 11/21/21 07:00 08:10 08:29 08:30 Temp 98.6 98.6 Pulse 103 103 103 Resp 18 B/P (MAP) 159/96 (117) 159/96 159/96 Pulse Ox 98 O2 Delivery Nasal Cannula Room Air O2 Flow Rate 2.0 11/21/21 11/21/21 11/21/21 11/21/21 09:00 11:00 12:40 14:00 Temp 97.6 97.6 Pulse 103 76 94 Resp 18 B/P (MAP) 159/96 155/92 (113) 115/77 Pulse Ox 98 O2 Delivery Nasal Cannula Room Air O2 Flow Rate 2.0 11/21/21 15:00 Temp 98.2 98.2 Pulse 92 Resp 18 B/P (MAP) 135/73 (93) Pulse Ox 98 O2 Delivery Nasal Cannula O2 Flow Rate 2.0 Intake and Output 11/20/21 11/20/21 11/21/21 15:00 23:00 07:00 Intake Total 100 ml 540 ml Balance 100 ml 540 ml Justifications for Admission Other Justification COLTEN AVILA MD Nov 21, 2021 17:47
[2021-11-21] MEDS: CYCLOBENZAPRINE 10 MG TABLET. PO PRN (20:22)
[2021-11-21] MEDS: FAMOTIDINE 20 MG TABLET. PO SCH (20:23)
[2021-11-22 03:12] VITALS: BP 123/76
[2021-11-22] MEDS: oxyCODONE/APAP 10/325 1 TAB TABLET PO PRN ×2 (05:47→13:08)
[2021-11-22] MEDS: HEPARIN for SUB-Q USE 5,000 UNIT/ML VIAL. SQ SCH ×3 (05:50→21:23)
[2021-11-22 07:00] VITALS: BP 119/74
[2021-11-22] MEDS: INSULIN LISPRO 300 UNITS/3 ML VIAL. SQ SCH ×3 (08:00→18:11)
[2021-11-22] MEDS: VITAMIN B12,B9,B6 COMPLEX 1 TABLET. PO SCH (08:51)
[2021-11-22] MEDS: CHOLECALCIFEROL (VITAMIN D3) 5,000 UNIT CAPSULE PO SCH (08:51)
[2021-11-22] MEDS: FUROSEMIDE 40 MG TABLET. PO SCH (08:52)
[2021-11-22] MEDS: ACETAMINOPHEN 325 MG TABLET. PO SCH ×2 (08:52→18:09)
[2021-11-22] MEDS: PANTOPRAZOLE 40 MG TABLET.DR. PO SCH (08:52)
[2021-11-22] MEDS: LOSARTAN POTASSIUM 50 MG TABLET. PO SCH (08:52)
[2021-11-22] MEDS: LABETALOL HCL 100 MG TABLET. PO SCH ×3 (08:53→21:21)
[2021-11-22] MEDS: RANOLAZINE 500 MG TAB.ER.12H PO SCH ×2 (08:53→21:19)
[2021-11-22] MEDS: INSULIN GLARGINE SYRINGE. SQ SCH ×2 (08:56→21:25)
--- NOTE | 2021-11-22 10:13 | PDOC ---
Renal-Progress Notes Subjective Notes Notes NO NEW COMPLAINTS History of Present Illness Hx of present illness STABLE Vitals Vitals Vital Signs Date Time Temp Pulse Resp B/P (MAP) Pulse Ox O2 Delivery O2 Flow Rate FiO2 11/22/21 08:53 87 119/74 11/22/21 07:00 98.0 18 98 BiPAP/CPAP 98.0 11/22/21 05:47 2.0 Weight Weight [ ] I.O. Intake and Output Intake and Output 11/22/21 07:00 Intake Total 220 ml Balance 220 ml Intake Oral 220 ml # Voids 1 Labs Labs Laboratory Tests Test 11/21/21 17:04 11/21/21 20:44 11/22/21 07:57 Glucose (Fingerstick) 143 mg/dL (70-99) 182 mg/dL (70-99) 105 mg/dL (70-99) Review of Systems Constitutional: yes: alert Eyes: Yes: no symptom reported Pulmonary: Yes no symptom reported Gastrointestional: Yes: no symptom reported Genitourinary: Yes: no symptom reported Musculoskeletal: Yes: foot pain Skin: Yes no symptom reported Psychiatric/Neurological: Yes: no symptom reported Endocrine: Yes: no symptom reported Physical Exam General Appearance: no apparent distress Skin: warm Respiratory: bilateral CTA Heart: S1S2 Abdomen: soft, bowel sounds present Genitourinary: bladder flat Extremities: pulses present Neurology: alert Assessment Assessment ESRD ANEMIA DM II HTN L ANKLE FX PLAN HD MWF SURGERY NEXT WK ZENOBIA NEEDED THERAPY HOME MEDS D/W ATTENDING WILL FOLLOW ANTONIA BECERRA MD Nov 22, 2021 10:13
--- NOTE | 2021-11-22 10:35 | PDOC ---
PROGRESS NOTES Date of Service: DATE: 11/22/21 TIME: 10:33 Subjective Subjective constipation Objective Objective Vital Signs Date Time Temp Pulse Resp B/P (MAP) Pulse Ox O2 Delivery O2 Flow Rate FiO2 11/22/21 08:53 87 119/74 11/22/21 07:00 98.0 18 98 BiPAP/CPAP 98.0 11/22/21 05:47 2.0 Intake and Output 11/22/21 07:00 Intake Total 220 ml Balance 220 ml Intake Oral 220 ml # Voids 1 Physical Exam Abdomen: Normal bowel sounds, Soft, No tenderness Heart: Regular rate Extremities: No cyanosis General: Alert, Oriented X3, Cooperative, No acute distress HEENT: Atraumatic, PERRLA Lungs: Clear to auscultation MUSCULOSKELETAL: Other (LEFT ANKLE PAIN) Neuro: Normal speech Psych/Mental Status: Mental status NL, Mood NL Skin: No breakdown COMMENT half cast left leg Diagnosis Problem List Problems Medical Problems: (1) Closed left ankle fracture Status: Acute (2) Dislocation of ankle, left, closed Status: Acute (3) End stage renal disease on dialysis Status: Acute Assessment Assessment Problems Medical Problems: (1) Closed left ankle fracture Status: Acute (2) Dislocation of ankle, left, closed Status: Acute (3) End stage renal disease on dialysis Status: Acute FINAL IMPRESSION: 1. Left ankle fracture. 2. Mechanical fall, slipped and fell from the stairs. 3. End-stage renal disease, on dialysis Wednesday, Wednesday and Wednesday. 4. Insulin-dependent diabetes. 5. Obesity, status post recent gastric bypass surgery 1 year ago. 6. Coronary artery disease. 7. Hypertension. 8. Hyperlipidemia. PLAN: miralax+senna for constipation rest elevation dialysis done wednesday ,next one wednesday pain control better dvt prevention lovenox surgery planned middle next week. At this time was admit to the hospital. Podiatry was consulted and ankle specialist and Renal consult for dialysis. PT, OT, rehab, DVT prevention. We will see how she does. Plan Plan of Care Problems Medical Problems: (1) Closed left ankle fracture Status: Acute (2) Dislocation of ankle, left, closed Status: Acute (3) End stage renal disease on dialysis Status: Acute Comment Review of Relevant I have reviewed the following items meagan (where applicable) has been applied. Labs Laboratory Tests Test 11/21/21 17:04 1/7/22 20:44 11/22/21 07:57 Glucose (Fingerstick) 143 mg/dL (70-99) 182 mg/dL (70-99) 105 mg/dL (70-99) Medications Current Medications Albumin Human 200 ml @ 200 mls/hr 1X PRN PRN IV Hypotension; Start 11/21/21 at 10:45; Stop 11/21/21 at 16:44; Status DC Gabapentin (Neurontin) 300 mg QMWF PO Last administered on 11/21/21at 15:12; Start 11/21/21 at 16:00 Info (PHARMACY MONITORING -- do not chart) 1 each PRN DAILY PRN MC SEE CO MMENTS; Start 11/21/21 at 10:45 Info (PHARMACY MONITORING -- do not chart) 1 each PRN DAILY PRN MC SEE COMMENTS; Start 11/21/21 at 10:45; Status UNV Sodium Chloride 1,000 ml @ 400 mls/hr Q2H30M PRN IV PATENCY; Start 11/21/21 at 10:45; Stop 11/21/21 at 22:44; Status DC Sodium Chloride 1,000 ml @ 1,000 mls/hr Q1H PRN IV hypotension; Start 11/21/21 at 10:45; Stop 11/21/21 at 16:44; Status DC Vitals/I & O Vital Sign - Last 24 Hours 11/21/21 11/21/21 11/21/21 11/21/21 11:00 12:40 14:00 15:00 Temp 97.6 98.2 97.6 98.2 Pulse 76 94 92 Resp 18 18 B/P (MAP) 155/92 (113) 115/77 135/73 (93) Pulse Ox 98 98 O2 Delivery Nasal Cannula Room Air Nasal Cannula O2 Flow Rate 2.0 2.0 11/21/21 11/21/21 11/21/21 11/21/21 18:17 18:47 19:07 20:22 Temp 98.2 98.2 Pulse 102 98 Resp 16 B/P (MAP) 124/70 (88) 149/97 Pulse Ox 99 O2 Delivery Room Air Room Air Room Air 11/21/21 11/21/21 11/21/21 11/21/21 20:23 20:24 22:58 23:43 Temp 98.8 98.8 Pulse 98 87 Resp 16 18 B/P (MAP) 149/97 128/81 (97) Pulse Ox 96 96 O2 Delivery Room Air BiPAP/CPAP Room Air 11/22/21 11/22/21 11/22/21 11/22/21 00:13 03:12 05:47 06:17 Temp 98.1 98.1 Pulse 85 Resp 16 18 B/P (MAP) 123/76 (92) Pulse Ox 96 96 96 O2 Delivery Room Air BiPAP/CPAP BiPAP/CPAP BiPAP/CPAP O2 Flow Rate 2.0 11/22/21 11/22/21 11/22/21 11/22/21 07:00 08:52 08:53 08:53 Temp 98.0 98.0 Pulse 87 87 87 87 Resp 18 B/P (MAP) 119/74 (89) 119/74 119/74 119/74 Pulse Ox 98 O2 Delivery BiPAP/CPAP Intake and Output 11/21/21 11/21/21 11/22/21 15:00 23:00 07:00 Intake Total 220 ml Balance 220 ml Justifications for Admission Other Justification COLTEN AVILA MD Nov 22, 2021 10:35
[2021-11-22 11:00] VITALS: BP 125/70
[2021-11-22] MEDS: POLYETHYLENE GLYCOL 3350 17 GM PACKET. PO PRN (12:59)
[2021-11-22] MEDS: SENNOSIDES/DOCUSATE 8.6/50MG TABLET. PO PRN (13:00)
[2021-11-22 15:00] VITALS: BP 125/74
[2021-11-22] MEDS ORDERED: CALCIUM CARBONATE 500 MG TAB.CHEW PO PRN (18:45)
[2021-11-22 19:00] VITALS: BP 132/84
[2021-11-22 23:00] VITALS: BP 151/83
[2021-11-23] MEDS: oxyCODONE/APAP 10/325 1 TAB TABLET PO PRN ×3 (00:24→21:20)
[2021-11-23] MEDS: ACETAMINOPHEN 325 MG TABLET. PO SCH ×4 (00:24→21:09)
[2021-11-23 03:00] VITALS: BP 130/77
[2021-11-23] MEDS: PANTOPRAZOLE 40 MG TABLET.DR. PO SCH (06:02)
[2021-11-23] MEDS: HEPARIN for SUB-Q USE 5,000 UNIT/ML VIAL. SQ SCH ×3 (06:06→21:17)
[2021-11-23 07:00] VITALS: BP 127/75
[2021-11-23] MEDS: INSULIN LISPRO 300 UNITS/3 ML VIAL. SQ SCH ×3 (08:00→17:00)
[2021-11-23] MEDS: SENNOSIDES/DOCUSATE 8.6/50MG TABLET. PO PRN (09:35)
[2021-11-23] MEDS: POLYETHYLENE GLYCOL 3350 17 GM PACKET. PO PRN (09:35)
[2021-11-23] MEDS: VITAMIN B12,B9,B6 COMPLEX 1 TABLET. PO SCH (09:36)
[2021-11-23] MEDS: CHOLECALCIFEROL (VITAMIN D3) 5,000 UNIT CAPSULE PO SCH (09:36)
[2021-11-23] MEDS: LOSARTAN POTASSIUM 50 MG TABLET. PO SCH (09:36)
[2021-11-23] MEDS: SIMETHICONE 80 MG TAB.CHEW PO PRN ×2 (09:36→14:45)
[2021-11-23] MEDS: FUROSEMIDE 40 MG TABLET. PO SCH (09:36)
[2021-11-23] MEDS: RANOLAZINE 500 MG TAB.ER.12H PO SCH ×2 (09:36→21:10)
[2021-11-23] MEDS: LABETALOL HCL 100 MG TABLET. PO SCH ×3 (09:37→21:10)
[2021-11-23] MEDS: INSULIN GLARGINE SYRINGE. SQ SCH ×2 (09:46→21:16)
--- NOTE | 2021-11-23 10:19 | PDOC ---
PROGRESS NOTES Date of Service: DATE: 11/23/21 TIME: 10:18 Subjective Subjective constipated Objective Objective Vital Signs Date Time Temp Pulse Resp B/P (MAP) Pulse Ox O2 Delivery O2 Flow Rate FiO2 11/23/21 09:37 83 127/75 11/23/21 08:00 Room Air 11/23/21 07:00 98.4 16 97 98.4 Intake and Output 11/23/21 07:00 Intake Total 1430 ml Balance 1430 ml Intake Oral 1430 ml # Voids 5 Physical Exam Abdomen: Normal bowel sounds, Soft, No tenderness Heart: Regular rate Extremities: No cyanosis General: Alert, Oriented X3, Cooperative, No acute distress HEENT: Atraumatic, PERRLA Lungs: Clear to auscultation MUSCULOSKELETAL: Other (LEFT ANKLE PAIN) Neuro: Normal speech Psych/Mental Status: Mental status NL, Mood NL Skin: No breakdown COMMENT half cast left leg Diagnosis Problem List Problems Medical Problems: (1) Closed left ankle fracture Status: Acute (2) Dislocation of ankle, left, closed Status: Acute (3) End stage renal disease on dialysis Status: Acute Assessment Assessment Problems Medical Problems: (1) Closed left ankle fracture Status: Acute (2) Dislocation of ankle, left, closed Status: Acute (3) End stage renal disease on dialysis Status: Acute FINAL IMPRESSION: 1. Left ankle fracture. 2. Mechanical fall, slipped and fell from the stairs. 3. End-stage renal disease, on dialysis Wednesday, Wednesday and Wednesday. 4. Insulin-dependent diabetes. 5. Obesity, status post recent gastric bypass surgery 1 year ago. 6. Coronary artery disease. 7. Hypertension. 8. Hyperlipidemia. PLAN: manav dunn, spoke with RN quincy for constipation rest elevation dialysis done wednesday ,next one wednesday pain control better dvt prevention lovenox surgery planned middle next week. At this time was admit to the hospital. Podiatry was consulted and ankle specialist and Renal consult for dialysis. PT, OT, rehab, DVT prevention. We will see how she does. Plan Plan of Care Problems Medical Problems: (1) Closed left ankle fracture Status: Acute (2) Dislocation of ankle, left, closed Status: Acute (3) End stage renal disease on dialysis Status: Acute Comment Review of Relevant I have reviewed the following items meagan (where applicable) has been applied. Labs Laboratory Tests Test 11/22/21 11:28 11/22/21 17:06 11/22/21 20:24 11/23/21 08:08 Glucose (Fingerstick) 165 mg/dL (70-99) 201 mg/dL (70-99) 183 mg/dL (70-99) 109 mg/dL (70-99) Medications Current Medications Calcium Carbonate/ Glycine (Tums) 500 mg PRN AFTMEALHC PRN PO INDIGESTION; Start 11/22/21 at 18:45 Famotidine (Pepcid) 20 mg PRN BID PRN PO GAS / BLOATING; Start 11/22/21 at 18:45 Polyethylene Glycol (miraLAX PACKET) 17 gm PRN BID PRN PO CONSTIPATION, 1ST CHOICE Last administered on 11/23/21at 09:35; Start 11/22/21 at 10:45 Senna/Docusate Sodium (Senna Plus) 1 tab PRN BID PRN PO CONSTIPATION, 2ND CHOICE Last administered on 11/23/21at 09:35; Start 11/22/21 at 10:45 Simethicone (Gas-X) 80 mg PRN AFTMEALHC PRN PO GAS / BLOATING Last administered on 11/23/21at 09:36; Start 11/22/21 at 18:45 Vitals/I & O Vital Sign - Last 24 Hours 11/22/21 11/22/21 11/22/21 11/22/21 11:00 13:00 13:08 13:38 Temp 98.5 98.5 Pulse 87 87 Resp 16 B/P (MAP) 125/70 (88) 125/70 Pulse Ox 97 O2 Delivery Room Air Room Air Room Air 11/22/21 11/22/21 11/22/21 11/22/21 15:00 19:00 20:00 21:19 Temp 98.5 98.7 98.5 98.7 Pulse 84 81 81 Resp 16 18 B/P (MAP) 125/74 (91) 132/84 (100) 132/84 Pulse Ox 96 100 O2 Delivery Room Air Room Air Room Air 11/22/21 11/22/21 11/23/21 11/23/21 21:21 23:00 00:24 00:54 Temp 99.1 99.1 Pulse 81 90 Resp 16 20 20 B/P (MAP) 132/84 151/83 (105) Pulse Ox 99 O2 Delivery Room Air Room Air Room Air 11/23/21 11/23/21 11/23/21 11/23/21 03:00 07:00 08:00 09:36 Temp 98.4 98.4 98.4 98.4 Pulse 88 83 83 Resp 16 16 B/P (MAP) 130/77 (94) 127/75 (92) 127/75 Pulse Ox 97 97 O2 Delivery Room Air Room Air Room Air 11/23/21 11/23/21 09:36 09:37 Pulse 83 83 B/P (MAP) 127/75 127/75 Intake and Output 11/22/21 11/22/21 11/23/21 15:00 23:00 07:00 Intake Total 530 ml 900 ml Balance 530 ml 900 ml Justifications for Admission Other Justification COLTEN AVILA MD Nov 23, 2021 10:19
[2021-11-23] MEDS ORDERED: BISACODYL 10 MG SUPP.RECT. PR PRN (10:30)
--- NOTE | 2021-11-23 10:42 | PDOC ---
Renal-Progress Notes Subjective Notes Notes NO NEW COMPLAINTS History of Present Illness Hx of present illness STABLE Vitals Vitals Vital Signs Date Time Temp Pulse Resp B/P (MAP) Pulse Ox O2 Delivery O2 Flow Rate FiO2 11/23/21 09:37 83 127/75 11/23/21 08:00 Room Air 11/23/21 07:00 98.4 16 97 98.4 Weight Weight [ ] I.O. Intake and Output Intake and Output 11/23/21 07:00 Intake Total 1430 ml Balance 1430 ml Intake Oral 1430 ml # Voids 5 Labs Labs Laboratory Tests Test 11/22/21 11:28 11/22/21 17:06 11/22/21 20:24 11/23/21 08:08 Glucose (Fingerstick) 165 mg/dL (70-99) 201 mg/dL (70-99) 183 mg/dL (70-99) 109 mg/dL (70-99) Review of Systems Constitutional: yes: alert Eyes: Yes: no symptom reported Pulmonary: Yes no symptom reported Gastrointestional: Yes: no symptom reported Genitourinary: Yes: no symptom reported Musculoskeletal: Yes: foot pain Skin: Yes no symptom reported Psychiatric/Neurological: Yes: no symptom reported Endocrine: Yes: no symptom reported Physical Exam General Appearance: no apparent distress Skin: warm Respiratory: bilateral CTA Heart: S1S2 Abdomen: soft, bowel sounds present Genitourinary: bladder flat Extremities: pulses present Neurology: alert Assessment Assessment ESRD ANEMIA DM II HTN L ANKLE FX PLAN HD TOMORROW SURGERY NEXT WK ZENOBIA NEEDED THERAPY HOME MEDS D/W ATTENDING WILL FOLLOW ANTONIA BECERRA MD Nov 23, 2021 10:42
[2021-11-23 11:00] VITALS: BP 156/91
[2021-11-23] MEDS: CYCLOBENZAPRINE 10 MG TABLET. PO PRN (12:16)
[2021-11-23 15:00] VITALS: BP 159/93
[2021-11-23 19:00] VITALS: BP 149/91
[2021-11-23 23:00] VITALS: BP 164/95
[2021-11-24 03:00] VITALS: BP 129/70
[2021-11-24] MEDS: PANTOPRAZOLE 40 MG TABLET.DR. PO SCH (06:56)
[2021-11-24 07:00] VITALS: BP 137/76
[2021-11-24] MEDS: HEPARIN for SUB-Q USE 5,000 UNIT/ML VIAL. SQ SCH ×3 (07:11→21:28)
[2021-11-24] MEDS: INSULIN LISPRO 300 UNITS/3 ML VIAL. SQ SCH ×3 (08:00→17:55)
[2021-11-24] MEDS: CYCLOBENZAPRINE 10 MG TABLET. PO PRN ×2 (08:10→16:39)
[2021-11-24] MEDS: FAMOTIDINE 20 MG TABLET. PO PRN (08:10)
[2021-11-24] MEDS: oxyCODONE/APAP 10/325 1 TAB TABLET PO PRN ×3 (08:10→16:36)
[2021-11-24] MEDS: RANOLAZINE 500 MG TAB.ER.12H PO SCH ×2 (08:16→21:19)
[2021-11-24] MEDS: VITAMIN B12,B9,B6 COMPLEX 1 TABLET. PO SCH (08:16)
[2021-11-24] MEDS: CHOLECALCIFEROL (VITAMIN D3) 5,000 UNIT CAPSULE PO SCH (08:16)
[2021-11-24] MEDS: LOSARTAN POTASSIUM 50 MG TABLET. PO SCH (08:17)
[2021-11-24] MEDS: FUROSEMIDE 40 MG TABLET. PO SCH (08:18)
[2021-11-24] MEDS: ACETAMINOPHEN 325 MG TABLET. PO SCH ×3 (08:18→21:21)
[2021-11-24] MEDS: LABETALOL HCL 100 MG TABLET. PO SCH ×3 (08:18→21:20)
[2021-11-24] MEDS: INSULIN GLARGINE SYRINGE. SQ SCH ×2 (09:17→21:27)
--- NOTE | 2021-11-24 09:23 | PDOC ---
PROGRESS NOTES Date of Service: DATE: 11/24/21 TIME: 09: Subjective Subjective constipated Objective Objective Vital Signs Date Time Temp Pulse Resp B/P (MAP) Pulse Ox O2 Delivery O2 Flow Rate FiO2 11/24/21 08:18 85 137/76 11/24/21 08:10 20 Room Air 11/24/21 07:00 98.4 97 98.4 Intake and Output 11/24/21 07:00 Intake Total 400 ml Balance 400 ml Intake Oral 400 ml # Voids 8 Physical Exam Abdomen: Normal bowel sounds, Soft, No tenderness Heart: Regular rate Extremities: No cyanosis General: Alert, Oriented X3, Cooperative, No acute distress HEENT: Atraumatic, PERRLA Lungs: Clear to auscultation MUSCULOSKELETAL: Other (LEFT ANKLE PAIN) Neuro: Normal speech Psych/Mental Status: Mental status NL, Mood NL Skin: No breakdown COMMENT half cast left leg Diagnosis Problem List Problems Medical Problems: (1) Closed left ankle fracture Status: Acute (2) Dislocation of ankle, left, closed Status: Acute (3) End stage renal disease on dialysis Status: Acute Assessment Assessment Problems Medical Problems: (1) Closed left ankle fracture Status: Acute (2) Dislocation of ankle, left, closed Status: Acute (3) End stage renal disease on dialysis Status: Acute FINAL IMPRESSION: 1. Left ankle fracture. 2. Mechanical fall, slipped and fell from the stairs. 3. End-stage renal disease, on dialysis Wednesday, Wednesday and Wednesday. 4. Insulin-dependent diabetes. 5. Obesity, status post recent gastric bypass surgery 1 year ago. 6. Coronary artery disease. 7. Hypertension. 8. Hyperlipidemia. PLAN:dialysis today manav dunn, spoke with RN quincy for constipation rest elevation pain control better dvt prevention lovenox surgery planned middle of this week . At this time was admit to the hospital. Podiatry was consulted and ankle specialist and Renal consult for dialysis. PT, OT, rehab, DVT prevention. We will see how she does. Plan Plan of Care Problems Medical Problems: (1) Closed left ankle fracture Status: Acute (2) Dislocation of ankle, left, closed Status: Acute (3) End stage renal disease on dialysis Status: Acute Comment Review of Relevant I have reviewed the following items meagan (where applicable) has been applied. Labs Laboratory Tests Test 11/23/21 12:09 1/9/22 16:50 11/23/21 21:02 11/24/21 08:03 Glucose (Fingerstick) 218 mg/dL (70-99) 160 mg/dL (70-99) 144 mg/dL (70-99) 102 mg/dL (70-99) Medications Current Medications Bisacodyl (Dulcolax Supp) 10 mg PRN DAILY PRN [place] CONSTIPATION; Start 11/23/21 at 10:30 Bisacodyl (Dulcolax Tab) 5 mg PRN DAILY PRN PO CONSTIPATION, 3rd choice; Start 11/23/21 at 10:30 Vitals/I & O Vital Sign - Last 24 Hours 11/23/21 11/23/21 11/23/21 11/23/21 09:36 09:36 09:37 11:00 Temp 98.6 98.6 Pulse 83 83 83 89 Resp 16 B/P (MAP) 127/75 127/75 127/75 156/91 (112) Pulse Ox 100 O2 Delivery Room Air 11/23/21 11/23/21 11/23/21 11/23/21 14:45 14:51 15:00 15:12 Temp 98.3 98.3 Pulse 89 85 Resp 16 B/P (MAP) 156/91 159/93 (115) Pulse Ox 98 O2 Delivery Room Air Room Air Room Air 11/23/21 11/23/21 11/23/21 11/23/21 19:00 20:00 21:10 21:10 Temp 98.2 98.2 Pulse 82 82 82 Resp 16 B/P (MAP) 149/91 (110) 149/91 149/91 Pulse Ox 100 O2 Delivery Room Air Room Air 11/23/21 11/23/21 11/23/21 11/24/21 21:20 21:50 23:00 03:00 Temp 98.1 97.5 98.1 97.5 Pulse 82 83 Resp 20 20 16 16 B/P (MAP) 164/95 (118) 129/70 (89) Pulse Ox 99 99 O2 Delivery Room Air Room Air BiPAP/CPAP Room Air 11/24/21 11/24/21 11/24/21 11/24/21 07:00 08:10 08:16 08:17 Temp 98.4 98.4 Pulse 85 85 85 Resp 16 20 B/P (MAP) 137/76 (96) 137/76 137/76 Pulse Ox 97 O2 Delivery Room Air Room Air 11/24/21 08:18 Pulse 85 B/P (MAP) 137/76 Intake and Output 11/23/21 11/23/21 11/24/21 15:00 23:00 07:00 Intake Total 400 ml Balance 400 ml Justifications for Admission Other Justification COLTEN AVILA MD Nov 24, 2021 09:23
--- NOTE | 2021-11-24 10:42 | PDOC ---
Renal-Progress Notes Subjective Notes Notes NO NEW COMPLAINTS History of Present Illness Hx of present illness STABLE Vitals Vitals Vital Signs Date Time Temp Pulse Resp B/P (MAP) Pulse Ox O2 Delivery O2 Flow Rate FiO2 11/24/21 08:18 85 137/76 11/24/21 08:10 20 Room Air 11/24/21 07:00 98.4 97 98.4 Weight Weight [ ] I.O. Intake and Output Intake and Output 11/24/21 07:00 Intake Total 400 ml Balance 400 ml Intake Oral 400 ml # Voids 8 Labs Labs Laboratory Tests Test 11/23/21 12:09 11/23/21 16:50 11/23/21 21:02 11/24/21 08:03 Glucose (Fingerstick) 218 mg/dL (70-99) 160 mg/dL (70-99) 144 mg/dL (70-99) 102 mg/dL (70-99) Review of Systems Constitutional: yes: alert Eyes: Yes: no symptom reported Pulmonary: Yes no symptom reported Gastrointestional: Yes: no symptom reported Genitourinary: Yes: no symptom reported Musculoskeletal: Yes: foot pain Skin: Yes no symptom reported Psychiatric/Neurological: Yes: no symptom reported Endocrine: Yes: no symptom reported Physical Exam General Appearance: no apparent distress Skin: warm Respiratory: bilateral CTA Heart: S1S2 Abdomen: soft, bowel sounds present Genitourinary: bladder flat Extremities: pulses present Neurology: alert Assessment Assessment ESRD ANEMIA DM II HTN L ANKLE FX PLAN HD TODAY UF TO TW SURGERY THIS WK ZENOBIA NEEDED THERAPY HOME MEDS D/W ATTENDING WILL FOLLOW ANTONIA BECERRA MD Nov 24, 2021 10:42
[2021-11-24 11:00] VITALS: BP 149/87
--- NOTE | 2021-11-24 11:34 | NUR ---
SW following. Chart reviewed, awaiting surgery. SW will continue to follow.
[2021-11-24] MEDS ORDERED: IV NORMAL SALINE 1000ML BAG 1,000 ML IV PRN (12:15)
[2021-11-24] MEDS ORDERED: DIALYSIS PATIENT. MC PRN (12:15)
[2021-11-24] MEDS ORDERED: fentaNYL PF VIAL 100 MCG/2 ML VIAL IM ONE (12:15)
[2021-11-24] MEDS ORDERED: ALBUMIN HUMAN 25% 200 ML IV PRN (12:15)
[2021-11-24] MEDS: oxyCODONE IR 5 MG TABLET PO PRN (12:27)
[2021-11-24] MEDS ORDERED: fentaNYL PF VIAL 100 MCG/2 ML VIAL IVP ONE (12:30)
[2021-11-24] MEDS: SIMETHICONE 80 MG TAB.CHEW PO PRN (12:31)
--- NOTE | 2021-11-24 16:30 | NUR ---
returned from dialysis. they removed 1l of fluid. medicated for complaints of pain with Percocet, gabapentin and Flexeril. she was given hr miralax, senna and bisacodyl 20mg as ordered by Dr. Mohamud. no results at this time.
[2021-11-24] MEDS: GABAPENTIN 300 MG CAPSULE. PO SCH (16:36)
[2021-11-24] MEDS: POLYETHYLENE GLYCOL 3350 17 GM PACKET. PO PRN (16:37)
[2021-11-24] MEDS: SENNOSIDES/DOCUSATE 8.6/50MG TABLET. PO PRN (16:39)
[2021-11-24 19:00] VITALS: BP 98/56
[2021-11-24 23:00] VITALS: BP 127/72
[2021-11-25] MEDS: oxyCODONE/APAP 10/325 1 TAB TABLET PO PRN ×3 (01:40→13:19)
[2021-11-25 03:00] VITALS: BP 127/80
[2021-11-25] MEDS: PANTOPRAZOLE 40 MG TABLET.DR. PO SCH (06:00)
[2021-11-25] MEDS: HEPARIN for SUB-Q USE 5,000 UNIT/ML VIAL. SQ SCH (06:03)
[2021-11-25 07:00] VITALS: BP 113/70
--- NOTE | 2021-11-25 08:23 | PDOC ---
PROGRESS NOTES Date of Service DATE: 11/25/21 TIME: 08:19 Subjective Subjective Patient was resting in bed with the left lower extremity elevated with toes above the heart. Patient relates upwards to 8 out of 10 achy pain circumferential to the ankle. But she has been compliant with keeping the pressure weight off the foot. Patient continues to relate epigastric discomfort. She had minimal BM since admission but denies any lower GI di scomfort. Otherwise, denies any constitutional symptoms or calf pain. Objective Objective Vital Signs Date Time Temp Pulse Resp B/P (MAP) Pulse Ox O2 Delivery O2 Flow Rate FiO2 11/25/21 03:00 98.2 82 16 127/80 (96) 99 Room Air 98.2 11/25/21 02:06 3.0 Intake and Output 11/25/21 06:59 Intake Total 790 ml Balance 790 ml Intake Oral 790 ml # Voids 4 Physical Exam Physical Exam Left lower extremity exam: VASC: -Digits are warm to touch - Capillary refill <5 seconds -The Mcdaniel compression splint is clean, dry and intact NEURO: - Light touch sensation is slightly diminished to the digits 1 through 5, this is her baseline DERM: -The Mcdaniel compression splint is clean, dry and intact -Anterior window was created on the Mcdaniel compression splint. The anterior ankle is less swollen with visible skin line. There is no fracture blister, skin tenting appreciated. MUSC: - Able to move digits x 5 - Muscle strength deferred - Calf is soft and nontender Assessment Assessment Problems Medical Problems: (1) Closed left ankle fracture Status: Acute (2) Dislocation of ankle, left, closed Status: Acute (3) End stage renal disease on dialysis Status: Acute Plan Plan of Care Left unstable and displaced trimalleolar ankle fracture Diabetes with PAD End-stage renal disease, 3 x/week HD History of gastric bypass -Patient is high risk for soft tissue infection, delayed union nonunion given the comorbidities. -Hold heparin doses for today, resume on November 27 in preparation for surgery tomorrow -N.p.o. after midnight -Keep the splint and dressing clean, dry and intact -Calcium and vitamin D are within normal limit. However, continue with 5000 international units of vitamin D3 daily -Weightbearing restriction: Strict nonweightbearing to the left lower extremity -Physical therapy: Eval and treat for upper body mobility, please make sure the left lower extremity is elevated with toes above the heart and remains nonweightbearing while protected in the splint -Nurse communication: - Elevate the surgical foot with at least two pillows behind the calf so that the heel is floated with toes elevated to the level of the heart, per tolerance 45 min/h -Ice behind the knee 15 mins/h for pain as needed Dispo: N.p.o. after midnight, hold heparin doses for today. Surgery on Wednesday. Afterwards, patient will benefit from SNF placement and continued PT. Comment Review of Relevant I have reviewed the following items meagan (where applicable) has been applied. Labs Laboratory Tests Test 11/23/21 12:09 11/23/21 16:50 11/23/21 21:02 11/24/21 08:03 Glucose (Fingerstick) 218 mg/dL (70-99) 160 mg/dL (70-99) 144 mg/dL (70-99) 102 mg/dL (70-99) Test 11/24/21 11:17 11/24/21 17:16 11/24/21 20:56 11/25/21 07:42 Glucose (Fingerstick) 136 mg/dL (70-99) 170 mg/dL (70-99) 135 mg/dL (70-99) 174 mg/dL (70-99) Laboratory Tests Test 11/24/21 11:17 11/24/21 17:16 11/24/21 20:56 11/25/21 07:42 Glucose (Fingerstick) 136 mg/dL (70-99) 170 mg/dL (70-99) 135 mg/dL (70-99) 174 mg/dL (70-99) Medications Current Medications Fentanyl Citrate (Fentanyl 2ml Vial) 100 mcg 1X ONCE IVP Last administered on 11/19/21at 07:50; Start 11/19/21 at 07:45; Stop 11/19/21 at 07:46; Status DC Ondansetron HCl (Zofran) 4 mg 1X ONCE IVP Last administered on 11/19/21at 07:49; Start 11/19/21 at 07:45; Stop 11/19/21 at 07:46; Status DC Sodium Chloride 1,000 ml @ 75 mls/hr 1X ONCE IV ; Start 11/19/21 at 08:30; Stop 11/19/21 at 21:49; Status DC Propofol (Diprivan) 100 mg 1X ONCE IV Last administered on 11/19/21at 09:39; Start 11/19/21 at 08:30; Stop 11/19/21 at 08:31; Status DC Ondansetron HCl (Zofran) 4 mg PRN Q8HRS PRN IVP NAUSEA/VOMITING Last administered on 11/20/21at 03:29; Start 11/19/21 at 12:00; Stop 11/20/21 at 11:59; Status DC Morphine Sulfate (Morphine Sulfate) 4 mg PRN Q2HR PRN IVP PAIN Last administered on 11/20/21at 05:48; Start 11/19/21 at 12:00; Stop 11/20/21 at 11:59; Status DC Vitamin D (Vitamin D3) 5,000 unit DAILY PO Last administered on 11/24/21at 08:16; Start 11/19/21 at 12:30 Fentanyl Citrate (Fentanyl 2ml Vial) 25 mcg PRN Q5MIN PRN IVP MILD PAIN 1-3; Start 11/20/21 at 06:00; Stop 11/21/21 at 05:59; Status DC Fentanyl Citrate (Fentanyl 2ml Vial) 50 mcg PRN Q5MIN PRN IVP MODERATE PAIN 4- 6; Start 11/20/21 at 06:00; Stop 11/21/21 at 05:59; Status DC Morphine Sulfate (Morphine Sulfate) 1 mg PRN Q10MIN PRN IVP SEVERE PAIN 7-10; Start 11/20/21 at 06:00; Stop 11/19/21 at 22:02; Status DC Ringer's Solution 1,000 ml @ 30 mls/hr Q24H IV ; Start 11/20/21 at 06:00; Stop 11/20/21 at 17:59; Status DC Hydromorphone HCl (Dilaudid) 0.5 mg PRN Q10MIN PRN IVP SEVERE PAIN 7-10, 2nd CHOICE; Start 11/20/21 at 06:00; Stop 11/19/21 at 22:02; Status DC Prochlorperazine Edisylate (Compazine) 5 mg PACU PRN PRN IVP NAUSEA, MRX1; Start 11/20/21 at 06:00; Stop 11/21/21 at 05:59; Status DC Sodium Chloride 1,000 ml @ 1,000 mls/hr Q1H PRN IV hypotension; Start 11/19/21 at 13:50; Stop 11/19/21 at 19:49; Status DC Sodium Chloride 1,000 ml @ 400 mls/hr Q2H30M PRN IV PATENCY; Start 11/19/21 at 1 3:50; Stop 11/20/21 at 01:49; Status DC Info (PHARMACY MONITORING -- do not chart) 1 each PRN DAILY PRN MC SEE COMMENTS; Start 11/19/21 at 15:45; Status UNV Info (PHARMACY MONITORING -- do not chart) 1 each PRN DAILY PRN MC SEE COMMENTS; Start 11/19/21 at 15:45; Stop 11/22/21 at 14:26; Status DC Amlodipine Besylate (Norvasc) 10 mg HS PO ; Start 11/19/21 at 21:00; Stop 11/19/21 at 22:02; Status DC Aspirin (Ecotrin) 162 mg DAILY PO ; Start 11/20/21 at 09:00; Stop 11/19/21 at 22:02; Status DC Clonidine HCl (Catapres) 0.1 mg BID PO ; Start 11/19/21 at 21:00; Stop 11/19/21 at 22:02; Status DC Cyclobenzaprine HCl (Flexeril) 10 mg PRN DAILY PRN PO PAIN Last administered on 11/24/21at 16:39; Start 11/19/21 at 17:00 Diphenhydramine HCl (Benadryl) 25 mg PRN Q6HRS PRN PO ITCHING; Start 11/19/21 at 17:00 Furosemide (Lasix) 40 mg DAILY PO Last administered on 11/24/21at 08:18; Start 11/20/21 at 09:00 Hydralazine HCl (Apresoline) 50 mg BID PO ; Start 11/19/21 at 21:00; Stop 11/19/21 at 22:02; Status DC Linagliptin (Tradjenta) 5 mg DAILY PO ; Start 11/20/21 at 09:00; Stop 11/19/21 at 22:02; Status DC Oxycodone/ Acetaminophen (Percocet 5/325) 1 tab PRN Q6HRS PRN PO MODERATE- SEVERE PAIN Last administered on 11/19/21at 17:13; Start 11/19/21 at 17:00; Stop 11/19/21 at 22:07; Status DC Ranolazine (Ranexa) 500 mg BID PO Last administered on 11/24/21at 21:19; Start 11/19/21 at 21:00 Simvastatin (Zocor) 20 mg HS PO ; Start 11/19/21 at 21:00; Stop 11/19/21 at 22:02; Status DC Non-Formulary Medication (Zabrina Root ) 550 mg DAILY PO ; Start 11/20/21 at 09:00; Status UNV Insulin Glargine (Lantus Syringe) 25 unit Q12HR SQ Last administered on 11/24/21at 21:27; Start 11/19/21 at 21:00 Insulin Human Lispro (HumaLOG) 25 units BIDWMEALS SQ ; Start 11/19/21 at 18:00; Stop 11/19/21 at 22:02; Status DC Vitamin B Complex (Folbic Tablet) 1 tab DAILY PO Last administered on 11/24/21at 08:16; Start 11/20/21 at 09:00 Labetalol HCl (Trandate) 300 mg TID PO Last administered on 11/24/21at 21:20; Start 11/19/21 at 21:00 Famotidine (Pepcid) 20 mg Q48H PO Last administered on 11/21/21at 20:23; Start 11/19/21 at 21:00; Stop 11/22/21 at 18:35; Status DC Insulin Human Lispro (HumaLOG) 0-5 UNITS TIDWMEALS SQ ; Start 11/19/21 at 17:00; Stop 11/19/21 at 22:07; Status DC Dextrose (Dextrose 50%-Water Syringe) 12.5 gm PRN Q15MIN PRN IV SEE COMMENTS; Start 11/19/21 at 17:00 Oxycodone/ Acetaminophen (Percocet 5/325) 1 tab PRN Q4HRS PRN PO MILD/MOD PAIN; Start 11/19/21 at 22:15; Stop 11/20/21 at 08:05; Status DC Oxycodone/ Acetaminophen (Percocet 10/325) 1 tab PRN Q4HRS PRN PO SEVERE PAIN 7-10 Last administered on 11/25/21at 01:40; Start 11/19/21 at 22:15 Insulin Human Lispro (HumaLOG) 0-7 UNITS TIDWMEALS SQ Last administered on 11/24/21at 17:55; Start 11/20/21 at 08:00 Losartan Potassium (Cozaar) 100 mg DAILY PO Last administered on 11/24/21at 08:17; Start 11/20/21 at 09:00 Acetaminophen (Tylenol) 650 mg QID PO Last administered on 11/20/21at 13:29; Start 11/20/21 at 09:00; Stop 11/20/21 at 18:18; Status DC Gabapentin (Neurontin) 100 mg TID PO Last administered on 11/21/21at 08:28; Start 11/20/21 at 09:00; Stop 11/21/21 at 13:07; Status DC Sodium Chloride 1,000 ml @ 1,000 mls/hr Q1H PRN IV hypotension; Start 11/20/21 at 08:45; Stop 11/20/21 at 14:44; Status DC Sodium Chloride 1,000 ml @ 400 mls/hr Q2H30M PRN IV PATENCY; Start 11/20/21 at 08:45; Stop 11/20/21 at 20:44; Status DC Info (PHARMACY MONITORING -- do not chart) 1 each PRN DAILY PRN MC SEE COMMENTS; Start 11/20/21 at 08:45; Status UNV Info (PHARMACY MONITORING -- do not chart) 1 each PRN DAILY PRN MC SEE COMMENTS; Start 11/20/21 at 08:45; Stop 11/22/21 at 14:26; Status DC Enoxaparin Sodium (Lovenox 30mg Syringe) 30 mg Q24H SQ ; Start 11/20/21 at 09:15; Status UNV Heparin Sodium (Porcine) (Heparin Sodium) 5,000 unit Q8HRS SQ ; Start 11/20/21 at 09:30; Stop 11/20/21 at 09:49; Status DC Heparin Sodium (Porcine) (Heparin Sodium) 5,000 unit Q8HRS SQ Last administered on 11/25/21at 06:03; Start 11/20/21 at 14:00 Propofol (Diprivan) 200 mg STK-MED ONCE IV ; Start 11/20/21 at 17:22; Stop 11/20/21 at 17:22; Status DC Lidocaine HCl (Lidocaine Pf 2% Vial) 5 ml STK-MED ONCE .ROUTE ; Start 11/20/21 at 17:22; Stop 11/20/21 at 17:22; Status DC Ondansetron HCl (Zofran) 4 mg STK-MED ONCE .ROUTE ; Start 11/20/21 at 17:22; Stop 11/20/21 at 17:22; Status DC Fentanyl Citrate (Fentanyl 2ml Vial) 100 mcg STK-MED ONCE .ROUTE ; Start 11/20/21 at 17:30; Stop 11/20/21 at 17:31; Status DC Midazolam HCl (Versed) 2 mg STK-MED ONCE .ROUTE ; Start 11/20/21 at 17:31; Stop 11/20/21 at 17:31; Status DC Lidocaine HCl (Lidocaine 1% 20ml Vial) 20 ml STK-MED ONCE .ROUTE ; Start 11/20/21 at 17:37; Stop 11/20/21 at 17:37; Status DC Acetaminophen (Tylenol) 650 mg TID PO Last administered on 11/24/21at 21:21; Start 11/20/21 at 21:00 Pantoprazole Sodium (Protonix) 40 mg DAILYAC PO Last administered on 11/25/21at 06:00; Start 11/21/21 at 09:45 Sodium Chloride 1,000 ml @ 1,000 mls/hr Q1H PRN IV hypotension; Start 11/21/21 at 10:45; Stop 11/21/21 at 16:44; Status DC Albumin Human 200 ml @ 200 mls/hr 1X PRN PRN IV Hypotension; Start 11/21/21 at 10:45; Stop 11/21/21 at 16:44; Status DC Sodium Chloride 1,000 ml @ 400 mls/hr Q2H30M PRN IV PATENCY; Start 11/21/21 at 10:45; Stop 11/21/21 at 22:44; Status DC Info (PHARMACY MONITORING -- do not chart) 1 each PRN DAILY PRN MC SEE COMMENTS; Start 11/21/21 at 10:45; Status UNV Info (PHARMACY MONITORING -- do not chart) 1 each PRN DAILY PRN MC SEE COMMENTS; Start 11/21/21 at 10:45; Stop 11/24/21 at 14:08; Status DC Gabapentin (Neurontin) 300 mg QMWF PO Last administered on 11/24/21at 16:36; Start 11/21/21 at 16:00 Polyethylene Glycol (miraLAX PACKET) 17 gm PRN BID PRN PO CONSTIPATION, 1ST CHOICE Last administered on 11/24/21at 16:37; Start 11/22/21 at 10:45 Senna/Docusate Sodium (Senna Plus) 1 tab PRN BID PRN PO CONSTIPATION, 2ND CHOICE Last administered on 11/24/21at 16:39; Start 11/22/21 at 10:45 Famotidine (Pepcid) 20 mg PRN BID PRN PO GAS / BLOATING Last administered on 11/24/21at 08:10; Start 11/22/21 at 18:45 Calcium Carbonate/ Glycine (Tums) 500 mg PRN AFTMEALHC PRN PO INDIGESTION; Start 11/22/21 at 18:45 Simethicone (Gas-X) 80 mg PRN AFTMEALHC PRN PO GAS / BLOATING Last administered on 11/24/21at 12:31; Start 11/22/21 at 18:45 Bisacodyl (Dulcolax Supp) 10 mg PRN DAILY PRN MI CONSTIPATION Last administered on 11/24/21at 16:37; Start 11/23/21 at 10:30 Bisacodyl (Dulcolax Tab) 5 mg PRN DAILY PRN PO CONSTIPATION, 3rd choice; Start 11/23/21 at 10:30 Sodium Chloride 1,000 ml @ 1,000 mls/hr Q1H PRN IV hypotension; Start 11/24/21 at 12:15; Stop 11/24/21 at 18:14; Status DC Albumin Human 200 ml @ 200 mls/hr 1X PRN PRN IV Hypotension; Start 11/24/21 at 12:15; Stop 11/24/21 at 18:14; Status DC Info (PHARMACY MONITORING -- do not chart) 1 each PRN DAILY PRN MC SEE COMMENTS; Start 11/24/21 at 12:15 Fentanyl Citrate (Fentanyl 2ml Vial) 12.5 mcg 1X ONCE IM ; Start 11/24/21 at 12:15; Stop 11/24/21 at 12:26; Status DC Oxycodone HCl (Roxicodone) 5 mg PRN Q3HRS PRN PO MODERATE PAIN Last administered on 11/24/21at 12:27; Start 11/24/21 at 12:15 Fentanyl Citrate (Fentanyl 2ml Vial) 12.5 mcg 1X ONCE IVP Last administered on 11/24/21at 12:32; Start 11/24/21 at 12:30; Stop 11/24/21 at 12:31; Status DC Active Scripts Active Humalog (Insulin Lispro) 100 Unit/1 Ml Insuln.pen 25 Units SQ BIDWMEALS 30 Days Lantus Solostar (Insulin Glargine,Hum.rec.anlog) 100 Unit/1 Ml Insuln.pen 25 Units SQ Q12HR 30 Days Percocet 5-325 Mg Tablet (Oxycodone/Acetaminophen) 1 Each Tablet 1 Tab PO PRN Q6HRS PRN 5 Days Ranexa (Ranolazine) 500 Mg Tab.er.12h 500 Mg PO BID Catapres (Clonidine Hcl) 0.1 Mg Tablet 0.1 Mg PO BID Reported Losartan Potassium 100 Mg Tablet 1 Tab PO DAILY Atorvastatin Calcium 40 Mg Tablet 1 Tab PO QHS Benadryl (Diphenhydramine Hcl) 25 Mg Capsule 1 Cap PO PRN Q6HRS Fusion Plus Capsule (Iron,Fum&Ps/Fa/Vit B&C#18/L.ca) 1 Each Capsule 1 Each PO DAILY Zabrina Root 550 Mg Capsule 550 Mg PO DAILY Cyclobenzaprine Hcl 10 Mg Tablet 1 Tab PO PRN DAILY PRN Labetalol Hcl 300 Mg Tablet 1 Tab PO TID Nitrostat (Nitroglycerin) 0.4 Mg Tab.subl Furosemide 40 Mg Tablet 40 Mg PO DAILY Ranitidine Hcl 150 Mg Capsule 300 Mg PO DAILY Vitals/I & O Vital Sign - Last 24 Hours 11/24/21 11/24/21 11/24/21 11/24/21 11:00 11:45 16:36 16:36 Temp 98.0 98.0 Pulse 82 63 Resp 16 20 20 B/P (MAP) 149/87 (107) 162/69 Pulse Ox 100 O2 Delivery Room Air 11/24/21 11/24/21 11/24/21 11/24/21 17:15 19:00 20:30 21:19 Temp 98.5 98.5 Pulse 91 83 Resp 18 16 B/P (MAP) 98/56 (70) 112/73 Pulse Ox 100 98 O2 Delivery Room Air Room Air Room Air 11/24/21 11/24/21 11/25/21 11/25/21 21:20 23:00 01:40 02:06 Temp 98.6 98.6 Pulse 83 85 Resp 16 20 B/P (MAP) 112/73 127/72 (90) Pulse Ox 99 99 O2 Delivery Room Air Room Air Nasal Cannula O2 Flow Rate 2.0 3.0 11/25/21 03:00 Temp 98.2 98.2 Pulse 82 Resp 16 B/P (MAP) 127/80 (96) Pulse Ox 99 O2 Delivery Room Air Intake and Output 11/24/21 11/24/21 11/25/21 14:59 22:59 06:59 Intake Total 480 ml 310 ml Balance 480 ml 310 ml Justifications for Admission Other Justification HELEN LARIOS DPM Nov 25, 2021 08:23
[2021-11-25] MEDS: RANOLAZINE 500 MG TAB.ER.12H PO SCH ×2 (08:50→20:27)
[2021-11-25] MEDS: FAMOTIDINE 20 MG TABLET. PO PRN (08:50)
[2021-11-25] MEDS: FUROSEMIDE 40 MG TABLET. PO SCH (08:50)
[2021-11-25] MEDS: LABETALOL HCL 100 MG TABLET. PO SCH ×3 (08:51→20:27)
[2021-11-25] MEDS: SENNOSIDES/DOCUSATE 8.6/50MG TABLET. PO PRN (08:52)
[2021-11-25] MEDS: LOSARTAN POTASSIUM 50 MG TABLET. PO SCH (08:53)
[2021-11-25] MEDS: CHOLECALCIFEROL (VITAMIN D3) 5,000 UNIT CAPSULE PO SCH (08:53)
[2021-11-25] MEDS: VITAMIN B12,B9,B6 COMPLEX 1 TABLET. PO SCH (08:53)
[2021-11-25] MEDS: INSULIN GLARGINE SYRINGE. SQ SCH ×2 (09:00→21:00)
[2021-11-25] MEDS: ACETAMINOPHEN 325 MG TABLET. PO SCH ×3 (09:00→20:27)
[2021-11-25] MEDS: INSULIN LISPRO 300 UNITS/3 ML VIAL. SQ SCH ×3 (09:03→17:28)
--- NOTE | 2021-11-25 09:24 | PDOC ---
PROGRESS NOTES Date of Service: DATE: 11/25/21 TIME: 09:22 Subjective Subjective feels ok Objective Objective Vital Signs Date Time Temp Pulse Resp B/P (MAP) Pulse Ox O2 Delivery O2 Flow Rate FiO2 11/25/21 08:53 71 113/70 11/25/21 08:52 99 Room Air 3.0 11/25/21 07:00 98.2 16 98.2 Intake and Output 11/25/21 07:00 Intake Total 790 ml Balance 790 ml Intake Oral 790 ml # Voids 4 Physical Exam Abdomen: Normal bowel sounds, Soft, No tenderness Heart: Regular rate Extremities: No cyanosis General: Alert, Oriented X3, Cooperative, No acute distress HEENT: Atraumatic, PERRLA Lungs: Clear to auscultation MUSCULOSKELETAL: Other (LEFT ANKLE PAIN) Neuro: Normal speech Psych/Mental Status: Mental status NL, Mood NL Skin: No breakdown COMMENT half cast left leg Diagnosis Problem List Problems Medical Problems: (1) Closed left ankle fracture Status: Acute (2) Dislocation of ankle, left, closed Status: Acute (3) End stage renal disease on dialysis Status: Acute Assessment Assessment Problems Medical Problems: (1) Closed left ankle fracture Status: Acute (2) Dislocation of ankle, left, closed Status: Acute (3) End stage renal disease on dialysis Status: Acute FINAL IMPRESSION: 1. Left ankle fracture. 2. Mechanical fall, slipped and fell from the stairs. 3. End-stage renal disease, on dialysis Wednesday, Wednesday and Wednesday. 4. Insulin-dependent diabetes. 5. Obesity, status post recent gastric bypass surgery 1 year ago. 6. Coronary artery disease. 7. Hypertension. 8. Hyperlipidemia. PLAN: surgery tomorrow d/ra heparin for surgery dialysis yesterday dulcolax prn, spoke with RN miralax+senna for constipation rest elevation pain control better Plan Plan of Care Problems Medical Problems: (1) Closed left ankle fracture Status: Acute (2) Dislocation of ankle, left, closed Status: Acute (3) End stage renal disease on dialysis Status: Acute Comment Review of Relevant I have reviewed the following items meagan (where applicable) has been applied. Labs Laboratory Tests Test 11/24/21 11:17 11/24/21 17:16 11/24/21 20:56 11/25/21 07:42 Glucose (Fingerstick) 136 mg/dL (70-99) 170 mg/dL (70-99) 135 mg/dL (70-99) 174 mg/dL (70-99) Medications Current Medications Albumin Human 200 ml @ 200 mls/hr 1X PRN PRN IV Hypotension; Start 11/24/21 at 12:15; Stop 11/24/21 at 18:14; Status DC Fentanyl Citrate (Fentanyl 2ml Vial) 12.5 mcg 1X ONCE IM ; Start 11/24/21 at 12:15; Stop 11/24/21 at 12:26; Status DC Fentanyl Citrate (Fentanyl 2ml Vial) 12.5 mcg 1X ONCE IVP Last administered on 11/24/21at 12:32; Start 11/24/21 at 12:30; Stop 11/24/21 at 12:31; Status DC Heparin Sodium (Porcine) (Heparin Sodium) 5,000 unit Q8HRS SQ ; Start 11/27/21 at 06:00 Info (PHARMACY MONITORING -- do not chart) 1 each PRN DAILY PRN MC SEE COMMENTS; Start 11/24/21 at 12:15 Oxycodone HCl (Roxicodone) 5 mg PRN Q3HRS PRN PO MODERATE PAIN Last administered on 11/24/21at 12:27; Start 11/24/21 at 12:15 Sodium Chloride 1,000 ml @ 1,000 mls/hr Q1H PRN IV hypotension; Start 11/24/21 at 12:15; Stop 11/24/21 at 18:14; Status DC Vitals/I & O Vital Sign - Last 24 Hours 11/24/21 11/24/21 11/24/21 11/24/21 11:00 11:45 16:36 16:36 Temp 98.0 98.0 Pulse 82 63 Resp 16 20 20 B/P (MAP) 149/87 (107) 162/69 Pulse Ox 100 O2 Delivery Room Air 11/24/21 11/24/21 11/24/21 11/24/21 17:15 19:00 20:30 21:19 Temp 98.5 98.5 Pulse 91 83 Resp 18 16 B/P (MAP) 98/56 (70) 112/73 Pulse Ox 100 98 O2 Delivery Room Air Room Air Room Air 11/24/21 11/24/21 11/25/21 11/25/21 21:20 23:00 01:40 02:06 Temp 98.6 98.6 Pulse 83 85 Resp 16 20 B/P (MAP) 112/73 127/72 (90) Pulse Ox 99 99 O2 Delivery Room Air Room Air Nasal Cannula O2 Flow Rate 2.0 3.0 11/25/21 11/25/21 11/25/21 11/25/21 03:00 07:00 08:50 08:51 Temp 98.2 98.2 98.2 98.2 Pulse 82 71 71 71 Resp 16 16 B/P (MAP) 127/80 (96) 113/70 (84) 113/70 113/70 Pulse Ox 99 99 O2 Delivery Room Air Room Air 11/25/21 11/25/21 08:52 08:53 Pulse 71 B/P (MAP) 113/70 Pulse Ox 99 O2 Delivery Room Air O2 Flow Rate 3.0 Intake and Output 11/24/21 11/24/21 11/25/21 15:00 23:00 07:00 Intake Total 480 ml 310 ml Balance 480 ml 310 ml Justifications for Admission Other Justification COLTEN AVILA MD Nov 25, 2021 09:24
--- NOTE | 2021-11-25 10:50 | PDOC ---
Renal-Progress Notes Subjective Notes Notes LESS PAIN TODAY History of Present Illness Hx of present illness STABLE Vitals Vitals Vital Signs Date Time Temp Pulse Resp B/P (MAP) Pulse Ox O2 Delivery O2 Flow Rate FiO2 11/25/21 09:22 99 Nasal Cannula 3.0 11/25/21 08:53 71 113/70 11/25/21 07:00 98.2 16 98.2 Weight Weight [ ] I.O. Intake and Output Intake and Output 11/25/21 07:00 Intake Total 790 ml Balance 790 ml Intake Oral 790 ml # Voids 4 Labs Labs Laboratory Tests Test 11/24/21 11:17 11/24/21 17:16 11/24/21 20:56 11/25/21 07:42 Glucose (Fingerstick) 136 mg/dL (70-99) 170 mg/dL (70-99) 135 mg/dL (70-99) 174 mg/dL (70-99) Review of Systems Constitutional: yes: alert Eyes: Yes: no symptom reported Pulmonary: Yes no symptom reported Gastrointestional: Yes: no symptom reported Genitourinary: Yes: no symptom reported Musculoskeletal: Yes: foot pain Skin: Yes no symptom reported Psychiatric/Neurological: Yes: no symptom reported Endocrine: Yes: no symptom reported Physical Exam General Appearance: no apparent distress Skin: warm Respiratory: bilateral CTA Heart: S1S2 Abdomen: soft, bowel sounds present Genitourinary: bladder flat Extremities: pulses present Neurology: alert Assessment Assessment ESRD ANEMIA DM II HTN L ANKLE FX PLAN HD TOMORROW SURGERY TOMORROW ZENOBIA NEEDED THERAPY WILL FOLLOW ANTONIA BECERRA MD Nov 25, 2021 10:50
[2021-11-25 11:00] VITALS: BP 118/68
[2021-11-25 15:00] VITALS: BP 111/65
[2021-11-25 19:00] VITALS: BP 125/76
[2021-11-25 23:00] VITALS: BP 135/85
[2021-11-26] VITALS (10 sets, daily range): BP systolic 105–142; BP diastolic 52–84
[2021-11-26] MEDS: CYCLOBENZAPRINE 10 MG TABLET. PO PRN ×2 (00:42→21:22)
[2021-11-26] MEDS: oxyCODONE/APAP 10/325 1 TAB TABLET PO PRN ×2 (00:43→21:21)
[2021-11-26 05:36] LABS: HEMATOCRIT 28.8 % (36.0-47.0); HEMOGLOBIN 9.9 g/dL (12.0-15.5); RED BLOOD COUNT 3.48 x10^6/uL (3.50-5.40); RED CELL DISTRIBUTION WIDTH 13.3 % (11.5-14.5)
[2021-11-26 05:45] LABS: CREATININE 7.6 mg/dL (0.6-1.0); GFR 7.1; POTASSIUM 4.7 mmol/L (3.5-5.1)
[2021-11-26] MEDS ORDERED: fentaNYL PF VIAL 100 MCG/2 ML VIAL IVP PRN ×2 (06:00)
[2021-11-26] MEDS ORDERED: PROCHLORPERAZINE 10 MG/2 ML VIAL. IVP PRN (06:00)
[2021-11-26] MEDS ORDERED: HYDROmorphone 2 MG/ML INJ. IVP PRN (06:00)
[2021-11-26] MEDS ORDERED: MORPHINE SULFATE 2 MG/ML INJ. IVP PRN (06:00)
[2021-11-26] MEDS ORDERED: IV RINGERS,LACTATED 1000ML 1,000 ML IV SCH (06:00)
[2021-11-26] MEDS: IV NORMAL SALINE 1000ML BAG 1,000 ML IV SCH (06:30)
[2021-11-26] MEDS ORDERED: ROCURONIUM 100 MG/10 ML VIAL. ONE (06:55)
[2021-11-26] MEDS ORDERED: ONDANSETRON PF 4 MG/2 ML VIAL. ONE (06:55)
[2021-11-26] MEDS ORDERED: fentaNYL PF VIAL 100 MCG/2 ML VIAL ONE ×2 (06:55→08:20)
[2021-11-26] MEDS ORDERED: GLYCOPYRROLATE 1 MG/5 ML VIAL. ONE (06:55)
[2021-11-26] MEDS ORDERED: LIDOCAINE 2% PF 5 ML VIAL. ONE (06:55)
[2021-11-26] MEDS ORDERED: DEXAMETHASONE SOD PHOS 4 MG/ML VIAL ONE (06:55)
[2021-11-26] MEDS ORDERED: SUCCINYLCHOLINE 200 MG/10 ML VIAL. ONE (06:55)
[2021-11-26] MEDS ORDERED: PROPOFOL 10 MG/ML (20ML) VIAL. IV ONE (06:55)
[2021-11-26] MEDS ORDERED: BUPIVACAINE MPF 0.25% 30 ML VIAL. ONE (06:55)
[2021-11-26] MEDS ORDERED: NEOSTIGMINE METHYLSULFATE 5 MG/5 ML SYRINGE. ONE (06:56)
[2021-11-26] MEDS ORDERED: VANCOMYCIN 1 GM VIAL. ONE (06:56)
[2021-11-26] MEDS ORDERED: MIDAZOLAM HCL/PF 2 MG/2 ML VIAL. ONE (06:56)
[2021-11-26] MEDS ORDERED: ROPIVacaine 0.5% PF 20 ML VIAL. ONE (07:13)
[2021-11-26] MEDS ORDERED: ceFAZolin 2GM PREMIX 2 GM/50 ML BAG IV ONE (07:20)
[2021-11-26] MEDS: PANTOPRAZOLE 40 MG TABLET.DR. PO SCH (07:30)
[2021-11-26 07:36] LABS: U PREG PATIENT NEGATIVE (NEG)
[2021-11-26] MEDS: INSULIN LISPRO 300 UNITS/3 ML VIAL. SQ SCH ×3 (08:00→17:00)
[2021-11-26] MEDS: FUROSEMIDE 40 MG TABLET. PO SCH (09:00)
[2021-11-26] MEDS: INSULIN GLARGINE SYRINGE. SQ SCH ×2 (09:00→21:27)
[2021-11-26] MEDS: LOSARTAN POTASSIUM 50 MG TABLET. PO SCH (09:00)
[2021-11-26] MEDS: CHOLECALCIFEROL (VITAMIN D3) 5,000 UNIT CAPSULE PO SCH (09:00)
[2021-11-26] MEDS: VITAMIN B12,B9,B6 COMPLEX 1 TABLET. PO SCH (09:00)
[2021-11-26] MEDS: LABETALOL HCL 100 MG TABLET. PO SCH ×3 (09:00→21:22)
[2021-11-26] MEDS: ACETAMINOPHEN 325 MG TABLET. PO SCH ×3 (09:00→21:21)
[2021-11-26] MEDS: RANOLAZINE 500 MG TAB.ER.12H PO SCH ×2 (09:00→21:22)
--- NOTE | 2021-11-26 09:11 | PDOC ---
Provider Note Date of Service: DATE: 11/26/21 TIME: 09:09 Provider Note Pt went for surgery on ankle , reviewed labs. dialysis later today or tomorrow Justifications for Admission Other Justification COLTEN AVILA MD Nov 26, 2021 09:11
--- NOTE | 2021-11-26 09:53 | NUR ---
SW following. Discussed with RN, pt from home, room air, NPO. Pt having surgery this morning. Likely will have therapy after surgery. SW will continue to follow.
--- NOTE | 2021-11-26 10:21 | PDOC4 ---
OPERATIVE NOTE Date: Date: Nov 26, 2021 Pre-Op Diagnosis: Left ankle trimalleolar fracture, unstable Diabetes, end-stage renal disease, on dialysis Post-Op Diagnosis: Same as above Procedure Performed: Left ankle bimalleolar fracture open reduction and internal fixation with syndesmotic stabilization Surgeon: Helen Larios DPM Anesthesia Type: General Popliteal and adductor canal block prior to surgery, left Blood Loss: 5 cc Findings: Unstable trimalleolar ankle fracture. the posterior fragment is less than 25% intra-articular. After fibular fixation, the posterior malleolus fracture spontaneously reduced with adequate orthodox of the tibial plafond. Syndesmotic stress test was insignificant however given the high risk factors such as uncontrolled diabetes, end-stage renal disease, pre-fibula to tibia construct was achieved with 3 syndesmotic screws. Complications: None Operative Note: Following left popliteal and adductor canal regional block, patient was brought into the operating room and placed on an operating table in a supine position, under mild conscious sedation. Following a formal timeout, patient's identity, procedure and procedure sites were confirmed. Following IV prophylactic antibiotics, general anesthesia, a well-padded thigh tourniquet was placed to the left lower extremity. Then the left lower extremity was then scrubbed, prepped and draped using standard aseptic techniques. An Esmarch was used to exsanguinate the left foot and ankle and tourniquet was inflated to 250 millimercury. The attention was directed to the left ankle where a limited lateral approach was performed over the syndesmotic joint. Great care was taken to identify and retract all the neurovascular bundles including the superficial peroneal nerve. All bleeders were cauterized as necessary. Using sharp and blunt dissection, incision was taken deep to periosteum which was incised. Intraoperatively, we found an oblique fibula fracture extending posteriorly with a small butterfly fragment. The hematoma was evacuated and all interposed periosteum was removed from the fracture site. The wound was irrigated with copious saline then. At t his time, the fracture was reduced with 2 bone clamps. Using standard AO technique, the fracture was stabilized with 3.5 millimeter screws from A to P. Intraoperative x-ray noted adequate fibular length orthodox with restored dime sign. Then a standard straight fibular plate was placed to the lateral fibula. At the proximal distal margins, a supra periosteum tunnel was created with a bone elevator as central lateral aspect of the fibula. Satisfactory fibula plate placement was confirmed under x-ray. Then the plate was temporarily affixed with 2 olive wires. Intraoperative x-ray noted adequate position allowing 3 syndesmotic screws and adequate proximal fracture bridging. Then the plate was further affixed to the fibula with two 18 mm 3.5 millimeter screws at the provisional syndesmotic screw sites. Then 2 stab incisions were made at the inferior proximal margin and immediate proximal margin of the fracture site. The incision was carried deep with blunt dissection with care to protect and retract out of the neurovascular bundles. After the plate was visualized, three 3.5 millimeter screws were placed into the proximal fibular plate under x-ray guidance. The 2 distal fibular plate holes were also filled with similar percutaneous incisions and dissections. And two 3.5 millimeter screws were placed to stabilize the distal fragment. Then, the attention was directed to the medial left ankle where a standard linear incision was performed. Incision was carried deep using sharp and blunt dissection down to level of periosteum which was then incised. Care was taken to retract all the neurovascular bundles and all bleeders were cauterized as needed. Fracture was identified a transverse fracture on the medial malleolus. All interposed periosteum was reflected and resected. The posterior tibial tendon was identified and protected throughout the procedure. Fracture site was reduced with a bone clamp. Next two guidewires for 4.0 mm partially-threaded screws were used to affix and stabilize the fracture fragment. Next using standard AO technique, the 4.0 partially-threaded screws were placed over the guidewire. Final imaging were taken to verify position and length of the hardware which appeared adequate and ankle mortise was anatomical. Intraoperative syndesmotic stress test was performed which noted stabilization across the joint. However given her high risk factors such as uncontrolled diabetes, end-stage renal disease, hemodialysis, I decided to reinforce the construct with pro fibula to tibia techniques with 3 syndesmotic screws. With the foot held slightly inverted to sit at the fibula back in the incisure, 3x fully threaded, 4.0 mm screws were placed as positional screws from the fibula to tibia. Intraoperative x-ray remarked adequate and a satisfactory hardware placement and length. Syndesmotic joint stress view was negative for instability. At this time, the posterior tibial fragment was spontaneously reduced, less than 25% intra-articular involvement, and did not indicate for any fixation. The surgical sites were irrigated with copious saline solution. They were then closed in layers with 3-0 Vicryl, 4 Monocryl and 4-0 nylon, rikki. The sites were dressed with Arthrex jumpstart, 4 x 4, ABD. The left lower extremity was then immobilized in a modified Mcdaniel compression splint with ankle held near 90 degrees. Then the tourniquet was deflated and adequate digital perfusion was noted. Patient tolerated the procedure and anesthesia well and then transferred to PACU for continuous recovery. Pending left ankle 3 view x-ray. HELEN LARIOS DPM Nov 26, 2021 10:21
[2021-11-26] MEDS ORDERED: SEVOFLURANE > 120 MINUTES. IH ONE (10:31)
[2021-11-26] MEDS ORDERED: INSULIN LISPRO 100 UNIT/ML 3ML VIAL for OP,RR ONLY. SQ PRN (10:45)
--- NOTE | 2021-11-26 11:07 | RAD ---
EXAM: Left ankle, 3 views. HISTORY: Fracture fixation. COMPARISON: 11/20/2021. FINDINGS: 3 views of the left ankle are obtained. There is internal fixation of a distal fibular frac ture with a plate and multiple screws and a medial malleolar fracture with screws. The ankle mortise is intact. There is ankle soft tissue swelling. There is external casting material. IMPRESSION: Internal fixation of distal fibular and medial malleolar fractures. The previously descri bed posterior malleolar fracture is not well seen. Electronically signed by: Cindi Rivera MD (11/26/2021 11:04 AM) [id number]
--- NOTE | 2021-11-26 14:38 | PDOC ---
Renal-Progress Notes Subjective Notes Notes SOMNOLENT History of Present Illness Hx of present illness STABLE Vitals Vitals Vital Signs Date Time Temp Pulse Resp B/P (MAP) Pulse Ox O2 Delivery O2 Flow Rate FiO2 11/26/21 14:29 82 140/78 11/26/21 14:27 98.4 97 Room Air 98.4 11/26/21 11:20 12 11/26/21 10:50 8 Weight Weight [ ] I.O. Intake and Output Intake and Output 11/26/21 07:00 Intake Total 400 ml Output Total 300 ml Balance 100 ml Intake Oral 400 ml Output Urine Total 300 ml # Voids 1 Labs Labs Laboratory Tests Test 11/25/21 17:06 11/25/21 20:24 11/25/21 21:00 11/26/21 04:35 Glucose (Fingerstick) 168 mg/dL (70-99) 174 mg/dL (70-99) 181 mg/dL (70-99) White Blood Count 6.0 x10^3/uL (4.0-11.0) Red Blood Count 3.48 x10^6/uL (3.50-5.40) Hemoglobin 9.9 g/dL (12.0-15.5) Hematocrit 28.8 % (36.0-47.0) Mean Corpuscular Volume 83 fL (79-100) Mean Corpuscular Hemoglobin 29 pg (25-35) Mean Corpuscular Hemoglobin Concent 35 g/dL (31-37) Red Cell Distribution Width 13.3 % (11.5-14.5) Platelet Count 266 x10^3/uL (140-400) Sodium Level 136 mmol/L (136-145) Potassium Level 4.7 mmol/L (3.5-5.1) Chloride Level 97 mmol/L (98-107) Carbon Dioxide Level 28 mmol/L (21-32) Anion Gap 11 (6-14) Blood Urea Nitrogen 47 mg/dL (7-20) Creatinine 7.6 mg/dL (0.6-1.0) Estimated GFR (Cockcroft-Gault) 7.1 Glucose Level 128 mg/dL (70-99) Calcium Level 9.0 mg/dL (8.5-10.1) Test 11/26/21 07:30 11/26/21 10:27 11/26/21 12:14 Urine Test Negative (NEG) SARS-CoV-2 RNA (LYNDON) Negative (Negative) SARS-CoV-2 Antigen (Rapid) Negative (NEGATIVE) Glucose (Fingerstick) 143 mg/dL (70-99) 139 mg/dL (70-99) Review of Systems Constitutional: yes: other (SLEEPY) Eyes: Yes: no symptom reported Pulmonary: Yes no symptom reported Gastrointestional: Yes: no symptom reported Genitourinary: Yes: no symptom reported Musculoskeletal: Yes: foot pain Skin: Yes no symptom reported Psychiatric/Neurological: Yes: no symptom reported Endocrine: Yes: no symptom reported Physical Exam General Appearance: no apparent distress Skin: warm Respiratory: bilateral CTA Heart: S1S2 Abdomen: soft, bowel sounds present Genitourinary: bladder flat Extremities: pulses present Neurology: alert Assessment Assessment ESRD ANEMIA DM II HTN L ANKLE FX S/P ORIF PLAN HD TODAY UF TO TW [facility]OB[facility] NEEDED THERAPY WILL FOLLOW ANTONIA BECERRA MD Nov 26, 2021 14:38
[2021-11-26] MEDS: GABAPENTIN 300 MG CAPSULE. PO SCH (16:00)
[2021-11-26] MEDS: oxyCODONE IR 5 MG TABLET PO PRN (16:40)
[2021-11-26] MEDS ORDERED: DIALYSIS PATIENT. MC PRN (17:45)
[2021-11-26] MEDS ORDERED: IV NORMAL SALINE 1000ML BAG 1,000 ML IV PRN ×2 (17:45)
--- NOTE | 2021-11-26 21:45 | NUR ---
patient refused ice on affected leg at this time
[2021-11-27 03:00] VITALS: BP 126/72
[2021-11-27] MEDS: oxyCODONE/APAP 10/325 1 TAB TABLET PO PRN ×3 (05:03→21:30)
[2021-11-27] MEDS: PANTOPRAZOLE 40 MG TABLET.DR. PO SCH (05:03)
[2021-11-27] MEDS: HEPARIN for SUB-Q USE 5,000 UNIT/ML VIAL. SQ SCH ×3 (05:08→21:34)
[2021-11-27] MEDS: IV NORMAL SALINE 1000ML BAG 1,000 ML IV SCH (06:30)
[2021-11-27 07:00] VITALS: BP 141/84
[2021-11-27] MEDS: INSULIN LISPRO 300 UNITS/3 ML VIAL. SQ SCH ×3 (08:00→17:00)
[2021-11-27] MEDS: VITAMIN B12,B9,B6 COMPLEX 1 TABLET. PO SCH (08:22)
[2021-11-27] MEDS: CHOLECALCIFEROL (VITAMIN D3) 5,000 UNIT CAPSULE PO SCH (08:22)
[2021-11-27] MEDS: FUROSEMIDE 40 MG TABLET. PO SCH (08:22)
[2021-11-27] MEDS: LOSARTAN POTASSIUM 50 MG TABLET. PO SCH (08:23)
[2021-11-27] MEDS: RANOLAZINE 500 MG TAB.ER.12H PO SCH ×2 (08:23→21:27)
[2021-11-27] MEDS: LABETALOL HCL 100 MG TABLET. PO SCH ×3 (08:23→21:28)
[2021-11-27] MEDS: ACETAMINOPHEN 325 MG TABLET. PO SCH ×3 (08:24→21:00)
[2021-11-27] MEDS: INSULIN GLARGINE SYRINGE. SQ SCH ×2 (08:38→21:34)
--- NOTE | 2021-11-27 09:17 | PDOC ---
PROGRESS NOTES Date of Service: DATE: 11/27/21 TIME: 09:14 Subjective Subjective in bed not in pain Objective Objective Vital Signs Date Time Temp Pulse Resp B/P (MAP) Pulse Ox O2 Delivery O2 Flow Rate FiO2 11/27/21 08:23 81 141/84 11/27/21 07:00 99.6 18 97 Room Air 99.6 11/26/21 10:50 8 Intake and Output 11/27/21 07:00 Intake Total 1400 ml Output Total 10 ml Balance 1390 ml Intake Oral 500 ml IV Total 900 ml Estimated Blood Loss 10 ml # Voids 1 Physical Exam Abdomen: Normal bowel sounds, Soft, No tenderness Heart: Regular rate Extremities: No cyanosis General: Alert, Oriented X3, Cooperative, No acute distress HEENT: Atraumatic, PERRLA Lungs: Clear to auscultation MUSCULOSKELETAL: Other (LEFT ANKLE PAIN) Neuro: Normal speech Psych/Mental Status: Mental status NL, Mood NL Skin: No breakdown COMMENT dressing Diagnosis Problem List Problems Medical Problems: (1) Closed left ankle fracture Status: Acute (2) Dislocation of ankle, left, closed Status: Acute (3) End stage renal disease on dialysis Status: Acute Assessment Assessment Problems Medical Problems: (1) Closed left ankle fracture Status: Acute (2) Dislocation of ankle, left, closed Status: Acute (3) End stage renal disease on dialysis Status: Acute FINAL IMPRESSION: 1. Left ankle fracture. 2. Mechanical fall, slipped and fell from the stairs. 3. End-stage renal disease, on dialysis Wednesday, Wednesday and Wednesday. 4. Insulin-dependent diabetes. 5. Obesity, status post recent gastric bypass surgery 1 year ago. 6. Coronary artery disease. 7. Hypertension. 8. Hyperlipidemia. PLAN: POD #1Pre-Op Diagnosis:11/25/21 Left ankle trimalleolar fracture, unstable Diabetes, end-stage renal disease, on dialysis Post-Op Diagnosis: Same as above Procedure Performed: Left ankle bimalleolar fracture open reduction and internal fixation with syndesmotic stabilization Surgeon: Shireen Sousa DPM Anesthesia Type: General Popliteal and adductor canal block prior to surgery, left Dialysis tomorrow. d/ra heparin for surgery, restart today JAN snu screen dulcolax prn, spoke with RN miralax+senna for constipation rest elevation pain control better Plan Plan of Care Problems Medical Problems: (1) Closed left ankle fracture Status: Acute (2) Dislocation of ankle, left, closed Status: Acute (3) End stage renal disease on dialysis Status: Acute Comment Review of Relevant I have reviewed the following items meagan (where applicable) has been applied. Labs Laboratory Tests Test 11/26/21 10:27 11/26/21 12:14 11/26/21 21:07 11/27/21 07:42 Glucose (Fingerstick) 143 mg/dL (70-99) 139 mg/dL (70-99) 117 mg/dL (70-99) 146 mg/dL (70-99) Medications Current Medications Heparin Sodium (Porcine) (Heparin Sodium) 5,000 unit Q8HRS SQ Last administered on 11/27/21at 05:08; Start 11/27/21 at 06:00 Info (PHARMACY MONITORING -- do not chart) 1 each PRN DAILY PRN MC SEE COMMENTS; Start 11/26/21 at 17:45 Insulin Human Lispro (HumaLOG VIAL for OP,RR ONLY) 0-10 units PRN Q1HR PRN SQ PER PROTOCOL; Start 11/26/21 at 10:45; Stop 11/26/21 at 18:00; Status DC Sevoflurane (Ultane) 90 ml STK-MED ONCE IH ; Start 11/26/21 at 10:31; Stop 11/26/21 at 10:32; Status DC Sodium Chloride 1,000 ml @ 400 mls/hr Q2H30M PRN IV PATENCY; Start 11/26/21 at 17:45; Stop 11/27/21 at 05:44; Status DC Sodium Chloride 1,000 ml @ 1,000 mls/hr Q1H PRN IV hypotension; Start 11/26/21 at 17:45; Stop 11/26/21 at 23:44; Status DC Vitals/I & O Vital Sign - Last 24 Hours 11/26/21 11/26/21 11/26/21 11/26/21 10:19 10:35 10:50 11:05 Temp 99.6 99.6 Pulse 78 78 86 88 Resp 19 19 14 17 B/P (MAP) 132/63 133/64 134/59 126/67 Pulse Ox 100 100 100 96 O2 Delivery Simple Mask Simple Mask Simple Mask Room Air O2 Flow Rate 8 8 8 1/11/0511/26/21 11/26/21 11/26/21 11:20 11:45 12:00 12:15 Temp 98.4 98.4 Pulse 88 88 94 96 Resp 12 B/P (MAP) 118/61 117/72 (87) 105/52 (69) 111/84 (93) Pulse Ox 96 92 95 O2 Delivery Room Air 11/26/21 11/26/21 11/26/21 11/26/21 12:30 12:45 13:15 14:27 Temp 98.4 98.4 Pulse 84 84 91 82 B/P (MAP) 118/65 (82) 116/66 (83) 116/71 (86) 140/78 (98) Pulse Ox 97 O2 Delivery Room Air 11/26/21 11/26/21 11/26/21 11/26/21 14:29 14:59 16:40 20:00 Pulse 82 Resp 16 B/P (MAP) 140/78 O2 Delivery Room Air Room Air Room Air 11/26/21 11/26/21 11/26/21 11/26/21 20:40 21:21 21:22 21:22 Temp 98.5 98.5 Pulse 93 82 82 Resp 16 20 B/P (MAP) 142/78 (99) 140/78 140/78 Pulse Ox 96 97 O2 Delivery Room Air Room Air 11/26/21 11/26/21 11/27/21 11/27/21 21:51 23:00 03:00 05:03 Temp 98.1 98.1 Pulse 89 90 Resp 18 14 18 20 B/P (MAP) 137/78 (97) 126/72 (90) Pulse Ox 93 93 94 94 O2 Delivery Room Air Room Air Room Air Room Air 11/27/21 11/27/21 11/27/21 11/27/21 05:33 07:00 08:23 08:23 Temp 99.6 99.6 Pulse 81 81 81 Resp 20 18 B/P (MAP) 141/84 (103) 141/84 141/84 Pulse Ox 94 97 O2 Delivery Room Air Room Air 11/27/21 08:23 Pulse 81 B/P (MAP) 141/84 Intake and Output 11/26/21 11/26/21 11/27/21 15:00 23:00 07:00 Intake Total 900 ml 500 ml Output Total 10 ml Balance 890 ml 500 ml Justifications for Admission Other Justification COLTEN AVILA MD Nov 27, 2021 09:16
--- NOTE | 2021-11-27 09:53 | PDOC ---
PROGRESS NOTES Date of Service DATE: 11/27/21 TIME: 09:48 Subjective Subjective Date of surgery: 11/26/21 Left ankle ORIF, syndesmotic joint stabilization At bedside, patient relates sharp pain to the ankle. The pain is episodic and upwards to 10 out of 10. Patient otherwise denies any calf pain or any constit utional symptoms. Patient denies any bowel movement in the last 24 hours. Objective Objective Vital Signs Date Time Temp Pulse Resp B/P (MAP) Pulse Ox O2 Delivery O2 Flow Rate FiO2 11/27/21 08:23 81 141/84 11/27/21 07:00 99.6 18 97 Room Air 99.6 11/26/21 10:50 8 Intake and Output 11/27/21 07:00 Intake Total 1400 ml Output Total 10 ml Balance 1390 ml Intake Oral 500 ml IV Total 900 ml Estimated Blood Loss 10 ml # Voids 1 Physical Exam Physical Exam General: AOx3, pleasant without distress Left lower extremity focused Dermatology: -Mcdaniel compression splint is intact without any strikethrough Vascular: -Foot is warm to touch -CFT less than 5 seconds -Calf is soft and nontender Neurology: -Diminished to light touch sensation to digits 1 through 5 Musculoskeletal: -Not able to move digits 1 through 5 -Calf is soft and nontender Assessment Assessment Problems Medical Problems: (1) Closed left ankle fracture Status: Acute (2) Dislocation of ankle, left, closed Status: Acute (3) End stage renal disease on dialysis Status: Acute Plan Plan of Care Date of surgery 11/26/21 left ankle ORIF, syndesmotic joint stabilization Type 2 diabetes, end-stage renal disease on hemodialysis -Leave the dressing, splint clean, dry and intact -Daily surveillance lab: CBC, BMP -Weightbearing restriction: Strictly nonweightbearing to left lower extremity -Physical therapy: Eval and treat, help with sit, pivot and transfer -Nurse communication: - Elevate the surgical foot with at least two pillows behind the calf so that the heel is floated with toes elevated to the level of the heart, per tolerance 45 min/h -Ice behind the knee 15 mins/h for pain as needed -Encouraged compliance with incentive spirometry Dispo: Pending PT eval, if patient is deemed unsafe returning home, she will likely be discharged to SNF for continuous PT. Our office will call her for outpatient follow-up in 2 weeks. Please discharge her with gabapentin, [place] for pain management, DVT prophylaxis for 2 weeks. No dressing changes needed. Comment Review of Relevant I have reviewed the following items meagan (where applicable) has been applied. Labs Laboratory Tests Test 11/25/21 11:48 11/25/21 17:06 11/25/21 20:24 11/25/21 21:00 Glucose (Fingerstick) 149 mg/dL (70-99) 168 mg/dL (70-99) 174 mg/dL (70-99) 181 mg/dL (70-99) Test 11/26/21 04:35 11/26/21 07:30 11/26/21 10:27 11/26/21 12:14 White Blood Count 6.0 x10^3/uL (4.0-11.0) Red Blood Count 3.48 x10^6/uL (3.50-5.40) Hemoglobin 9.9 g/dL (12.0-15.5) Hematocrit 28.8 % (36.0-47.0) Mean Corpuscular Volume 83 fL (79-100) Mean Corpuscular Hemoglobin 29 pg (25-35) Mean Corpuscular Hemoglobin Concent 35 g/dL (31-37) Red Cell Distribution Width 13.3 % (11.5-14.5) Platelet Count 266 x10^3/uL (140-400) Sodium Level 136 mmol/L (136-145) Potassium Level 4.7 mmol/L (3.5-5.1) Chloride Level 97 mmol/L (98-107) Carbon Dioxide Level 28 mmol/L (21-32) Anion Gap 11 (6-14) Blood Urea Nitrogen 47 mg/dL (7-20) Creatinine 7.6 mg/dL (0.6-1.0) Estimated GFR (Cockcroft-Gault) 7.1 Glucose Level 128 mg/dL (70-99) Calcium Level 9.0 mg/dL (8.5-10.1) Urine Test Negative (NEG) SARS-CoV-2 RNA (LYNDON) Negative (Negative) SARS-CoV-2 Antigen (Rapid) Negative (NEGATIVE) Glucose (Fingerstick) 143 mg/dL (70-99) 139 mg/dL (70-99) Test 11/26/21 21:07 11/27/21 07:42 Glucose (Fingerstick) 117 mg/dL (70-99) 146 mg/dL (70-99) Laboratory Tests Test 11/26/21 10:27 11/26/21 12:14 11/26/21 21:07 11/27/21 07:42 Glucose (Fingerstick) 143 mg/dL (70-99) 139 mg/dL (70-99) 117 mg/dL (70-99) 146 mg/dL (70-99) Medications Current Medications Fentanyl Citrate (Fentanyl 2ml Vial) 100 mcg 1X ONCE IVP Last administered on 11/19/21at 07:50; Start 11/19/21 at 07:45; Stop 11/19/21 at 07:46; Status DC Ondansetron HCl (Zofran) 4 mg 1X ONCE IVP Last administered on 11/19/21at 07:49; Start 11/19/21 at 07:45; Stop 11/19/21 at 07:46; Status DC Sodium Chloride 1,000 ml @ 75 mls/hr 1X ONCE IV ; Start 11/19/21 at 08:30; Stop 11/19/21 at 21:49; Status DC Propofol (Diprivan) 100 mg 1X ONCE IV Last administered on 11/19/21at 09:39; Start 11/19/21 at 08:30; Stop 11/19/21 at 08:31; Status DC Ondansetron HCl (Zofran) 4 mg PRN Q8HRS PRN IVP NAUSEA/VOMITING Last administered on 11/20/21at 03:29; Start 11/19/21 at 12:00; Stop 11/20/21 at 11:59; Status DC Morphine Sulfate (Morphine Sulfate) 4 mg PRN Q2HR PRN IVP PAIN Last administered on 11/20/21at 05:48; Start 11/19/21 at 12:00; Stop 11/20/21 at 11:59; Status DC Vitamin D (Vitamin D3) 5,000 unit DAILY PO Last administered on 11/27/21at 08:22; Start 11/19/21 at 12:30 Fentanyl Citrate (Fentanyl 2ml Vial) 25 mcg PRN Q5MIN PRN IVP MILD PAIN 1-3; Start 11/20/21 at 06:00; Stop 11/21/21 at 05:59; Status DC Fentanyl Citrate (Fentanyl 2ml Vial) 50 mcg PRN Q5MIN PRN IVP MODERATE PAIN 4- 6; Start 11/20/21 at 06:00; Stop 11/21/21 at 05:59; Status DC Morphine Sulfate (Morphine Sulfate) 1 mg PRN Q10MIN PRN IVP SEVERE PAIN 7-10; Start 11/20/21 at 06:00; Stop 11/19/21 at 22:02; Status DC Ringer's Solution 1,000 ml @ 30 mls/hr Q24H IV ; Start 11/20/21 at 06:00; Stop 11/20/21 at 17:59; Status DC Hydromorphone HCl (Dilaudid) 0.5 mg PRN Q10MIN PRN IVP SEVERE PAIN 7-10, 2nd CHOICE; Start 11/20/21 at 06:00; Stop 11/19/21 at 22:02; Status DC Prochlorperazine Edisylate (Compazine) 5 mg PACU PRN PRN IVP NAUSEA, MRX1; Start 11/20/21 at 06:00; Stop 11/21/21 at 05:59; Status DC Sodium Chloride 1,000 ml @ 1,000 mls/hr Q1H PRN IV hypotension; Start 11/19/21 at 13:50; Stop 11/19/21 at 19:49; Status DC Sodium Chloride 1,000 ml @ 400 mls/hr Q2H30M PRN IV PATENCY; Start 11/19/21 at 13:50; Stop 11/20/21 at 01:49; Status DC Info (PHARMACY MONITORING -- do not chart) 1 each PRN DAILY PRN MC SEE COMMENTS; Start 11/19/21 at 15:45; Status UNV Info (PHARMACY MONITORING -- do not chart) 1 each PRN DAILY PRN MC SEE COMMENTS; Start 11/19/21 at 15:45; Stop 11/22/21 at 14:26; Status DC Amlodipine Besylate (Norvasc) 10 mg HS PO ; Start 11/19/21 at 21:00; Stop 11/19/21 at 22:02; Status DC Aspirin (Ecotrin) 162 mg DAILY PO ; Start 11/20/21 at 09:00; Stop 11/19/21 at 22:02; Status DC Clonidine HCl (Catapres) 0.1 mg BID PO ; Start 11/19/21 at 21:00; Stop 11/19/21 at 22:02; Status DC Cyclobenzaprine HCl (Flexeril) 10 mg PRN DAILY PRN PO MUSCLE SPASMS Last administered on 11/26/21at 21:22; Start 11/19/21 at 17:00 Diphenhydramine HCl (Benadryl) 25 mg PRN Q6HRS PRN PO ITCHING; Start 11/19/21 at 17:00 Furosemide (Lasix) 40 mg DAILY PO Last administered on 11/27/21at 08:22; Start 11/20/21 at 09:00 Hydralazine HCl (Apresoline) 50 mg BID PO ; Start 11/19/21 at 21:00; Stop 11/19/21 at 22:02; Status DC Linagliptin (Tradjenta) 5 mg DAILY PO ; Start 11/20/21 at 09:00; Stop 11/19/21 at 22:02; Status DC Oxycodone/ Acetaminophen (Percocet 5/325) 1 tab PRN Q6HRS PRN PO MODERATE- SEVERE PAIN Last administered on 11/19/21at 17:13; Start 11/19/21 at 17:00; Stop 11/19/21 at 22:07; Status DC Ranolazine (Ranexa) 500 mg BID PO Last administered on 11/27/21at 08:23; Start 11/19/21 at 21:00 Simvastatin (Zocor) 20 mg HS PO ; Start 11/19/21 at 21:00; Stop 11/19/21 at 22:02; Status DC Non-Formulary Medication (Zabrina Root ) 550 mg DAILY PO ; Start 11/20/21 at 09:00; Status UNV Insulin Glargine (Lantus Syringe) 25 unit Q12HR SQ Last administered on 11/27/21at 08:38; Start 11/19/21 at 21:00 Insulin Human Lispro (HumaLOG) 25 units BIDWMEALS SQ ; Start 11/19/21 at 18:00; Stop 11/19/21 at 22:02; Status DC Vitamin B Complex (Folbic Tablet) 1 tab DAILY PO Last administered on 11/27/21at 08:22; Start 11/20/21 at 09:00 Labetalol HCl (Trandate) 300 mg TID PO Last administered on 11/27/21at 08:23; Start 11/19/21 at 21:00 Famotidine (Pepcid) 20 mg Q48H PO Last administered on 11/21/21at 20:23; Start 11/19/21 at 21:00; Stop 11/22/21 at 18:35; Status DC Insulin Human Lispro (HumaLOG) 0-5 UNITS TIDWMEALS SQ ; Start 11/19/21 at 17:00; Stop 11/19/21 at 22:07; Status DC Dextrose (Dextrose 50%-Water Syringe) 12.5 gm PRN Q15MIN PRN IV SEE COMMENTS; Start 11/19/21 at 17:00 Oxycodone/ Acetaminophen (Percocet 5/325) 1 tab PRN Q4HRS PRN PO MILD/MOD PAIN; Start 11/19/21 at 22:15; Stop 11/20/21 at 08:05; Status DC Oxycodone/ Acetaminophen (Percocet 10/325) 1 tab PRN Q4HRS PRN PO SEVERE PAIN 7-10 Last administered on 11/27/21at 05:03; Start 11/19/21 at 22:15 Insulin Human Lispro (HumaLOG) 0-7 UNITS TIDWMEALS SQ Last administered on 11/25/21at 17:28; Start 11/20/21 at 08:00 Losartan Potassium (Cozaar) 100 mg DAILY PO Last administered on 11/27/21at 08:23; Start 11/20/21 at 09:00 Acetaminophen (Tylenol) 650 mg QID PO Last administered on 11/20/21at 13:29; Start 11/20/21 at 09:00; Stop 11/20/21 at 18:18; Status DC Gabapentin (Neurontin) 100 mg TID PO Last administered on 11/21/21at 08:28; Start 11/20/21 at 09:00; Stop 11/21/21 at 13:07; Status DC Sodium Chloride 1,000 ml @ 1,000 mls/hr Q1H PRN IV hypotension; Start 11/20/21 at 08:45; Stop 11/20/21 at 14:44; Status DC Sodium Chloride 1,000 ml @ 400 mls/hr Q2H30M PRN IV PATENCY; Start 11/20/21 at 08:45; Stop 11/20/21 at 20:44; Status DC Info (PHARMACY MONITORING -- do not chart) 1 each PRN DAILY PRN MC SEE COMMENTS; Start 11/20/21 at 08:45; Status UNV Info (PHARMACY MONITORING -- do not chart) 1 each PRN DAILY PRN MC SEE COMMENTS; Start 11/20/21 at 08:45; Stop 11/22/21 at 14:26; Status DC Enoxaparin Sodium (Lovenox 30mg Syringe) 30 mg Q24H SQ ; Start 11/20/21 at 09:15; Status UNV Heparin Sodium (Porcine) (Heparin Sodium) 5,000 unit Q8HRS SQ ; Start 11/20/21 at 09:30; Stop 11/20/21 at 09:49; Status DC Heparin Sodium (Porcine) (Heparin Sodium) 5,000 unit Q8HRS SQ Last administered on 11/25/21at 06:03; Start 11/20/21 at 14:00; Stop 11/25/21 at 08:24; Status DC Propofol (Diprivan) 200 mg STK-MED ONCE IV ; Start 11/20/21 at 17:22; Stop 11/20/21 at 17:22; Status DC Lidocaine HCl (Lidocaine Pf 2% Vial) 5 ml STK-MED ONCE .ROUTE ; Start 11/20/21 at 17:22; Stop 11/20/21 at 17:22; Status DC Ondansetron HCl (Zofran) 4 mg STK-MED ONCE .ROUTE ; Start 11/20/21 at 17:22; Stop 11/20/21 at 17:22; Status DC Fentanyl Citrate (Fentanyl 2ml Vial) 100 mcg STK-MED ONCE .ROUTE ; Start 11/20/21 at 17:30; Stop 11/20/21 at 17:31; Status DC Midazolam HCl (Versed) 2 mg STK-MED ONCE .ROUTE ; Start 11/20/21 at 17:31; Stop 11/20/21 at 17:31; Status DC Lidocaine HCl (Lidocaine 1% 20ml Vial) 20 ml STK-MED ONCE .ROUTE ; Start 11/20/21 at 17:37; Stop 11/20/21 at 17:37; Status DC Acetaminophen (Tylenol) 650 mg TID PO Last administered on 11/27/21at 08:24; Start 11/20/21 at 21:00 Pantoprazole Sodium (Protonix) 40 mg DAILYAC PO Last administered on 11/27/21at 05:03; Start 11/21/21 at 09:45 Sodium Chloride 1,000 ml @ 1,000 mls/hr Q1H PRN IV hypotension; Start 11/21/21 at 10:45; Stop 11/21/21 at 16:44; Status DC Albumin Human 200 ml @ 200 mls/hr 1X PRN PRN IV Hypotension; Start 11/21/21 at 10:45; Stop 11/21/21 at 16:44; Status DC Sodium Chloride 1,000 ml @ 400 mls/hr Q2H30M PRN IV PATENCY; Start 11/21/21 at 10:45; Stop 11/21/21 at 22:44; Status DC Info (PHARMACY MONITORING -- do not chart) 1 each PRN DAILY PRN MC SEE COMMENTS; Start 11/21/21 at 10:45; Status UNV Info (PHARMACY MONITORING -- do not chart) 1 each PRN DAILY PRN MC SEE COMMENTS; Start 11/21/21 at 10:45; Stop 11/24/21 at 14:08; Status DC Gabapentin (Neurontin) 300 mg QMWF PO Last administered on 11/24/21at 16:36; Start 11/21/21 at 16:00 Polyethylene Glycol (miraLAX PACKET) 17 gm PRN BID PRN PO CONSTIPATION, 1ST CHOICE Last administered on 11/24/21at 16:37; Start 11/22/21 at 10:45 Senna/Docusate Sodium (Senna Plus) 1 tab PRN BID PRN PO CONSTIPATION, 2ND CHOICE Last administered on 11/25/21at 08:52; Start 11/22/21 at 10:45 Famotidine (Pepcid) 20 mg PRN BID PRN PO GAS / BLOATING Last administered on 11/25/21at 08:50; Start 11/22/21 at 18:45 Calcium Carbonate/ Glycine (Tums) 500 mg PRN AFTMEALHC PRN PO INDIGESTION; Start 11/22/21 at 18:45 Simethicone (Gas-X) 80 mg PRN AFTMEALHC PRN PO GAS / BLOATING Last administered on 11/24/21at 12:31; Start 11/22/21 at 18:45 Bisacodyl (Dulcolax Supp) 10 mg PRN DAILY PRN CO CONSTIPATION Last administered on 11/24/21at 16:37; Start 11/23/21 at 10:30 Bisacodyl (Dulcolax Tab) 5 mg PRN DAILY PRN PO CONSTIPATION, 3rd choice; Start 11/23/21 at 10:30 Sodium Chloride 1,000 ml @ 1,000 mls/hr Q1H PRN IV hypotension; Start 11/24/21 at 12:15; Stop 11/24/21 at 18:14; Status DC Albumin Human 200 ml @ 200 mls/hr 1X PRN PRN IV Hypotension; Start 11/24/21 at 12:15; Stop 11/24/21 at 18:14; Status DC Info (PHARMACY MONITORING -- do not chart) 1 each PRN DAILY PRN MC SEE COMMENTS; Start 11/24/21 at 12:15 Fentanyl Citrate (Fentanyl 2ml Vial) 12.5 mcg 1X ONCE IM ; Start 11/24/21 at 12:15; Stop 11/24/21 at 12:26; Status DC Oxycodone HCl (Roxicodone) 5 mg PRN Q3HRS PRN PO MODERATE PAIN Last administered on 11/26/21at 16:40; Start 11/24/21 at 12:15 Fentanyl Citrate (Fentanyl 2ml Vial) 12.5 mcg 1X ONCE IVP Last administered on 11/24/21at 12:32; Start 11/24/21 at 12:30; Stop 11/24/21 at 12:31; Status DC Heparin Sodium (Porcine) (Heparin Sodium) 5,000 unit Q8HRS SQ Last administered on 11/27/21at 05:08; Start 11/27/21 at 06:00 Fentanyl Citrate (Fentanyl 2ml Vial) 25 mcg PRN Q5MIN PRN IVP MILD PAIN 1-3; Start 11/26/21 at 06:00; Stop 11/27/21 at 05:59; Status DC Fentanyl Citrate (Fentanyl 2ml Vial) 50 mcg PRN Q5MIN PRN IVP MODERATE PAIN 4- 6; Start 11/26/21 at 06:00; Stop 11/27/21 at 05:59; Status DC Morphine Sulfate (Morphine Sulfate) 1 mg PRN Q10MIN PRN IVP SEVERE PAIN 7-10; Start 11/26/21 at 06:00; Stop 11/27/21 at 05:59; Status DC Ringer's Solution 1,000 ml @ 30 mls/hr Q24H IV ; Start 11/26/21 at 06:00; Stop 11/26/21 at 17:59; Status DC Hydromorphone HCl (Dilaudid) 0.5 mg PRN Q10MIN PRN IVP SEVERE PAIN 7-10, 2nd CHOICE; Start 11/26/21 at 06:00; Stop 11/27/21 at 05:59; Status DC Prochlorperazine Edisylate (Compazine) 5 mg PACU PRN PRN IVP NAUSEA, MRX1; Start 11/26/21 at 06:00; Stop 11/27/21 at 05:59; Status DC Sodium Chloride 1,000 ml @ 30 mls/hr Q24H IV ; Start 11/26/21 at 06:30 Propofol (Diprivan) 200 mg STK-MED ONCE IV ; Start 11/26/21 at 06:55; Stop 11/26/21 at 06:55; Status DC Dexamethasone Sodium Phosphate (Decadron) 4 mg STK-MED ONCE .ROUTE ; Start 11/26/21 at 06:55; Stop 11/26/21 at 06:55; Status DC Lidocaine HCl (Lidocaine Pf 2% Vial) 5 ml STK-MED ONCE .ROUTE ; Start 11/26/21 at 06:55; Stop 11/26/21 at 06:55; Status DC Ondansetron HCl (Zofran) 4 mg STK-MED ONCE .ROUTE ; Start 11/26/21 at 06:55; Stop 11/26/21 at 06:55; Status DC Glycopyrrolate (Robinul) 1 mg STK-MED ONCE .ROUTE ; Start 11/26/21 at 06:55; Stop 11/26/21 at 06:55; Status DC Rocuronium [place] (Zemuron) 100 mg STK-MED ONCE .ROUTE ; Start 11/26/21 at 06:55; Stop 11/26/21 at 06:55; Status DC Succinylcholine Chloride (Anectine) 200 mg STK-MED ONCE .ROUTE ; Start 11/26/21 at 06:55; Stop 11/26/21 at 06:55; Status DC Fentanyl Citrate (Fentanyl 2ml Vial) 100 mcg STK-MED ONCE .ROUTE ; Start 11/26/21 at 06:55; Stop 11/26/21 at 06:56; Status DC Bupivacaine HCl (Sensorcaine Mpf 0.25%) 30 ml STK-MED ONCE .ROUTE ; Start 11/26/21 at 06:55; Stop 11/26/21 at 06:56; Status DC Neostigmine [place] (Neostigmine Methylsulfate) 5 mg STK-MED ONCE .ROUTE ; Start 11/26/21 at 06:56; Stop 11/26/21 at 06:56; Status DC Vancomycin HCl (Vancomycin) 1 gm STK-MED ONCE .ROUTE ; Start 11/26/21 at 06:56; Stop 11/26/21 at 06:56; Status DC Midazolam HCl (Versed) 2 mg STK-MED ONCE .ROUTE ; Start 11/26/21 at 06:56; Stop 11/26/21 at 06:56; Status DC Ropivacaine (Naropin 0.5%) 20 ml STK-MED ONCE .ROUTE ; Start 11/26/21 at 07:13; Stop 11/26/21 at 07:13; Status DC Cefazolin Sodium/ Dextrose 50 ml @ As Directed STK-MED ONCE IV ; Start 11/26/21 at 07:19; Stop 11/26/21 at 07:19; Status DC Cefazolin Sodium/ Dextrose 50 ml @ 100 mls/hr 1X ONCE IV Last administered on 11/26/21at 08:00; Start 11/26/21 at 07:30; Stop 11/26/21 at 07:59; Status DC Fentanyl Citrate (Fentanyl 2ml Vial) 100 mcg STK-MED ONCE .ROUTE ; Start 11/26/21 at 08:20; Stop 11/26/21 at 08:21; Status DC Cefazolin Sodium/ Dextrose (Ancef 2gm Premix) 2 gm STK-MED ONCE IV ; Start 11/26/21 at 07:20; Stop 11/26/21 at 08:37; Status DC Sevoflurane (Ultane) 90 ml STK-MED ONCE IH ; Start 11/26/21 at 10:31; Stop 11/26/21 at 10:32; Status DC Insulin Human Lispro (HumaLOG VIAL for OP,RR ONLY) 0-10 units PRN Q1HR PRN SQ PER PROTOCOL; Start 11/26/21 at 10:45; Stop 11/26/21 at 18:00; Status DC Sodium Chloride 1,000 ml @ 1,000 mls/hr Q1H PRN IV hypotension; Start 11/26/21 at 17:45; Stop 11/26/21 at 23:44; Status DC Sodium Chloride 1,000 ml @ 400 mls/hr Q2H30M PRN IV PATENCY; Start 11/26/21 at 17:45; Stop 11/27/21 at 05:44; Status DC Info (PHARMACY MONITORING -- do not chart) 1 each PRN DAILY PRN MC SEE COMMENTS; Start 11/26/21 at 17:45 Active Scripts Active Humalog (Insulin Lispro) 100 Unit/1 Ml Insuln.pen 25 Units SQ BIDWMEALS 30 Days Lantus Solostar (Insulin Glargine,Hum.rec.anlog) 100 Unit/1 Ml Insuln.pen 25 Units SQ Q12HR 30 Days Percocet 5-325 Mg Tablet (Oxycodone/Acetaminophen) 1 Each Tablet 1 Tab PO PRN Q6HRS PRN 5 Days Ranexa (Ranolazine) 500 Mg Tab.er.12h 500 Mg PO BID Catapres (Clonidine Hcl) 0.1 Mg Tablet 0.1 Mg PO BID Reported Losartan Potassium 100 Mg Tablet 1 Tab PO DAILY Atorvastatin Calcium 40 Mg Tablet 1 Tab PO QHS Benadryl (Diphenhydramine Hcl) 25 Mg Capsule 1 Cap PO PRN Q6HRS Fusion Plus Capsule (Iron,Fum&Ps/Fa/Vit B&C#18/L.ca) 1 Each Capsule 1 Each PO DAILY Zabrina Root 550 Mg Capsule 550 Mg PO DAILY Cyclobenzaprine Hcl 10 Mg Tablet 1 Tab PO PRN DAILY PRN Labetalol Hcl 300 Mg Tablet 1 Tab PO TID Nitrostat (Nitroglycerin) 0.4 Mg Tab.subl Furosemide 40 Mg Tablet 40 Mg PO DAILY Ranitidine Hcl 150 Mg Capsule 300 Mg PO DAILY Vitals/I & O Vital Sign - Last 24 Hours 11/26/21 11/26/21 11/26/21 11/26/21 10:19 10:35 10:50 11:05 Temp 99.6 99.6 Pulse 78 78 86 88 Resp 19 19 14 17 B/P (MAP) 132/63 133/64 134/59 126/67 Pulse Ox 100 100 100 96 O2 Delivery Simple Mask Simple Mask Simple Mask Room Air O2 Flow Rate 8 8 8 11/26/21 11/26/21 11/26/21 11/26/21 11:20 11:45 12:00 12:15 Temp 98.4 98.4 Pulse 88 88 94 96 Resp 12 B/P (MAP) 118/61 117/72 (87) 105/52 (69) 111/84 (93) Pulse Ox 96 92 95 O2 Delivery Room Air 11/26/21 11/26/21 11/26/21 11/26/21 12:30 12:45 13:15 14:27 Temp 98.4 98.4 Pulse 84 84 91 82 B/P (MAP) 118/65 (82) 116/66 (83) 116/71 (86) 140/78 (98) Pulse Ox 97 O2 Delivery Room Air 11/26/21 11/26/21 11/26/21 11/26/21 14:29 14:59 16:40 20:00 Pulse 82 Resp 16 B/P (MAP) 140/78 O2 Delivery Room Air Room Air Room Air 11/26/21 11/26/21 11/26/21 11/26/21 20:40 21:21 21:22 21:22 Temp 98.5 98.5 Pulse 93 82 82 Resp 16 20 B/P (MAP) 142/78 (99) 140/78 140/78 Pulse Ox 96 97 O2 Delivery Room Air Room Air 11/26/21 11/26/21 11/27/21 11/27/21 21:51 23:00 03:00 05:03 Temp 98.1 98.1 Pulse 89 90 Resp 18 14 18 20 B/P (MAP) 137/78 (97) 126/72 (90) Pulse Ox 93 93 94 94 O2 Delivery Room Air Room Air Room Air Room Air 11/27/21 11/27/21 11/27/21 11/27/21 05:33 07:00 08:23 08:23 Temp 99.6 99.6 Pulse 81 81 81 Resp 20 18 B/P (MAP) 141/84 (103) 141/84 141/84 Pulse Ox 94 97 O2 Delivery Room Air Room Air 11/27/21 08:23 Pulse 81 B/P (MAP) 141/84 Intake and Output 11/26/21 11/26/21 11/27/21 15:00 23:00 07:00 Intake Total 900 ml 500 ml Output Total 10 ml Balance 890 ml 500 ml Justifications for Admission Other Justification HELEN LARIOS DPM Nov 27, 2021 09:53
[2021-11-27 11:00] VITALS: BP 142/76
--- NOTE | 2021-11-27 11:31 | PDOC ---
Renal-Progress Notes Subjective Notes Notes FEELING OK, UNABLE TO WT BEAR History of Present Illness Hx of present illness STABLE Vitals Vitals Vital Signs Date Time Temp Pulse Resp B/P (MAP) Pulse Ox O2 Delivery O2 Flow Rate FiO2 11/27/21 11:00 99.1 84 18 142/76 (98) 98 Room Air 99.1 11/26/21 10:50 8 Weight Weight [ ] I.O. Intake and Output Intake and Output 11/27/21 07:00 Intake Total 1400 ml Output Total 10 ml Balance 1390 ml Intake Oral 500 ml IV Total 900 ml Estimated Blood Loss 10 ml # Voids 1 Labs Labs Laboratory Tests Test 11/26/21 12:14 11/26/21 21:07 11/27/21 07:42 11/27/21 11:20 Glucose (Fingerstick) 139 mg/dL (70-99) 117 mg/dL (70-99) 146 mg/dL (70-99) 177 mg/dL (70-99) Review of Systems Constitutional: yes: other (SLEEPY) Eyes: Yes: no symptom reported Pulmonary: Yes no symptom reported Gastrointestional: Yes: no symptom reported Genitourinary: Yes: no symptom reported Musculoskeletal: Yes: foot pain Skin: Yes no symptom reported Psychiatric/Neurological: Yes: no symptom reported Endocrine: Yes: no symptom reported Physical Exam General Appearance: no apparent distress Skin: warm Respiratory: bilateral CTA Heart: S1S2 Abdomen: soft, bowel sounds present Genitourinary: bladder flat Extremities: pulses present Neurology: alert Assessment Assessment ESRD ANEMIA DM II HTN L ANKLE FX S/P ORIF PLAN HD TOMORROW ZENOBIA NEEDED THERAPY ROSE FLETCHER D/W ATTENDING WILL FOLLOW ANTONIA BECERRA MD Nov 27, 2021 11:31
[2021-11-27] MEDS: oxyCODONE IR 5 MG TABLET PO PRN (12:34)
--- NOTE | 2021-11-27 13:04 | NUR ---
SW following. Discussed with RN, per Adrianna (urban planner) Dr. Mohamud requested referral to [facility]. SW confirmed with [facility] that they cannot take medicaid pt's with dialysis. Therapy ordered, but no notes as of yet. Pt will be very limited on SNF options if at all any due to insurance plan. SW will continue to follow.
[2021-11-27] MEDS: CYCLOBENZAPRINE 10 MG TABLET. PO PRN (13:43)
[2021-11-27] MEDS ORDERED: fentaNYL PF VIAL 100 MCG/2 ML VIAL IVP PRN (14:00)
[2021-11-27 15:00] VITALS: BP 162/84
[2021-11-27 19:00] VITALS: BP 126/75
[2021-11-27 23:00] VITALS: BP 164/95
[2021-11-28 03:00] VITALS: BP 130/78
[2021-11-28] MEDS: oxyCODONE/APAP 10/325 1 TAB TABLET PO PRN ×4 (06:21→18:18)
[2021-11-28] MEDS: HEPARIN for SUB-Q USE 5,000 UNIT/ML VIAL. SQ SCH ×3 (06:23→21:51)
[2021-11-28] MEDS: IV NORMAL SALINE 1000ML BAG 1,000 ML IV SCH (06:30)
[2021-11-28 07:00] VITALS: BP 149/89
[2021-11-28] MEDS ORDERED: IV NORMAL SALINE 1000ML BAG 1,000 ML IV PRN ×2 (08:00)
[2021-11-28] MEDS ORDERED: DIALYSIS PATIENT. MC PRN ×2 (08:00)
[2021-11-28] MEDS: INSULIN LISPRO 300 UNITS/3 ML VIAL. SQ SCH ×3 (08:00→18:24)
[2021-11-28] MEDS: ACETAMINOPHEN 325 MG TABLET. PO SCH ×3 (09:00→21:50)
[2021-11-28] MEDS: LABETALOL HCL 100 MG TABLET. PO SCH ×3 (09:00→21:50)
[2021-11-28] MEDS: INSULIN GLARGINE SYRINGE. SQ SCH ×2 (09:00→21:50)
--- NOTE | 2021-11-28 09:29 | PDOC ---
PROGRESS NOTES Date of Service: DATE: 11/28/21 TIME: 09:26 Subjective Subjective seen in dialysis Objective Objective Vital Signs Date Time Temp Pulse Resp B/P (MAP) Pulse Ox O2 Delivery O2 Flow Rate FiO2 11/28/21 07:00 97.8 83 14 149/89 (109) 96 Room Air 97.8 Intake and Output 11/28/21 07:00 Intake Total 650 ml Balance 650 ml Intake Oral 650 ml # Voids 3 Physical Exam Abdomen: Normal bowel sounds, Soft, No tenderness Heart: Regular rate Extremities: No cyanosis General: Alert, Oriented X3, Cooperative, No acute distress HEENT: Atraumatic, PERRLA Lungs: Clear to auscultation MUSCULOSKELETAL: Other (LEFT ANKLE PAIN) Neuro: Normal speech Psych/Mental Status: Mental status NL, Mood NL Skin: No breakdown COMMENT dressing Diagnosis Problem List Problems Medical Problems: (1) Closed left ankle fracture Status: Acute (2) Dislocation of ankle, left, closed Status: Acute (3) End stage renal disease on dialysis Status: Acute Assessment Assessment Problems Medical Problems: (1) Closed left ankle fracture Status: Acute (2) Dislocation of ankle, left, closed Status: Acute (3) End stage renal disease on dialysis Status: Acute FINAL IMPRESSION: 1. Left ankle fracture. 2. Mechanical fall, slipped and fell from the stairs. 3. End-stage renal disease, on dialysis Wednesday, Wednesday and Wednesday. 4. Insulin-dependent diabetes. 5. Obesity, status post recent gastric bypass surgery 1 year ago. 6. Coronary artery disease. 7. Hypertension. 8. Hyperlipidemia. PLAN: POD #2 , Ankle surgery. Pre-Op Diagnosis:11/25/21 Left ankle trimalleolar fracture, unstable Diabetes, end-stage renal disease, on dialysis Post-Op Diagnosis: Same as above Procedure Performed: Left ankle bimalleolar fracture open reduction and internal fixation with syndesmotic stabilization Surgeon: Shireen Sousa DPM Anesthesia Type: General Popliteal and adductor canal block prior to surgery, left Dialysis today heparin for DVT prevention not much options for SNU due to insurence and dialysis PT/OT dulcolax prn, spoke with RN miralax+senna for constipation rest elevation pain control better Plan Plan of Care Problems Medical Problems: (1) Closed left ankle fracture Status: Acute (2) Dislocation of ankle, left, closed Status: Acute (3) End stage renal disease on dialysis Status: Acute Comment Review of Relevant I have reviewed the following items meagan (where applicable) has been applied. Labs Laboratory Tests Test 11/27/21 11:20 11/27/21 17:04 11/27/21 21:00 11/28/21 07:38 Glucose (Fingerstick) 177 mg/dL (70-99) 142 mg/dL (70-99) 179 mg/dL (70-99) 100 mg/dL (70-99) Medications Current Medications Fentanyl Citrate (Fentanyl 2ml Vial) 12.5 mcg PRN Q3HRS PRN IVP PAIN Last administered on 11/27/21at 14:15; Start 11/27/21 at 14:00 Info (PHARMACY MONITORING -- do not chart) 1 each PRN DAILY PRN MC SEE COMMENTS; Start 11/28/21 at 08:00 Info (PHARMACY MONITORING -- do not chart) 1 each PRN DAILY PRN MC SEE COMMENTS; Start 11/28/21 at 08:00; Status UNV Sodium Chloride 1,000 ml @ 400 mls/hr Q2H30M PRN IV PATENCY; Start 11/28/21 at 08:00; Stop 11/28/21 at 19:59 Sodium Chloride 1,000 ml @ 1,000 mls/hr Q1H PRN IV hypotension; Start 11/28/21 at 08:00; Stop 11/28/21 at 13:59 Vitals/I & O Vital Sign - Last 24 Hours 11/27/21 11/27/21 11/27/21 11/27/21 11:00 12:34 13:04 14:15 Temp 99.1 99.1 Pulse 84 84 Resp 18 B/P (MAP) 142/76 (98) 142/76 Pulse Ox 98 O2 Delivery Room Air Room Air Room Air 11/27/21 11/27/21 11/27/21 11/27/21 14:15 14:45 15:00 16:33 Temp 98.8 98.8 Pulse 88 Resp 18 B/P (MAP) 162/84 (110) Pulse Ox 94 O2 Delivery Room Air Room Air Room Air Room Air 11/27/21 11/27/21 11/27/21 11/27/21 17:05 19:00 19:50 21:27 Temp 98.1 98.1 Pulse 85 85 Resp 18 B/P (MAP) 126/75 (92) 126/75 Pulse Ox 93 O2 Delivery Room Air Room Air Room Air 11/27/21 11/27/21 11/27/21 11/27/21 21:28 21:30 22:00 23:00 Temp 98.6 98.6 Pulse 85 88 Resp 20 20 14 B/P (MAP) 126/75 164/95 (118) Pulse Ox 98 O2 Delivery Room Air Room Air Room Air 11/28/21 11/28/21 11/28/21 11/28/21 03:00 06:21 06:51 07:00 Temp 97.9 97.8 97.9 97.8 Pulse 83 83 Resp 14 20 20 14 B/P (MAP) 130/78 (95) 149/89 (109) Pulse Ox 99 96 O2 Delivery Room Air BiPAP/CPAP BiPAP/CPAP Room Air Intake and Output 11/27/21 11/27/21 11/28/21 15:00 23:00 07:00 Intake Total 350 ml 300 ml Balance 350 ml 300 ml Justifications for Admission Other Justification COLTEN AVILA MD Nov 28, 2021 09:28
--- NOTE | 2021-11-28 10:08 | NUR ---
SW following. Discussed with RN, pt from home with parents, in dialysis today. Pt declined to work with therapy yesterday. Pt wanting to go home rather than to a facility. Dr. Mohamud wants therapy to see how pt does over the weekend and with some stairs and possible discharge home on Wednesday. DIMITRI will continue to follow.
--- NOTE | 2021-11-28 10:46 | PDOC ---
Renal-Progress Notes Subjective Notes Notes FEELS WELL History of Present Illness Hx of present illness STABLE Vitals Vitals Vital Signs Date Time Temp Pulse Resp B/P (MAP) Pulse Ox O2 Delivery O2 Flow Rate FiO2 11/28/21 10:11 Room Air 11/28/21 07:00 97.8 83 14 149/89 (109) 96 97.8 Weight Weight [ ] I.O. Intake and Output Intake and Output 11/28/21 07:00 Intake Total 650 ml Balance 650 ml Intake Oral 650 ml # Voids 3 Labs Labs Laboratory Tests Test 11/27/21 11:20 11/27/21 17:04 11/27/21 21:00 11/28/21 07:38 Glucose (Fingerstick) 177 mg/dL (70-99) 142 mg/dL (70-99) 179 mg/dL (70-99) 100 mg/dL (70-99) Review of Systems Constitutional: yes: other (SLEEPY) Eyes: Yes: no symptom reported Pulmonary: Yes no symptom reported Gastrointestional: Yes: no symptom reported Genitourinary: Yes: no symptom reported Musculoskeletal: Yes: foot pain Skin: Yes no symptom reported Psychiatric/Neurological: Yes: no symptom reported Endocrine: Yes: no symptom reported Physical Exam General Appearance: no apparent distress Skin: warm Respiratory: bilateral CTA Heart: S1S2 Abdomen: soft, bowel sounds present Genitourinary: bladder flat Extremities: pulses present Neurology: alert Assessment Assessment ESRD ANEMIA DM II HTN L ANKLE FX S/P ORIF PLAN HD TODAY UF TO TW [facility] NEEDED THERAPY PROB TO TK [facility] D/W ATTENDING WILL FOLLOW ANTONIA BECERRA MD Nov 28, 2021 10:46
[2021-11-28 14:15] VITALS: BP 130/87
[2021-11-28] MEDS: RANOLAZINE 500 MG TAB.ER.12H PO SCH ×2 (14:19→21:49)
[2021-11-28] MEDS: VITAMIN B12,B9,B6 COMPLEX 1 TABLET. PO SCH (14:19)
[2021-11-28] MEDS: POLYETHYLENE GLYCOL 3350 17 GM PACKET. PO PRN (14:19)
[2021-11-28] MEDS: LOSARTAN POTASSIUM 50 MG TABLET. PO SCH (14:20)
[2021-11-28] MEDS: FUROSEMIDE 40 MG TABLET. PO SCH (14:21)
[2021-11-28] MEDS: PANTOPRAZOLE 40 MG TABLET.DR. PO SCH (14:22)
[2021-11-28] MEDS: CHOLECALCIFEROL (VITAMIN D3) 5,000 UNIT CAPSULE PO SCH (14:25)
[2021-11-28] MEDS: GABAPENTIN 300 MG CAPSULE. PO SCH (18:17)
[2021-11-28 19:00] VITALS: BP 146/90
[2021-11-28 23:00] VITALS: BP 147/87
[2021-11-29 03:00] VITALS: BP 144/79
[2021-11-29] MEDS: HEPARIN for SUB-Q USE 5,000 UNIT/ML VIAL. SQ SCH ×3 (06:18→21:19)
[2021-11-29 07:00] VITALS: BP 139/80
[2021-11-29] MEDS: INSULIN LISPRO 300 UNITS/3 ML VIAL. SQ SCH ×3 (08:00→17:25)
[2021-11-29] MEDS: INSULIN GLARGINE SYRINGE. SQ SCH ×2 (09:00→21:19)
[2021-11-29] MEDS: RANOLAZINE 500 MG TAB.ER.12H PO SCH ×2 (09:16→21:08)
[2021-11-29] MEDS: SENNOSIDES/DOCUSATE 8.6/50MG TABLET. PO PRN (09:16)
[2021-11-29] MEDS: VITAMIN B12,B9,B6 COMPLEX 1 TABLET. PO SCH (09:16)
[2021-11-29] MEDS: FUROSEMIDE 40 MG TABLET. PO SCH (09:16)
[2021-11-29] MEDS: BISACODYL 5 MG TABLET.DR. PO PRN (09:17)
[2021-11-29] MEDS: CYCLOBENZAPRINE 10 MG TABLET. PO PRN (09:17)
[2021-11-29] MEDS: oxyCODONE/APAP 10/325 1 TAB TABLET PO PRN ×2 (09:17→21:18)
[2021-11-29] MEDS: PANTOPRAZOLE 40 MG TABLET.DR. PO SCH (09:17)
[2021-11-29] MEDS: LOSARTAN POTASSIUM 50 MG TABLET. PO SCH (09:17)
[2021-11-29] MEDS: ACETAMINOPHEN 325 MG TABLET. PO SCH ×3 (09:19→21:09)
[2021-11-29] MEDS: CHOLECALCIFEROL (VITAMIN D3) 5,000 UNIT CAPSULE PO SCH (09:19)
[2021-11-29] MEDS: LABETALOL HCL 100 MG TABLET. PO SCH ×3 (09:19→21:08)
[2021-11-29] MEDS ORDERED: METHYLNALTREXONE 12 MG/0.6 ML VIAL. SQ ONE (09:30)
--- NOTE | 2021-11-29 09:34 | PN ---
DATE: 11/29/2021 SUBJECTIVE: The patient is sitting on the edge of the bed comfortably, in no apparent distress. On questioning her, her main complaint is constipation as she has not had any bowel movements for the last 5 days despite being on Colace and MiraLax. She denied any pain. She continued to be nonweightbearing. PHYSICAL EXAMINATION: GENERAL: When I examined her, she looked pale, not jaundiced or cyanosed. No lymphadenopathy, no thyromegaly, no jugular venous distention. No limb edema. VITAL SIGNS: Her heart rate was 82, blood pressure is 139/80, her temperature was 97.8, respiratory rate was 16 and oxygen saturation was 97%. HEAD, EYES, EARS, NOSE, AND THROAT: Showed she is normocephalic, atraumatic. NECK: Supple. HEART: Normal first and second heart sounds. No gallop, rub or murmur. CHEST: Shows central trachea, equal bilateral chest expansion, air entry, vesicular breath sounds. No crepitation or rhonchi. ABDOMEN: Distended, soft, nontender. NEUROLOGIC: She is grossly intact. Her intake was 650, no output was recorded. LABORATORY DATA: Her most recent blood count showed a white cell count of 6000, hemoglobin 10, hematocrit 29, MCV 83 and platelet count 266,000. Her chemistry is variable as she is hemodialysis dependent. Her blood sugar is well controlled. ASSESSMENT: 1. Left ankle fracture, status post open reduction and internal fixation. 2. Mechanical fall, slipped and fell from the stairs. 3. End-stage renal disease, on dialysis Wednesday, Wednesday, Wednesday. 4. Insulin-dependent diabetes mellitus. 5. Morbid obesity, status post recent gastric bypass surgery 1 year ago. 6. Coronary artery disease. 7. Hypertension. 8. Hyperlipidemia. 9. Constipation. PLAN: My plan is to add Relistor for opioid-induced constipation. VERENICE/MERARI DR: VERENICE/serge TID: [id number]
[2021-11-29 11:00] VITALS: BP 133/70
[2021-11-29] MEDS ORDERED: INSULIN GLARGINE SYRINGE. SQ ONE (13:00)
[2021-11-29 15:00] VITALS: BP 128/72
--- NOTE | 2021-11-29 15:55 | NUR ---
Patient called this evening and states that she needs a towel because she busted her lip. she states she was trying to hop around the room on her good leg and go to the bathroom on her own. Pt was reminded of the fall contract and hospital policy. She was aware before this she was a high fall risk and she needed to call for assistance with activity. She reported no pain besides a cut on her lip, which she states she bit while falling to the grown. She states she did not hit her ankle on her fall. She did hit her left elbow and her coccyx. Doctor was notified, imaging done, and confirmed no acute findings. Further education was given on fall prevention. Pt states she understands and she will not attempt it again.
[2021-11-29 19:00] VITALS: BP 151/77
[2021-11-29 23:00] VITALS: BP 130/78
--- NOTE | 2021-11-30 03:09 | RAD ---
CT lumbar spine without contrast dated 11/29/2021. COMPARISON: None. CLINICAL INDICATION: Pain after fall. TECHNIQUE: Contiguous axial imaging of the lumbar spine performed with thin cut coronal and sagittal reconstruct ion. One or more of the following individualized dose reduction techniques were utilized for this examinat ion: 1. Automated exposure control 2. Adjustment of the mA and/or kV according to patient size 3. Use of iterative reconstruction technique FINDINGS: There is mild levoconvex scoliotic curvature. Sagittal alignment is anatomic. Vertebral body heights are maintained. Posterior elements are intact. No evidence of fracture. Mild endplate hypertrophic changes throughout. Mild multilevel facet arthropathy. At L2-L3, no significant posterior bulge. Central canal and foramen are adequate. L3-L4, mild broad-based posterior disc bulge with mild to moderate facet hypertrophic changes. There is central canal is mildly narrowed. There is moderate bilateral foraminal stenosis. At L4-L5, minimal broad-based bulge with mild facet hypertrophic changes. The central canal is adequa te. There is mild bilateral foraminal narrowing. At L5-S1, mild disc space narrowing with mild broad-based bulge and mild hypertrophic change of the f acet joints. The central canal and foramen are adequate. Images of the retroperitoneum show no significant abnormality. IMPRESSION: 1. No evidence of fracture or malalignment. 2. Mild to moderate lower lumbar spondylosis. There is resultant mild central stenosis at L3-L4 with moderate bilateral foraminal narrowing. Please see above report for full details at each level. Electronically signed by: Lamine Mixon MD (11/29/2021 11:56 PM) DAHLIA
--- NOTE | 2021-11-30 03:09 | RAD ---
Two-view left elbow dated 11/29/2021. COMPARISON: None. CLINICAL INDICATION: Pain. FINDINGS: 2 views left elbow show normal bony alignment. No displaced fracture. No periostitis or bone destruct ion. No fat pad elevation to suggest joint effusion. Surgical clips at the antecubital fossa. IMPRESSION: No acute radiographic abnormality. Electronically signed by: Lamine Mixon MD (11/30/2021 1:16 AM) DAHLIA
[2021-11-30 03:20] VITALS: BP 152/86
[2021-11-30] MEDS: oxyCODONE/APAP 10/325 1 TAB TABLET PO PRN ×3 (03:26→21:59)
[2021-11-30] MEDS: PANTOPRAZOLE 40 MG TABLET.DR. PO SCH (05:05)
[2021-11-30] MEDS: HEPARIN for SUB-Q USE 5,000 UNIT/ML VIAL. SQ SCH ×3 (05:10→21:58)
[2021-11-30] MEDS: oxyCODONE IR 5 MG TABLET PO PRN ×2 (05:11→18:24)
[2021-11-30 07:00] VITALS: BP 155/94
[2021-11-30] MEDS: INSULIN LISPRO 300 UNITS/3 ML VIAL. SQ SCH ×3 (08:00→17:00)
[2021-11-30] MEDS: VITAMIN B12,B9,B6 COMPLEX 1 TABLET. PO SCH (08:28)
[2021-11-30] MEDS: BISACODYL 5 MG TABLET.DR. PO PRN (08:28)
[2021-11-30] MEDS: FAMOTIDINE 20 MG TABLET. PO PRN (08:28)
[2021-11-30] MEDS: FUROSEMIDE 40 MG TABLET. PO SCH (08:28)
[2021-11-30] MEDS: CYCLOBENZAPRINE 10 MG TABLET. PO PRN (08:31)
[2021-11-30] MEDS: LOSARTAN POTASSIUM 50 MG TABLET. PO SCH (08:31)
[2021-11-30] MEDS: CHOLECALCIFEROL (VITAMIN D3) 5,000 UNIT CAPSULE PO SCH (08:32)
[2021-11-30] MEDS: RANOLAZINE 500 MG TAB.ER.12H PO SCH ×2 (08:32→21:49)
[2021-11-30] MEDS: ACETAMINOPHEN 325 MG TABLET. PO SCH ×3 (08:33→21:50)
[2021-11-30] MEDS: LABETALOL HCL 100 MG TABLET. PO SCH ×3 (08:33→21:49)
[2021-11-30] MEDS: POLYETHYLENE GLYCOL 3350 17 GM PACKET. PO PRN (08:34)
[2021-11-30] MEDS: INSULIN GLARGINE SYRINGE. SQ SCH ×2 (08:42→21:59)
[2021-11-30] MEDS ORDERED: METHYLNALTREXONE 12 MG/0.6 ML VIAL. SQ ONE (09:45)
--- NOTE | 2021-11-30 09:57 | PN ---
DATE: 11/30/2021 SUBJECTIVE: The patient is resting, slightly propped up in bed, in no apparent respiratory distress. She did have a fall yesterday and complained of pain in her back and left elbow; however, x-ray of her left elbow and lumbar spine showed no evidence of fracture. She has not had any bowel movement yet for the last 6 days, although I gave her a dose of Relistor yesterday. PHYSICAL EXAMINATION: GENERAL: When I examined her today, she looked well and was clearly in no apparent respiratory distress, pale, not jaundiced or cyanosed. No lymphadenopathy, no thyromegaly, no jugular venous distention. No limb edema. VITAL SIGNS: Her heart rate was 102, blood pressure was 155/94, temperature 98.4, respiratory rate was 16 and oxygen saturation was 98% on room air. HEAD, EYES, EARS, NOSE AND THROAT: Showed she is normocephalic, atraumatic. NECK: Supple. HEART: Showed normal first and second heart sounds. No gallop, rub or murmur. CHEST: Shows central trachea, equal bilateral chest expansion, air entry, vesicular breath sounds. No crepitation or rhonchi. ABDOMEN: Distended, soft, nontender. NEUROLOGIC: She is grossly intact. Her intake and output are incompletely recorded. Her chemistry is variable. Her most recent hemoglobin was 10, hematocrit 29 with normal white cell count and platelets. Her blood sugar seems to be reasonably controlled. ASSESSMENT: 1. Left ankle fracture, status post open reduction and internal fixation. The patient is nonweightbearing. 2. Mechanical fall and apparently slipped and fell from the stairs. 3. She had another fall yesterday when she started to hop around and developed pain in her left elbow and lower back. X-rays of her left elbow and lumbosacral spine showed no evidence of fracture. 4. End-stage renal disease, on dialysis Wednesday, Wednesday, Wednesday. 5. Insulin-dependent diabetes mellitus. 6. Morbid obesity, status post recent gastric bypass surgery. 7. Coronary artery disease. 8. Hypertension. 9. Hyperlipidemia. 10. Constipation. PLAN: My plan is to continue with all her medication. Continue with pain management. I will add another Relistor. VERENICE/MERARI DR: Kun TID: [id number]
[2021-11-30 11:00] VITALS: BP 155/86
[2021-11-30 15:00] VITALS: BP 125/25
[2021-11-30 19:00] VITALS: BP 148/97
[2021-11-30 23:00] VITALS: BP 168/85
[2021-12-01] MEDS: oxyCODONE/APAP 10/325 1 TAB TABLET PO PRN ×2 (02:49→19:59)
[2021-12-01 03:00] VITALS: BP 177/87
[2021-12-01] MEDS: PANTOPRAZOLE 40 MG TABLET.DR. PO SCH (06:33)
[2021-12-01] MEDS: HEPARIN for SUB-Q USE 5,000 UNIT/ML VIAL. SQ SCH ×3 (06:42→23:15)
[2021-12-01] MEDS: oxyCODONE IR 5 MG TABLET PO PRN (06:43)
[2021-12-01 07:00] VITALS: BP 145/88
[2021-12-01 07:03] LABS: HEMATOCRIT 25.5 % (36.0-47.0); HEMOGLOBIN 8.9 g/dL (12.0-15.5); RED BLOOD COUNT 3.08 x10^6/uL (3.50-5.40); RED CELL DISTRIBUTION WIDTH 13.1 % (11.5-14.5); WHITE BLOOD COUNT 5.6 x10^3/uL (4.0-11.0)
[2021-12-01 07:36] LABS: ALBUMIN 2.7 g/dL (3.4-5.0); ALBUMIN/GLOBULIN RATIO 0.6 (1.0-1.7); CREATININE 7.6 mg/dL (0.6-1.0); GFR 7.1; POTASSIUM 4.2 mmol/L (3.5-5.1); TOTAL BILIRUBIN 0.4 mg/dL (0.2-1.0); TOTAL PROTEIN 6.9 g/dL (6.4-8.2)
[2021-12-01] MEDS: INSULIN LISPRO 300 UNITS/3 ML VIAL. SQ SCH ×3 (08:00→17:00)
[2021-12-01] MEDS ORDERED: DIALYSIS PATIENT. MC PRN ×2 (08:15)
[2021-12-01] MEDS: RANOLAZINE 500 MG TAB.ER.12H PO SCH ×2 (08:41→21:00)
[2021-12-01] MEDS: SENNOSIDES/DOCUSATE 8.6/50MG TABLET. PO PRN (08:41)
[2021-12-01] MEDS: VITAMIN B12,B9,B6 COMPLEX 1 TABLET. PO SCH (08:41)
[2021-12-01] MEDS: GABAPENTIN 300 MG CAPSULE. PO SCH (08:41)
[2021-12-01] MEDS: CHOLECALCIFEROL (VITAMIN D3) 5,000 UNIT CAPSULE PO SCH (08:41)
[2021-12-01] MEDS: LABETALOL HCL 100 MG TABLET. PO SCH ×3 (08:42→23:08)
[2021-12-01] MEDS: FUROSEMIDE 40 MG TABLET. PO SCH (08:42)
[2021-12-01] MEDS: ACETAMINOPHEN 325 MG TABLET. PO SCH ×3 (08:46→23:08)
[2021-12-01] MEDS: LOSARTAN POTASSIUM 50 MG TABLET. PO SCH (08:48)
--- NOTE | 2021-12-01 09:19 | PDOC ---
PROGRESS NOTES Date of Service: DATE: 12/01/21 TIME: 09:17 Subjective Subjective seen in dialysis Objective Objective Vital Signs Date Time Temp Pulse Resp B/P (MAP) Pulse Ox O2 Delivery O2 Flow Rate FiO2 12/01/21 08:48 78 145/88 12/01/21 07:37 16 97 Room Air 12/01/21 07:00 97.9 97.9 12/01/21 06:43 8.0 Intake and Output 12/01/21 07:00 Intake Total 1160 ml Output Total 500 ml Balance 660 ml Intake Oral 1160 ml Output Urine Total 500 ml # Voids 8 # Bowel Movements 2 Physical Exam Abdomen: Normal bowel sounds, Soft, No tenderness Heart: Regular rate Extremities: No cyanosis General: Alert, Oriented X3, Cooperative, No acute distress HEENT: Atraumatic, PERRLA Lungs: Clear to auscultation MUSCULOSKELETAL: Other (LEFT ANKLE PAIN) Neuro: Normal speech Psych/Mental Status: Mental status NL, Mood NL Skin: No breakdown COMMENT dressing Diagnosis Problem List Problems Medical Problems: (1) Closed left ankle fracture Status: Acute (2) Dislocation of ankle, left, closed Status: Acute (3) End stage renal disease on dialysis Status: Acute Assessment Assessment Problems Medical Problems: (1) Closed left ankle fracture Status: Acute (2) Dislocation of ankle, left, closed Status: Acute (3) End stage renal disease on dialysis Status: Acute FINAL IMPRESSION: 1. Left ankle fracture. 2. Mechanical fall, slipped and fell from the stairs. 3. End-stage renal disease, on dialysis Wednesday, Wednesday and Wednesday. 4. Insulin-dependent diabetes. 5. Obesity, status post recent gastric bypass surgery 1 year ago. 6. Coronary artery disease. 7. Hypertension. 8. Hyperlipidemia. PLAN: POD #6 , Ankle surgery. Pre-Op Diagnosis:11/25/21 Left ankle trimalleolar fracture, unstable Diabetes, end-stage renal disease, on dialysis Post-Op Diagnosis: Same as above Procedure Performed: Left ankle bimalleolar fracture open reduction and internal fixation with syndesmotic stabilization Surgeon: Shireen Sousa DPM Anesthesia Type: General Popliteal and adductor canal block prior to surgery, left Dialysis today heparin for DVT prevention not much options for SNU due to insurence and dialysis PT/OT dulcolax prn, spoke with RN miralax+senna for constipation rest elevation pain control better Pt had fall over the weekend .Pt working ? home tomorrow Plan Plan of Care Problems Medical Problems: (1) Closed left ankle fracture Status: Acute (2) Dislocation of ankle, left, closed Status: Acute (3) End stage renal disease on dialysis Status: Acute Comment Review of Relevant I have reviewed the following items meagan (where applicable) has been applied. Labs Laboratory Tests Test 11/30/21 11:03 11/30/21 17:28 11/30/21 20:39 12/01/21 06:00 Glucose (Fingerstick) 147 mg/dL (70-99) 122 mg/dL (70-99) 138 mg/dL (70-99) White Blood Count 5.6 x10^3/uL (4.0-11.0) Red Blood Count 3.08 x10^6/uL (3.50-5.40) Hemoglobin 8.9 g/dL (12.0-15.5) Hematocrit 25.5 % (36.0-47.0) Mean Corpuscular Volume 83 fL (79-100) Mean Corpuscular Hemoglobin 29 pg (25-35) Mean Corpuscular Hemoglobin Concent 35 g/dL (31-37) Red Cell Distribution Width 13.1 % (11.5-14.5) Platelet Count 385 x10^3/uL (140-400) Sodium Level 138 mmol/L (136-145) Potassium Level 4.2 mmol/L (3.5-5.1) Chloride Level 101 mmol/L (98-107) Carbon Dioxide Level 25 mmol/L (21-32) Anion Gap 12 (6-14) Blood Urea Nitrogen 53 mg/dL (7-20) Creatinine 7.6 mg/dL (0.6-1.0) Estimated GFR (Cockcroft-Gault) 7.1 BUN/Creatinine Ratio 7 (6-20) Glucose Level 83 mg/dL (70-99) Calcium Level 9.0 mg/dL (8.5-10.1) Total Bilirubin 0.4 mg/dL (0.2-1.0) Aspartate Amino Transf (AST/SGOT) 8 U/L (15-37) Alanine Aminotransferase (ALT/SGPT) 20 U/L (14-59) Alkaline Phosphatase 116 U/L (46-116) Total Protein 6.9 g/dL (6.4-8.2) Albumin 2.7 g/dL (3.4-5.0) Albumin/Globulin Ratio 0.6 (1.0-1.7) Test 12/01/21 07:38 Glucose (Fingerstick) 77 mg/dL (70-99) Medications Current Medications Info (PHARMACY MONITORING -- do not chart) 1 each PRN DAILY PRN MC SEE COMMENT S; Start 12/01/21 at 08:15 Info (PHARMACY MONITORING -- do not chart) 1 each PRN DAILY PRN MC SEE COMMENTS; Start 12/01/21 at 08:15; Status UNV Methylnaltrexone Loami (Relistor) 12 mg 1X ONCE SQ Last administered on 11/30/21at 10:40; Start 11/30/21 at 09:45; Stop 11/30/21 at 09:46; Status DC Vitals/I & O Vital Sign - Last 24 Hours 11/30/21 11/30/21 11/30/21 11/30/21 10:40 11:00 11:51 13:01 Temp 97.9 97.9 Pulse 80 80 Resp 16 B/P (MAP) 155/86 (109) 155/86 Pulse Ox 98 97 97 O2 Delivery Room Air Room Air Room Air 11/30/21 11/30/21 11/30/21 11/30/21 15:00 18:24 19:00 19:28 Temp 98.2 98.1 98.2 98.1 Pulse 78 81 Resp 16 16 B/P (MAP) 125/25 (58) 148/97 (114) Pulse Ox 95 95 93 95 O2 Delivery Room Air Room Air Room Air Room Air 11/30/21 11/30/21 11/30/21 11/30/21 20:30 21:49 21:49 21:59 Pulse 81 81 Resp 16 B/P (MAP) 148/97 148/97 Pulse Ox 95 O2 Delivery Room Air Room Air O2 Flow Rate 8.0 11/30/21 12/01/21 12/01/21 12/01/21 23:00 00:16 02:49 03:00 Temp 98.1 97.9 98.1 97.9 Pulse 81 78 Resp 16 16 16 16 B/P (MAP) 168/85 (112) 177/87 (117) Pulse Ox 98 98 98 97 O2 Delivery Room Air Room Air Room Air Room Air O2 Flow Rate 8.0 12/01/21 12/01/21 12/01/21 12/01/21 05:38 06:43 07:00 07:37 Temp 97.9 97.9 Pulse 78 Resp 16 16 16 B/P (MAP) 145/88 (107) Pulse Ox 97 97 96 97 O2 Delivery Room Air Room Air Room Air Room Air O2 Flow Rate 8.0 12/01/21 12/01/21 12/01/21 08:41 08:42 08:48 Pulse 78 78 78 B/P (MAP) 145/88 145/88 145/88 Intake and Output 11/30/21 11/30/21 12/01/21 15:00 23:00 07:00 Intake Total 1160 ml Output Total 500 ml Balance 660 ml Justifications for Admission Other Justification COLTEN AVILA MD Dec 01, 2021 09:19
--- NOTE | 2021-12-01 10:09 | NUR ---
SW following. Discussed with RN, pt from home with parents, room air, renal diet, COVID-19 negative. Pt in dialysis today, fell over the weekend. Pt will likely discharge home when ready. SW will continue to follow.
--- NOTE | 2021-12-01 11:11 | PDOC ---
DATE OF SERVICE DATE: 12/01/21 TIME: 11:04 SUBJECTIVE ROS Seen during dialysis , No complaints OBJECTIVE Vital Signs Vital Signs Date Time Temp Pulse Resp B/P (MAP) Pulse Ox O2 Delivery O2 Flow Rate FiO2 12/01/21 08:48 78 145/88 12/01/21 08:00 Room Air 12/01/21 07:37 16 97 12/01/21 07:00 97.9 97.9 12/01/21 06:43 8.0 I & 0 Intake and Output 12/01/21 07:00 Intake Total 1160 ml Output Total 500 ml Balance 660 ml Intake Oral 1160 ml Output Urine Total 500 ml # Voids 8 # Bowel Movements 2 PHYSICAL EXAM Physical Exam Gen NAD HEENT: Atraumatic, PERRLA, OM moist Lungs: Clear to auscultation Heart: Regular rate Abdomen: Normal bowel sounds, Soft, No tenderness Extremities: No cyanosis, AV access Lt Arm MUSCULOSKELETAL: Left Ankle pain Neuro: grossly normal Psych/Mental Status: Mental status NL, Mood NL Skin: No breakdown, no rash No gr, No CVA or SP tenderness DIAGNOSIS/ASSESSMENT Assessment & Plan ESRD - on HD MWF, seen during treatment , Tolerating well, Continue as ordered . Dw DRn Access AV access Lt arm Left ankle trimalleolar fracture- s/p open reduction and internal fixation with syndesmotic stabilization Mechanical fall, slipped and fell from the stairs. Anemia- Hgb dropping, s/p Ankle Fx repair . Start ZENOBIA . Further fu per Primary Insulin-dependent diabetes. Obesity, status post recent gastric bypass surgery 1 year ago. Coronary artery disease. Hypertension. COMMENT/RELEVANT DATA Meds Current Medications Medications (Trade) Dose Ordered Sig/Allyn Start Time Stop Time Status Last Admin Dose Admin Acetaminophen (Tylenol) 650 mg TID 11/20/21 21:00 12/01/21 08:46 650 MG Albumin Human 200 ml @ 200 mls/hr 1X PRN PRN 11/24/21 12:15 11/24/21 18:14 DC Amlodipine Besylate (Norvasc) 10 mg HS 11/19/21 21:00 11/19/21 22:02 DC Aspirin (Ecotrin) 162 mg DAILY 11/20/21 09:00 11/19/21 22:02 DC Bisacodyl (Dulcolax Supp) 10 mg PRN DAILY PRN 11/23/21 10:30 11/24/21 16:37 10 MG Bisacodyl (Dulcolax Tab) 5 mg PRN DAILY PRN 11/23/21 10:30 11/30/21 08:28 5 MG Bupivacaine HCl (Sensorcaine Mpf 0.25%) 30 ml STK-MED ONCE 11/26/21 06:55 11/26/21 06:56 DC Calcium Carbonate/ Glycine (Tums) 500 mg PRN AFTMEALHC PRN 11/22/21 18:45 Cefazolin Sodium/ Dextrose (Ancef 2gm Premix) 2 gm STK-MED ONCE 11/26/21 07:20 11/26/21 08:37 DC Clonidine HCl (Catapres) 0.1 mg BID 11/19/21 21:00 11/19/21 22:02 DC Cyclobenzaprine HCl (Flexeril) 10 mg PRN DAILY PRN 11/19/21 17:00 11/30/21 08:31 10 MG Dexamethasone Sodium Phosphate (Decadron) 4 mg STK-MED ONCE 11/26/21 06:55 11/26/21 06:55 DC Dextrose (Dextrose 50%-Water Syringe) 12.5 gm PRN Q15MIN PRN 11/19/21 17:00 Diphenhydramine HCl (Benadryl) 25 mg PRN Q6HRS PRN 11/19/21 17:00 Enoxaparin Sodium (Lovenox 30mg Syringe) 30 mg Q24H 11/20/21 09:15 UNV Famotidine (Pepcid) 20 mg PRN BID PRN 11/22/21 18:45 11/30/21 08:28 20 MG Fentanyl Citrate (Fentanyl 2ml Vial) 12.5 mcg PRN Q3HRS PRN 11/27/21 14:00 11/27/21 14:15 12.5 MCG Furosemide (Lasix) 40 mg DAILY 11/20/21 09:00 12/01/21 08:42 40 MG Gabapentin (Neurontin) 300 mg QMWF 11/21/21 16:00 12/01/21 08:41 300 MG Glycopyrrolate (Robinul) 1 mg STK-MED ONCE 11/26/21 06:55 11/26/21 06:55 DC Heparin Sodium (Porcine) (Heparin Sodium) 5,000 unit Q8HRS 11/27/21 06:00 12/01/21 06:42 5,000 UNIT Hydralazine HCl (Apresoline) 50 mg BID 11/19/21 21:00 11/19/21 22:02 DC Hydromorphone HCl (Dilaudid) 0.5 mg PRN Q10MIN PRN 11/26/21 06:00 11/27/21 05:59 DC Info (PHARMACY MONITORING -- do not chart) 1 each PRN DAILY PRN 12/01/21 08:15 UNV Insulin Glargine (Lantus Syringe) 25 unit 1X ONCE 11/29/21 13:00 11/29/21 13:01 DC 11/29/21 12:53 25 UNIT Insulin Human Lispro (HumaLOG VIAL for OP,RR ONLY) 0-10 units PRN Q1HR PRN 11/26/21 10:45 11/26/21 18:00 DC Insulin Human Lispro (HumaLOG) 0-7 UNITS TIDWMEALS 11/20/21 08:00 11/29/21 17:25 3 UNITS Labetalol HCl (Trandate) 300 mg TID 11/19/21 21:00 12/01/21 08:42 300 MG Lidocaine HCl (Lidocaine 1% 20ml Vial) 20 ml STK-MED ONCE 11/20/21 17:37 11/20/21 17:37 DC Lidocaine HCl (Lidocaine Pf 2% Vial) 5 ml STK-MED ONCE 11/26/21 06:55 11/26/21 06:55 DC Linagliptin (Tradjenta) 5 mg DAILY 11/20/21 09:00 11/19/21 22:02 DC Losartan Potassium (Cozaar) 100 mg DAILY 11/20/21 09:00 12/01/21 08:48 100 MG Methylnaltrexone Gardner (Relistor) 12 mg 1X ONCE 11/30/21 09:45 11/30/21 09:46 DC 11/30/21 10:40 12 MG Midazolam HCl (Versed) 2 mg STK-MED ONCE 11/26/21 06:56 11/26/21 06:56 DC Morphine Sulfate (Morphine Sulfate) 1 mg PRN Q10MIN PRN 11/26/21 06:00 11/27/21 05:59 DC Neostigmine Gardner (Neostigmine Methylsulfate) 5 mg STK-MED ONCE 11/26/21 06:56 11/26/21 06:56 DC Non-Formulary Medication (Zabrina Root ) 550 mg DAILY 11/20/21 09:00 UNV Ondansetron HCl (Zofran) 4 mg STK-MED ONCE 11/26/21 06:55 11/26/21 06:55 DC Oxycodone HCl (Roxicodone) 5 mg PRN Q3HRS PRN 11/24/21 12:15 12/01/21 06:43 5 MG Oxycodone/ Acetaminophen (Percocet 10/325) 1 tab PRN Q4HRS PRN 11/19/21 22:15 12/01/21 02:49 1 TAB Oxycodone/ Acetaminophen (Percocet 5/325) 1 tab PRN Q4HRS PRN 11/19/21 22:15 11/20/21 08:05 DC Pantoprazole Sodium (Protonix) 40 mg DAILYAC 11/21/21 09:45 12/01/21 06:33 40 MG Polyethylene Glycol (miraLAX PACKET) 17 gm PRN BID PRN 11/22/21 10:45 11/30/21 08:34 17 GM Prochlorperazine Edisylate (Compazine) 5 mg PACU PRN PRN 11/26/21 06:00 11/27/21 05:59 DC Propofol (Diprivan) 200 mg STK-MED ONCE 11/26/21 06:55 11/26/21 06:55 DC Ranolazine (Ranexa) 500 mg BID 11/19/21 21:00 12/01/21 08:41 500 MG Ringer's Solution 1,000 ml @ 30 mls/hr Q24H 11/26/21 06:00 11/26/21 17:59 DC Rocuronium Gardner (Zemuron) 100 mg STK-MED ONCE 11/26/21 06:55 11/26/21 06:55 DC Ropivacaine (Naropin 0.5%) 20 ml STK-MED ONCE 11/26/21 07:13 11/26/21 07:13 DC Senna/Docusate Sodium (Senna Plus) 1 tab PRN BID PRN 11/22/21 10:45 12/01/21 08:41 1 TAB Sevoflurane (Ultane) 90 ml STK-MED ONCE 11/26/21 10:31 11/26/21 10:32 DC Simethicone (Gas-X) 80 mg PRN AFTMEALHC PRN 11/22/21 18:45 11/24/21 12:31 80 MG Simvastatin (Zocor) 20 mg HS 11/19/21 21:00 11/19/21 22:02 DC Sodium Chloride 1,000 ml @ 400 mls/hr Q2H30M PRN 11/28/21 08:00 11/28/21 19:59 DC Succinylcholine Chloride (Anectine) 200 mg STK-MED ONCE 11/26/21 06:55 11/26/21 06:55 DC Vancomycin HCl (Vancomycin) 1 gm STK-MED ONCE 11/26/21 06:56 11/26/21 06:56 DC Vitamin B Complex (Folbic Tablet) 1 tab DAILY 11/20/21 09:00 12/01/21 08:41 1 TAB Vitamin D (Vitamin D3) 5,000 unit DAILY 11/19/21 12:30 12/01/21 08:41 5,000 UNIT Lab Laboratory Tests Test 11/30/21 17:28 11/30/21 20:39 12/01/21 06:00 12/01/21 07:38 Glucose (Fingerstick) 122 mg/dL (70-99) 138 mg/dL (70-99) 77 mg/dL (70-99) White Blood Count 5.6 x10^3/uL (4.0-11.0) Red Blood Count 3.08 x10^6/uL (3.50-5.40) Hemoglobin 8.9 g/dL (12.0-15.5) Hematocrit 25.5 % (36.0-47.0) Mean Corpuscular Volume 83 fL (79-100) Mean Corpuscular Hemoglobin 29 pg (25-35) Mean Corpuscular Hemoglobin Concent 35 g/dL (31-37) Red Cell Distribution Width 13.1 % (11.5-14.5) Platelet Count 385 x10^3/uL (140-400) Sodium Level 138 mmol/L (136-145) Potassium Level 4.2 mmol/L (3.5-5.1) Chloride Level 101 mmol/L (98-107) Carbon Dioxide Level 25 mmol/L (21-32) Anion Gap 12 (6-14) Blood Urea Nitrogen 53 mg/dL (7-20) Creatinine 7.6 mg/dL (0.6-1.0) Estimated GFR (Cockcroft-Gault) 7.1 BUN/Creatinine Ratio 7 (6-20) Glucose Level 83 mg/dL (70-99) Calcium Level 9.0 mg/dL (8.5-10.1) Total Bilirubin 0.4 mg/dL (0.2-1.0) Aspartate Amino Transf (AST/SGOT) 8 U/L (15-37) Alanine Aminotransferase (ALT/SGPT) 20 U/L (14-59) Alkaline Phosphatase 116 U/L (46-116) Total Protein 6.9 g/dL (6.4-8.2) Albumin 2.7 g/dL (3.4-5.0) Albumin/Globulin Ratio 0.6 (1.0-1.7) Results All relevant outside records, renal labs, imaging studies, telemetry/EKG's were reviewed. Justicifation of Admission Dx: Justifications for Admission: Justification of Admission Dx: N/A FRANCO SHEA MD Dec 01, 2021 11:10
[2021-12-01] MEDS: INSULIN GLARGINE SYRINGE. SQ SCH ×2 (14:04→23:14)
[2021-12-01 15:00] VITALS: BP 135/79
[2021-12-01 19:00] VITALS: BP 132/74
[2021-12-01] MEDS ORDERED: EPOETIN ALFA-EPBX for ESRD 20,000 UNIT/ML VIAL. SQ SCH (21:00)
[2021-12-01 23:00] VITALS: BP 143/91
[2021-12-02 03:00] VITALS: BP 139/80
[2021-12-02] MEDS: HEPARIN for SUB-Q USE 5,000 UNIT/ML VIAL. SQ SCH ×3 (06:23→22:45)
[2021-12-02 07:00] VITALS: BP 159/90
[2021-12-02] MEDS: INSULIN LISPRO 300 UNITS/3 ML VIAL. SQ SCH ×3 (08:00→17:00)
[2021-12-02] MEDS: PANTOPRAZOLE 40 MG TABLET.DR. PO SCH (09:21)
[2021-12-02] MEDS: CHOLECALCIFEROL (VITAMIN D3) 5,000 UNIT CAPSULE PO SCH (09:22)
[2021-12-02] MEDS: FUROSEMIDE 40 MG TABLET. PO SCH (09:22)
[2021-12-02] MEDS: ACETAMINOPHEN 325 MG TABLET. PO SCH ×3 (09:22→22:39)
[2021-12-02] MEDS: LABETALOL HCL 100 MG TABLET. PO SCH ×3 (09:22→22:39)
[2021-12-02] MEDS: RANOLAZINE 500 MG TAB.ER.12H PO SCH ×2 (09:22→22:42)
[2021-12-02] MEDS: VITAMIN B12,B9,B6 COMPLEX 1 TABLET. PO SCH (09:22)
--- NOTE | 2021-12-02 09:22 | PDOC ---
PROGRESS NOTES Date of Service: DATE: 12/02/21 TIME: 09:20 Subjective Subjective felt tired yesterday after dialysis Objective Objective Vital Signs Date Time Temp Pulse Resp B/P (MAP) Pulse Ox O2 Delivery O2 Flow Rate FiO2 12/02/21 07:00 98.2 80 16 159/90 (113) 98 Room Air 98.2 Intake and Output 12/02/21 07:00 Intake Total 780 ml Output Total 600 ml Balance 180 ml Intake Oral 780 ml Output Urine Total 600 ml Physical Exam Abdomen: Normal bowel sounds, Soft, No tenderness Heart: Regular rate Extremities: No cyanosis General: Alert, Oriented X3, Cooperative, No acute distress HEENT: Atraumatic, PERRLA Lungs: Clear to auscultation MUSCULOSKELETAL: Other (LEFT ANKLE PAIN) Neuro: Normal speech Psych/Mental Status: Mental status NL, Mood NL Skin: No breakdown COMMENT dressing Diagnosis Problem List Problems Medical Problems: (1) Closed left ankle fracture Status: Acute (2) Dislocation of ankle, left, closed Status: Acute (3) End stage renal disease on dialysis Status: Acute Assessment Assessment Problems Medical Problems: (1) Closed left ankle fracture Status: Acute (2) Dislocation of ankle, left, closed Status: Acute (3) End stage renal disease on dialysis Status: Acute FINAL IMPRESSION: 1. Left ankle fracture. 2. Mechanical fall, slipped and fell from the stairs. 3. End-stage renal disease, on dialysis Wednesday, Wednesday and Wednesday. 4. Insulin-dependent diabetes. 5. Obesity, status post recent gastric bypass surgery 1 year ago. 6. Coronary artery disease. 7. Hypertension. 8. Hyperlipidemia. PLAN:PT to work with her today. spoke with social service dialysis tomorrow out pt PT/OT,if discharged by tomorrow. fell over the weekend. POD #7 , Ankle surgery. Pre-Op Diagnosis:11/25/21 Left ankle trimalleolar fracture, unstable Diabetes, end-stage renal disease, on dialysis Post-Op Diagnosis: Same as above Procedure Performed: Left ankle bimalleolar fracture open reduction and internal fixation with syndesmotic stabilization Surgeon: Shireen Sousa DPM Anesthesia Type: General Popliteal and adductor canal block prior to surgery, left Dialysis today heparin for DVT prevention not much options for SNU due to insurence and dialysis PT/OT dulcolax prn, spoke with RN blair+teri for constipation rest elevation pain control better Pt had fall over the weekend .Pt working ? home tomorrow Plan Plan of Care Problems Medical Problems: (1) Closed left ankle fracture Status: Acute (2) Dislocation of ankle, left, closed Status: Acute (3) End stage renal disease on dialysis Status: Acute Comment Review of Relevant I have reviewed the following items meagan (where applicable) has been applied. Labs Laboratory Tests Test 12/01/21 13:56 12/01/21 16:55 12/01/21 20:52 12/02/21 08:31 Glucose (Fingerstick) 246 mg/dL (70-99) 136 mg/dL (70-99) 132 mg/dL (70-99) 67 mg/dL (70-99) Medications Current Medications Epoetin Jose-epbx (RETACRIT for ESRD PTS) 10,000 unit MoWeFr@2100 SQ Last administered on 12/01/21at 23:12; Start 12/01/21 at 21:00 Vitals/I & O Vital Sign - Last 24 Hours 12/01/21 12/01/21 12/01/21 12/01/21 13:58 15:00 19:00 19:55 Temp 97.7 98.0 97.7 98.0 Pulse 94 82 91 Resp 16 14 B/P (MAP) 109/67 135/79 (97) 132/74 (93) Pulse Ox 100 100 O2 Delivery Room Air Room Air Room Air 12/01/21 12/01/21 12/01/21 12/01/21 19:59 20:29 21:00 23:00 Temp 98.0 98.0 Pulse 91 81 Resp 20 20 14 B/P (MAP) 132/74 143/91 (108) Pulse Ox 99 O2 Delivery Room Air Room Air Room Air 12/01/21 12/02/21 12/02/21 23:08 03:00 07:00 Temp 97.7 98.2 97.7 98.2 Pulse 91 75 80 Resp 14 16 B/P (MAP) 132/74 139/80 (99) 159/90 (113) Pulse Ox 98 98 O2 Delivery Room Air Room Air Intake and Output 12/01/21 12/01/21 12/02/21 15:00 23:00 07:00 Intake Total 300 ml 480 ml Output Total 600 ml Balance 300 ml -120 ml Justifications for Admission Other Justification COLTEN AVILA MD Dec 02, 2021 09:22
[2021-12-02] MEDS: LOSARTAN POTASSIUM 50 MG TABLET. PO SCH (09:23)
[2021-12-02] MEDS: INSULIN GLARGINE SYRINGE. SQ SCH ×2 (09:32→22:45)
--- NOTE | 2021-12-02 10:58 | PDOC ---
DATE OF SERVICE DATE: 12/02/21 TIME: 10:55 SUBJECTIVE ROS c/o episodic achy and burning pain around the surgical ankle. No other complaints, resting comfortably in bed OBJECTIVE Vital Signs Vital Signs Date Time Temp Pulse Resp B/P (MAP) Pulse Ox O2 Delivery O2 Flow Rate FiO2 12/02/21 09:23 80 159/90 12/02/21 07:00 98.2 16 98 Room Air 98.2 I & 0 Intake and Output 12/02/21 06:59 Intake Total 780 ml Output Total 600 ml Balance 180 ml Intake Oral 780 ml Output Urine Total 600 ml PHYSICAL EXAM Physical Exam Gen NAD HEENT: Atraumatic, PERRLA, OM moist Lungs: Clear to auscultation Heart: Regular rate Abdomen: Normal bowel sounds, Soft, No tenderness Extremities: No cyanosis, AV access Lt Arm MUSCULOSKELETAL: Left Ankle pain Neuro: grossly normal Psych/Mental Status: Mental status NL, Mood NL Skin: No breakdown, no rash No gr, No CVA or SP tenderness DIAGNOSIS/ASSESSMENT Assessment & Plan ESRD -on HD MWF, no indication today . Access AV access Lt arm Left ankle trimalleolar fracture- s/p open reduction and internal fixation with syndesmotic stabilization Mechanical fall, slipped and fell from the stairs. Anemia- Hgb dropping, s/p Ankle Fx repair . Start ZENOBIA . Further fu per Primary Insulin-dependent diabetes. Obesity, status post recent gastric bypass surgery 1 year ago. Coronary artery disease. Hypertension. COMMENT/RELEVANT DATA Meds Current Medications Medications (Trade) Dose Ordered Sig/Allyn Start Time Stop Time Status Last Admin Dose Admin Acetaminophen (Tylenol) 650 mg TID 11/20/21 21:00 12/02/21 09:22 650 MG Albumin Human 200 ml @ 200 mls/hr 1X PRN PRN 11/24/21 12:15 11/24/21 18:14 DC Amlodipine Besylate (Norvasc) 10 mg HS 11/19/21 21:00 11/19/21 22:02 DC Aspirin (Ecotrin) 162 mg DAILY 11/20/21 09:00 11/19/21 22:02 DC Bisacodyl (Dulcolax Supp) 10 mg PRN DAILY PRN 11/23/21 10:30 11/24/21 16:37 10 MG Bisacodyl (Dulcolax Tab) 5 mg PRN DAILY PRN 11/23/21 10:30 11/30/21 08:28 5 MG Bupivacaine HCl (Sensorcaine Mpf 0.25%) 30 ml STK-MED ONCE 11/26/21 06:55 11/26/21 06:56 DC Calcium Carbonate/ Glycine (Tums) 500 mg PRN AFTMEALHC PRN 11/22/21 18:45 Cefazolin Sodium/ Dextrose (Ancef 2gm Premix) 2 gm STK-MED ONCE 11/26/21 07:20 11/26/21 08:37 DC Clonidine HCl (Catapres) 0.1 mg BID 11/19/21 21:00 11/19/21 22:02 DC Cyclobenzaprine HCl (Flexeril) 10 mg PRN DAILY PRN 11/19/21 17:00 11/30/21 08:31 10 MG Dexamethasone Sodium Phosphate (Decadron) 4 mg STK-MED ONCE 11/26/21 06:55 11/26/21 06:55 DC Dextrose (Dextrose 50%-Water Syringe) 12.5 gm PRN Q15MIN PRN 11/19/21 17:00 Diphenhydramine HCl (Benadryl) 25 mg PRN Q6HRS PRN 11/19/21 17:00 Enoxaparin Sodium (Lovenox 30mg Syringe) 30 mg Q24H 11/20/21 09:15 UNV Epoetin Jose-epbx (RETACRIT for ESRD PTS) 10,000 unit MoWeFr@2100 12/01/21 21:00 12/01/21 23:12 10,000 UNIT Famotidine (Pepcid) 20 mg PRN BID PRN 11/22/21 18:45 11/30/21 08:28 20 MG Fentanyl Citrate (Fentanyl 2ml Vial) 12.5 mcg PRN Q3HRS PRN 11/27/21 14:00 11/27/21 14:15 12.5 MCG Furosemide (Lasix) 40 mg DAILY 11/20/21 09:00 12/02/21 09:22 40 MG Gabapentin (Neurontin) 300 mg QMWF 11/21/21 16:00 12/01/21 08:41 300 MG Glycopyrrolate (Robinul) 1 mg STK-MED ONCE 11/26/21 06:55 11/26/21 06:55 DC Heparin Sodium (Porcine) (Heparin Sodium) 5,000 unit Q8HRS 11/27/21 06:00 12/02/21 06:23 5,000 UNIT Hydralazine HCl (Apresoline) 50 mg BID 11/19/21 21:00 11/19/21 22:02 DC Hydromorphone HCl (Dilaudid) 0.5 mg PRN Q10MIN PRN 11/26/21 06:00 11/27/21 05:59 DC Info (PHARMACY MONITORING -- do not chart) 1 each PRN DAILY PRN 12/01/21 08:15 UNV Insulin Glargine (Lantus Syringe) 25 unit 1X ONCE 11/29/21 13:00 11/29/21 13:01 DC 11/29/21 12:53 25 UNIT Insulin Human Lispro (HumaLOG VIAL for OP,RR ONLY) 0-10 units PRN Q1HR PRN 11/26/21 10:45 11/26/21 18:00 DC Insulin Human Lispro (HumaLOG) 0-7 UNITS TIDWMEALS 11/20/21 08:00 12/01/21 14:14 4 UNITS Labetalol HCl (Trandate) 300 mg TID 11/19/21 21:00 12/02/21 09:22 300 MG Lidocaine HCl (Lidocaine 1% 20ml Vial) 20 ml STK-MED ONCE 11/20/21 17:37 11/20/21 17:37 DC Lidocaine HCl (Lidocaine Pf 2% Vial) 5 ml STK-MED ONCE 11/26/21 06:55 11/26/21 06:55 DC Linagliptin (Tradjenta) 5 mg DAILY 11/20/21 09:00 11/19/21 22:02 DC Losartan Potassium (Cozaar) 100 mg DAILY 11/20/21 09:00 12/02/21 09:23 100 MG Methylnaltrexone Vandervoort (Relistor) 12 mg 1X ONCE 11/30/21 09:45 11/30/21 09:46 DC 11/30/21 10:40 12 MG Midazolam HCl (Versed) 2 mg STK-MED ONCE 11/26/21 06:56 11/26/21 06:56 DC Morphine Sulfate (Morphine Sulfate) 1 mg PRN Q10MIN PRN 11/26/21 06:00 11/27/21 05:59 DC Neostigmine Vandervoort (Neostigmine Methylsulfate) 5 mg STK-MED ONCE 11/26/21 06:56 11/26/21 06:56 DC Non-Formulary Medication (Zabrina Root ) 550 mg DAILY 11/20/21 09:00 UNV Ondansetron HCl (Zofran) 4 mg STK-MED ONCE 11/26/21 06:55 11/26/21 06:55 DC Oxycodone HCl (Roxicodone) 5 mg PRN Q3HRS PRN 11/24/21 12:15 12/01/21 06:43 5 MG Oxycodone/ Acetaminophen (Percocet 10/325) 1 tab PRN Q4HRS PRN 11/19/21 22:15 12/01/21 19:59 1 TAB Oxycodone/ Acetaminophen (Percocet 5/325) 1 tab PRN Q4HRS PRN 11/19/21 22:15 11/20/21 08:05 DC Pantoprazole Sodium (Protonix) 40 mg DAILYAC 11/21/21 09:45 12/02/21 09:21 40 MG Polyethylene Glycol (miraLAX PACKET) 17 gm PRN BID PRN 11/22/21 10:45 11/30/21 08:34 17 GM Prochlorperazine Edisylate (Compazine) 5 mg PACU PRN PRN 11/26/21 06:00 11/27/21 05:59 DC Propofol (Diprivan) 200 mg STK-MED ONCE 11/26/21 06:55 11/26/21 06:55 DC Ranolazine (Ranexa) 500 mg BID 11/19/21 21:00 12/02/21 09:22 500 MG Ringer's Solution 1,000 ml @ 30 mls/hr Q24H 11/26/21 06:00 11/26/21 17:59 DC Rocuronium Vandervoort (Zemuron) 100 mg STK-MED ONCE 11/26/21 06:55 11/26/21 06:55 DC Ropivacaine (Naropin 0.5%) 20 ml STK-MED ONCE 11/26/21 07:13 11/26/21 07:13 DC Senna/Docusate Sodium (Senna Plus) 1 tab PRN BID PRN 11/22/21 10:45 12/01/21 08:41 1 TAB Sevoflurane (Ultane) 90 ml STK-MED ONCE 11/26/21 10:31 11/26/21 10:32 DC Simethicone (Gas-X) 80 mg PRN AFTMEALHC PRN 11/22/21 18:45 11/24/21 12:31 80 MG Simvastatin (Zocor) 20 mg HS 11/19/21 21:00 11/19/21 22:02 DC Sodium Chloride 1,000 ml @ 400 mls/hr Q2H30M PRN 11/28/21 08:00 11/28/21 19:59 DC Succinylcholine Chloride (Anectine) 200 mg STK-MED ONCE 11/26/21 06:55 11/26/21 06:55 DC Vancomycin HCl (Vancomycin) 1 gm STK-MED ONCE 11/26/21 06:56 11/26/21 06:56 DC Vitamin B Complex (Folbic Tablet) 1 tab DAILY 11/20/21 09:00 12/02/21 09:22 1 TAB Vitamin D (Vitamin D3) 5,000 unit DAILY 11/19/21 12:30 12/02/21 09:22 5,000 UNIT Lab Laboratory Tests Test 12/01/21 13:56 12/01/21 16:55 12/01/21 20:52 12/02/21 08:31 Glucose (Fingerstick) 246 mg/dL (70-99) 136 mg/dL (70-99) 132 mg/dL (70-99) 67 mg/dL (70-99) Results All relevant outside records, renal labs, imaging studies, telemetry/EKG's were reviewed. Justicifation of Admission Dx: Justifications for Admission: Justification of Admission Dx: N/A FRANCO SHEA MD Dec 02, 2021 10:58
[2021-12-02 11:00] VITALS: BP 130/82
--- NOTE | 2021-12-02 12:46 | PDOC ---
PROGRESS NOTES Date of Service DATE: 12/02/21 TIME: 12:43 Subjective Subjective Date of surgery: 11/26/21 Left ankle ORIF, syndesmotic joint stabilization At bedside, patient relates episodic achy and burning pain around the surgical ankle. The pain is upwards to 9 out of 10 but resting comfortably in bed. P atient otherwise denies any calf pain or any constitutional symptoms. Per chart review, patient fell on the buttocks on Wednesday off the edge of the bed. Patient denies any pain, landing or impact injury to the left surgical site. Objective Objective Vital Signs Date Time Temp Pulse Resp B/P (MAP) Pulse Ox O2 Delivery O2 Flow Rate FiO2 12/02/21 11:00 98.3 82 18 130/82 (98) 97 Room Air 98.3 12/01/21 06:43 8.0 Intake and Output 12/02/21 07:00 Intake Total 780 ml Output Total 600 ml Balance 180 ml Intake Oral 780 ml Output Urine Total 600 ml Physical Exam Physical Exam General: AOx3, pleasant without distress Left lower extremity focused Dermatology: -Mcdaniel compression splint is intact without any strikethrough Vascular: -Foot is warm to touch -CFT less than 5 seconds -Calf is soft and nontender Neurology: -Baseline light touch sensation to digits 1 through 5 Musculoskeletal: -able to move digits 1 through 5 -Calf is soft and nontender Assessment Assessment Problems Medical Problems: (1) Closed left ankle fracture Status: Acute (2) Dislocation of ankle, left, closed Status: Acute (3) End stage renal disease on dialysis Status: Acute Plan Plan of Care Date of surgery 11/26/21 left ankle ORIF, syndesmotic joint stabilization Type 2 diabetes, end-stage renal disease on hemodialysis -Leave the dressing, splint clean, dry and intact -Weightbearing restriction: Strictly nonweightbearing to left lower extremity -Physical therapy: Eval and treat, help with sit, pivot and transfer -Nurse communication: - Elevate the surgical foot with at least two pillows behind the calf so that the heel is floated with toes elevated to the level of the heart, per tolerance 45 min/h -Ice behind the knee 15 mins/h for pain as needed -Encouraged compliance with incentive spirometry Dispo: Home versus SNF placement pending PT progression. Our office will call her for outpatient follow-up in 2 weeks. Please discharge her with vitamin D3 5000 international units daily. Comment Review of Relevant I have reviewed the following items meagan (where applicable) has been applied. Labs Laboratory Tests Test 11/30/21 17:28 11/30/21 20:39 12/01/21 06:00 12/01/21 07:38 Glucose (Fingerstick) 122 mg/dL (70-99) 138 mg/dL (70-99) 77 mg/dL (70-99) White Blood Count 5.6 x10^3/uL (4.0-11.0) Red Blood Count 3.08 x10^6/uL (3.50-5.40) Hemoglobin 8.9 g/dL (12.0-15.5) Hematocrit 25.5 % (36.0-47.0) Mean Corpuscular Volume 83 fL (79-100) Mean Corpuscular Hemoglobin 29 pg (25-35) Mean Corpuscular Hemoglobin Concent 35 g/dL (31-37) Red Cell Distribution Width 13.1 % (11.5-14.5) Platelet Count 385 x10^3/uL (140-400) Sodium Level 138 mmol/L (136-145) Potassium Level 4.2 mmol/L (3.5-5.1) Chloride Level 101 mmol/L (98-107) Carbon Dioxide Level 25 mmol/L (21-32) Anion Gap 12 (6-14) Blood Urea Nitrogen 53 mg/dL (7-20) Creatinine 7.6 mg/dL (0.6-1.0) Estimated GFR (Cockcroft-Gault) 7.1 BUN/Creatinine Ratio 7 (6-20) Glucose Level 83 mg/dL (70-99) Calcium Level 9.0 mg/dL (8.5-10.1) Total Bilirubin 0.4 mg/dL (0.2-1.0) Aspartate Amino Transf (AST/SGOT) 8 U/L (15-37) Alanine Aminotransferase (ALT/SGPT) 20 U/L (14-59) Alkaline Phosphatase 116 U/L (46-116) Total Protein 6.9 g/dL (6.4-8.2) Albumin 2.7 g/dL (3.4-5.0) Albumin/Globulin Ratio 0.6 (1.0-1.7) Test 12/01/21 13:56 12/01/21 16:55 12/01/21 20:52 12/02/21 08:31 Glucose (Fingerstick) 246 mg/dL (70-99) 136 mg/dL (70-99) 132 mg/dL (70-99) 67 mg/dL (70-99) Test 12/02/21 10:57 Glucose (Fingerstick) 132 mg/dL (70-99) Laboratory Tests Test 12/01/21 13:56 12/01/21 16:55 12/01/21 20:52 12/02/21 08:31 Glucose (Fingerstick) 246 mg/dL (70-99) 136 mg/dL (70-99) 132 mg/dL (70-99) 67 mg/dL (70-99) Test 12/02/21 10:57 Glucose (Fingerstick) 132 mg/dL (70-99) Medications Current Medications Fentanyl Citrate (Fentanyl 2ml Vial) 100 mcg 1X ONCE IVP Last administered on 11/19/21at 07:50; Start 11/19/21 at 07:45; Stop 11/19/21 at 07:46; Status DC Ondansetron HCl (Zofran) 4 mg 1X ONCE IVP Last administered on 11/19/21at 07:49; Start 11/19/21 at 07:45; Stop 11/19/21 at 07:46; Status DC Sodium Chloride 1,000 ml @ 75 mls/hr 1X ONCE IV ; Start 11/19/21 at 08:30; Stop 11/19/21 at 21:49; Status DC Propofol (Diprivan) 100 mg 1X ONCE IV Last administered on 11/19/21at 09:39; Start 11/19/21 at 08:30; Stop 11/19/21 at 08:31; Status DC Ondansetron HCl (Zofran) 4 mg PRN Q8HRS PRN IVP NAUSEA/VOMITING Last administered on 11/20/21at 03:29; Start 11/19/21 at 12:00; Stop 11/20/21 at 11:59; Status DC Morphine Sulfate (Morphine Sulfate) 4 mg PRN Q2HR PRN IVP PAIN Last administered on 11/20/21at 05:48; Start 11/19/21 at 12:00; Stop 11/20/21 at 11:59; Status DC Vitamin D (Vitamin D3) 5,000 unit DAILY PO Last administered on 12/02/21at 09:22; Start 11/19/21 at 12:30 Fentanyl Citrate (Fentanyl 2ml Vial) 25 mcg PRN Q5MIN PRN IVP MILD PAIN 1-3; Start 11/20/21 at 06:00; Stop 11/21/21 at 05:59; Status DC Fentanyl Citrate (Fentanyl 2ml Vial) 50 mcg PRN Q5MIN PRN IVP MODERATE PAIN 4- 6; Start 11/20/21 at 06:00; Stop 11/21/21 at 05:59; Status DC Morphine Sulfate (Morphine Sulfate) 1 mg PRN Q10MIN PRN IVP SEVERE PAIN 7-10; Start 11/20/21 at 06:00; Stop 11/19/21 at 22:02; Status DC Ringer's Solution 1,000 ml @ 30 mls/hr Q24H IV ; Start 11/20/21 at 06:00; Stop 11/20/21 at 17:59; Status DC Hydromorphone HCl (Dilaudid) 0.5 mg PRN Q10MIN PRN IVP SEVERE PAIN 7-10, 2nd CHOICE; Start 11/20/21 at 06:00; Stop 11/19/21 at 22:02; Status DC Prochlorperazine Edisylate (Compazine) 5 mg PACU PRN PRN IVP NAUSEA, MRX1; Start 11/20/21 at 06:00; Stop 11/21/21 at 05:59; Status DC Sodium Chloride 1,000 ml @ 1,000 mls/hr Q1H PRN IV hypotension; Start 11/19/21 at 13:50; Stop 11/19/21 at 19:49; Status DC Sodium Chloride 1,000 ml @ 400 mls/hr Q2H30M PRN IV PATENCY; Start 11/19/21 at 13:50; Stop 11/20/21 at 01:49; Status DC Info (PHARMACY MONITORING -- do not chart) 1 each PRN DAILY PRN MC SEE COMMENTS; Start 11/19/21 at 15:45; Status UNV Info (PHARMACY MONITORING -- do not chart) 1 each PRN DAILY PRN MC SEE COMMENTS; Start 11/19/21 at 15:45; Stop 11/22/21 at 14:26; Status DC Amlodipine Besylate (Norvasc) 10 mg HS PO ; Start 11/19/21 at 21:00; Stop 11/19/21 at 22:02; Status DC Aspirin (Ecotrin) 162 mg DAILY PO ; Start 11/20/21 at 09:00; Stop 11/19/21 at 22:02; Status DC Clonidine HCl (Catapres) 0.1 mg BID PO ; Start 11/19/21 at 21:00; Stop 11/19/21 at 22:02; Status DC Cyclobenzaprine HCl (Flexeril) 10 mg PRN DAILY PRN PO MUSCLE SPASMS Last administered on 11/30/21at 08:31; Start 11/19/21 at 17:00 Diphenhydramine HCl (Benadryl) 25 mg PRN Q6HRS PRN PO ITCHING; Start 11/19/21 at 17:00 Furosemide (Lasix) 40 mg DAILY PO Last administered on 12/02/21at 09:22; Start 11/20/21 at 09:00 Hydralazine HCl (Apresoline) 50 mg BID PO ; Start 11/19/21 at 21:00; Stop 11/19/21 at 22:02; Status DC Linagliptin (Tradjenta) 5 mg DAILY PO ; Start 11/20/21 at 09:00; Stop 11/19/21 at 22:02; Status DC Oxycodone/ Acetaminophen (Percocet 5/325) 1 tab PRN Q6HRS PRN PO MODERATE- SEVERE PAIN Last administered on 11/19/21at 17:13; Start 11/19/21 at 17:00; Stop 11/19/21 at 22:07; Status DC Ranolazine (Ranexa) 500 mg BID PO Last administered on 12/02/21at 09:22; Start 11/19/21 at 21:00 Simvastatin (Zocor) 20 mg HS PO ; Start 11/19/21 at 21:00; Stop 11/19/21 at 22:02; Status DC Non-Formulary Medication (Zabrina Root ) 550 mg DAILY PO ; Start 11/20/21 at 09:00; Status UNV Insulin Glargine (Lantus Syringe) 25 unit Q12HR SQ Last administered on 12/02/21at 09:32; Start 11/19/21 at 21:00 Insulin Human Lispro (HumaLOG) 25 units BIDWMEALS SQ ; Start 11/19/21 at 18:00; Stop 11/19/21 at 22:02; Status DC Vitamin B Complex (Folbic Tablet) 1 tab DAILY PO Last administered on 12/02/21at 09:22; Start 11/20/21 at 09:00 Labetalol HCl (Trandate) 300 mg TID PO Last administered on 12/02/21at 09:22; Start 11/19/21 at 21:00 Famotidine (Pepcid) 20 mg Q48H PO Last administered on 11/21/21at 20:23; Start 11/19/21 at 21:00; Stop 11/22/21 at 18:35; Status DC Insulin Human Lispro (HumaLOG) 0-5 UNITS TIDWMEALS SQ ; Start 11/19/21 at 17:00; Stop 11/19/21 at 22:07; Status DC Dextrose (Dextrose 50%-Water Syringe) 12.5 gm PRN Q15MIN PRN IV SEE COMMENTS; Start 11/19/21 at 17:00 Oxycodone/ Acetaminophen (Percocet 5/325) 1 tab PRN Q4HRS PRN PO MILD/MOD PAIN; Start 11/19/21 at 22:15; Stop 11/20/21 at 08:05; Status DC Oxycodone/ Acetaminophen (Percocet 10/325) 1 tab PRN Q4HRS PRN PO SEVERE PAIN 7-10 Last administered on 12/01/21at 19:59; Start 11/19/21 at 22:15 Insulin Human Lispro (HumaLOG) 0-7 UNITS TIDWMEALS SQ Last administered on 12/01/21at 14:14; Start 11/20/21 at 08:00 Losartan Potassium (Cozaar) 100 mg DAILY PO Last administered on 12/02/21at 09:23; Start 11/20/21 at 09:00 Acetaminophen (Tylenol) 650 mg QID PO Last administered on 11/20/21at 13:29; Start 11/20/21 at 09:00; Stop 11/20/21 at 18:18; Status DC Gabapentin (Neurontin) 100 mg TID PO Last administered on 1/7/22at 08:28; Start 11/20/21 at 09:00; Stop 11/21/21 at 13:07; Status DC Sodium Chloride 1,000 ml @ 1,000 mls/hr Q1H PRN IV hypotension; Start 11/20/21 a t 08:45; Stop 11/20/21 at 14:44; Status DC Sodium Chloride 1,000 ml @ 400 mls/hr Q2H30M PRN IV PATENCY; Start 11/20/21 at 08:45; Stop 11/20/21 at 20:44; Status DC Info (PHARMACY MONITORING -- do not chart) 1 each PRN DAILY PRN MC SEE COMMENTS; Start 11/20/21 at 08:45; Status UNV Info (PHARMACY MONITORING -- do not chart) 1 each PRN DAILY PRN MC SEE COMMENTS; Start 11/20/21 at 08:45; Stop 11/22/21 at 14:26; Status DC Enoxaparin Sodium (Lovenox 30mg Syringe) 30 mg Q24H SQ ; Start 11/20/21 at 09:15; Status UNV Heparin Sodium (Porcine) (Heparin Sodium) 5,000 unit Q8HRS SQ ; Start 11/20/21 at 09:30; Stop 11/20/21 at 09:49; Status DC Heparin Sodium (Porcine) (Heparin Sodium) 5,000 unit Q8HRS SQ Last administered on 11/25/21at 06:03; Start 11/20/21 at 14:00; Stop 11/25/21 at 08:24; Status DC Propofol (Diprivan) 200 mg STK-MED ONCE IV ; Start 11/20/21 at 17:22; Stop 11/20/21 at 17:22; Status DC Lidocaine HCl (Lidocaine Pf 2% Vial) 5 ml STK-MED ONCE .ROUTE ; Start 11/20/21 at 17:22; Stop 11/20/21 at 17:22; Status DC Ondansetron HCl (Zofran) 4 mg STK-MED ONCE .ROUTE ; Start 11/20/21 at 17:22; Stop 11/20/21 at 17:22; Status DC Fentanyl Citrate (Fentanyl 2ml Vial) 100 mcg STK-MED ONCE .ROUTE ; Start 11/20/21 at 17:30; Stop 11/20/21 at 17:31; Status DC Midazolam HCl (Versed) 2 mg STK-MED ONCE .ROUTE ; Start 11/20/21 at 17:31; Stop 11/20/21 at 17:31; Status DC Lidocaine HCl (Lidocaine 1% 20ml Vial) 20 ml STK-MED ONCE .ROUTE ; Start 11/20/21 at 17:37; Stop 11/20/21 at 17:37; Status DC Acetaminophen (Tylenol) 650 mg TID PO Last administered on 12/02/21at 09:22; Start 11/20/21 at 21:00 Pantoprazole Sodium (Protonix) 40 mg DAILYAC PO Last administered on 12/02/21at 09:21; Start 11/21/21 at 09:45 Sodium Chloride 1,000 ml @ 1,000 mls/hr Q1H PRN IV hypotension; Start 11/21/21 at 10:45; Stop 11/21/21 at 16:44; Status DC Albumin Human 200 ml @ 200 mls/hr 1X PRN PRN IV Hypotension; Start 11/21/21 at 10:45; Stop 11/21/21 at 16:44; Status DC Sodium Chloride 1,000 ml @ 400 mls/hr Q2H30M PRN IV PATENCY; Start 11/21/21 at 10:45; Stop 11/21/21 at 22:44; Status DC Info (PHARMACY MONITORING -- do not chart) 1 each PRN DAILY PRN MC SEE COMMENTS; Start 11/21/21 at 10:45; Status UNV Info (PHARMACY MONITORING -- do not chart) 1 each PRN DAILY PRN MC SEE COMMENTS; Start 11/21/21 at 10:45; Stop 11/24/21 at 14:08; Status DC Gabapentin (Neurontin) 300 mg QMWF PO Last administered on 12/01/21at 08:41; Start 11/21/21 at 16:00 Polyethylene Glycol (miraLAX PACKET) 17 gm PRN BID PRN PO CONSTIPATION, 1ST CHOICE Last administered on 11/30/21at 08:34; Start 11/22/21 at 10:45 Senna/Docusate Sodium (Senna Plus) 1 tab PRN BID PRN PO CONSTIPATION, 2ND CHOICE Last administered on 12/01/21at 08:41; Start 11/22/21 at 10:45 Famotidine (Pepcid) 20 mg PRN BID PRN PO HEARTBURN / GAS Last administered on 11/30/21at 08:28; Start 11/22/21 at 18:45 Calcium Carbonate/ Glycine (Tums) 500 mg PRN AFTMEALHC PRN PO INDIGESTION; Start 11/22/21 at 18:45 Simethicone (Gas-X) 80 mg PRN AFTMEALHC PRN PO GAS / BLOATING Last administered on 11/24/21at 12:31; Start 11/22/21 at 18:45 Bisacodyl (Dulcolax Supp) 10 mg PRN DAILY PRN AR CONSTIPATION Last administered on 11/24/21at 16:37; Start 11/23/21 at 10:30 Bisacodyl (Dulcolax Tab) 5 mg PRN DAILY PRN PO CONSTIPATION, 3rd choice Last administered on 11/30/21at 08:28; Start 11/23/21 at 10:30 Sodium Chloride 1,000 ml @ 1,000 mls/hr Q1H PRN IV hypotension; Start 11/24/21 at 12:15; Stop 11/24/21 at 18:14; Status DC Albumin Human 200 ml @ 200 mls/hr 1X PRN PRN IV Hypotension; Start 11/24/21 at 12:15; Stop 11/24/21 at 18:14; Status DC Info (PHARMACY MONITORING -- do not chart) 1 each PRN DAILY PRN MC SEE COMMENTS; Start 11/24/21 at 12:15; Status Cancel Fentanyl Citrate (Fentanyl 2ml Vial) 12.5 mcg 1X ONCE IM ; Start 11/24/21 at 12:15; Stop 11/24/21 at 12:26; Status DC Oxycodone HCl (Roxicodone) 5 mg PRN Q3HRS PRN PO MODERATE PAIN Last administered on 12/01/21at 06:43; Start 11/24/21 at 12:15 Fentanyl Citrate (Fentanyl 2ml Vial) 12.5 mcg 1X ONCE IVP Last administered on 11/24/21at 12:32; Start 11/24/21 at 12:30; Stop 11/24/21 at 12:31; Status DC Heparin Sodium (Porcine) (Heparin Sodium) 5,000 unit Q8HRS SQ Last administered on 12/02/21at 06:23; Start 11/27/21 at 06:00 Fentanyl Citrate (Fentanyl 2ml Vial) 25 mcg PRN Q5MIN PRN IVP MILD PAIN 1-3; Start 11/26/21 at 06:00; Stop 11/27/21 at 05:59; Status DC Fentanyl Citrate (Fentanyl 2ml Vial) 50 mcg PRN Q5MIN PRN IVP MODERATE PAIN 4- 6; Start 11/26/21 at 06:00; Stop 11/27/21 at 05:59; Status DC Morphine Sulfate (Morphine Sulfate) 1 mg PRN Q10MIN PRN IVP SEVERE PAIN 7-10; Start 11/26/21 at 06:00; Stop 11/27/21 at 05:59; Status DC Ringer's Solution 1,000 ml @ 30 mls/hr Q24H IV ; Start 11/26/21 at 06:00; Stop 11/26/21 at 17:59; Status DC Hydromorphone HCl (Dilaudid) 0.5 mg PRN Q10MIN PRN IVP SEVERE PAIN 7-10, 2nd CHOICE; Start 11/26/21 at 06:00; Stop 11/27/21 at 05:59; Status DC Prochlorperazine Edisylate (Compazine) 5 mg PACU PRN PRN IVP NAUSEA, MRX1; Start 11/26/21 at 06:00; Stop 11/27/21 at 05:59; Status DC Sodium Chloride 1,000 ml @ 30 mls/hr Q24H IV ; Start 11/26/21 at 06:30; Stop 11/28/21 at 09:30; Status DC Propofol (Diprivan) 200 mg STK-MED ONCE IV ; Start 11/26/21 at 06:55; Stop 11/26/21 at 06:55; Status DC Dexamethasone Sodium Phosphate (Decadron) 4 mg STK-MED ONCE .ROUTE ; Start 11/26/21 at 06:55; Stop 11/26/21 at 06:55; Status DC Lidocaine HCl (Lidocaine Pf 2% Vial) 5 ml STK-MED ONCE .ROUTE ; Start 11/26/21 at 06:55; Stop 11/26/21 at 06:55; Status DC Ondansetron HCl (Zofran) 4 mg STK-MED ONCE .ROUTE ; Start 11/26/21 at 06:55; Stop 11/26/21 at 06:55; Status DC Glycopyrrolate (Robinul) 1 mg STK-MED ONCE .ROUTE ; Start 11/26/21 at 06:55; Stop 11/26/21 at 06:55; Status DC Rocuronium [place] (Zemuron) 100 mg STK-MED ONCE .ROUTE ; Start 11/26/21 at 06:55; Stop 11/26/21 at 06:55; Status DC Succinylcholine Chloride (Anectine) 200 mg STK-MED ONCE .ROUTE ; Start 11/26/21 at 06:55; Stop 11/26/21 at 06:55; Status DC Fentanyl Citrate (Fentanyl 2ml Vial) 100 mcg STK-MED ONCE .ROUTE ; Start 11/26/21 at 06:55; Stop 11/26/21 at 06:56; Status DC Bupivacaine HCl (Sensorcaine Mpf 0.25%) 30 ml STK-MED ONCE .ROUTE ; Start 11/26/21 at 06:55; Stop 11/26/21 at 06:56; Status DC Neostigmine [place] (Neostigmine Methylsulfate) 5 mg STK-MED ONCE .ROUTE ; Start 11/26/21 at 06:56; Stop 11/26/21 at 06:56; Status DC Vancomycin HCl (Vancomycin) 1 gm STK-MED ONCE .ROUTE ; Start 11/26/21 at 06:56; Stop 11/26/21 at 06:56; Status DC Midazolam HCl (Versed) 2 mg STK-MED ONCE .ROUTE ; Start 11/26/21 at 06:56; Stop 11/26/21 at 06:56; Status DC Ropivacaine (Naropin 0.5%) 20 ml STK-MED ONCE .ROUTE ; Start 11/26/21 at 07:13; Stop 11/26/21 at 07:13; Status DC Cefazolin Sodium/ Dextrose 50 ml @ As Directed STK-MED ONCE IV ; Start 11/26/21 at 07:19; Stop 11/26/21 at 07:19; Status DC Cefazolin Sodium/ Dextrose 50 ml @ 100 mls/hr 1X ONCE IV Last administered on 11/26/21at 08:00; Start 11/26/21 at 07:30; Stop 11/26/21 at 07:59; Status DC Fentanyl Citrate (Fentanyl 2ml Vial) 100 mcg STK-MED ONCE .ROUTE ; Start 11/26/21 at 08:20; Stop 11/26/21 at 08:21; Status DC Cefazolin Sodium/ Dextrose (Ancef 2gm Premix) 2 gm STK-MED ONCE IV ; Start 11/26/21 at 07:20; Stop 11/26/21 at 08:37; Status DC Sevoflurane (Ultane) 90 ml STK-MED ONCE IH ; Start 11/26/21 at 10:31; Stop 11/26/21 at 10:32; Status DC Insulin Human Lispro (HumaLOG VIAL for OP,RR ONLY) 0-10 units PRN Q1HR PRN SQ PER PROTOCOL; Start 11/26/21 at 10:45; Stop 11/26/21 at 18:00; Status DC Sodium Chloride 1,000 ml @ 1,000 mls/hr Q1H PRN IV hypotension; Start 11/26/21 at 17:45; Stop 11/26/21 at 23:44; Status DC Sodium Chloride 1,000 ml @ 400 mls/hr Q2H30M PRN IV PATENCY; Start 11/26/21 at 17:45; Stop 11/27/21 at 05:44; Status DC Info (PHARMACY MONITORING -- do not chart) 1 each PRN DAILY PRN MC SEE COMMENTS; Start 11/26/21 at 17:45; Status Cancel Fentanyl Citrate (Fentanyl 2ml Vial) 12.5 mcg PRN Q3HRS PRN IVP PAIN Last administered on 11/27/21at 14:15; Start 11/27/21 at 14:00 Sodium Chloride 1,000 ml @ 1,000 mls/hr Q1H PRN IV hypotension; Start 11/28/21 at 08:00; Stop 11/28/21 at 13:59; Status DC Sodium Chloride 1,000 ml @ 400 mls/hr Q2H30M PRN IV PATENCY; Start 11/28/21 at 08:00; Stop 11/28/21 at 19:59; Status DC Info (PHARMACY MONITORING -- do not chart) 1 each PRN DAILY PRN MC SEE COMMENTS; Start 11/28/21 at 08:00; Status UNV Info (PHARMACY MONITORING -- do not chart) 1 each PRN DAILY PRN MC SEE COMMENTS; Start 11/28/21 at 08:00; Status Cancel Methylnaltrexone [place] (Relistor) 12 mg 1X ONCE SQ Last administered on 11/29/21at 10:42; Start 11/29/21 at 09:30; Stop 11/29/21 at 09:37; Status DC Insulin Glargine (Lantus Syringe) 25 unit 1X ONCE SQ Last administered on 11/29/21at 12:53; Start 11/29/21 at 13:00; Stop 11/29/21 at 13:01; Status DC Methylnaltrexone [place] (Relistor) 12 mg 1X ONCE SQ Last administered on 11/30/21at 10:40; Start 11/30/21 at 09:45; Stop 11/30/21 at 09:46; Status DC Info (PHARMACY MONITORING -- do not chart) 1 each PRN DAILY PRN MC SEE COMMENTS; Start 12/01/21 at 08:15 Info (PHARMACY MONITORING -- do not chart) 1 each PRN DAILY PRN MC SEE COMMENTS; Start 12/01/21 at 08:15; Status UNV Epoetin Jose-epbx (RETACRIT for ESRD PTS) 10,000 unit MoWeFr@2100 SQ Last administered on 12/01/21at 23:12; Start 12/01/21 at 21:00 Active Scripts Active Humalog (Insulin Lispro) 100 Unit/1 Ml Insuln.pen 25 Units SQ BIDWMEALS 30 Days Lantus Solostar (Insulin Glargine,Hum.rec.anlog) 100 Unit/1 Ml Insuln.pen 25 Units SQ Q12HR 30 Days Percocet 5-325 Mg Tablet (Oxycodone/Acetaminophen) 1 Each Tablet 1 Tab PO PRN Q6HRS PRN 5 Days Ranexa (Ranolazine) 500 Mg Tab.er.12h 500 Mg PO BID Catapres (Clonidine Hcl) 0.1 Mg Tablet 0.1 Mg PO BID Reported Losartan Potassium 100 Mg Tablet 1 Tab PO DAILY Atorvastatin Calcium 40 Mg Tablet 1 Tab PO QHS Benadryl (Diphenhydramine Hcl) 25 Mg Capsule 1 Cap PO PRN Q6HRS Fusion Plus Capsule (Iron,Fum&Ps/Fa/Vit B&C#18/L.ca) 1 Each Capsule 1 Each PO DAILY Zabrina Root 550 Mg Capsule 550 Mg PO DAILY Cyclobenzaprine Hcl 10 Mg Tablet 1 Tab PO PRN DAILY PRN Labetalol Hcl 300 Mg Tablet 1 Tab PO TID Nitrostat (Nitroglycerin) 0.4 Mg Tab.subl Furosemide 40 Mg Tablet 40 Mg PO DAILY Ranitidine Hcl 150 Mg Capsule 300 Mg PO DAILY Vitals/I & O Vital Sign - Last 24 Hours 12/01/21 12/01/21 12/01/21 12/01/21 13:58 15:00 19:00 19:55 Temp 97.7 98.0 97.7 98.0 Pulse 94 82 91 Resp 16 14 B/P (MAP) 109/67 135/79 (97) 132/74 (93) Pulse Ox 100 100 O2 Delivery Room Air Room Air Room Air 12/01/21 12/01/21 12/01/21 12/01/21 19:59 20:29 21:00 23:00 Temp 98.0 98.0 Pulse 91 81 Resp 20 20 14 B/P (MAP) 132/74 143/91 (108) Pulse Ox 99 O2 Delivery Room Air Room Air Room Air 12/01/21 12/02/21 12/02/21 12/02/21 23:08 03:00 07:00 09:22 Temp 97.7 98.2 97.7 98.2 Pulse 91 75 80 80 Resp 14 16 B/P (MAP) 132/74 139/80 (99) 159/90 (113) 159/90 Pulse Ox 98 98 O2 Delivery Room Air Room Air 12/02/21 12/02/21 12/02/21 09:22 09:23 11:00 Temp 98.3 98.3 Pulse 80 80 82 Resp 18 B/P (MAP) 159/90 159/90 130/82 (98) Pulse Ox 97 O2 Delivery Room Air Intake and Output 12/01/21 12/01/21 12/02/21 15:00 23:00 07:00 Intake Total 300 ml 480 ml Output Total 600 ml Balance 300 ml -120 ml Justifications for Admission Other Justification HELEN LARIOS DPM Dec 02, 2021 12:46
[2021-12-02 15:00] VITALS: BP 145/86
[2021-12-02 19:35] VITALS: BP 156/92
[2021-12-02 23:57] VITALS: BP 155/94
[2021-12-03 03:34] VITALS: BP 149/81
[2021-12-03] MEDS: HEPARIN for SUB-Q USE 5,000 UNIT/ML VIAL. SQ SCH ×2 (06:28→14:30)
[2021-12-03 07:15] VITALS: BP 139/92
[2021-12-03 07:16] LABS: CALCIUM 9.3 mg/dL (8.5-10.1); CREATININE 6.8 mg/dL (0.6-1.0); GFR 8.1; POTASSIUM 4.3 mmol/L (3.5-5.1)
[2021-12-03] MEDS: INSULIN LISPRO 300 UNITS/3 ML VIAL. SQ SCH ×2 (08:00→12:00)
[2021-12-03] MEDS: ACETAMINOPHEN 325 MG TABLET. PO SCH ×2 (09:00→14:18)
[2021-12-03] MEDS: LABETALOL HCL 100 MG TABLET. PO SCH ×2 (09:00→14:20)
--- NOTE | 2021-12-03 09:37 | NUR ---
Pt. upstairs to dialysis via bed per transportation.
--- NOTE | 2021-12-03 10:58 | PDOC ---
DATE OF SERVICE DATE: 12/03/21 TIME: 10:55 SUBJECTIVE ROS Seen during dialysis, no complaints OBJECTIVE Vital Signs Vital Signs Date Time Temp Pulse Resp B/P (MAP) Pulse Ox O2 Delivery O2 Flow Rate FiO2 12/03/21 07:15 98.3 79 20 139/92 (108) 98 Room Air 98.3 I & 0 Intake and Output 12/03/21 07:00 Intake Total 480 ml Balance 480 ml Intake Oral 480 ml # Voids 3 PHYSICAL EXAM Physical Exam Gen NAD HEENT: Atraumatic, PERRLA, OM moist Lungs: Clear to auscultation Heart: Regular rate Abdomen: Normal bowel sounds, Soft, No tenderness Extremities: No cyanosis, AV access Lt Arm MUSCULOSKELETAL: Left Ankle pain Neuro: grossly normal Psych/Mental Status: Mental status NL, Mood NL Skin: No breakdown, no rash No gr, No CVA or SP tenderness DIAGNOSIS/ASSESSMENT Assessment & Plan ESRD -on HD MWF, Seen during treatment, tolerating well. Continue as ordered . Randolph LITTLEN Access AV access Lt arm Left ankle trimalleolar fracture- s/p open reduction and internal fixation with syndesmotic stabilization Mechanical fall, slipped and fell from the stairs. Anemia- Hgb dropping, s/p Ankle Fx repair . Started Retacrit . Insulin-dependent diabetes. Obesity, status post recent gastric bypass surgery 1 year ago. Coronary artery disease. Hypertension. COMMENT/RELEVANT DATA Meds Current Medications Medications (Trade) Dose Ordered Sig/Allyn Start Time Stop Time Status Last Admin Dose Admin Acetaminophen (Tylenol) 650 mg TID 11/20/21 21:00 12/02/21 22:39 650 MG Albumin Human 200 ml @ 200 mls/hr 1X PRN PRN 11/24/21 12:15 11/24/21 18:14 DC Amlodipine Besylate (Norvasc) 10 mg HS 11/19/21 21:00 11/19/21 22:02 DC Aspirin (Ecotrin) 162 mg DAILY 11/20/21 09:00 11/19/21 22:02 DC Bisacodyl (Dulcolax Supp) 10 mg PRN DAILY PRN 11/23/21 10:30 11/24/21 16:37 10 MG Bisacodyl (Dulcolax Tab) 5 mg PRN DAILY PRN 11/23/21 10:30 11/30/21 08:28 5 MG Bupivacaine HCl (Sensorcaine Mpf 0.25%) 30 ml STK-MED ONCE 11/26/21 06:55 11/26/21 06:56 DC Calcium Carbonate/ Glycine (Tums) 500 mg PRN AFTMEALHC PRN 11/22/21 18:45 Cefazolin Sodium/ Dextrose (Ancef 2gm Premix) 2 gm STK-MED ONCE 11/26/21 07:20 11/26/21 08:37 DC Clonidine HCl (Catapres) 0.1 mg BID 11/19/21 21:00 11/19/21 22:02 DC Cyclobenzaprine HCl (Flexeril) 10 mg PRN DAILY PRN 11/19/21 17:00 11/30/21 08:31 10 MG Dexamethasone Sodium Phosphate (Decadron) 4 mg STK-MED ONCE 11/26/21 06:55 11/26/21 06:55 DC Dextrose (Dextrose 50%-Water Syringe) 12.5 gm PRN Q15MIN PRN 11/19/21 17:00 Diphenhydramine HCl (Benadryl) 25 mg PRN Q6HRS PRN 11/19/21 17:00 Enoxaparin Sodium (Lovenox 30mg Syringe) 30 mg Q24H 11/20/21 09:15 UNV Epoetin Jose-epbx (RETACRIT for ESRD PTS) 10,000 unit MoWeFr@2100 12/01/21 21:00 12/01/21 23:12 10,000 UNIT Famotidine (Pepcid) 20 mg PRN BID PRN 11/22/21 18:45 11/30/21 08:28 20 MG Fentanyl Citrate (Fentanyl 2ml Vial) 12.5 mcg PRN Q3HRS PRN 11/27/21 14:00 11/27/21 14:15 12.5 MCG Furosemide (Lasix) 40 mg DAILY 11/20/21 09:00 12/02/21 09:22 40 MG Gabapentin (Neurontin) 300 mg QMWF 11/21/21 16:00 12/01/21 08:41 300 MG Glycopyrrolate (Robinul) 1 mg STK-MED ONCE 11/26/21 06:55 11/26/21 06:55 DC Heparin Sodium (Porcine) (Heparin Sodium) 5,000 unit Q8HRS 11/27/21 06:00 12/03/21 06:28 5,000 UNIT Hydralazine HCl (Apresoline) 50 mg BID 11/19/21 21:00 11/19/21 22:02 DC Hydromorphone HCl (Dilaudid) 0.5 mg PRN Q10MIN PRN 11/26/21 06:00 11/27/21 05:59 DC Info (PHARMACY MONITORING -- do not chart) 1 each PRN DAILY PRN 12/01/21 08:15 UNV Insulin Glargine (Lantus Syringe) 25 unit 1X ONCE 11/29/21 13:00 11/29/21 13:01 DC 11/29/21 12:53 25 UNIT Insulin Human Lispro (HumaLOG VIAL for OP,RR ONLY) 0-10 units PRN Q1HR PRN 11/26/21 10:45 11/26/21 18:00 DC Insulin Human Lispro (HumaLOG) 0-7 UNITS TIDWMEALS 11/20/21 08:00 12/01/21 14:14 4 UNITS Labetalol HCl (Trandate) 300 mg TID 11/19/21 21:00 12/02/21 22:39 300 MG Lidocaine HCl (Lidocaine 1% 20ml Vial) 20 ml STK-MED ONCE 11/20/21 17:37 11/20/21 17:37 DC Lidocaine HCl (Lidocaine Pf 2% Vial) 5 ml STK-MED ONCE 11/26/21 06:55 11/26/21 06:55 DC Linagliptin (Tradjenta) 5 mg DAILY 11/20/21 09:00 11/19/21 22:02 DC Losartan Potassium (Cozaar) 100 mg DAILY 11/20/21 09:00 12/02/21 09:23 100 MG Methylnaltrexone [place] (Relistor) 12 mg 1X ONCE 11/30/21 09:45 11/30/21 09:46 DC 11/30/21 10:40 12 MG Midazolam HCl (Versed) 2 mg STK-MED ONCE 11/26/21 06:56 11/26/21 06:56 DC Morphine Sulfate (Morphine Sulfate) 1 mg PRN Q10MIN PRN 11/26/21 06:00 11/27/21 05:59 DC Neostigmine [place] (Neostigmine Methylsulfate) 5 mg STK-MED ONCE 11/26/21 06:56 11/26/21 06:56 DC Non-Formulary Medication (Zabrina Root ) 550 mg DAILY 11/20/21 09:00 UNV Ondansetron HCl (Zofran) 4 mg STK-MED ONCE 11/26/21 06:55 11/26/21 06:55 DC Oxycodone HCl (Roxicodone) 5 mg PRN Q3HRS PRN 11/24/21 12:15 12/01/21 06:43 5 MG Oxycodone/ Acetaminophen (Percocet 10/325) 1 tab PRN Q4HRS PRN 11/19/21 22:15 12/01/21 19:59 1 TAB Oxycodone/ Acetaminophen (Percocet 5/325) 1 tab PRN Q4HRS PRN 11/19/21 22:15 11/20/21 08:05 DC Pantoprazole Sodium (Protonix) 40 mg DAILYAC 11/21/21 09:45 12/02/21 09:21 40 MG Polyethylene Glycol (miraLAX PACKET) 17 gm PRN BID PRN 11/22/21 10:45 11/30/21 08:34 17 GM Prochlorperazine Edisylate (Compazine) 5 mg PACU PRN PRN 11/26/21 06:00 11/27/21 05:59 DC Propofol (Diprivan) 200 mg STK-MED ONCE 11/26/21 06:55 11/26/21 06:55 DC Ranolazine (Ranexa) 500 mg BID 11/19/21 21:00 12/02/21 22:42 500 MG Ringer's Solution 1,000 ml @ 30 mls/hr Q24H 11/26/21 06:00 11/26/21 17:59 DC Rocuronium [place] (Zemuron) 100 mg STK-MED ONCE 11/26/21 06:55 11/26/21 06:55 DC Ropivacaine (Naropin 0.5%) 20 ml STK-MED ONCE 11/26/21 07:13 11/26/21 07:13 DC Senna/Docusate Sodium (Senna Plus) 1 tab PRN BID PRN 11/22/21 10:45 12/01/21 08:41 1 TAB Sevoflurane (Ultane) 90 ml STK-MED ONCE 11/26/21 10:31 11/26/21 10:32 DC Simethicone (Gas-X) 80 mg PRN AFTMEALHC PRN 11/22/21 18:45 11/24/21 12:31 80 MG Simvastatin (Zocor) 20 mg HS 11/19/21 21:00 11/19/21 22:02 DC Sodium Chloride 1,000 ml @ 400 mls/hr Q2H30M PRN 11/28/21 08:00 11/28/21 19:59 DC Succinylcholine Chloride (Anectine) 200 mg STK-MED ONCE 11/26/21 06:55 11/26/21 06:55 DC Vancomycin HCl (Vancomycin) 1 gm STK-MED ONCE 11/26/21 06:56 11/26/21 06:56 DC Vitamin B Complex (Folbic Tablet) 1 tab DAILY 11/20/21 09:00 12/02/21 09:22 1 TAB Vitamin D (Vitamin D3) 5,000 unit DAILY 11/19/21 12:30 12/02/21 09:22 5,000 UNIT Lab Laboratory Tests Test 12/02/21 10:57 12/02/21 17:34 12/02/21 21:21 12/03/21 06:15 Glucose (Fingerstick) 132 mg/dL (70-99) 108 mg/dL (70-99) 151 mg/dL (70-99) Sodium Level 137 mmol/L (136-145) Potassium Level 4.3 mmol/L (3.5-5.1) Chloride Level 98 mmol/L (98-107) Carbon Dioxide Level 28 mmol/L (21-32) Anion Gap 11 (6-14) Blood Urea Nitrogen 36 mg/dL (7-20) Creatinine 6.8 mg/dL (0.6-1.0) Estimated GFR (Cockcroft-Gault) 8.1 Glucose Level 80 mg/dL (70-99) Calcium Level 9.3 mg/dL (8.5-10.1) Test 12/03/21 07:03 Glucose (Fingerstick) 80 mg/dL (70-99) Results All relevant outside records, renal labs, imaging studies, telemetry/EKG's were reviewed. Justicifation of Admission Dx: Justifications for Admission: Justification of Admission Dx: N/A FRANCO SHEA MD Dec 03, 2021 10:58
--- NOTE | 2021-12-03 12:22 | PDOC ---
PROGRESS NOTES Date of Service: DATE: 12/03/21 TIME: 12:19 Subjective Subjective feels better ,want to go home Objective Objective Vital Signs Date Time Temp Pulse Resp B/P (MAP) Pulse Ox O2 Delivery O2 Flow Rate FiO2 12/03/21 07:20 Room Air 12/03/21 07:15 98.3 79 20 139/92 (108) 98 98.3 Intake and Output 12/03/21 07:00 Intake Total 480 ml Balance 480 ml Intake Oral 480 ml # Voids 3 Physical Exam Abdomen: Normal bowel sounds, Soft, No tenderness Heart: Regular rate Extremities: No cyanosis General: Alert, Oriented X3, Cooperative, No acute distress HEENT: Atraumatic, PERRLA Lungs: Clear to auscultation MUSCULOSKELETAL: Other (LEFT ANKLE PAIN) Neuro: Normal speech Psych/Mental Status: Mental status NL, Mood NL Skin: No breakdown COMMENT dressing Diagnosis Problem List Problems Medical Problems: (1) Closed left ankle fracture Status: Acute (2) Dislocation of ankle, left, closed Status: Acute (3) End stage renal disease on dialysis Status: Acute Assessment Assessment Problems Medical Problems: (1) Closed left ankle fracture Status: Acute (2) Dislocation of ankle, left, closed Status: Acute (3) End stage renal disease on dialysis Status: Acute FINAL IMPRESSION: 1. Left ankle fracture. 2. Mechanical fall, slipped and fell from the stairs. 3. End-stage renal disease, on dialysis Wednesday, Wednesday and Wednesday. 4. Insulin-dependent diabetes. 5. Obesity, status post recent gastric bypass surgery 1 year ago. 6. Coronary artery disease. 7. Hypertension. 8. Hyperlipidemia. PLAN:d/c home onLovenox PT to work with her today. spoke with social service dialysis today out pt PT/OT, fell over the weekend. POD #8 , Ankle surgery. Pre-Op Diagnosis:11/25/21 Left ankle trimalleolar fracture, unstable Diabetes, end-stage renal disease, on dialysis Post-Op Diagnosis: Same as above Procedure Performed: Left ankle bimalleolar fracture open reduction and internal fixation with syndesmotic stabilization Surgeon: Shireen Sousa DPM Anesthesia Type: General Popliteal and adductor canal block prior to surgery, left Dialysis today heparin for DVT prevention not much options for SNU due to insurence and dialysis PT/OT dulcolax prn, spoke with RN blair+teri for constipation rest elevation pain control better Pt had fall over the weekend .Pt working ? home tomorrow Plan Plan of Care Problems Medical Problems: (1) Closed left ankle fracture Status: Acute (2) Dislocation of ankle, left, closed Status: Acute (3) End stage renal disease on dialysis Status: Acute Comment Review of Relevant I have reviewed the following items meagan (where applicable) has been applied. Labs Laboratory Tests Test 12/02/21 17:34 12/02/21 21:21 12/03/21 06:15 12/03/21 07:03 Glucose (Fingerstick) 108 mg/dL (70-99) 151 mg/dL (70-99) 80 mg/dL (70-99) Sodium Level 137 mmol/L (136-145) Potassium Level 4.3 mmol/L (3.5-5.1) Chloride Level 98 mmol/L (98-107) Carbon Dioxide Level 28 mmol/L (21-32) Anion Gap 11 (6-14) Blood Urea Nitrogen 36 mg/dL (7-20) Creatinine 6.8 mg/dL (0.6-1.0) Estimated GFR (Cockcroft-Gault) 8.1 Glucose Level 80 mg/dL (70-99) Calcium Level 9.3 mg/dL (8.5-10.1) Vitals/I & O Vital Sign - Last 24 Hours 12/02/21 12/02/21 12/02/21 12/02/21 15:00 15:49 19:35 20:05 Temp 98.3 98.1 98.3 98.1 Pulse 83 86 81 Resp 16 20 B/P (MAP) 145/86 (105) 145/86 156/92 (113) Pulse Ox 100 97 O2 Delivery Room Air Room Air Room Air 12/02/21 12/02/21 12/02/21 12/03/21 22:39 22:42 23:57 03:34 Temp 98.6 98.3 98.6 98.3 Pulse 81 81 85 78 Resp 18 18 B/P (MAP) 156/92 156/92 155/94 (114) 149/81 (103) Pulse Ox 100 98 O2 Delivery BiPAP/CPAP BiPAP/CPAP 12/03/21 12/03/21 07:15 07:20 Temp 98.3 98.3 Pulse 79 Resp 20 B/P (MAP) 139/92 (108) Pulse Ox 98 O2 Delivery Room Air Room Air Intake and Output 12/02/21 12/02/21 12/03/21 15:00 23:00 07:00 Intake Total 480 ml Balance 480 ml Justifications for Admission Other Justification COLTEN AVILA MD Dec 03, 2021 12:22
[2021-12-03] MEDS ORDERED: GABA300C18 PO (12:32)
[2021-12-03] MEDS ORDERED: CHOL5000 PO (12:32)
[2021-12-03] MEDS ORDERED: SENN-209 PO (12:32)
--- NOTE | 2021-12-03 12:45 | NUR ---
SW following. Discussed with RN, discharge order for home with self care. Pt provided script for outpatient therapy and advised by RN to call to schedule for a time that suits the patient due to patient already doing dialysis.
[2021-12-03] MEDS: FUROSEMIDE 40 MG TABLET. PO SCH (14:18)
[2021-12-03] MEDS: CHOLECALCIFEROL (VITAMIN D3) 5,000 UNIT CAPSULE PO SCH (14:18)
[2021-12-03] MEDS: VITAMIN B12,B9,B6 COMPLEX 1 TABLET. PO SCH (14:18)
[2021-12-03] MEDS: RANOLAZINE 500 MG TAB.ER.12H PO SCH (14:19)
[2021-12-03] MEDS: LOSARTAN POTASSIUM 50 MG TABLET. PO SCH (14:19)
[2021-12-03] MEDS: PANTOPRAZOLE 40 MG TABLET.DR. PO SCH (14:20)
[2021-12-03] MEDS: INSULIN GLARGINE SYRINGE. SQ SCH (14:26)
[2021-12-03 15:15] VITALS: BP 127/90
--- NOTE | 2021-12-03 16:00 | NUR ---
Pt. discharged to home with Rx, verbalized understanding of discharge instructions.
--- NOTE | 2021-12-07 10:29 | PDOC ---
Provider Note Date of Service: DATE: 12/07/21 TIME: 10:28 Provider Note Disacharge summary dictated.#[id number]. Justifications for Admission Other Justification COLTEN AVILA MD Dec 07, 2021 10:28
--- NOTE | 2021-12-07 11:11 | DS ---
DATE OF DISCHARGE: 12/03/2021 REASON FOR ADMISSION TO THE HOSPITAL: Mechanical fall at home, left ankle fracture, end-stage renal disease, on hemodialysis. PROCEDURES DONE: Left ankle bimalleolar fracture, open reduction and internal fixation with syndesmotic stabilization and other procedures done is hemodialysis. HOSPITAL COURSE: The patient is a 41-year-old female who has a history of diabetes; end-stage renal disease, on hemodialysis; obesity, had a gastric bypass surgery 1 year ago for weight loss. She was trying to get down the steps. She has steps at home to go into the garage to go to dialysis and her leg gave way and she fell and she broke her left ankle and the patient was brought to the hospital and x-ray shows a left malleolar fracture. The patient was seen by manager case/surgery and there is a lot of swelling. Because of her weight and fracture she had to wait for couple of days for the swelling to subside. The patient was then continued on dialysis, elevation, DVT prophylaxis. The patient had surgery on 11/26/2021, left ankle bimalleolar fracture, open reduction and internal fixation with syndesmotic stabilization. The patient was follow up at the hospital, not able to bear weight because of the dialysis and will try to see if she will qualify for shelter because of her insurance, she was not able to and she is not able to ambulate. She will stay for a couple more days in the hospital. Finally, she was able to ambulate with a knee scooter and physical therapy and the patient was discharged home with physical therapy. Continue outpatient physical therapy. Continue dialysis 3 times a week and also continue anticoagulation for 2 weeks with Lovenox and follow with Orthopedic. FINAL DIAGNOSES: 1. Left ankle fracture secondary to mechanical fall at home. The patient had a surgery, open reduction and internal fixation with syndesmotic stabilization. 2. End-stage renal disease, on hemodialysis. 3. Obesity. 4. Diabetes. 5. Recent gastric bypass surgery 1 year ago. DISPOSITION: Home, physical therapy, see [facility] for discharge medications, follow with manager case. RAQUEL/MERARI DR: RAQUEL/serge TID: [id number]
== END 2021-12-03 17:24 | disposition home or self-care (01) | DRG 492 ==
LOC: ER 06:10 → 4 NORTH 11:46
PROVIDERS: ADMIT Internal Medicine; ATTEND Internal Medicine
PROC: 5A09357 Assistance with Respiratory Ventilation, Less than 24 Consecutive Hours, Continuous Positive Airway Pressure (ICD-10-PCS; 2021-11-19)
PROC: 5A1D70Z Performance of Urinary Filtration, Intermittent, Less than 6 Hours Per Day (ICD-10-PCS; 2021-11-20)
PROC: 5A1D70Z Performance of Urinary Filtration, Intermittent, Less than 6 Hours Per Day (ICD-10-PCS; 2021-11-21)
PROC: 5A09357 Assistance with Respiratory Ventilation, Less than 24 Consecutive Hours, Continuous Positive Airway Pressure (ICD-10-PCS; 2021-11-22)
PROC: 5A09357 Assistance with Respiratory Ventilation, Less than 24 Consecutive Hours, Continuous Positive Airway Pressure (ICD-10-PCS; 2021-11-23)
PROC: 5A1D70Z Performance of Urinary Filtration, Intermittent, Less than 6 Hours Per Day (ICD-10-PCS; 2021-11-24)
PROC: 0QSK04Z Reposition Left Fibula with Internal Fixation Device, Open Approach (ICD-10-PCS; 2021-11-26)
PROC: 5A1D70Z Performance of Urinary Filtration, Intermittent, Less than 6 Hours Per Day (ICD-10-PCS; 2021-11-26)
PROC: 0QSH04Z Reposition Left Tibia with Internal Fixation Device, Open Approach (ICD-10-PCS; principal; 2021-11-26 07:30)
PROC: 5A1D70Z Performance of Urinary Filtration, Intermittent, Less than 6 Hours Per Day (ICD-10-PCS; 2021-11-28)
PROC: 5A09357 Assistance with Respiratory Ventilation, Less than 24 Consecutive Hours, Continuous Positive Airway Pressure (ICD-10-PCS; 2021-11-28)
PROC: 5A09357 Assistance with Respiratory Ventilation, Less than 24 Consecutive Hours, Continuous Positive Airway Pressure (ICD-10-PCS; 2021-12-02)
PROC: 5A1D70Z Performance of Urinary Filtration, Intermittent, Less than 6 Hours Per Day (ICD-10-PCS; 2021-12-03)
DX: S82.852A Displaced trimalleolar fracture of left lower leg, initial encounter for closed fracture (principal); N18.6 End stage renal disease; I13.2 Hypertensive heart and chronic kidney disease with heart failure and with stage 5 chronic kidney disease, or end stage renal disease; D64.9 Anemia, unspecified; E10.22 Type 1 diabetes mellitus with diabetic chronic kidney disease; E10.65 Type 1 diabetes mellitus with hyperglycemia; E66.01 Morbid (severe) obesity due to excess calories; E78.5 Hyperlipidemia, unspecified; I25.10 Atherosclerotic heart disease of native coronary artery without angina pectoris; M77.30 Calcaneal spur, unspecified foot; I50.9 Heart failure, unspecified; K59.00 Constipation, unspecified; S82.853A Displaced trimalleolar fracture of unspecified lower leg, initial encounter for closed fracture; W10.9XXA Fall (on) (from) unspecified stairs and steps, initial encounter; X50.1XXA Overexertion from prolonged static or awkward postures, initial encounter; Y92.009 Unspecified place in unspecified non-institutional (private) residence as the place of occurrence of the external cause; Y93.01 Activity, walking, marching and hiking; Z79.01 Long term (current) use of anticoagulants; Z79.4 Long term (current) use of insulin; Z82.49 Family history of ischemic heart disease and other diseases of the circulatory system; Z83.3 Family history of diabetes mellitus; Z86.73 Personal history of transient ischemic attack (TIA), and cerebral infarction without residual deficits; Z98.84 Bariatric surgery status; Z99.2 Dependence on renal dialysis; E21.3 Hyperparathyroidism, unspecified; Z88.8 Allergy status to other drugs, medicaments and biological substances; S93.05XA Dislocation of left ankle joint, initial encounter
CPT/HCPCS: 27810; 36415; 71045; 72131; 73070; 73610; 76000; 80048; 80053; 81025; 82306; 82962; 83735; 85025; 85027; 85610; 85730; 87340; 87426; 93005; 99152; A4209; A4930; A6223; A6253; A6402; A6449; A6450; A6455; C1713; C1769; J0330; J0690; J1100; J1644; J1815; J2212; J2250; J2270; J2405; J2704; J2710; J2795; J3010; J3370; J3490; U0003; U0005; 97110-GP; 97116-GP; 97530-GP; 99285-25; G0378